=== PATIENT | female | born 1990 | race Caucasian/White ===

== ENCOUNTER 2019-03-28 16:36 | Emergency (ER) | payer MEDICAID ==
[~2019-03-28] VITALS: Ht 167.7 cm; Wt 124.5 kg
[~2019-03-28 16:36] MED LIST: AMOX250S5 PO; CARI3CAP PO; DEPO SHOT; HYDR473S16 PO; IBUP-1780 PO; LABE100T2 PO; METH4TAB PO; tetracaine suckers PO
--- NOTE | 2019-03-28 17:51 | Diagnostic Imaging Report ---
PROCEDURE: CT head and CT cervical spine without contrast. TECHNIQUE: Multiple contiguous axial images were obtained through the brain and cervical spine without the use of intravenous contrast. Sagittal and coronal reformations through the cervical spine were then performed. Auto Exposure Controls were utilized during the CT exam to meet ALARA standards for radiation dose reduction. INDICATION: Head and neck pain after fall on wet floor. COMPARISON: None available. FINDINGS: Head: No hyperdense hemorrhage or space-occupying mass. No hydrocephalus or midline shift. No evidence of territorial infarct. Basilar cisterns are patent. No focal scalp swelling. No skull fracture. Paranasal sinuses are clear. Mastoid air cells are hypoplastic. Cervical spine: No acute fracture or traumatic malalignment. Intervertebral disc spaces are normal. Airway is patent. No cervical lymphadenopathy. Visualized thyroid is normal. IMPRESSION: 1. No acute intracranial process. 2. No acute fracture or traumatic malalignment of the cervical spine. Dictated by: Dictated on workstation # [id number]
[2019-03-28 17:52] LABS: WHITE BLOOD COUNT 6.6 10^3/uL (4.3-11.0)
[2019-03-28 17:53] LABS: BASOPHILS # (AUTO) 0.1 10^3/uL (0.0-0.1); BASOPHILS % (AUTO) 1 % (0-10); EOSINOPHILS # (AUTO) 0.2 10^3/uL (0.0-0.3); EOSINOPHILS % (AUTO) 4 % (0-10); HEMATOCRIT 40 % (35-52); HEMOGLOBIN 13.1 G/DL (11.5-16.0); LYMPHOCYTES # (AUTO) 1.9 X 10^3 (1.0-4.0); LYMPHOCYTES % (AUTO) 28 % (12-44); MEAN CORPUSCULAR HEMOGLOBIN 29 PG (25-34); MEAN CORPUSCULAR HGB CONC 33 G/DL (32-36); MEAN CORPUSCULAR VOLUME 89 FL (80-99); MEAN PLATELET VOLUME 9.6 FL (7.4-10.4); MONOCYTES # (AUTO) 0.3 X 10^3 (0.0-1.0); MONOCYTES % (AUTO) 5 % (0-12); NEUTROPHILS # (AUTO) 4.1 X 10^3 (1.8-7.8); NEUTROPHILS % (AUTO) 62 % (42-75); PLATELET COUNT 358 10^3/uL (130-400); RED CELL DISTRIBUTION WIDTH 12.8 % (10.0-14.5)
--- NOTE | 2019-03-28 17:54 | ED Trauma-Multisystem ---
General Chief Complaint: Trauma-Non Activation Stated Complaint: HEAD INJ Nursing Triage Note: Headache, blurred vision, nausea, and vomiting (SIERRA TARIQ MD) History of Present Illness Date Seen by Provider: Mar 28, 2019 Time Seen by Provider: 16:25 Initial Comments The patient is a 29-year-old female with a history of hypertension and who is not on any blood thinners. She presents with concern for a mechanical slip and fall onto her occiput just prior to arrival, leading to an occipital head injury with loss of consciousness and vomiting. Patient states she slipped on the wet linoleum tile floor in her kitchen and fell backwards, striking her head on the ground. There was a loss of consciousness of unknown duration. When the patient returned to consciousness she vomited a total of 4 times, nonbloody, within the first few minutes after awakening. She feels "woozy" and reports mildly blurry vision and also notes some mild discomfort to the base of her neck at posterior midline but otherwise denies significant pain anywhere and is alert and oriented 4 and moves all extremities equally and no lateralizing deficits are grossly noted on initial evaluation in the emergency department. No therapy for discomfort prior to arrival although she did receive Zofran for nausea. Location Injury Occurred: Home (SIERRA TARIQ MD) Allergies and Home Medications Allergies Coded Allergies: No Known Drug Allergies (Unverified , 07/26/10) Home Medications Cariprazine Hydrochloride 3 Mg Capsule, 3 MG PO DAILY, (Reported) Ibuprofen 800 Mg Tablet, 800 MG PO Q8H PRN for PAIN, (Reported) Labetalol Hcl 100 Mg Tablet, 150 MG PO BID, (Reported) Methylprednisolone 4 Mg Tab.ds.pk, 4 MG PO UD Prescribed by: JACKSON ALBERTS on 01/28/16 1527 Ondansetron 4 Mg Tab.rapdis, 4 MG PO Q6H PRN for NAUSEA/VOMITING Prescribed by: FRANSISCA PALACIOS on 03/28/19 1906 [Depo Shot] , EVERY 3 MONTHS, (Reported) Patient Home Medication List Home Medication List Reviewed: Yes (SIERRA TARIQ MD) Review of Systems Review of Systems Constitutional: see HPI (SIERRA TARIQ MD) All Other Systems Reviewed Negative Unless Noted: Yes (Negative excepted noted.) (SIERRA TARQI MD) Past Yunizpm-Nfexlg-Jtzdym Hx Past Med/Social Hx: Reviewed Nursing Past Med/Soc Hx (SIERRA TARIQ MD) Patient Social History Alcohol Use: Occasionally Uses Recreational Drug Use: No Smoking Status: Never a Smoker 2nd Hand Smoke Exposure: No Recent Foreign Travel: No Contact w/Someone Who Travel: No Recent Infectious Disease Expo: No Recent Hopitalizations: No Physical Abuse: No Sexual Abuse: No Mistreated: No Fear: No (SIERRA TARIQ MD) Immunizations Up To Date Date of Pneumonia Vaccine: Jul 05, 2009 (SIERRA TARIQ MD) Seasonal Allergies Seasonal Allergies: No (SIERRA TARIQ MD) Past Medical History Surgeries: Yes (DENTAL, Lithotripsy) Section, Tonsillectomy Respiratory: No Cardiac: Yes Hypertension Neurological: No : No Reproductive Disorders: No Sexually Transmitted Disease: No Gastrointestinal: No Musculoskeletal: No Endocrine: No Cancer: No Psychosocial: No Anxiety, Depression Integumentary: No Blood Disorders: Yes (ANEMIA) (SIERRA TARIQ MD) Family Medical History Reviewed Nursing Family Hx (SIERRA TARIQ MD) Physical Exam Vital Signs Vital Signs - First Documented 03/28/19 16:36 Temp 37.8 Pulse 111 Resp 18 B/P (MAP) 154/106 (122) Pulse Ox 97 O2 Delivery Room Air (FRANSISCA PALACIOS MD) Height, Weight, BMI Height: 5'" Weight: 220lbs. oz. 99.670318nq; 44.00 BMI Method:Stated General Appearance: No Apparent Distress This is a younger female appearing nontoxic and in no acute distress. Head is normocephalic and with mild tenderness without obvious swelling or other acute abnormality noted to her occiput. No other signs of trauma and no signs basilar skull fracture. Neck is supple and with mild tenderness to the base posteriorly without erythema, warmth, swelling, step-offs or deformities. Oropharynx is moist. Lungs are clear to auscultation in all stations. There is a normal S1 and S2 without rubs or gallops and capillary refill is appropriate, less than 2 seconds globally. Abdomen is soft, nontender and nondistended. Skin is warm and dry without cyanosis, clubbing or edema. Psychiatrically, the patient him straight appropriate mood and affect and is alert. The neurologic standpoint, cranial nerves II through XII are intact and there are no lateralizing deficits noted. Speech is normal. Language is normal. Coordination is normal. There is no dysmetria with ytugmm-xq-nknk or ojha-wo-rusv bilaterally. Strength is 5 out of 5 at all joints of bilateral upper and lower extremities. Sensation is intact to light touch in bilateral upper and lower extremities. Ambulation testing is deferred. The patient is alert and oriented 4. Bilateral upper and lower extremities are able to range all joints without discomfort and all are neurovascularly intact. Examination the back reveals no erythema, warmth, swelling, stepoffs or deformities. (SIERRA TARIQ MD) Progress/Results/Core Measures Results/Orders Lab Results Laboratory Tests Test 03/28/19 17:30 Range/Units White Blood Count 6.6 4.3-11.0 10^3/uL Red Blood Count 4.49 4.35-5.85 10^6/uL Hemoglobin 13.1 11.5-16.0 G/DL Hematocrit 40 35-52 % Mean Corpuscular Volume 89 80-99 FL Mean Corpuscular Hemoglobin 29 25-34 PG Mean Corpuscular Hemoglobin Concent 33 32-36 G/DL Red Cell Distribution Width 12.8 10.0-14.5 % Platelet Count 358 130-400 10^3/uL Mean Platelet Volume 9.6 7.4-10.4 FL Neutrophils (%) (Auto) 62 42-75 % Lymphocytes (%) (Auto) 28 12-44 % Monocytes (%) (Auto) 5 0-12 % Eosinophils (%) (Auto) 4 0-10 % Basophils (%) (Auto) 1 0-10 % Neutrophils # (Auto) 4.1 1.8-7.8 X 10^3 Lymphocytes # (Auto) 1.9 1.0-4.0 X 10^3 Monocytes # (Auto) 0.3 0.0-1.0 X 10^3 Eosinophils # (Auto) 0.2 0.0-0.3 10^3/uL Basophils # (Auto) 0.1 0.0-0.1 10^3/uL Neutrophils % (Manual) 62 % Lymphocytes % (Manual) 28 % Monocytes % (Manual) 4 % Eosinophils % (Manual) 3 % Band Neutrophils 3 % Blood Morphology Comment NORMAL Prothrombin Time 12.7 12.2-14.7 SEC INR Comment 0.9 0.8-1.4 Activated Partial Thromboplast Time 29 24-35 SEC Sodium Level 139 135-145 MMOL/L Potassium Level 4.0 3.6-5.0 MMOL/L Chloride Level 106 98-107 MMOL/L Carbon Dioxide Level 24 21-32 MMOL/L Anion Gap 9 5-14 MMOL/L Blood Urea Nitrogen 10 7-18 MG/DL Creatinine 0.89 0.60-1.30 MG/DL Estimat Glomerular Filtration Rate > 60 BUN/Creatinine Ratio 11 Glucose Level 106 H 70-105 MG/DL Calcium Level 9.0 8.5-10.1 MG/DL Corrected Calcium 9.1 8.5-10.1 MG/DL Total Bilirubin 0.4 0.1-1.0 MG/DL Aspartate Amino Transf (AST/SGOT) 18 5-34 U/L Alanine Aminotransferase (ALT/SGPT) 27 0-55 U/L Alkaline Phosphatase 76 40-136 U/L Total Protein 6.9 6.4-8.2 GM/DL Albumin 3.9 3.2-4.5 GM/DL Serum Test, Qualitative NEGATIVE NEGATIVE (FRANSISCA PALACIOS MD) Vital Signs/I&O 03/28/19 03/28/19 16:36 19:13 Temp 37.8 37.8 Pulse 111 95 Resp 18 18 B/P (MAP) 154/106 (122) 152/95 (122) Pulse Ox 97 97 O2 Delivery Room Air (FRANSISCA PALACIOS MD) Blood Pressure Mean: 122 Progress Progress Note : Time: 17:54 Progress Note Patient rules in for head CT by [place] rules and for cervical spinal CT by [facility] criteria. C-collar applied prehospital. Will give medication for discomfort and check head and cervical spinal CT scans and then reevaluate. GUILLERMINA to Dr. Palacios. (SIERRA TARIQ MD) Progress Note : Time: 19:[address] scans were negative for Dr. Tariq of the Head and cervical spine prior to my taking over care of the patient at 1800. Labs came back looking ok without acute significant abnormality on CBC, Chemistry or coags. She is tolerating PO and feels better. Will discharge to home with return precautions and some Zofran ODT if needed for nausea. (FRANSISCA PALACIOS MD) Diagnostic Imaging Diagonstic Imaging: CT Plain Films/CT/US/NM/MRI: c-spine, head Comments NAME: ANTONIO DEWITT [facility] REC#: [id number] PT STATUS: REG ER : 1990 PHYSICIAN: SIERRA TARIQ MD ADMIT DATE: 03/28/19/ER FS Signed Date of Exam:03/28/19 CT HEAD/CERVICAL SPINE WO PROCEDURE: CT head and CT cervical spine without contrast. TECHNIQUE: Multiple contiguous axial images were obtained through the brain and cervical spine without the use of intravenous contrast. Sagittal and coronal reformations through the cervical spine were then performed. Auto Exposure Controls were utilized during the CT exam to meet ALARA standards for radiation dose reduction. INDICATION: Head and neck pain after fall on wet floor. COMPARISON: None available. FINDINGS: Head: No hyperdense hemorrhage or space-occupying mass. No hydrocephalus or midline shift. No evidence of territorial infarct. Basilar cisterns are patent. No focal scalp swelling. No skull fracture. Paranasal sinuses are clear. Mastoid air cells are hypoplastic. Cervical spine: No acute fracture or traumatic malalignment. Intervertebral disc spaces are normal. Airway is patent. No cervical lymphadenopathy. Visualized thyroid is normal. IMPRESSION: 1. No acute intracranial process. 2. No acute fracture or traumatic malalignment of the cervical spine. Dictated by: Dictated on workstation # [id number] Dict: 03/28/191724 Trans: 03/28/191747 [facility] [id number] Interpreted by: MAGALYS CARREON MD Electronically signed by: MAGALYS CARREON MD 03/28/191747 (FRANSISCA PALACIOS MD) Departure Impression Primary Impression: Contusion of occipital region of scalp Qualified Codes: S00.03XA - Contusion of scalp, initial encounter Additional Impression: Concussion with brief loss of consciousness Disposition: 01 HOME, SELF-CARE Condition: Stable Departure-Patient Inst. Decision time for Depature: 19:04 (FRANSISCA PALACIOS MD) Referrals: NO,LOCAL PHYSICIAN (PCP) Primary Care Physician [facility] Patient Instructions: Concussion, Adult (DC), Minor Head Injury (DC) Add. Discharge Instructions: Stay well hydrated and get plenty of rest. Follow up with primary provider for continued concerns Use the dissolving nausea medicine up to every 6 hours as needed to help keep your stomach settled. All discharge instructions reviewed with patient and/or family. Voiced understanding. Scripts Ondansetron (Ondansetron Odt) 4 Mg Tab.rapdis 4 MG PO Q6H PRN for NAUSEA/VOMITING for 2 Days, #8 TAB 0 Refills Prov: FRANSISCA PALACIOS MD 03/28/19 SIERRA TARIQ MD Mar 28, 2019 17:54 FRANSISCA PALACIOS MD Mar 28, 2019 19:06
[2019-03-28 18:11] LABS: INR 0.9 (0.8-1.4); PROTHROMBIN TIME PATIENT 12.7 SEC (12.2-14.7)
[2019-03-28 18:13] LABS: ALKALINE PHOSPHATASE 76 U/L (40-136); BILIRUBIN,TOTAL 0.4 MG/DL (0.1-1.0); BUN/CREATININE RATIO 11; CARBON DIOXIDE 24 MMOL/L (21-32); CHLORIDE 106 MMOL/L (98-107); CREATININE SERUM 0.89 MG/DL (0.60-1.30); GFR ESTIMATED > 60; GLUCOSE 106 MG/DL (70-105); SODIUM 139 MMOL/L (135-145)
[2019-03-28 18:14] LABS: ALBUMIN 3.9 GM/DL (3.2-4.5); TOTAL PROTEIN 6.9 GM/DL (6.4-8.2)
[2019-03-28 18:21] LABS: ALANINE AMINOTRANSFERASE 27 U/L (0-55)
[2019-03-28] MEDS ORDERED: ONDA4TAB11 PO (19:06)
[2019-03-28 19:13] VITALS: BP 152/95
[2019-03-28 19:30] LABS: BAND NEUTROPHILS 3 %; EOSINOPHILS % (MANUAL) 3 %; LYMPHOCYTES % (MANUAL) 28 %; MONOCYTES % (MANUAL) 4 %; NEUTROPHILS % (MANUAL) 62 %; RBC MORPH NORMAL
== END 2019-03-28 19:13 | disposition home or self-care (01) ==
LOC: EDUNIT# 16:36 → ER FS 16:37
DX: S06.0X9A Concussion with loss of consciousness of unspecified duration, initial encounter (principal); S00.03XA Contusion of scalp, initial encounter; I10 Essential (primary) hypertension; F41.9 Anxiety disorder, unspecified; F32.9 Major depressive disorder, single episode, unspecified; D64.9 Anemia, unspecified; Z79.52 Long term (current) use of systemic steroids; Z90.89 Acquired absence of other organs; W01.198A Fall on same level from slipping, tripping and stumbling with subsequent striking against other object, initial encounter
CPT/HCPCS: 36415; 70450; 72125; 80053; 84703; 85007; 85027; 85610; 85730

== ENCOUNTER → 2019-05-17 | Outpatient (CLI) | payer MEDICAID ==
[~2019-05-17] MED LIST changes: +ONDA4TAB11 PO
--- NOTE | 2019-05-17 10:37 | Diagnostic Imaging Report ---
INDICATION: Prior history of left-sided kidney stones. Patient is status post lithotripsy. TIME OF EXAM: 10:23 a.m. COMPARISON: No prior studies are available for comparison. FINDINGS: There is a 4 mm calcific density overlying the lower pole of the right kidney. No definite calculi are identified overlying the left renal shadow, although both renal shadows are somewhat obscured by overlying bowel. No definite calculi are seen within the expected distribution of the ureters. There is a tiny calcification in the right pelvis, likely representing a phlebolith. Bowel gas pattern is nonobstructed. IMPRESSION: Right lower pole renal calculus. No other significant abnormality is seen. Dictated by: Dictated on workstation # [id number]
== END ==
LOC: RAD FS 10:15
PROVIDERS: ATTEND Urology
DX: N20.0 Calculus of kidney (principal); Z98.890 Other specified postprocedural states
CPT/HCPCS: 74018

== ENCOUNTER 2019-11-24 19:56 | Emergency (ER) | payer MEDICAID ==
[~2019-11-24] VITALS: Ht 167.7 cm; Wt 113.6 kg
[2019-11-24 20:01] VITALS: BP 141/92
[2019-11-24] MEDS ORDERED: HYDROcodone/APAP 5 MG/325 MG (LORTAB) TAB PO ONE (20:15)
[2019-11-24] MEDS ORDERED: IBUPROFEN 600 MG (MOTRIN) TAB PO ONE (20:15)
--- NOTE | 2019-11-24 20:17 | ED Lower Extremity ---
General Chief Complaint: Trauma-Non Activation Stated Complaint: KNEE AND HIP PAIN/FALL Source: patient History of Present Illness Date Seen by Provider: November 24, 2019 Time Seen by Provider: 19:45 Initial Comments Patient is a 29-year-old female presents with right hip, thigh, knee and leg pain after falling from standing. Patient states she was walking knocked her over when it began to tao after a cat. Patient states her right knee twisted sideways and that she fell on her back in right side and slid down a hill. Injury occurred just prior to ED arrival. Patient denies hitting her head, loss of consciousness and neck pain. Denies upper extremity pain, chest pain, upper back and abdominal pain. Patient was able to ambulate with assistance prior to ED arrival and arrives by private vehicle. No other acute symptoms or complaints. Patient has control implant in place Onset: just prior to arrival Pain/Injury Location: left hip, left leg, left knee, left thigh Method of Injury: twisted Modifying Factors: Improves With Immobilization Allergies and Home Medications Allergies Coded Allergies: No Known Drug Allergies (Unverified , 07/26/10) Home Medications Cariprazine Hydrochloride 3 Mg Capsule, 3 MG PO DAILY, (Reported) Hydrocodone/Acetaminophen 1 Each Tablet, 1 EACH PO Q6H Prescribed by: CARTER HAAS on 11/24/192017 Ibuprofen 800 Mg Tablet, 800 MG PO Q8H PRN for PAIN, (Reported) Labetalol Hcl 100 Mg Tablet, 150 MG PO BID, (Reported) Methylprednisolone 4 Mg Tab.ds.pk, 4 MG PO UD Prescribed by: JACKSON ALBERTS on 01/28/16 1527 Ondansetron 4 Mg Tab.rapdis, 4 MG PO Q6H PRN for NAUSEA/VOMITING Prescribed by: FRANSISCA PALACIOS on 03/28/19 1906 [Depo Shot] , EVERY 3 MONTHS, (Reported) Patient Home Medication List Home Medication List Reviewed: Yes Review of Systems Constitutional: no symptoms reported EENTM: no symptoms reported Respiratory: no symptoms reported Gastrointestinal: no symptoms reported Genitourinary: no symptoms reported : No Musculoskeletal: see HPI Skin: no symptoms reported Psychiatric/Neurological: No Symptoms Reported Past Rfjgpnx-Hpnnxs-Njyiwb Hx Past Med/Social Hx: Reviewed Nursing Past Med/Soc Hx Patient Social History 2nd Hand Smoke Exposure: No Recent Foreign Travel: No Contact w/Someone Who Travel: No Recent Hopitalizations: No Immunizations Up To Date Date of Pneumonia Vaccine: Jul 05, 2009 Seasonal Allergies Seasonal Allergies: No Past Medical History Surgeries: Yes (DENTAL, Lithotripsy) Section, Tonsillectomy Respiratory: No Cardiac: Yes Hypertension Neurological: No Reproductive Disorders: No Sexually Transmitted Disease: No Gastrointestinal: No Musculoskeletal: No Endocrine: No Cancer: No Psychosocial: No Anxiety, Depression Integumentary: No Blood Disorders: Yes (ANEMIA) Physical Exam Vital Signs Capillary Refill : Height, Weight, BMI Height: 5'" Weight: 220lbs. oz. 99.204414nu; 44.00 BMI Method:Stated General Appearance: WD/WN, no apparent distress HEENT: PERRL/EOMI, TMs normal, pharynx normal Neck: full range of motion, supple, normal inspection Cardiovascular: normal peripheral pulses, regular rate, rhythm Respiratory: chest non-tender, lungs clear Gastrointestinal: non tender, soft Back: normal inspection Hips: right hip pain, right hip soft tissue tenderness, right hip swelling Legs: right leg limited range of motion, right leg pain, right leg soft tissue tenderness, right leg swelling Knees: right knee pain, right knee soft tissue tenderness, right knee swelling Ankles: bilateral ankle non-tender, bilateral ankle normal inspection, bilate ral ankle no evidence of injury Feet: bilateral foot non-tender, bilateral foot normal inspection, bilateral foot normal range of motion Neurologic/Tendon: normal sensation Neurologic/Psychiatric: oriented x 3; No motor weakness, No sensory deficit Skin: normal color Progress/Results/Core Measures Results/Orders My Orders Orders - CARTER HAAS DO Knee 3 View Right (11/24/19 20:08) Femur 2 View Right (11/24/19 20:08) Tibia Fibula 2 View Right (11/24/19 20:08) Hydrocodone/Apap 5/325 Tablet (Lortab 5 (11/24/19 20:15) Ibuprofen Tablet (Motrin Tablet) (11/24/19 20:15) Knee Immobilizer (11/24/19 20:21) Medications Given in ED Current Medications Medications Dose Ordered Sig/Gama Route Start Time Stop Time Status Last Admin Dose Admin Acetaminophen/ Hydrocodone Bitart 1 tab ONCE ONCE PO 11/24/19 20:15 11/24/19 20:16 DC 11/24/19 20:15 1 TAB Ibuprofen 600 mg ONCE ONCE PO 11/24/19 20:15 11/24/19 20:16 DC 11/24/19 20:15 600 MG Departure Communication (Admissions) R femur/knee/tib fib: No obvious displaced fractures Impression Primary Impression: Sprain of knee/leg Disposition: HOME, SELF-CARE Condition: Stable Departure-Patient Inst. Decision time for Depature: 20:15 Referrals: [facility] (PCP) Primary Care Physician PEGGY CHI APRN (Family) Primary Care Physician Patient Instructions: Knee Sprain (DC), Acute Pain, Adult Add. Discharge Instructions: Please take 600 mg of ibuprofen 3 times daily and apply ice to affected areas 20-30 minutes every 2-3 hours. Jonas Paul mobilizer and use crutches as needed for assistance. Take hydrocodone as needed for additional relief at bedtime. Follow- up with your PCP for reevaluation next week if symptoms persist. All discharge instructions reviewed with patient and/or family. Voiced understanding. Scripts Hydrocodone/Acetaminophen (Hydrocodone-Acetamin 5-325 mg) 1 Each Tablet 1 EACH PO Q6H, #12 TAB Prov: CARTER HAAS DO 11/24/19 CARTER HAAS DO November 24, 2019 20:17
[2019-11-24] MEDS ORDERED: HYDR-83 PO (20:18)
--- OUTSIDE RECORDS SUMMARY | 2019-11-24 20:34 | XMS REPORT | Clinical Summary ---
Author Author [facility] Organization [facility] Address Unknown Phone Unavailable Care Team Providers Care Marine Service Operator Name Role Phone Jeanie Phillip RN Unavailable Unavailable Clarence Valdivia RN Unavailable Unavailable Juan Carlos Mora MD PCP Source Comments Some departments are not documenting in the electronic medical record. If you d o not see the information that you expected, contact Release of Information in [facility] [employer] Information Management department at [phone] for further assistan ce in locating additional records.[facility] Allergies No Known Allergies Medications End Date Status Medication Sig Dispensed Refills Start Date Active NO HOME MEDICATIONS 0 Active nystatin (NYSTOP) 100,000 Apply to 30 g 0 unit/g topical powder affected area 8 Four Times Daily. Active labetalol (NORMODYNE) 100 Take 100 mg 0 mg tablet by mouth twice daily. Active leuprolide(+) 3 month Inject 22.5 0 (LUPRON DEPOT) 22.5 mg to area(s) mg/1.5 mL injection as directed once. 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 Garcia with concern for right renal a rtery aneurysm -CTA without evidence of renal artery a neurysm Kidney stone 09/22/2012 Social History Date Tobacco Use Types Packs/Day Years Used Current Some Day Smoker Cigarettes Smokeless Tobacco: Never Used Drinks/Week oz/Week Comments Alcohol Use No Sex Assigned at Date Recorded Not on file Industry Job Start Date Occupation Not on file Not on file Not on file Travel End Travel History Travel Start No recent travel history available. Last Filed Vital Signs Reading Time Taken Comments Vital Sign 136/90 09/22/2012 1:10 PM CDT Blood Pressure 76 09/22/2012 1:10 PM CDT Pulse 37.3 C (99.1 F) 05/27/2008 1:35 AM MANAGEMENT LEAD Temperature - - Respiratory Rate 100% 05/27/2008 1:35 AM MANAGEMENT LEAD Oxygen Saturation - - Inhaled Oxygen Concentration 97.7 kg (215 lb 6.4 oz) 09/22/2012 1:10 PM CDT Weight 167.6 cm (5' 6") 09/22/2012 1:10 PM CDT Height 34.77 09/22/2012 1:10 PM CDT Body Mass Index Plan of Treatment Health Maintenance Due Date Last Done Comments HIV SCREENING 02/05/2004 DTAP/TDAP VACCINES (1 - 2007 Tdap) HEPATITIS C SCREENING 2007 PHYSICAL (COMPREHENSIVE) 2007 EXAM CERVICAL CANCER SCREENING 2010 INFLUENZA VACCINE 04/04/2020 Results Not on filefrom Last 3 Months
--- OUTSIDE RECORDS SUMMARY | 2019-11-24 20:34 | XMS REPORT | Continuity of Care Document ---
Author Author [facility] Kw[facility] Address Unknown Phone Unavailable Care Team Providers Care Crop Research Scientist Name Role Phone Taylor Aguilar RP Unavailable Payers Payer name Insurance type Covered libertarian ID Authorization(s ) [facility] [id number] Problems Condition Effective Dates (start - stop) Clinical Status Abdominal wall mass - Family History Family Member Diagnosis Age At Onset Status Maternal grandfather (Unknown) CVA (Stroke) Y es Maternal grandfather (Unknown) Cancer - melanoma Yes Maternal grandfather (Unknown) Diabetes Y es Social History Social History Element Description Quantity Unknown Allergies, Adverse Reactions, Alerts Substance Reaction Severity Status HYDROCODONE itching Unknown Medications Medication Instructions Dosage Effective Dates (start - sto p) Status labetalol 100 mg tablet take 1 tablet (100MG) by or al route 2 times every day for HTN 100 MG - Active Depo-Provera 150 mg/mL IM Susp inject 1 milliliter (15 0MG) by intramuscular route every 3 months 150 MG - Active ciprofloxacin 500 mg tablet take 1 tablet (500MG) by oral route every 12 hours for UTI 500 MG - Active Immunizations Vaccine Date Status Comments Unknown Results Test Name Date and Time Measure Units Reference Range Abnormal F lag Comments Unknown Vital Signs Date / Time: Height Weight Pulse Rate Blood Pressure Temperat ure Unknown Procedures Procedure Date Unknown Encounters Encounter Location Date Patient Visit [facility] N Patient Visit [facility] N Advance Directives Directive Yes / No Effective Date Resuscitation Yes 05/15/2013 Life Support Yes 05/15/2013 Intubation Yes 05/15/2013 Antibiotics Yes 05/15/2013 IV Fluid Support Yes 05/15/2013 WARNING:The information contained in this section is historical and is provided for information only and does not constitute a legal document or any assurance t hat the information is still accurate. Please verify the information with the ho lder of the legal document before using it for clinical purposes.
--- OUTSIDE RECORDS SUMMARY | 2019-11-24 20:34 | XMS REPORT | Continuity of Care Document ---
Author Author Jackie Burnett [facility] Address Unknown Phone Unavailable Care Team Providers Care Business Excellence Manager Name Role Phone Taylor Aguilar RP Unavailable Payers Payer name Insurance type Covered constitution party ID Authorization(s ) [facility] [id number] Problems Condition Effective Dates (start - stop) Clinical Status Abdominal wall mass - Family History Family Member Diagnosis Age At Onset Status Maternal grandfather (Unknown) CVA (Stroke) Y es Maternal grandfather (Unknown) Cancer - melanoma Yes Maternal grandfather (Unknown) Diabetes Y es Social History Social History Element Description Quantity caffeine soda 3-4 tobacco cigarettes Allergies, Adverse Reactions, Alerts Substance Reaction Severity Status HYDROCODONE itching Unknown Medications Medication Instructions Dosage Effective Dates (start - sto p) Status Depo-Provera 150 mg/mL IM Susp inject 1 milliliter (15 0MG) by intramuscular route every 3 months 150 MG - Active tramadol 50 mg tablet take 1 tablet (50MG) by ora l route every 6 hours as needed 50 MG - No Longer Acti ve oxycodone-acetaminophen 5 mg-325 mg tablet take 1 - 2 tablet by ORAL route every 6 hours as needed 0 - No Longer Active labetalol 100 mg tablet take 1 tablet (100MG) by or al route 2 times every day for HTN 100 MG - Active ciprofloxacin 500 mg tablet take 1 tablet (500MG) by oral route every 12 hours for UTI 500 MG - Active Immunizations Vaccine Date Status Comments Unknown Results Test Name Date and Time Measure Units Reference Range Abnormal F lag Comments Unknown Vital Signs Date / Time: Height Weight Pulse Rate Blood Pressure Temperat ure /14:13:00 67.00 in 231.20 lbs 80 /min 130/88 mm[Hg] 9 9.1 F Procedures Procedure Date Office/outpatient visit, new Encounters Encounter Location Date Patient Visit [facility] Advance Directives Directive Yes / No Effective Date Resuscitation Yes 05/12/2013 Life Support Yes 05/12/2013 Intubation Yes 05/12/2013 Antibiotics Yes 05/12/2013 IV Fluid Support Yes 05/12/2013 WARNING:The information contained in this section is historical and is provided for information only and does not constitute a legal document or any assurance t hat the information is still accurate. Please verify the information with the ho lder of the legal document before using it for clinical purposes.
--- OUTSIDE RECORDS SUMMARY | 2019-11-24 20:34 | XMS REPORT | Continuity of Care Document ---
Author Author [facility] Address Unknown Phone Unavailable Allergies, Adverse Reactions, Alerts Substance Reaction Severity Status hydrocodone itching Unknown Active Medications Medication Instructions Dosage Effective Dates (start - stop) Sta tus Comments Diflucan 150 mg tablet take 1 tablet (150MG) by oral route once 150 MG - Active MS Contin 30 mg tablet,extended release take 1 tablet (30MG) by oral route every 12 hours 30 MG - Active Depo-Provera 150 mg/mL IM Susp inject 1 milliliter (15 0MG) by intramuscular route every 3 months 150 MG - Active labetalol 100 mg tablet take 1 tablet (100MG) by or al route 2 times every day for HTN 100 MG - Active ciprofloxacin 500 mg tablet take 1 tablet (500MG) by oral route every 12 hours for UTI 500 MG - Active tramadol 50 mg tablet take 1 tablet (50MG) by ora l route every 6 hours as needed 50 MG - No Longer Active oxycodone-acetaminophen 5 mg-325 mg tablet take 1 - 2 tablet by ORAL route every 6 hours as needed Not Available - No Longer Active Problems Condition Effective Dates (start - stop) Clinical Status Unknown Procedures Procedure Date Office/outpatient visit, new Results Test Name Date and Time Measure Units Reference Range Abnormal F lag Comments Unknown Advance Directives Directive Yes / No Effective Date File Name Resuscitation Not Answered N/A N/A Life Support Not Answered N/A N/A Intubation Not Answered N/A N/A Antibiotics Not Answered N/A N/A IV Fluid Support Not Answered N/A N/A Tube Feed Not Answered N/A N/A CPR Not Answered N/A N/A Other Directive No N/A N/A WARNING:The information contained in this section is historical and is provided for information only and does not constitute a legal document or any assurance t hat the information is still accurate. Please verify the information with the ho lder of the legal document before using it for clinical purposes. Encounters Encounter Description Practice Location Reason(s) For Visit Diagnose s Date Provider Care Team Members [facility], [address] [place] [address], [address] [place], [place] [address]nee [facility] De Lauren Godoy. [address], [address], [place], [place], [facility], [place]. tel:[phone] [facility] [place] [facility], [address] [place] [address], [facility], [facility] No Lauren Mcclendonyn. [address], [address], [place], [place], [facility], [place]. tel:[phone] [facility] [place] [facility], [address] [place] [address], [facility], [facility] No Foos Taylor HillJayne. [address], [address], [place], [place], [facility], [place]. tel:[phone] [facility] [place] [facility], [address] [place] [address], [facility], [facility] No Foos Taylor HillJayne. [address], [address], [place], [place], [facility], [place]. tel:[phone] [facility] [place] [facility], [address] [place] [address], [facility], [facility] No Foos Taylor Jayne. [address], [address], [place], [place], [facility], [place]. tel:[phone] [facility] [place] [facility], [address] [place] [address], [facility], [facility] No Lauren Godoy. [address] [place] [address], [address], [place], [address], [place]. tel:[phone] Office/outpatient visit, [facility], [address] [place], [address], [place] [facility] Follow Up of hosp (chief complaint) Abdominal wall mass Lauren Godoy. [address] [place] [address], [address], [place], [address], [place]. tel:[phone] Referring Provider: Taylor Aguilar, [address] [place] [address] [address], [place], [address]. tel:[phone] Family History Family Member Diagnosis Age At Onset Maternal grandfather Stroke Maternal grandfather Melanoma Maternal grandfather Diabetes mellitus Immunizations Vaccine Date Status Comments Unknown Payers Payer name Insurance type Covered libertarian ID Authorization(s ) [facility] [id number] Social History Type Description Quantity Date Captured Alcohol Use Details No Caffeine Use Details No Tobacco Use Status Smoking Status Unknown Smoking Tobacco Use Details Cigarette: Years Used 4 Cigarette: 0.5 per day, Pack Year: 2 Alcohol Use Details No Caffeine Use Details soda 3-4 per day Tobacco Use Status Smoking Status Current every day smoker 2012 Smoking Tobacco Use Details Cigarette: Years Used 4 Cigarette: 0.5 per day, Pack Year: 2 Vital Signs Date / Time: Height Weight BMI Pulse Rate Blood Pressure Temperatu re Respiratory Rate Body Surface Area Head Circumference BMI percentile /14:13:00 67.00 in 231.20 lbs 36.21 kg/meter(2) 80 /min 130/88 mm[Hg] 99.1 F 12 /min Chief Complaint And Reason For Visit Unknown Chief Complaint And Reason For Visit Reason For Referral Reason For Referral Unknown Plan Of Care Date Type Action Status Referral Ordered: WOMENS CARE (OBGYN) ordered Date Type Problem Goal Intervention Status Start D ate Unknown. History Of Present Illness Encounter Date Complaint History Of Present I danny Follow Up of hosp Wednesday went to ER for RLQ abd mass. CT shows a mass and they admitted her to bx the mass. The results are not in yet. She was sent home with Tramadol but it is niot working. Hydrocodone makes her itch. Functional Status Encounter Date Functional Assessment Cognitive Assessme nt Unknown Medications Administered Medication Instructions Dosage Effective Dates (start - stop) Sta tus Comments tramadol 50 mg tablet take 1 tablet (50MG) by ora l route every 6 hours as needed 50 MG - No Longer Active oxycodone-acetaminophen 5 mg-325 mg tablet take 1 - 2 tablet by ORAL route every 6 hours as needed Not Available - No Longer Active Instructions Date Instruction Additional Informati on Unknown
--- OUTSIDE RECORDS SUMMARY | 2019-11-24 20:35 | XMS REPORT | Summary of Care ---
Author Organization Unknown Address Unknown Phone Unavailable Care Team Providers Care Beater And Pulper Feeder Name Role Phone None MD, ED PCP Unavailable Encounter Dates Location Diagnoses Discharge Providers Disposition 05/09/2013 [facility] Discharge Home - 0 1 DARINEL RUEDA, ADELINE - [address] Diagnosis: ADELINE TENA MD 05/11/2013 [place], [place] Abdominal Self , [facility] [id number], hematoma Discharge Diagnosis: Abscess Reason for Visit ABDOMINAL WALL MASS, UTI Vital Signs Most recent to 1 oldest [Reference Range]: Temperature 98.6 DegF [96.8-99.7 DegF] (05/11/2013 07:19:18 [facility]) Temp Method Oral (05/11/2013 07:19:18 [facility]) Heart Rate 57 bpm (05/11/2013 07:21:18 [facility]) Pulse Rate [60-100 67 bpm bpm] (05/09/2013 22:00:00 [facility]) Heart Rate Location Auto BP (05/10/2013 07:00:00 [facility]) Pulse Equipment SPO2 (05/11/2013 07:21:18 [facility]) Respiratory Rate 16 br/min [14-20 br/min] (05/11/2013 07:00:00 [facility]) Inet NIBP Systolic 130 mmHg [70-180 mmHg] (05/11/2013 07:19:00 [facility]) Inet NIBP Diastolic 69 mmHg [50-90 mmHg] (05/11/2013 07:19:00 [facility]) NIBP MAP 81 mmHg (05/11/2013 07:19:00 [facility]) BP Location Arm, right (05/11/2013 07:21:18 [facility]) Problem List Condition Effective Dates Status Health Status Informan t Benign essential Active hypertension(Confirm ed) Obesity(Confirmed) Active Allergies, Adverse Reactions, Alerts Status Substance Reaction Severity Active HYDROcodone1 Unknown 1Pt states, "It makes me itch." Medications Medication Instructions Start Date Stop Date Status acetaminophen 325 mg 2 TAB, PO, Q4H (Every 4 hours), PRN 01/2013 Ordered oral tablet Pain, 0 Refill(s) ciprofloxacin 500 mg 1 TAB, PO, Q12H (Every 12 hours), X 01/201305/21/2013 Ordered oral tablet 10 day, # 20 TAB, 0 Refill( s) labetalol 100 mg 1 TAB, PO, BID (2 times a day), 0 05/09/2013 Ordered oral tablet Refill(s) Percocet 5/325 oral 1 TAB, PO, Q6H (Every 6 hours), PRN 05/1105/25/2013 Ordered tablet Pain, # 12 TAB, 0 Refill(s) traMADol 50 mg oral 1 TAB, PO, Q4H (Every 4 hours), PRN 05/1105/28/2013 Ordered tablet pain, # 20 TAB, 1 Refill(s) Zofran 4 mg oral 1 TAB, PO, Q8H (Every 8 hours), PRN 05/11/2013 05/25/2013 Ordered tablet Nausea/Vomiting, # 20 TAB, 1 Refill(s) Results HEMATOLOGY 1 2 3 Most recent to oldest [Reference Range]: 5.5 x10'3/microL (05/11/2013 06:35:43 [facility]) 7.2 x10'3/micro L (05/10/2013 11:00:00 [facility]) 7.6 x10'3/micro L (05/09/2013 16:33:00 [facility]) WBC [4.0-11.0 x10'3/microL] 4.00 x10'6/microL (05/11/2013 06:35:43 [facility]) 4.28 x10'6/micr oL (05/10/2013 11:00:00 [facility]) 4.52 x10'6/micr oL (05/09/2013 16:33:00 [facility]) RBC [3.90-5.60 x10'6/microL] 12.3 g/dL (05/11/2013 06:35:43 [facility]) 13.1 g/dL (05/10/2013 11:00:00 [facility]) 13.9 g/dL (05/09/2013 16:33:00 [facility]) Hgb [12.0-16.0 g/dL] 35 % (05/11/2013 06:35:43 [facility]) 38 % (05/10/2013 11:00:00 [facility]) 40 % (05/09/2013 [facility] Hct [35-47 %] 253 x10'3/microL (05/11/2013 06:35:43 [facility]) 276 x10'3/micro L (05/10/2013 11:00:00 [facility]) 301 x10'3/micro L (05/09/2013 16:33:00 [facility]) Platelet [140-400 x10'3/microL] 88 fL (05/11/2013 06:35:[facility] 88 fL (05/10/2013 11:00:[facility] 88 fL (05/09/2013 16:33:00 [facility]) MCV [81-99 fL] 31 pg (05/11/2013 06:35:43 [facility]) 31 pg (05/10/2013 11:00:00 [facility]) 31 pg (05/09/2013 16:33:00 [facility]) MCH [27-34 pg] 35 g/dL (05/11/2013 06:35:43 [facility]) 35 g/dL (05/10/2013 11:00:00 [facility]) 35 g/dL (05/09/2013 16:33:00 [facility]) MCHC [32-36 g/dL] 13.1 % (05/11/2013 06:35:43 [facility]) 13.1 % (05/10/2013 11:00:00 [facility]) 13.1 % (05/09/2013 16:33:00 [facility]) RDW [<=14.5 %] 8.6 fL (05/11/2013 06:35:43 [facility]) 8.0 fL (05/10/2013 11:00:00 [facility]) 8.6 fL (05/09/2013 16:33:00 [facility]) MPV [6.5-10.4 fL] 54 % (05/11/2013 06:35:43 [facility]) 66 % (05/10/2013 11:00:00 [facility]) 66 % (05/09/2013 16:33:00 [facility]) Neutrophils % [44-76 %] 34 % (05/11/2013 06:35:43 [facility]) 23 % (05/10/2013 11:00:00 [facility]) 24 % (05/09/2013 16:33:00 [facility]) Lymphocytes % [13-43 %] 9 % (05/11/2013 06:35:43 [facility]) 8 % (05/10/2013 11:00:00 [facility]) 7 % (05/09/2013 16:33:00 [facility]) Monocytes % [0-13 %] 4 % (05/11/2013 06:35:43 [facility]) 2 % (05/10/2013 11:00:00 [facility]) 2 % (05/09/2013 16:33:00 [facility]) Eosinophils % [0-7 %] 1 % (05/11/2013 06:35:43 [facility]) 1 % (05/10/2013 11:00:00 [facility]) 1 % (05/09/2013 16:33:00 [facility]) Basophils % [0-3 %] 2.9 x10'3/microL (05/11/2013 06:35:43 [facility]) 4.8 x10'3/micro L (05/10/2013 11:00:00 [facility]) 5.0 x10'3/micro L (05/09/2013 16:33:00 [facility]) Neutrophils Abs [1.4-7.2 x10'3/microL] 1.9 x10'3/microL (05/11/2013 06:35:43 [facility]) 1.6 x10'3/micro L (05/10/2013 11:00:00 [facility]) 1.9 x10'3/micro L (05/09/2013 16:33:00 [facility]) Lymphocytes Abs [1.2-3.4 x10'3/microL] 0.5 x10'3/microL (05/11/2013 06:35:43 [facility]) 0.6 x10'3/micro L (05/10/2013 11:00:00 [facility]) 0.5 x10'3/micro L (05/09/2013 16:33:00 [facility]) Monocytes Abs [0.1-0.6 x10'3/microL] 0.2 x10'3/microL (05/11/2013 06:35:43 [facility]) 0.2 x10'3/micro L (05/10/2013 11:00:00 [facility]) 0.2 x10'3/micro L (05/09/2013 16:33:00 [facility]) Eosinophils Abs [0.0-0.5 x10'3/microL] 0.0 x10'3/microL (05/11/2013 06:35:43 [facility]) 0.0 x10'3/micro L (05/10/2013 11:00:00 [facility]) 0.1 x10'3/micro L (05/09/2013 16:33:00 [facility]) Basophils Abs [0.0-0.2 x10'3/microL] 13.4 second (05/10/2013 11:00:00 [facility]) PT [11.5-15.0 second] 1.0 *NA* (05/10/2013 11:00:00 [facility]) INR CHEMISTRY 1 2 3 Most recent to oldest [Reference Range]: 141 mmol/L (05/11/2013 06:35:43 [facility]) 141 mmol/L (05/10/2013 11:00:00 [facility]) 139 mmol/L (05/09/2013 16:33:00 [facility]) Sodium [136-145 mmol/L] 3.7 mmol/L (05/11/2013 06:35:43 [facility]) 3.8 mmol/L (05/10/2013 11:00:00 [facility]) 4.1 mmol/L (05/09/2013 16:33:00 [facility]) Potassium [3.5-5.1 mmol/L] 108 mmol/L *HI* (05/11/2013 [facility] 108 mmol/L *HI* (05/10/2013 11:00:00 [facility]) 105 mmol/L (05/09/2013 16:33:00 [facility]) Chloride [98-107 mmol/L] 23 mmol/L (05/11/2013 06:35:43 [facility]) 22 mmol/L (05/10/2013 11:00:00 [facility]) 21 mmol/L *LOW* (05/09/2013 16:33:00 [facility]) CO2 [22-29 mmol/L] 11 mmol/L (05/11/2013 06:35:43 [facility]) 11 mmol/L (05/10/2013 11:00:00 [facility]) 13 mmol/L (05/09/2013 16:33:00 [facility]) AGAP [3-19 mmol/L] 98 mg/dL (05/11/2013 06:35:43 [facility]) 106 mg/dL *HI* (05/10/2013 11:00:00 [facility]) 89 mg/dL (05/09/2013 16:33:00 [facility]) Glucose [70-100 mg/dL] 6 mg/dL *LOW* (05/11/2013 06:35:43 [facility]) 7 mg/dL *LOW* (05/10/2013 11:00:00 [facility]) 19 mg/dL (05/09/2013 16:33:00 [facility]) BUN [8-20 mg/dL] 0.5 mg/dL 1 *LOW* (05/11/2013 06:35:43 [facility]) 0.5 mg/dL 2 *LOW* (05/10/2013 11:00:00 [facility]) 0.6 mg/dL 3 *LOW* (05/09/2013 16:33:00 [facility]) Creatinine [0.7-1.2 mg/dL] 8.4 mg/dL *LOW* (05/11/2013 06:35:43 [facility]) 8.7 mg/dL (05/10/2013 11:00:00 [facility]) 9.7 mg/dL (05/09/2013 16:33:00 [facility]) Calcium [8.6-10.2 mg/dL] >110.0 mL/min/1.73 m2 4 *NA* (05/11/2013 06:35:43 [facility]) >110.0 mL/min/1 .73 m2 5 *NA* (05/10/2013 11:00:00 [facility]) >110.0 mL/min/1 .73 m2 6 *NA* (05/09/2013 16:33:00 [facility]) GFR (MDRD) 160.8 mL/min 7 (05/11/2013 06:35:43 [facility]) 160.8 mL/min 8 (05/10/2013 11:00:00 [facility]) 134.0 mL/min 9 (05/09/2013 16:33:00 [facility]) Est CrCL (CG) 3.8 g/dL (05/10/2013 11:00:00 [facility]) 4.2 g/dL (05/09/2013 16:33:00 [facility]) Albumin Level [3.5-5.2 g/dL] 6.7 g/dL (05/10/2013 11:00:00 [facility]) 7.4 g/dL (05/09/2013 16:33:00 [facility]) Total Protein [6.6-8.7 g/dL] 2.0 mg/dL 10 (05/11/2013 06:35:43 [facility]) Magnesium [1.6-2.6 mg/dL] 58 Inter. Units/L (05/10/2013 11:00:00 [facility]) 73 Inter. Units /L (05/09/2013 16:33:00 [facility]) Alk Phos [40-130 Inter. Units/L] 22 Units/L (05/09/2013 16:33:00 [facility]) Lipase [13-60 Units/L] 12 Units/L (05/10/2013 11:00:00 [facility]) 13 Units/L (05/09/2013 16:33:00 [facility]) AST [0-40 Units/L] 13 Inter. Units/L (05/10/2013 11:00:00 [facility]) 15 Inter. Units /L (05/09/2013 16:33:00 [facility]) ALT [0-33 Inter. Units/L] 0.6 mg/dL (05/10/2013 11:00:00 [facility]) 0.3 mg/dL (05/09/2013 16:33:00 [facility] Bili Total [0.0-1.2 mg/dL] 1Interpretive Data: The presence of ketone bodies can cause artificially high results in serum, plasma and urine. 2Interpretive Data: The presence of ketone bodies can cause artificially high results in serum, plasma and urine. 3Interpretive Data: The presence of ketone bodies can cause artificially high results in serum, plasma and urine. 4Result Comment: GFR calculated based on MDRD abbreviated formula. Age(years) Average GFR 20-29 116 ml/min/1.73 m2 30-39 107 ml/min/1.73 m2 40-49 99 ml/min/1.73 m2 50-59 93 ml/min/1.73 m2 60-69 85 ml/min/1.73 m2 70+ 75 ml/min/1.73 m2 Acceptable GFR =>60 ml/min/1.73 m2 Chronic Kidney Disease <60 ml/min/1.73 m2 Kidney Failure <15 ml/min/1.73 m2 5Result Comment: GFR calculated based on MDRD abbreviated formula. Age(years) Average GFR 20-29 116 ml/min/1.73 m2 30-39 107 ml/min/1.73 m2 40-49 99 ml/min/1.73 m2 50-59 93 ml/min/1.73 m2 60-69 85 ml/min/1.73 m2 70+ 75 ml/min/1.73 m2 Acceptable GFR =>60 ml/min/1.73 m2 Chronic Kidney Disease <60 ml/min/1.73 m2 Kidney Failure <15 ml/min/1.73 m2 6Result Comment: GFR calculated based on MDRD abbreviated formula. Age(years) Average GFR 20-29 116 ml/min/1.73 m2 30-39 107 ml/min/1.73 m2 40-49 99 ml/min/1.73 m2 50-59 93 ml/min/1.73 m2 60-69 85 ml/min/1.73 m2 70+ 75 ml/min/1.73 m2 Acceptable GFR =>60 ml/min/1.73 m2 Chronic Kidney Disease <60 ml/min/1.73 m2 Kidney Failure <15 ml/min/1.73 m2 7Result Comment: Estimated Creatinine Clearance calculated based on the Cockcroft-Gault formula. 8Result Comment: Estimated Creatinine Clearance calculated based on the Cockcroft-Gault formula. 9Result Comment: Estimated Creatinine Clearance calculated based on the Cockcroft-Gault formula. 10Interpretive Data: Critical High for OB Patients >=7.0 mg/dl. IMMUNO/SEROLOGY 1 2 3 Most recent to oldest [Reference Range]: Negative 11 (05/09/2013 16:36:00 [facility]) UCG (POC) 11Result Comment: Meter: [id number]~Advertising Executive: [id number] PABLO ACKERMAN URINE 1 2 3 Most recent to oldest [Reference Range]: Yellow (05/09/2013 16:33:00 [facility]) UA Color 5.5 (05/09/2013 16:33:00 [facility]) UA pH [5.0-8.0] 1.015 (05/09/2013 16:33:00 [facility]) UA Spec Grav [1.001-1.030] Negative mg/dL (05/09/2013 16:33:00 [facility] UA Glucose [Negative mg/dL] Negative (05/09/2013 16:33:00 [facility] UA Bili [Negative] Negative mg/dL (05/09/2013 16:33:00 [facility] UA Ketones [Negative mg/dL] Negative (05/09/2013 16:33:00 [facility] UA Blood [Negative] Negative mg/dL (05/09/2013 16:33:00 [facility] UA Protein [Negative mg/dL] Negative (05/09/2013 16:33:00 [facility] UA Nitrite [Negative] Positive *ABN* (05/09/2013 16:33:00 [facility] UA Leuk Est [Negative] 0.2 EU per dL (05/09/2013 16:33:00 [facility]) UA Urobilinogen [0.2-1.0 EU per dL] Clean Catch (05/09/2013 16:33:00 [facility] UA Spec Type 0-5 /hpf (05/09/2013 16:33:00 [facility]) UA WBC [0-5 /hpf] Negative /hpf (05/09/2013 16:33:00 [facility] UA RBC [0-5 /hpf] Many /hpf *ABN* (05/09/2013 16:33:00 [facility] UA Bacteria [Negative /hpf] Few /hpf (05/09/2013 16:33:00 [facility] UA Epithelial [Negative to Few /hpf] Present *ABN* (05/09/2013 16:33:00 [facility] UA Mucous [None Seen] Yes 12 *ABN* (05/09/2013 16:33:00 [facility] Microscopic? Yes *ABN* (05/09/2013 16:33:00 [facility] Culture? 12Interpretive Data: When result = No, Microscopic is not indicated. Specimen is held for 3 days. Call [phone] if further testing is needed. OTHER FLUIDS 1 2 3 Most recent to oldest [Reference Range]: 919056 /mm3 13 *NA* (05/10/2013 15:00:00 [facility] WBC BF 97 % *NA* (05/10/2013 15:00:00 [facility] Neutro BF 3 % *NA* (05/10/2013 15:00:00 [facility]) Lymph BF [id number] /mm3 *NA* (05/10/2013 15:00:00 [facility] RBC BF 13Interpretive Data: WBC includes all nucleated cells, in addition to WBC may include mesothelial cells and macrophages. Medications Administered During Your Visit No data available for this section Immunizations Vaccine Date Refusal Reason influenza virus vaccine 05/09/2013 pneumococcal 23-valent vaccine 05/10/2013
--- OUTSIDE RECORDS SUMMARY | 2019-11-24 20:35 | XMS REPORT | Continuity of Care Document ---
Author Author Jackie Reeder [facility] Address Unknown Phone Unavailable Care Team Providers Care Drywall Contractor Name Role Phone Taylor Aguilar RP Unavailable Payers Payer name Insurance type Covered republican ID Authorization(s ) [facility] [id number] Problems Condition Effective Dates (start - stop) [...] Effective Dates (start - sto p) Status MS Contin 30 mg tablet,extended release take 1 tablet (30MG) by oral route every 12 hours 30 MG - Active labetalol 100 mg tablet [...] hours for UTI 500 MG - Active Diflucan 150 mg tablet take 1 tablet (150MG) by oral route once 150 MG - Active Immunizations Vaccine Date Status Comments Unknown Results Test Name Date and Time Measure Units Reference Range Abnormal F lag Comments Unknown Vital Signs Date / Time: Height Weight Pulse Rate Blood Pressure Temperat ure Unknown Procedures Procedure Date Unknown Encounters Encounter Location Date Patient Visit [facility] Patient Visit [facility] Patient Visit [facility] Advance Directives Directive Yes / No Effective Date Resuscitation Yes 05/23/2013 Life Support Yes 05/23/2013 Intubation Yes 05/23/2013 Antibiotics Yes 05/23/2013 IV Fluid Support Yes 05/23/2013 WARNING:The information contained in this section is historical and is provided for information only and does not constitute a legal document or any assurance t hat the information is still accurate. Please verify the information with the ho lder of the legal document before using it for clinical purposes.
--- OUTSIDE RECORDS SUMMARY | 2019-11-24 20:35 | XMS REPORT | Continuity of Care Document ---
Author Author Jackie Kwok [facility] [place] Address Unknown Phone Unavailable Care Team Providers Care Store Clerk Cashier Name Role Phone Taylor Aguilar RP Unavailable Payers Payer name Insurance type Covered constitution party ID Authorization(s ) [facility] [id number] Problems Condition Effective Dates (start - stop) Clinical Status Abdominal wall mass - Family History Family Member Diagnosis Age At Onset Status Maternal grandfather (Unknown) CVA (Stroke) Y es Maternal grandfather (Unknown) Cancer - melanoma Yes Maternal grandfather (Unknown) Diabetes Y es Social History Social History Element Description Quantity tobacco Allergies, Adverse Reactions, Alerts Substance Reaction Severity [...] hours for UTI 500 MG - Active MS Contin 30 mg tablet,extended release take 1 tablet (30MG) by oral route every 12 hours 30 MG - Active Diflucan 150 mg tablet [...] Unknown Encounters Encounter Location Date Patient Visit [facility] Patient Visit [facility] Patient Visit [facility] Patient Visit [facility] ov- Advance Directives Directive Yes / No Effective Date Resuscitation Yes 05/18/2013 Life Support Yes 05/18/2013 Intubation Yes 05/18/2013 Antibiotics Yes 05/18/2013 IV Fluid Support Yes 05/18/2013 WARNING:The information contained in this section is historical and is provided for information only and does not constitute a legal document or any assurance t hat the information is still accurate. Please verify the information with the ho lder of the legal document before using it for clinical purposes.
--- OUTSIDE RECORDS SUMMARY | 2019-11-24 20:35 | XMS REPORT | Continuity of Care Document ---
Author Author Jackie Reeder [facility] [place] Address Unknown Phone Unavailable Care Team Providers Care Enterprise Systems Architect Name Role Phone Taylor Aguilar RP Unavailable Payers Payer name Insurance type Covered republican ID Authorization(s ) [facility] [id number] Problems Condition Effective Dates (start - stop) [...] Unknown Encounters Encounter Location Date Patient Visit [facility] D Patient Visit [facility] N ov Patient Visit [facility] N Patient Visit [facility] N ov--2012 Advance Directives Directive Yes / No Effective Date Resuscitation Yes 06/20/2013 Life Support Yes 06/20/2013 Intubation Yes 06/20/2013 Antibiotics Yes 06/20/2013 IV Fluid Support Yes 06/20/2013 WARNING:The information contained in this section is historical and is provided for information only and does not constitute a legal document or any assurance t hat the information is still accurate. Please verify the information with the ho lder of the legal document before using it for clinical purposes.
--- OUTSIDE RECORDS SUMMARY | 2019-11-24 20:35 | XMS REPORT | Continuity of Care Document ---
Author Author Jackie Reeder [facility] [place] Address Unknown Phone Unavailable Care Team Providers Care Head Porter Name Role Phone Taylor Aguilar RP Unavailable Payers Payer name Insurance type Covered libertarian ID Authorization(s ) [facility] [id number] Problems Condition Effective Dates (start - stop) [...] Effective Dates (start - sto p) Status Diflucan 150 mg tablet take 1 tablet (150MG) by oral route once 150 MG - Active labetalol 100 mg [...] every 12 hours 30 MG - Active Immunizations Vaccine Date Status Comments Unknown Results Test Name Date and Time Measure Units Reference Range Abnormal F lag Comments Unknown Vital Signs Date / Time: Height Weight Pulse Rate Blood Pressure Temperat ure Unknown Procedures Procedure Date Unknown Encounters Encounter Location Date Patient Visit [facility] Patient Visit [facility] Patient Visit [facility] Advance Directives Directive Yes / No Effective Date Resuscitation Yes 05/24/2013 Life Support Yes 05/24/2013 Intubation Yes 05/24/2013 Antibiotics Yes 05/24/2013 IV Fluid Support Yes 05/24/2013 WARNING:The information contained in this section is historical and is provided for information only and does not constitute a legal document or any assurance t hat the information is still accurate. Please verify the information with the ho lder of the legal document before using it for clinical purposes.
--- OUTSIDE RECORDS SUMMARY | 2019-11-24 20:35 | XMS REPORT | Continuity of Care Document ---
Author Author Jackie Gloria Organization [facility] Address [address] [place] [address] Phone Care Team Providers Care Night Stocker Name Role Phone Taylor Aguilar RP Unavailable Payers Payer name Insurance type Covered green party ID Authorization(s ) [facility] [id number] Problems Condition Effective Dates (start - stop) [...] Unknown Encounters Encounter Location Date Patient Visit [facility] N Patient Visit [facility] N ov-08-2012 Patient Visit [facility] N ov--2012 Patient Visit [facility] N ov--2012 Advance Directives Directive Yes / No Effective Date Resuscitation Yes 05/17/2013 Life Support Yes 05/17/2013 Intubation Yes 05/17/2013 Antibiotics Yes 05/17/2013 IV Fluid Support Yes 05/17/2013 WARNING:The information contained in this section is historical and is provided for information only and does not constitute a legal document or any assurance t hat the information is still accurate. Please verify the information with the ho lder of the legal document before using it for clinical purposes.
--- OUTSIDE RECORDS SUMMARY | 2019-11-24 20:36 | XMS REPORT | Continuity of Care Document ---
Author Author [employer] [facility] Address Unknown Phone Unavailable Care Team Providers Care Talent Advisor Name Role Phone [facility] Unavailable Unavailable Problems Problem Status Onset Date Classification Date Reported Comments Source ABDOMINAL OR PELVIC SWELLING, MASS, OR L Active 05/11/2013 [facility] [place] OTHER ASCITES Active 05/11/2013 [facility] [place] UNSPECIFIED ESSENTIAL HYPERTENSION Active 05/11/2013 [facility] OBESITY, UNSPECIFIED Active 05/11/2013 [facility] ABDOMINAL PAIN, UNSPECIFIED SITE Active 05/11/2013 [facility] NAUSEA WITH VOMITING Active 05/11/2013 [facility] OTHER NONSPECIFIC FINDINGS ON EXAMINATIO Active 05/11/2013 [facility] Discharge Diagnosis: Abdominal hematoma 05/11/2013 Discharge Diagnosis 05/12/2013 [facility] Discharge Diagnosis: Abscess 05/11/2013 Discharge Diagnosis 05/12/2013 [facility] Problem 10/21/2015 [facility] Benign essential hypertension (disorder) Active Problem 05/12/2013 [facility] Obesity (disorder) Active Problem 05/12/2013 [facility] Abdominal wall mass Active [facility] Medications Medication Details Route Status Patient Instructions Ordering Provider Order Date Source Fluconazole 150 MG Oral Tablet take 1 tablet (150MG) by oral route once ORAL Active 05/24/2013 [facility] Morphine Sulfate 30 MG Extended Release Oral Tablet take 1 tablet (30MG) by oral route every 12 hours ORAL Active 05/24/2013 [facility] medroxyprogesterone acetate 150 MG/ML In jectable Suspension inject 1 milliliter (150MG) by intramus cular route every 3 months INTRAMUSCULAR Active 05/12/2013 [facility] labetalol 100 mg tablet take 1 tablet (100MG) by oral route 2 times every day for HTN ORAL Active 05/12/2013 [facility] ciprofloxacin 500 mg tablet ta ke 1 tablet (500MG) by oral route every 12 hours for UTI ORAL Active 05/12/2013 [facility] tramadol 50 mg tablet take 1 t ablet (50MG) by oral route every 6 hours as needed ORAL Active 05/12/2013 [facility] oxycodone-acetaminophen 5 mg-325 mg tablet take 1 - 2 tablet by ORAL route every 6 hours as needed ORAL Active 05/12/2013 [facility] ciprofloxacin 500 mg oral tablet 1 TAB, PO, Q12H (Every 12 hours), X 10 day, # 20 TAB, 0 Refill(s) Active 05/11/2013 [facility] Acetaminophen 325 MG / Oxycodone Hydroch loride 5 MG Oral Tablet [Percocet 5/325] 1 TAB, PO, Q6H (Every 6 hours), PRN Pain , # 12 TAB, 0 Refill(s) Active 05/11/2013 [facility] traMADol 50 mg oral tablet 1 T AB, PO, Q4H (Every 4 hours), PRN pain, # 20 TAB, 1 Refill(s) Active 05/11/2013 [facility] Ondansetron 4 MG Oral Tablet [Zofran] 1 TAB, PO, Q8H (Every 8 hours), PRN Nausea/Vomiting, # 20 TAB, 1 Refill(s) Active 05/11/2013 [facility] acetaminophen 325 mg oral tablet 2 TAB, PO, Q4H (Every 4 hours), PRN Pain, 0 Refill(s) Active 05/11/2013 [facility] labetalol 100 mg oral tablet 1 TAB, PO, BID (2 times a day), 0 Refill(s) Active 05/10/2013 [facility] Allergies, Adverse Reactions, Alerts Substance Category Reaction Severity Reaction type Status Date Reported Comments Source hydrocodone itching drug allergy Active 06/20/2013 [facility] HYDROcodone<sup>1</sup> Assert ion Unknown [place] allergy Active 1Pt states, "It makes me itch." [facility] Immunizations Immunization Date Given Site Status Last Updated Comments Source pneumococcal 23-valent vaccine 05/10/2013 Not [address] [facility] influenza virus vaccine 2012 [facility] Results Order Name Results Value Reference Range Date Interpretation Comments Source CHEMISTRY GFR (MDRD) >110.0 mL/min/1.73 m2 05/11/2013 <sup>4</sup>Result Comment: GFR calculat ed based on MDRD abbreviated formula.

Age(years) Average GFR
20-29 116 ml/min/1.73 m2
30-39 107 ml/min/1.73 m2
40-49 99 ml/min/1.73 m2
50-59 93 ml/min/1.73 m2
60-69 85 ml/min/1.73 m2
70+ 75 ml/min/1.73 m2

Acceptable GFR =>60 ml/min/1.73 m2
Chronic Kidney Disease <60 ml/min/1.73 m2
Kidney Failure <15 ml/min/1.[address] [facility] CHEMISTRY Magnesium 2.0 mg/dL 1.6 - 2.6 05/11/2013 <sup>10</sup>Interpretive Data: Critical High for OB Patients >=7.0 mg/dl. [facility] CHEMISTRY Sodium 141 mmol/L 136 - 145 05/11/2013 [facility] CHEMISTRY Potassium 3.7 mmol/L 3.5 - 5.1 05/11/2013 [facility] CHEMISTRY CO2 23 mmol/L 22 - 29 05/11/2013 [facility] CHEMISTRY Glucose 98 mg/dL 70 - 100 05/11/2013 [facility] CHEMISTRY AGAP 11 mmol/L 3 - 19 05/11/2013 [facility] CHEMISTRY Chloride 108 mmol/L 98 - 107 05/11/2013 [facility] CHEMISTRY BUN 6 mg/dL 8 - 20 05/11/2013 [facility] CHEMISTRY Calcium 8.4 mg/dL 8.6 - 10.2 05/11/2013 [facility] CHEMISTRY Creatinine 0.5 mg/dL 0.7 - 1.2 05/11/2013 <sup>1</sup>Interpretive Data: The prese nce of ketone bodies can cause artificially high results in serum, plasma and urine. [facility] CHEMISTRY Est CrCL (CG) 160.8 mL/min 05/11/2013 <sup>7</sup>Result Comment: Estimated Cr eatinine Clearance calculated based on the Cockcroft-Gault formula. [facility] HEMATOLOGY Eosinophils % 4 % 0 - 7 05/11/2013 [facility] HEMATOLOGY Monocytes % 9 % 0 - 13 05/11/2013 [facility] HEMATOLOGY Eosinophils Abs 0.2 x 10'3/microL 0.0 - 0.5103 05/11/2013 [facility] HEMATOLOGY Lymphocytes Abs 1.9 x 10'3/microL 1.2 - 3.4103 05/11/2013 [facility] HEMATOLOGY Monocytes Abs 0.5 x 10'3/microL 0.1 - 0.6103 05/11/2013 [facility] HEMATOLOGY Neutrophils Abs 2.9 x 10'3/microL 1.4 - 7.2103 05/11/2013 [facility] HEMATOLOGY Basophils Abs 0.0 x 10'3/microL 0.0 - 0.2103 05/11/2013 [facility] HEMATOLOGY Basophils % 1 % 0 - 3 05/11/2013 [facility] HEMATOLOGY Lymphocytes % 34 % 13 - 43 05/11/2013 [facility] HEMATOLOGY Neutrophils % 54 % 44 - 76 05/11/2013 [facility] HEMATOLOGY MCV 88 fL 81 - 99 05/11/2013 [facility] HEMATOLOGY Hct 35 % 35 - 47 05/11/2013 [facility] HEMATOLOGY MCH 31 pg 27 - 34 05/11/2013 [facility] HEMATOLOGY WBC 5.5 x 10'3/microL 4.0 - 11.0103 05/11/2013 [facility] HEMATOLOGY RBC 4.00 x10'6/microL 3.90 - 5.38966 05/11/2013 [facility] HEMATOLOGY MPV 8.6 fL 6.5 - 10.4 05/11/2013 [facility] HEMATOLOGY Platelet 253 x 10'3/microL 140 - [id number] 05/11/2013 [facility] HEMATOLOGY RDW 13.1 % <=14.5 % 05/11/2013 [facility] HEMATOLOGY Hgb 12.3 g/dL 12.0 - 16.0 05/11/2013 [facility] HEMATOLOGY MCHC 35 g/dL 32 - 36 05/11/2013 [facility] Renal Funct Index (GFR)Glomerular Fi ltration Rate >110.0 mL/min/1.73 m2 05/11/2013 NA GFR calculated based on MDR D abbreviated formula.

Age(years) Average GFR
20-29 116 ml/min/1.73 m2
30-39 107 ml/min/1.73 m2
40-49 99 ml/min/1.73 m2
50-59 93 ml/min/1.73 m2
60-69 85 ml/min/1.73 m2
70+ 75 ml/min/1.73 m2

Acceptable GFR =>60 ml/min/1.73 m2
Chronic Kidney Disease <60 ml/min/1.73 m2
Kidney Failure <15 ml/min/1.73 m2
[facility] BMP Sodium 141 mmol/L 136 - 145 05/11/2013 N [facility] BMP Potassium 3.7 mmol/L 3.5 - 5.1 05/11/2013 N [facility] BMP Chloride 108 mmol/L 98 - 107 05/11/2013 H [facility] BMP CO2 23 mmol/L 22 - 29 05/11/2013 N [facility] BMP AGAP 11 mmol/L 3 - 19 05/11/2013 N [facility] [place] BMP Glucose 98 mg/dL 70 - 100 05/11/2013 N [facility] [place] BMP BUN 6 mg/dL 8 - 20 05/11/2013 [facility] [place] BMP Creatinine 0.5 mg/dL 0.7 - 1.2 05/11/2013 L The presence of ketone bodies can cause artificially high results in serum, plasma and urine.
[facility] [place] BMP Calcium 8.4 mg/dL 8.6 - 10.2 05/11/2013 L [facility] [place] Magnesium Magnesium 2.0 mg/dL 1.6 - 2.6 05/11/2013 N Critical High for OB Patients >=7.0 mg/d l.
[facility] [place] Auto Diff Neutrophils 54 % 44 - 76 05/11/2013 [facility] [place] Auto Diff Lymphocytes % 34 % 13 - 43 05/11/2013 [facility] [place] Auto Diff Monocytes % 9 % 0 - 13 05/11/2013 [facility] [place] Auto Diff Eosinophils % 4 % 0 - 7 05/11/2013 [facility] [place] Auto Diff Basophils % 1 % 0 - 3 05/11/2013 [facility] [place] Auto Diff Neutro Absolute 2.9 x1 0'3/microL 1.4 - 7.2 05/11/2013 [facility] [place] Auto Diff Lymph Absolute 1.9 x1 0'3/microL 1.2 - 3.4 05/11/2013 N [facility] [place] Auto Diff [place] Absolute 0.5 x1 0'3/microL 0.1 - 0.6 05/11/2013 N [facility] [place] Auto Diff Eos Absolute 0.2 x1 0'3/microL 0.0 - 0.5 05/11/2013 N [facility] [place] Auto Diff Basophil Absolute 0.0 x1 0'3/microL 0.0 - 0.2 05/11/2013 N [facility] [place] CBC/Diff WBC 5.5 x10'3/micro L 4.0 - 11.0 05/11/2013 N [facility] CBC/Diff RBC 4.00 x10'6/micr oL 3.90 - 5.60 05/11/2013 N [facility] CBC/Diff Hgb 12.3 g/dL 12.0 - 16.0 05/11/2013 N [facility] CBC/Diff Hct 35 % 35 - 47 05/11/2013 N [facility] CBC/Diff MCV 88 fL 81 - 99 05/11/2013 N [facility] CBC/Diff MCH 31 pg 27 - 34 05/11/2013 N [facility] CBC/Diff MCHC 35 g/dL 32 - 36 05/11/2013 N [facility] CBC/Diff RDW 13.1 % - <=14.5 05/11/2013 N [facility] CBC/Diff Platelet 253 x10 '3/microL 140 - 400 05/11/2013 N [facility] CBC/Diff MPV 8.6 fL 6.5 - 10.4 05/11/2013 N [facility] OTHER FLUIDS Lymph BF 3 % 05/10/2013 [facility] OTHER FLUIDS Neutro BF 97 % 05/10/2013 [facility] OTHER FLUIDS WBC BF 230 285 /mm3 05/10/2013 <sup>13</sup>Interpretive Data: WBC incl udes all nucleated cells, in addition to WBC may include mesothelial cells and macrophages. [facility] OTHER FLUIDS RBC BF 199 5996 /mm3 05/10/2013 [facility] CHEMISTRY AST 12 Units/L 0 - 40 05/10/2013 [facility] CHEMISTRY Bili Total 0.6 mg/dL 0.0 - 1.2 05/10/2013 [facility] CHEMISTRY ALT 13 [iU]/d 0 - 33. 05/10/2013 [facility] CHEMISTRY Alk Phos 58 [iU]/d 40 - 130. 05/10/2013 [facility] CHEMISTRY Creatinine 0.5 mg/dL 0.7 - 1.2 05/10/2013 <sup>2</sup>Interpretive Data: The prese nce of ketone bodies can cause artificially high results in serum, plasma and urine. [facility] CHEMISTRY BUN 7 mg/dL 8 - 20 05/10/2013 [facility] CHEMISTRY Albumin Level 3.8 g/ dL 3.5 - 5.2 05/10/2013 [facility] CHEMISTRY Total Protein 6.7 g/ dL 6.6 - 8.7 05/10/2013 [facility] CHEMISTRY Calcium 8.7 mg/dL 8.6 - 10.2 05/10/2013 [facility] CHEMISTRY Glucose 106 mg/dL 70 - 100 05/10/2013 [facility] CHEMISTRY CO2 22 mmol/L 22 - 29 05/10/2013 [facility] CHEMISTRY AGAP 11 mmol/L 3 - 19 05/10/2013 [facility] CHEMISTRY Sodium 141 mmol/L 136 - 145 05/10/2013 [facility] CHEMISTRY Potassium 3.8 mmol/L 3.5 - 5.1 05/10/2013 [facility] CHEMISTRY Chloride 108 mmol/L 98 - 107 05/10/2013 [facility] CHEMISTRY GFR (MDRD) >110.0 mL/min/1.73 m2 05/10/2013 <sup>5</sup>Result Comment: GFR calculat ed based on MDRD abbreviated formula.

Age(years) Average GFR
20-29 116 ml/min/1.73 m2
30-39 107 ml/min/1.73 m2
40-49 99 ml/min/1.73 m2
50-59 93 ml/min/1.73 m2
60-69 85 ml/min/1.73 m2
70+ 75 ml/min/1.73 m2

Acceptable GFR =>60 ml/min/1.73 m2
Chronic Kidney Disease <60 ml/min/1.73 m2
Kidney Failure <15 ml/min/1.[address] [facility] CHEMISTRY Est CrCL (CG) 160.8 mL/min 05/10/2013 <sup>8</sup>Result Comment: Estimated Cr eatinine Clearance calculated based on the Cockcroft-Gault formula. [facility] HEMATOLOGY RDW 13.1 % <=14.5 % 05/10/2013 [facility] HEMATOLOGY MCHC 35 g/dL 32 - 36 05/10/2013 [facility] HEMATOLOGY MCH 31 pg 27 - 34 05/10/2013 [facility] HEMATOLOGY MCV 88 fL 81 - 99 05/10/2013 [facility] HEMATOLOGY WBC 7.2 x 10'3/microL 4.0 - 11.0103 05/10/2013 [facility] HEMATOLOGY Platelet 276 x 10'3/microL 140 - [id number] 05/10/2013 [facility] HEMATOLOGY RBC 4.28 x10'6/microL 3.90 - 5.07977 05/10/2013 [facility] HEMATOLOGY MPV 8.0 fL 6.5 - 10.4 05/10/2013 [facility] HEMATOLOGY Hgb 13.1 g/dL 12.0 - 16.0 05/10/2013 [facility] HEMATOLOGY Hct 38 % 35 - 47 05/10/2013 [facility] HEMATOLOGY Eosinophils % 2 % 0 - 7 05/10/2013 [facility] HEMATOLOGY Monocytes % 8 % 0 - 13 05/10/2013 [facility] HEMATOLOGY Neutrophils % 66 % 44 - 76 05/10/2013 [facility] HEMATOLOGY Lymphocytes % 23 % 13 - 43 05/10/2013 [facility] HEMATOLOGY Basophils Abs 0.0 x 10'3/microL 0.0 - 0.2103 05/10/2013 [facility] HEMATOLOGY Monocytes Abs 0.6 x 10'3/microL 0.1 - 0.6103 05/10/2013 [facility] HEMATOLOGY Eosinophils Abs 0.2 x 10'3/microL 0.0 - 0.5103 05/10/2013 [facility] HEMATOLOGY Neutrophils Abs 4.8 x 10'3/microL 1.4 - 7.2103 05/10/2013 [facility] HEMATOLOGY Basophils % 1 % 0 - 3 05/10/2013 [facility] HEMATOLOGY Lymphocytes Abs 1.6 x 10'3/microL 1.2 - 3.4103 05/10/2013 [facility] HEMATOLOGY PT 13.4 s 11.5 - 15.0 05/10/2013 [facility] HEMATOLOGY INR 1.0 05/10/2013 [facility] Diff BF Neutro BF 97 % 05/10/2013 NA [facility] Diff BF Lymph BF 3 % 05/10/2013 NA [facility] Cell Ct BF BF Type abdom inal wall aspirate 05/10/2013 NA [facility] Cell Ct BF RBC BF [id number] /mm3 05/10/2013 NA [facility] Cell Ct BF WBC BF 451501 /mm3 05/10/2013 NA WBC includes all nucleated cells, in add ition to WBC may include mesothelial cells and macrophages.
[facility] Cell Ct BF Differential? Fluid Yes 05/10/2013 N [facility] Culture Anaerobic Culture Anaerobic

<b>Final:</b>
No anaerobic organisms isolated.
05/10/2013 [facility] Culture Body Fluid Culture Body Flui d

<b>Final:</b>
No growth at 3 days.
05/10/2013 [facility] C YULISSA C YULISSA
[facility] [address]
[place] [address]

M i c r o b i o l o g y

PROCEDURE: Culture Body Fluid
SOURCE: Abdominal Fl COLLECTED: 05/10/2013 15:00
BODY SITE: Abdominal Wall RECEIVED: 05/10/2013 15:43
FREE TEXT SOURCE: STARTED: 05/10/2013 15:43

FINAL REPORT

Final Report
Verified:05/13/2013 10:27
No growth at 3 days.&lt ;br/>

<b r/>
PROCEDURE: Culture Anaerobic
SOURCE: Abdominal Fl COLLECTED: 05/10/2013 15:00
BODY SITE: Abdominal Wall RECEIVED: 05/10/2013 15:43
FREE TEXT SOURCE: STARTED: 05/10/2013 15:43

FINAL REPORT

Final Report
Verified:05/13/2013 10:52
No anaerobic organisms isolated.
<br/&a mp;gt;

< br/> PROCEDURE: Gram Stain
SOURCE: Abdominal Fl COLLECTED: 05/10/2013 15:00
BODY SITE: Abdominal Wall RECEIVED: 05/10/2013 15:43
FREE TEXT SOURCE: STARTED: 05/10/2013 15:43

STAINS / PREPARATIONS *

Gram Stain Report
Verified:05/11/2013 08:11
No organisms seen.
Many White blood Cells
&amp ;lt;br/>

<br/ > 05/10/2013 [facility] C Body Fld C Body Fld
[facility] [address]
[place] [address]

M i c r o b i o l o g y

PROCEDURE: Culture Body Fluid
SOURCE: Abdominal Fl COLLECTED: 05/10/2013 15:00
BODY SITE: Abdominal Wall RECEIVED: 05/10/2013 15:43
FREE TEXT SOURCE: STARTED: 05/10/2013 15:43

FINAL REPORT

Final Report
Verified:05/13/2013 10:27
No growth at 3 days.&lt ;br/>

<b r/>
PROCEDURE: Culture Anaerobic
SOURCE: Abdominal Fl COLLECTED: 05/10/2013 15:00
BODY SITE: Abdominal Wall RECEIVED: 05/10/2013 15:43
FREE TEXT SOURCE: STARTED: 05/10/2013 15:43

PRELIMINARY REPORT

Preliminary Report
Verified:05/12/2013 09:23
No anaerobic organisms isolated at 48 hours.< br/>

PROCEDURE: Gram Stain
SOURCE: Abdominal Fl COLLECTED: 05/10/2013 15:00
BODY SITE: Abdominal Wall RECEIVED: 05/10/2013 15:43
FREE TEXT SOURCE: STARTED: 05/10/2013 15:43

STAINS / PREPARATIONS

Gram Stain Report
Verified:05/11/2013 08:11
No organisms seen.
Many White blood Cell s

< br/> 05/10/2013 [facility] Gram Stain Gram Stain

<b>GS:</b>
No organisms seen.
Many White blood Cells
05/10/2013 [facility] Gram Stain Gram Stain
[facility] [address]
[place] [address]

M i c r o b i o l o g y

PROCEDURE: Culture Body Fluid
SOURCE: Abdominal Fl COLLECTED: 05/10/2013 15:00
BODY SITE: Abdominal Wall RECEIVED: 05/10/2013 15:43
FREE TEXT SOURCE: STARTED: 05/10/2013 15:43

PRELIMINARY REPORT

Preliminary Report
Verified:05/11/2013 07:09
No growth&l t;br/>

< br/>
PROCEDURE: Culture Anaerobic
SOURCE: Abdominal Fl COLLECTED: 05/10/2013 15:00
BODY SITE: Abdominal Wall RECEIVED: 05/10/2013 15:43
FREE TEXT SOURCE: STARTED: 05/10/2013 15:43

PRELIMINARY REPORT

Preliminary Report
Verified:05/10/2013 16:01
Culture in progress
<br/&a mp;gt;

< br/> PROCEDURE: Gram Stain
SOURCE: Abdominal Fl COLLECTED: 05/10/2013 15:00
BODY SITE: Abdominal Wall RECEIVED: 05/10/2013 15:43
FREE TEXT SOURCE: STARTED: 05/10/2013 15:43

STAINS / PREPARATIONS *

Gram Stain Report
Verified:05/11/2013 08:11
No organisms seen.
Many White blood Cells
&amp ;lt;br/>

<br/ > 05/10/2013 [facility] Renal Funct Index (GFR)Glomerular Fi ltration Rate >110.0 mL/min/1.73 m2 05/10/2013 NA GFR calculated based on MDR D abbreviated formula.

Age(years) Average GFR
20-29 116 ml/min/1.73 m2
30-39 107 ml/min/1.73 m2
40-49 99 ml/min/1.73 m2
50-59 93 ml/min/1.73 m2
60-69 85 ml/min/1.73 m2
70+ 75 ml/min/1.73 m2

Acceptable GFR =>60 ml/min/1.73 m2
Chronic Kidney Disease <60 ml/min/1.73 m2
Kidney Failure <15 ml/min/1.73 m2
[facility] CMP Sodium 141 mmol/L 136 - 145 05/10/2013 N [facility] CMP Potassium 3.8 mmol/L 3.5 - 5.1 05/10/2013 N [facility] CMP Chloride 108 mmol/L 98 - 107 05/10/2013 H [facility] CMP CO2 22 mmol/L 22 - 29 05/10/2013 N [facility] CMP AGAP 11 mmol/L 3 - 19 05/10/2013 N [facility] CMP Glucose 106 mg/dL 70 - 100 05/10/2013 H [facility] CMP BUN 7 mg/dL 8 - 20 05/10/2013 L [facility] CMP Creatinine 0.5 mg/dL 0.7 - 1.2 05/10/2013 L The presence of ketone bodies can cause artificially high results in serum, plasma and urine.
[facility] CMP Calcium 8.7 mg/dL 8.6 - 10.2 05/10/2013 N [facility] CMP Total Protein 6.7 g/dL 6.6 - 8.7 05/10/2013 N [facility] CMP Albumin Level 3.8 g/dL 3.5 - 5.2 05/10/2013 N [facility] CMP Bili Total 0.6 mg/dL 0.0 - 1.2 05/10/2013 N [facility] CMP Alk Phos 58 Inter. Units/L 40 - 130 05/10/2013 N [facility] CMP AST 12 Units/L 0 - 40 05/10/2013 N [facility] CMP ALT 13 Inter. Units/L 0 - 33 05/10/2013 N [facility] Protime PT 13.4 second 11.5 - 15.0 05/10/2013 N [facility] Protime INR 1.0 05/10/2013 NA [facility] Culture Blood Culture Blood

<b>Final:</b>
No growth at 5 days.
05/10/2013 [facility] C Blood C Blood
[facility] [address]
[place] [address]

M i c r o b i o l o g y

PROCEDURE: Culture Blood
SOURCE: Blood COLLECTED: 05/10/2013 11:20
BODY SITE: Forearm Left Draw RECEIVED: 05/10/2013 11:36
FREE TEXT SOURCE: STARTED: 05/10/2013 11:36

FINAL REPORT

Final Report
Verified:05/15/2013 19:00
No growth at 5 days.

___
05/10/2013 [facility] [place] Auto Diff Neutrophils 66 % 44 - 76 05/10/2013 N [facility] [place] Auto Diff Lymphocytes % 23 % 13 - 43 05/10/2013 N [facility] [place] Auto Diff Monocytes % 8 % 0 - 13 05/10/2013 N [facility] [place] Auto Diff Eosinophils % 2 % 0 - 7 05/10/2013 N [facility] [place] Auto Diff Basophils % 1 % 0 - 3 05/10/2013 N [facility] [place] Auto Diff Neutro Absolute 4.8 x1 0'3/microL 1.4 - 7.2 05/10/2013 N [facility] [place] Auto Diff Lymph Absolute 1.6 x1 0'3/microL 1.2 - 3.4 05/10/2013 N [facility] [place] Auto Diff [place] Absolute 0.6 x1 0'3/microL 0.1 - 0.6 05/10/2013 N [facility] [place] Auto Diff Eos Absolute 0.2 x1 0'3/microL 0.0 - 0.5 05/10/2013 N [facility] [place] Auto Diff Basophil Absolute 0.0 x1 0'3/microL 0.0 - 0.2 05/10/2013 N [facility] [place] CBC/Diff WBC 7.2 x10'3/micro L 4.0 - 11.0 05/10/2013 N [facility] [place] CBC/Diff RBC 4.28 x10'6/micr oL 3.90 - 5.60 05/10/2013 N [facility] [place] CBC/Diff Hgb 13.1 g/dL 12.0 - 16.0 05/10/2013 N [facility] [place] CBC/Diff Hct 38 % 35 - 47 05/10/2013 N [facility] CBC/Diff MCV 88 fL 81 - 99 05/10/2013 N [facility] CBC/Diff MCH 31 pg 27 - 34 05/10/2013 N [facility] CBC/Diff MCHC 35 g/dL 32 - 36 05/10/2013 N [facility] CBC/Diff RDW 13.1 % - <=14.5 05/10/2013 N [facility] CBC/Diff Platelet 276 x10 '3/microL 140 - 400 05/10/2013 N [facility] CBC/Diff MPV 8.0 fL 6.5 - 10.4 05/10/2013 N [facility] Culture Blood Culture Blood

<b>Final:</b>
No growth at 5 days.
05/10/2013 [facility] C Blood C Blood
[facility] [address]
[place] [address]

M i c r o b i o l o g y

PROCEDURE: Culture Blood
SOURCE: Blood COLLECTED: 05/10/2013 11:00
BODY SITE: Wrist Left Draw RECEIVED: 05/10/2013 11:36
FREE TEXT SOURCE: STARTED: 05/10/2013 11:36

FINAL REPORT

Final Report
Verified:05/15/2013 19:00
No growth at 5 days.<br/& amp;gt;

05/10/2013 [facility] [facility] IMMUNO/SEROLOGY UCG (POC) Negative <sup>11</sup>
(05/09/2013 16:36:00 Nelda/[place]) 05/09/2013 <sup>11</sup>Result Comment: Meter: [id number]~Battery Mechanic: [id number] PABLO ACKERMAN [facility] CHEMISTRY Est CrCL (CG) 134.0 mL/min 05/09/2013 <sup>9</sup>Result Comment: Estimated Cr eatinine Clearance calculated based on the Cockcroft-Gault formula. [facility] CHEMISTRY Lipase 22 Units/L 13 - 60 05/09/2013 [facility] er CHEMISTRY Total Protein 7.4 g/ dL 6.6 - 8.7 05/09/2013 [facility] er CHEMISTRY Calcium 9.7 mg/dL 8.6 - 10.2 05/09/2013 [facility] er CHEMISTRY BUN 19 mg/dL 8 - 20 05/09/2013 [facility] er CHEMISTRY Creatinine 0.6 mg/dL 0.7 - 1.2 05/09/2013 <sup>3</sup>Interpretive Data: The prese nce of ketone bodies can cause artificially high results in serum, plasma and urine. [facility] CHEMISTRY Glucose 89 mg/dL 70 - 100 05/09/2013 [facility] er CHEMISTRY Albumin Level 4.2 g/ dL 3.5 - 5.2 05/09/2013 [facility] er CHEMISTRY AGAP 13 mmol/L 3 - 19 05/09/2013 [facility] er CHEMISTRY CO2 21 mmol/L 22 - 29 05/09/2013 [facility] er CHEMISTRY Chloride 105 mmol/L 98 - 107 05/09/2013 [facility] er CHEMISTRY ALT 15 [iU]/d 0 - 33. 05/09/2013 [facility] er CHEMISTRY AST 13 Units/L 0 - 40 05/09/2013 [facility] er CHEMISTRY Alk Phos 73 [iU]/d 40 - 130. 05/09/2013 [facility] er CHEMISTRY Bili Total 0.3 mg/dL 0.0 - 1.2 05/09/2013 [facility] er CHEMISTRY Potassium 4.1 mmol/L 3.5 - 5.1 05/09/2013 [facility] er CHEMISTRY Sodium 139 mmol/L 136 - 145 05/09/2013 [facility] er CHEMISTRY GFR (MDRD) >110.0 mL/min/1.73 m2 05/09/2013 <sup>6</sup>Result Comment: GFR calculat ed based on MDRD abbreviated formula.

Age(years) Average GFR
20-29 116 ml/min/1.73 m2
30-39 107 ml/min/1.73 m2
40-49 99 ml/min/1.73 m2
50-59 93 ml/min/1.73 m2
60-69 85 ml/min/1.73 m2
70+ 75 ml/min/1.73 m2

Acceptable GFR =>60 ml/min/1.73 m2
Chronic Kidney Disease <60 ml/min/1.73 m2
Kidney Failure <15 ml/min/1.[address] [facility] HEMATOLOGY MPV 8.6 fL 6.5 - 10.4 05/09/2013 [facility] er HEMATOLOGY Platelet 301 x 10'3/microL 140 - [id number] 05/09/2013 [facility] er HEMATOLOGY RBC 4.52 x10'6/microL 3.90 - 5.56182 05/09/2013 [facility] HEMATOLOGY Hgb 13.9 g/dL 12.0 - 16.0 05/09/2013 [facility] HEMATOLOGY Hct 40 % 35 - 47 05/09/2013 [facility] HEMATOLOGY WBC 7.6 x 10'3/microL 4.0 - 11.0103 05/09/2013 [facility] HEMATOLOGY MCH 31 pg 27 - 34 05/09/2013 [facility] HEMATOLOGY MCV 88 fL 81 - 99 05/09/2013 [facility] HEMATOLOGY RDW 13.1 % <=14.5 % 05/09/2013 [facility] HEMATOLOGY MCHC 35 g/dL 32 - 36 05/09/2013 [facility] HEMATOLOGY Monocytes Abs 0.5 x 10'3/microL 0.1 - 0.6103 05/09/2013 [facility] HEMATOLOGY Monocytes % 7 % 0 - 13 05/09/2013 [facility] HEMATOLOGY Neutrophils Abs 5.0 x 10'3/microL 1.4 - 7.2103 05/09/2013 [facility] HEMATOLOGY Basophils % 1 % 0 - 3 05/09/2013 [facility] HEMATOLOGY Eosinophils % 2 % 0 - 7 05/09/2013 [facility] HEMATOLOGY Lymphocytes % 24 % 13 - 43 05/09/2013 [facility] HEMATOLOGY Basophils Abs 0.1 x 10'3/microL 0.0 - 0.2103 05/09/2013 [facility] HEMATOLOGY Lymphocytes Abs 1.9 x 10'3/microL 1.2 - 3.4103 05/09/2013 [facility] HEMATOLOGY Eosinophils Abs 0.2 x 10'3/microL 0.0 - 0.5103 05/09/2013 [facility] HEMATOLOGY Neutrophils % 66 % 44 - 76 05/09/2013 [facility] er URINE UA Mucous Present <b r/>*ABN*
(05/09/2013 16:33:00 N[place]da/[place]) None Seen 05/09/2013 [facility] URINE UA Bacteria Many /hpf Negative /hpf 05/09/2013 [facility] URINE UA Epithelial Few /hpf Negative to Few /hpf 05/09/2013 [facility] URINE UA RBC Negative /hpf 0 - 5 05/09/2013 [facility] URINE UA WBC 0-5 /hpf 0 - 5 05/09/2013 [facility] URINE UA Color Yellow
(05/09/2013 16:33:00 N[place]) 05/09/2013 [facility] URINE UA Spec Type Clean Catc h
(05/09/2013 16:33:00 N[place]) 05/09/2013 [facility] URINE UA Ketones Negative m g/dL Negative mg/dL 05/09/2013 [facility] URINE UA Bili Negative < br/>(05/09/2013 16:33:00 N[place]) Negative 05/09/2013 [facility] URINE UA Glucose Negative m g/dL Negative mg/dL 05/09/2013 [facility] URINE UA pH 5.5 5.0 - 8.0 05/09/2013 [facility] URINE UA Spec Grav 1.015 <br/ >(05/09/2013 16:33:00 N[place]) 1.001 - 1.030 05/09/2013 [facility] URINE UA Blood Negative < br/>(05/09/2013 16:33:00 [facility]) Negative 05/09/2013 [facility] URINE UA Urobilinogen 0.2 EU per dL 0.2 - 1.0 05/09/2013 [facility] URINE UA Protein Negative m g/dL Negative mg/dL 05/09/2013 [facility] URINE UA Nitrite Negative < br/>(05/09/2013 16:33:00 N[place]) Negative 05/09/2013 [facility] URINE UA Leuk Est Positive < br/>*ABN*
(05/09/2013 16:33:00 N[place]) Negative 05/09/2013 [facility] URINE Microscopic? Yes <sup>12</sup>
*ABN*
(05/09/2013 16:33:00 N[place]da/[place]) 05/09/2013 <sup>12</sup>Interpretive Data: When res ult = No, Microscopic is not indicated. Specimen is held for 3 days. Call [phone] if further testing is needed. [facility] URINE Culture? Yes
* ABN*
(05/09/2013 16:33:00 N[place]da/[place]) 05/09/2013 [facility] Renal Funct Index (GFR)Glomerular Fi ltration Rate >110.0 mL/min/1.73 m2 05/09/2013 NA GFR calculated based on MDR D abbreviated formula.

Age(years) Average GFR
20-29 116 ml/min/1.73 m2
30-39 107 ml/min/1.73 m2
40-49 99 ml/min/1.73 m2
50-59 93 ml/min/1.73 m2
60-69 85 ml/min/1.73 m2
70+ 75 ml/min/1.73 m2

Acceptable GFR =>60 ml/min/1.73 m2
Chronic Kidney Disease <60 ml/min/1.73 m2
Kidney Failure <15 ml/min/1.73 m2
[facility] CMP Sodium 139 mmol/L 136 - 145 05/09/2013 N [facility] CMP Potassium 4.1 mmol/L 3.5 - 5.1 05/09/2013 N [facility] CMP Chloride 105 mmol/L 98 - 107 05/09/2013 N [facility] CMP CO2 21 mmol/L 22 - 29 05/09/2013 L [facility] CMP AGAP 13 mmol/L 3 - 19 05/09/2013 N [facility] CMP Glucose 89 mg/dL 70 - 100 05/09/2013 N [facility] CMP BUN 19 mg/dL 8 - 20 05/09/2013 N [facility] CMP Creatinine 0.6 mg/dL 0.7 - 1.2 05/09/2013 L The presence of ketone bodies can cause artificially high results in serum, plasma and urine.
[facility] CMP Calcium 9.7 mg/dL 8.6 - 10.2 05/09/2013 N [facility] CMP Total Protein 7.4 g/dL 6.6 - 8.7 05/09/2013 N [facility] CMP Albumin Level 4.2 g/dL 3.5 - 5.2 05/09/2013 N [facility] CMP Bili Total 0.3 mg/dL 0.0 - 1.2 05/09/2013 N [facility] CMP Alk Phos 73 Inter. Units/L 40 - 130 05/09/2013 N [facility] CMP AST 13 Units/L 0 - 40 05/09/2013 N [facility] CMP ALT 15 Inter. Units/L 0 - 33 05/09/2013 N [facility] Lipase Lipase 22 Units/L 13 - 60 05/09/2013 N [facility] Ur Micro - NC UA RBC Ne gative /hpf 0-5 05/09/2013 N [facility] Ur Micro - [place] UA WBC 0-5 /hpf 0-5 05/09/2013 N [facility] Ur Micro - [place] UA Epithelial Fe w /hpf Negative to Few 05/09/2013 N [facility] Ur Micro - [place] UA Bacteria Ma ny /hpf Negative 05/09/2013 @ [facility] Ur Micro - [place] UA Mucous Pr esent None Seen 05/09/2013 @ [facility] UA CI UA Spec Type Clean Catc h 05/09/2013 N [facility] UA CI UA Color YELLOW 05/09/2013 N [facility] UA CI UA Glucose NEGATIVE m g/dL Negative 05/09/2013 N [facility] UA CI UA Bili NEGATIVE Negative 05/09/2013 N [facility] UA CI UA Ketones NEGATIVE m g/dL Negative 05/09/2013 N [facility] UA CI UA Spec Grav 1.015 1.001 - 1.030 05/09/2013 N [facility] UA CI UA pH 5.5 5.0 - 8.0 05/09/2013 N [facility] UA CI UA Protein NEGATIVE m g/dL Negative 05/09/2013 N [facility] UA CI UA Urobilinogen 0.2 EU per dL 0.2 - 1.0 05/09/2013 N [facility] UA CI UA Nitrite NEGATIVE Negative 05/09/2013 N [facility] UA CI UA Blood NEGATIVE Negative 05/09/2013 N [facility] UA CI UA Leuk Est MODERATE Negative 05/09/2013 @ [facility] UA CI Culture? Yes 05/09/2013 @ [facility] UA CI Microscopic? Yes 05/09/2013 @ When result = No, Microscopic is not indicated. Specimen is held for 3 days. Call [phone] if further testing is needed.
[facility] Auto Diff Neutrophils 66 % 44 - 76 05/09/2013 N [facility] Auto Diff Lymphocytes % 24 % 13 - 43 05/09/2013 N [facility] Auto Diff Monocytes % 7 % 0 - 13 05/09/2013 N [facility] Auto Diff Eosinophils % 2 % 0 - 7 05/09/2013 N [facility] Auto Diff Basophils % 1 % 0 - 3 05/09/2013 N [facility] Auto Diff Neutro Absolute 5.0 x1 0'3/microL 1.4 - 7.2 05/09/2013 N [facility] Auto Diff Lymph Absolute 1.9 x1 0'3/microL 1.2 - 3.4 05/09/2013 N [facility] Auto Diff [place] Absolute 0.5 x1 0'3/microL 0.1 - 0.6 05/09/2013 N [facility] Auto Diff Eos Absolute 0.2 x1 0'3/microL 0.0 - 0.5 05/09/2013 N [facility] Auto Diff Basophil Absolute 0.1 x1 0'3/microL 0.0 - 0.2 05/09/2013 N [facility] CBC/Diff WBC 7.6 x10'3/micro L 4.0 - 11.0 05/09/2013 N [facility] CBC/Diff RBC 4.52 x10'6/micr oL 3.90 - 5.60 05/09/2013 N [facility] CBC/Diff Hgb 13.9 g/dL 12.0 - 16.0 05/09/2013 N [facility] CBC/Diff Hct 40 % 35 - 47 05/09/2013 N [facility] CBC/Diff MCV 88 fL 81 - 99 05/09/2013 N [facility] CBC/Diff MCH 31 pg 27 - 34 05/09/2013 N [facility] CBC/Diff MCHC 35 g/dL 32 - 36 05/09/2013 N [facility] CBC/Diff RDW 13.1 % - <=14.5 05/09/2013 N [facility] CBC/Diff Platelet 301 x10 '3/microL 140 - 400 05/09/2013 N [facility] CBC/Diff MPV 8.6 fL 6.5 - 10.4 05/09/2013 N [facility] UCG POC SMM UCG (POC) Nega tive 05/09/2013 N Meter: [id number]~Battery Mechanic: [id number] PABLO ACKERMAN
[facility] Culture Urine Culture Urine

<b>Final:</b>
>100,000 cfu/ml Enterobacter cloacae ssp cloacae
>100,000 cfu/ml Escherichia coli
>100,000 cfu/ml Mixed Gram Positive alvarez
No group B Streptococcus isolated.
No further testing planned on this specimen.
<table><tr><td>
</br></td></tr><tr><td><content styleCode="Bold">Escherichia coli</content></td></tr><tr><td></td><td></td><td> </td><td></td></tr><tr><td>Cefazolin</td><td></td><td>I</td><td></td></tr></tabl e> 05/09/2013 UA Spec Type: Clean Catch [facility] C Urine C Urine
[facility] [address]
[place] [address]

M i c r o b i o l o g y

PROCEDURE: Culture Urine
SOURCE: Urine COLLECTED: 05/09/2013 16:33
BODY SITE: RECEIVED: 05/09/2013 16:49
FREE TEXT SOURCE: STARTED: 05/09/2013 16:58

FINAL REPORT

Final Report
Verified:05/12/2013 08:04
>100,000 cfu/ml Enterobacter cloacae ssp cloacae
>100,000 cfu/ml Escherichia coli
>100,000 cfu/ml Mixed Gram Positive alvarez
No group B Streptococcus isolated.
No further testing planned on this specimen.

SUSCEPTIBILITY RESULTS
Enterobacter
cloacae
ssp
cloacae

MDIL MINT
Cefepime <=1 S
Ceftazidime <=1 S
Ceftriaxone <=1 S
Ciprofloxacin <=0.25 S
Gentamicin <=1 S
Levofloxacin <=0.12 S
Meropenem <=0.25 S
Nitrofurantoin 64 I
Piperacillin/Tazo <=4 S
Trimethoprim/Sulfa <=20 S

M i c r o b i o l o g y

PROCEDURE: Culture Urine
SOURCE: Urine COLLECTED: 05/09/2013 16:33
BODY SITE: RECEIVED: 05/09/2013 16:49
FREE TEXT SOURCE: STARTED: 05/09/2013 16:58

Escherichia
coli

KINT MDIL MINT
Cefepime <=1 S
Ceftazidime <=1 S
Ceftriaxone <=1 S
Ciprofloxacin <=0.25 S
Gentamicin <=1 S
Levofloxacin <=0.12 S
Meropenem <=0.25 S
Nitrofurantoin 32 S
Piperacillin/Tazo <=4 S
Trimethoprim/Sulfa >=320 R
Ampicillin >=32 R
Ampicillin/Sulbactam 16 I
Cefazolin I
Cefoxitin 8 S
ESBL NEG -
< br/>

S=Susceptible, I=Intermediate, R=Resistant, N/A=Not Applicable

ORDER COMMENTS
UA Spec Type: Clean Catch

05/09/2013 [facility] Unknown UNK [facility] Pathology Reports Report Value Date Source Surgical Pathology Final Report [employer] Treating Unit Operator [employer] Treating Unit Operator: UMBERTO Pathologist groupCASPER SURGICAL PATHOLOGY REPORT [facility] [address] [place] [address] Surgical Pathology Report [id number] FINAL DIAGNOSIS: Fibrovascular soft tissue, radiologist directed right rectus abdominus muscle core needle biopsy: - Inflammatory changes and epithelial lined spaces suggesting involvement by endometriosis. PAB Comment: Selected slides are shared with Dr Zach Martinez who concurs with the above diagnosis. Specimen(s) Received: Two 18-gauge core biopsies from abdominal wall Clinical Information: Acute onset of right lower quadrant pain with 2.5 cm cystic appearing mass superficial to right rectus abdominus muscle; prior c/section x 2; aspirated 3 ml of dark red blood from lesion and performed two 18-gauge core biopsies; evaluate for malignancy; ? possible endometrioma; ? abscess/hematoma Gross Description: The specimen is identified by the patient's name and is labeled "abdominal wall". Received in formalin are two, pink-shukla, cylindrical fragments of soft tissue which measure 0.9 cm and 1.1 cm in length, each with a 0.1 cm diameter. The specimen is entirely submitted in one cassette. PAB/05/11/13 ANTONIO POLANCO [id number] 05/10/2013 [facility] Diagnostic Reports Report Value Date Source SP US Guided Needle Placement [address] [address] Radiology Reports CPT Codes; 57385, 64440, 19185 CDM Codes: 7388792 (SP US Guided Needle Placement), 5868454 (Ndl Centesis), 1922274 (SP BX Abdomen/Retroper Core Needle), 0081328 (Instr Biopsy Full Core), 1664810 (TRY CUST BPSY), 9706831 (SP ASP Cyst/Abscess/Kiet Punc) Reason for exam: fluid abdomen wall Report ULTRASOUND-GUIDED ASPIRATION AND 18-GAUGE CORE BIOPSIES OF RIGHT LOWER QUADRANT ANTERIOR ABDOMINAL WALL MASS 05/10/2013: MEDICATIONS: None CONTRAST: None COMPLICATIONS: None INDICATION: 23 year with severe right lower quadrant abdominal wall pain. CT demonstrates an approximately 2.5 cm peripherally enhancing cystic appearing mass along the superficial aspect of the right rectus abdominis muscle. Two prior sections. Evaluate for abscess, hematoma or malignancy. COMPARISON STUDIES: CT abdomen and pelvis with contrast dated 05/09/2013. TECHNIQUE/FINDINGS: The procedure was discussed extensively with the patient including potential risks, complications, expected outcomes and potential alternatives. Written, witnessed informed consent was obtained. Pre-procedure timeout was performed according to protocol Preliminary ultrasound performed of the area of interest. There and is an irregular margined hypoechoic septated appearing cystic mass immediately superficial to the right rectus abdominis muscle. This measures approximately 2.5 cm in diameter. No flow is seen within the lesion on color Doppler imaging. The skin was prepped and draped in the usual sterile fashion. 1% lidocaine was used for local anesthesia at the skin puncture site. Using direct ANTONIO DEWITT [id number] [place] [address] Radiology Reports ultrasound visualization, the mass was punctured using an 18-gauge Merit One-Step sheath needle with spontaneous aspiration of approximately 3 cc of dark red blood. Specimen was sent for cell count and cultures as requested. The lesion did not completely resolve and appeared to have significant solid component and thus it was elected to proceed with percutaneous biopsy. Two 18 -gauge Biopince core biopsies were obtained of the mass and submitted to pathology in formalin for analysis. Hemostasis was attained without difficulty following manual compression. The site was appropriately dressed. The patient tolerated the procedure showing well. IMPRESSION: Successful ultrasound-guided aspiration and 18-gauge core biopsies of 2.5 cm septated hypoechoic partially solid partially cystic mass right lower quadrant along the anterior right abdominis rectus muscle. The patient is to follow up with the ordering physician regarding culture results and biopsy results. Dictating Yenifer Dacosta Dictated 05/10/2013 16:12 Signing Yenifer Dacosta [facility] [id number] Final Dictated by: YENIFER ZAPIEN MD Signed by: YENIFER ZAPIEN MD 05/10/13 16:21 Folder Seamer: WILLOW 05/10/13 16:21 ANTONIO DEWITT [id number] 05/10/2013 [facility] CT Abdomen W Pelvis [place] [address] Radiology Reports CPT Codes; 63408, Q9967 CDM Codes: 0659947 (CT Abdomen W and Pelvis W Cont), 4233968 (Syr Injector Angio), 8696187 (C Contrast Optiray 300/ML) Reason for exam: abd pain Report CT ABDOMEN and PELVIS with CONTRAST CLINICAL DATA: Abdominal pain and anterior abdominal wall mass COMPARISON: 05/09/2013 TECHNIQUE: CT imaging was performed according to standard protocol after the intravenous administration of 100 mL Optiray-300 intravenous contrast. There were no adverse effects. ABDOMEN FINDINGS: The lung bases are clear. The heart size is normal. The liver is normal in size. No focal hepatic lesion is seen. The left and right portal vein are patent. Main portal, superior mesenteric, and splenic veins appear patent. The gallbladder and biliary system appear normal. The pancreas is unremarkable. The spleen appears normal. The adrenal glands appear normal. There is a right renal stone measuring up to 4 mm in length. No hydronephrosis. No renal mass. The aorta and IVC are normal caliber. There is a circumaortic left renal vein. No pathological abdominal or pelvic lymphadenopathy according to CT size criteria. The stomach and imaged portions of small bowel appear normal. The imaged portion of the colon maintains normal caliber and wall thickness. No pericolonic inflammation is detected. The appendix is seen and is normal. There is a 2.5 x 2 x 2.5 cm septated peripherally enhancing superficial right anterolateral abdominal wall mass immediately adjacent to the rectus abdominous muscle with adjacent stranding. PELVIS FINDINGS: The urinary bladder is unremarkable. No free fluid is identified ANTONIO DEWITT [id number] [address] [address] Radiology Reports IMPRESSION: 1. 2.5 x 2 x 2.5 cm septated peripherally enhancing right superficial anterolateral abdominal wall mass immediately adjacent to the rectus abdominis muscle. This mass may extend into the superficial aspect of the rectus abdominis musculature. There is adjacent soft tissue stranding. This mass is nonspecific. Differential diagnostic considerations including abscess, hematoma, or neoplasm. A seroma is also possible. Recommend with correlation with prior imaging if available as well as clinical correlation. In the absence of prior imaging or clinical suspicion of infection or a hematoma for which short-term followup would be recommended, ultrasound guided aspiration and/or biopsy should be considered. Dictating Carter Hilliard Dictated 05/09/2013 20:20 Signing Carter Hilliard Location [id number] Final Dictated by: CARTER BRIGGS MD Signed by: CARTER BRIGGS MD 05/09/13 20:32 Folder Seamer: ARACELI 05/09/13 20:32 ANTONIO DEWITT [id number] 05/09/2013 [facility] CT Abdomen Stone WO Pelvis Stone WO Cont [address] [address] Radiology Reports CPT Codes; 45077 CDM Codes: [id number] (CT Abdomen Stone WO Pelvis Stone WO Cont) Reason for exam: abd pain Report CT ABDOMEN and PELVIS RENAL STONE STUDY without CONTRAST CLINICAL DATA: Flank pain. COMPARISON: None TECHNIQUE: 3 mm transverse images without contrast using the renal stone protocol. ABDOMEN FINDINGS: Mild dependent atelectasis. The heart size is normal. Limited evaluation of solid organs without intravenous contrast. The liver is normal in size. No focal lesions are detected. The gallbladder and biliary system appear normal. The pancreas is unremarkable. Spleen is unremarkable. Adjacent small masses likely representing splenules are noted in the left upper quadrant. The adrenal glands appear normal. Right inferior pole renal calculus measures up to a maximum of 4 mm in length. No hydronephrosis. Prominent bilateral extrarenal pelvis. No left renal stone. No ureteral stone. No bladder stone is identified. The aorta and IVC are normal caliber.No pathologically enlarged lymph nodes according to CT size criteria. Limited evaluation of the GI tract due to lack of oral or intravenous contrast. The stomach and small bowel appear normal. There is no suggestion of mechanical obstruction. The colon maintains normal caliber and wall thickness. No pericolonic inflammation is seen. The appendix is visualized and is normal. There is a 2.1 x 2.3 x 2.3 cm low-density mass adjacent to the right anterior abdominal wall musculature with surrounding stranding. This is incompletely assessed. Considerations include an abscess, hematoma, mass, or possibly a seroma in the setting of prior surgery. PELVIS FINDINGS: ANTONIO DEWITT [id number] [address] [address] Radiology Reports The urinary bladder is unremarkable. No pelvic adenopathy is detected. No free fluid is present. Small fat-containing umbilical hernia. IMPRESSION: 1. 4 mm right inferior pole renal calculus. 2. No hydronephrosis. 3. 2.1 x 2.3 x 2.3 cm low-density mass adjacent to the right lateral abdominal wall musculature with surrounding stranding. Considerations include a hematoma, abscess, seroma, or possible mass. Recommend clinical correlation and postcontrast imaging as clinically indicated. Dictating Carter Hilliard Dictated 05/09/2013 17:12 Signing Carter Hilliard Location [id number] Final Dictated by: CARTER BRIGGS MD Signed by: CARTER BRIGGS MD 05/09/13 17:24 Folder Seamer: ARACELI 05/09/13 17:24 ANTONIO DEWITT [id number] 05/09/2013 [facility] Consultation Notes Results Value Date Source Progress Note Encounter DateCo mplaintHistory Of Present Illness Follow Up of hosp Wednesday went to ER for RLQ abd mass. CT shows a mass and they admitted her to bx the mass. The results are not in yet. She was sent home with Tramadol but it is niot working. Hydrocodone makes her itch. 06/20/2013 [facility] Procedure Report Procedure Report IR Procedure Note [facility] Patient: ANTONIO DEWITT Age: 23 years Sex: Female : 1990 Associated Diagnoses: None Author: YENIFRE ZAPIEN MD Operative Information Date of Procedure: 05/10/2013. Procedure: ULTRASOUND-GUIDED ASPIRATION AND 18-GAUGE CORE BIOPSIES OF RIGHT LOWER QUADRANT ANTERIOR ABDOMINAL WALL MASS 05/10/2013: MEDICATIONS: None CONTRAST: None COMPLICATIONS: None INDICATION: 23 year with severe right lower quadrant abdominal wall pain. CT demonstrates an approximately 2.5 cm peripherally enhancing cystic appearing mass along the superficial aspect of the right rectus abdominis muscle. Two prior sections. Evaluate for abscess, hematoma or malignancy. COMPARISON STUDIES: CT abdomen and pelvis with contrast dated 05/09/2013. TECHNIQUE/FINDINGS: The procedure was discussed extensively with the patient including potential risks, complications, expected outcomes and potential alternatives. Written, witnessed informed consent was obtained. Pre-procedure timeout was performed according to protocol Preliminary ultrasound performed of the area of interest. There and is an irregular margined hypoechoic septated appearing cystic mass immediately superficial to the right rectus abdominis muscle. This measures approximately 2.5 cm in diameter. No flow is seen within the lesion on color Doppler imaging. The skin was prepped and draped in the usual sterile fashion. 1% lidocaine was used for local anesthesia at the skin puncture site. Using direct ultrasound visualization, the mass was punctured using an 18-gauge Merit One-Step sheath needle with spontaneous aspiration of approximately 3 cc of dark red blood. Specimen was sent for cell count and cultures as requested. The lesion did not completely resolve and appeared to have significant solid component and thus it was elected to proceed with percutaneous biopsy. Two 18 -gauge Biopince core biopsies were obtained of the mass and submitted to pathology in formalin for analysis. Hemostasis was attained without difficulty following manual compression. The site was appropriately dressed. The patient tolerated the procedure showing well. IMPRESSION: Procedure Report Successful ultrasound-guided aspiration and 18-gauge core biopsies of 2.5 cm septated hypoechoic partially solid partially cystic mass right lower quadrant along the anterior right abdominis rectus muscle. The patient is to follow up with the ordering physician regarding culture results and biopsy results.. [Electronically Signed By:] RUPALI RUEDA, YENIFER Fuchs On, 05/10/2013 04:22 PM 05/10/2013 [facility] Emergency Room Record Emergenc y Room Report DATE OF [address] demonstrated a small mass in the right anterior abdominal wall. Otherwise, was unremarkable. Laboratory suggests the possibility of urinary tract infection. Culture of urine was sent. White count, hemoglobin, platelets are unremarkable and electrolytes were unremarkable. AST and ALT and lipase were normal. Radiology requested a CT of the abdomen. The patient then informed that she just had a CT done at 3 weeks ago. It took quite a while for that result to finally come to us. It turned out to be a CT angio which really did give us any help in the abdominal wall, nothing was commented on. Thus, at that point, a CT was ordered. CT with contrast demonstrates a 2.5 x 2 x 2.5 septated superficial anterior lateral abdominal wall mass extending in the superficial aspect of the rectus abdominis. There is some soft tissue stranding around it and they recommended a possible aspiration. The patient has no doctor at this point, I will admit her and interventional radiology may be consulted for aspiration if so desired DIAGNOSTIC IMPRESSION 1. Abdominal wall mass, etiology undete rmined. CONDITION ON DISCHARGE The patient remains stable in the emergency department. *END OF REPORT* Amos C.T. C.T. E: 05/09/2013 23:55 CAiden/ Maci# [id number] Doc#: [id number] cc: 05/09/2013 [facility] Emergency Room Record Emergenc y Room Report DATE OF 1990 CHIEF COMPLAINT Abdominal pain. HISTORY OF PRESENT ILLNESS For "a couple" of days, the patient has had discomfort of the right lower quadrant. It does not radiate to the flank. She has a sense of urgency, in the last 24 hours she has developed hematuria. She has not had fever. There has been nausea. She has vomited. She denies diarrhea. There has been no rash to skin. She has had kidney stones in the past but does not believe this is a kidney stone, although concedes that previous kidney stone did have similar pain. REVIEW OF SYSTEMS Other pertinent areas of review of systems are reviewed negative including 10 system review. PAST MEDICAL HISTORY There are no old charts to review. She indicates a history of hypertension for which she takes labetalol. She has had kidney stones in the past. She still has her appendix. She has never had colitis. She has never had bowel obstruction PAST SURGICAL HISTORY section. SOCIAL HISTORY No drugs, tobacco or alcohol. FAMILY HISTORY Negative coagulopathy. MEDICATIONS Labetalol, Depo-Provera injection. ALLERGIES NONE TO MEDICATIONS. PHYSICAL EXAMINATION GENERAL: She is an alert female, tends to walk around the room trying to find a comfortable position, in no acute hemodynamic distress. VITAL SIGNS: Noted. She is normotensive, nontachycardic. She is afebrile with a normal pulse oximeter. HEAD: Atraumatic, normocephalic. EYES: Pupils round, reactive to light. Extraocular muscles are intact. EAR, NOSE AND THROAT: Mucous membranes are moist. Pharynx nonerythematous. NECK: Fully supple, no adenopathy. LUNGS: Clear to auscultation. No rales, wheezes, rhonchi or stridor. HEART: Regular rhythm without murmur. ABDOMEN: Protuberant. She says she has a "knot" in the right lower quadrant. I palpated and found no mass. I asked her to point where this knot is. She localizes an area. I palpate precisely there, I still do not feel any mass. Bowel sounds are present and normal. I do not encounter any hernias. BACK: Midline alignment. No pain on palpation. SKIN: No rashes, petechiae, purpura, vesicles. She does have a tattoo on the neck and right arm, mentioned only for identification purpose. MUSCULOSKELETAL: Full range of motion. No edema or effusions. NEUROLOGIC: She is alert and oriented x3. Cranial nerves II through XII are intact. Motor 5/5. Sensory normal to light touch. She ambulates under her own power. PSYCHIATRIC: Fairly anxious female, cooperative with exam. MEDICAL DECISION MAKING The patient has abdominal pain, right lower quadrant, certainly could be ovarian, could be kidney stone, could be appendicitis. I will get a CT of her abdomen. We will check urine to make sure she does not have evidence of infection. Check blood counts, electrolytes. I have offered and the patient has accepted IV Dilaudid and IV Zofran. She will get IV fluids. I will itemize results of studies, response to therapy, medical decision making, diagnosis, disposition in subsequent dictation. *END OF REPORT* MARIA FERNANDA/maureen C.T. C.T. E: 05/09/2013 16:38 C.TAngel/ Maci# [id number] Doc#: [id number] cc: 05/09/2013 [facility] Discharge Summaries Results Value Date Source Discharge Summary Discharge [facility] DATE OF 1990 DATE OF ADMISSION 05/09/2013 DATE OF DISCHARGE 05/11/2013 FINAL DIAGNOSES 1. Abdominal wall fluid collection, hem atoma/abscess versus other. 2. History of hypertension. 3. Nausea, vomiting, diarrhea. 4. Obesity. DISCHARGE MEDICATIONS Please see medication reconciliation sheet. HOSPITAL COURSE For the patient's presentation, please refer to HPI dictated by myself on 05/10/2013. The patient continued to remain essentially afebrile and essentially nearly nonseptic. She came back and came in with a urinalysis that was essentially negative for pyuria, although her urine cultures grew Enterococcus. With the note of the fluid collection she was sent and referred to IR for a guided drainage which she tolerated well. Then 3 mL of dark red blood was successfully aspirated, although core biopsies were also done and obtained. Biopsies were sent to pathology and fluid cell count did show significant pyuria with significant WBCs of 238,000, although in the blood sample. Today aspirate cultures had remained negative. That being said, at this point in time, the patient is deemed stable to be discharged home. She is highly advised to establish with primary care physician to ensure recovery of the same. She will be discharged with antibiotics in the intent of covering both for asymptomatic bacteriuria, obviously in this situation with the abdominal wall lesion and also following up with her biopsy reports. She claims she would like to follow with her family care physician who sees her children; however, she is also given phone numbers to groups in the area. PHYSICAL EXAMINATION ON DISCHARGE VITAL SIGNS: Blood pressure 116/62, pulse rate 48, respiratory rate 16, saturation 100% on room air, temperature 98.7 degrees. GENERAL: Alert and oriented x3 female in no acute distress. HEENT: Normocephalic and atraumatic. NECK: Supple. LUNGS: Symmetric expansion, clear to auscultation bilaterally. HEART: Regular rate and rhythm, S1, S2. No murmurs, gallops or rubs. ABDOMEN: Soft, nontender. There is organomegaly. Bowel sounds are intact. There is just some minimal darkening ecchymoses over the biopsy area; however, there is no palpable fluctuance without any rigidity in this area. EXTREMITIES: No pitting edema, no erythema. Time spent for discharge including counseling done, questions answered for the patient, spent well more than 30 minutes. *END OF REPORT* DMT/as C.T. Jaquelin E: 05/11/2013 13:49 Jaquelin/ Maci# [id number] Doc#: [id number] cc: 05/11/2013 [facility] Sylvia brown [place] History and Physicals Results Value Date Source History and Physical History a nd Physical DATE OF ADMISSION 05/09/2013 DATE OF 1990 CHIEF COMPLAINT Abdominal pain. HISTORY OF PRESENT ILLNESS The patient is a 23-year-old female with history of and a distant history of opioid dependence when she was in high school as she admits. She presented to emergency room after note of abdominal pains in the right lower quadrant. Symptoms started over the weekend where she had started having nausea, vomiting and diarrhea during that time. She denies any hemetemesis, melena or hematochezia with that. She started having lower abdominal pains and she thought that these pains were originating from her incision site which intermittently can bother her, especially if her pants rub in these areas. She denies any vaginal bleeding. She denies any entire body fevers, but she felt that the abdominal wall in the lower parts had felt warm. The diarrhea had ceased and her last bowel movement was Wednesday. However, thereafter continued to have persistent right lower quadrant abdominal pains. Denies any other sick contacts. She denies any other nonhealing wounds. With persistence of these symptoms, she has presented to emergency room for further management and care. PAST MEDICAL HISTORY 1. Hypertension. 2. Nephrolithiasis. 3. Obesity. PAST SURGICAL HISTORY , quite distantly already. ALLERGIES HYDROCODONE. MEDICATIONS Labetalol. She also gets a Depo-Provera shot intermittently. SOCIAL HISTORY The patient smokes frequently and socially. She denies alcohol or illicit drug abuse currently. REVIEW OF SYSTEMS A 12 point review of systems is otherwise obtained and reviewed with the patient and came back negative. PHYSICAL EXAMINATION VITAL SIGNS: Blood pressure is 105/63, pulse rate 48, respirations 16, saturation 100% on room air, temperature 98.7. GENERAL: Alert and oriented x3 female in no acute distress. HEAD: Normocephalic and atraumatic. NECK: Supple. LUNGS: Symmetric chest expansion, clear to auscultation bilaterally. HEART: Regular rate and rhythm, S1, S2. No murmurs, gallops or rubs. ABDOMEN: Soft, nontender. No organomegaly. Bowel sounds are intact. However, in the right lower quadrant area to deep palpation, there is a palpable deep lesion or mass which is nonfluctuant. There is some slight tenderness to this deep palpation; however, there is no rebound tenderness or guarding. There is no bruising on the surface of this lesion. This area seems to be mobile. EXTREMITIES: No pitting edema, no erythema. NEUROLOGIC: Pulses are +2. LABORATORY DATA On admission, WBC count of 7.6, hemoglobin and hematocrit of 13.8 and 40 respectively, platelets 301. Chem-7 notable for sodium 139, potassium 4.1, chloride 105, bicarbonate 21, BUN 19, creatinine 0.6, glucose 89, calcium is 9.7. LFTs are all within normal limits. Urinalysis came back without any pyuria. wbc 0 to 5 only. However, interestingly, urine culture is growing gram-negative rods. She proceeded with a CT of the abdomen for stones which showed a 2.1 x 2.2 x 2.3 low density mass right lateral abdominal wall musculature with surrounding stranding, consideration includes hematoma, absces s, seroma, mass. A contrasted study was requested and showed nearly essentially the same finding. DIAGNOSTIC IMPRESSION 1. Abdominal mass, fluid collection, ab scess versus hematoma versus distant surgical seroma versus other. 2. History of hypertension. 3. Nausea, vomiting, diarrhea. 4. Very distant history of opioid use a nd abuse. PLAN The patient's symptoms over the weekend of nausea, vomiting, diarrhea could have been easily explained by intestinal colitis which may be of course viral or bacterial in nature, likely more of the former. However, there is note of the abdominal wall lesion and seemingly only contiguous to the abdominal wall and not adherent to bowel or involving bowel lumen is somewhat concerning. Oddly, however, she has not been seen to have systemic fevers or chills or significant pyuria or leukocytosis or left shift to say if this to be fully infectious etiology. IR consultation will be obtained to see if this lesion can be sent for guided diagnostic drain. Empiric antibiotics will be used for the meanwhile. Supportive pain medications, analgesics, antiemetics will be used for the meanwhile. Further investigation and intervention will stem from the cell counts on this lesion. Otherwise, the patient does have persistent diarrhea that would be sent for assays. Otherwise rest of her appropriate home medications will be reconciled and DVT prophylaxis will be provided for. *END OF REPORT* DMT/cm C.T. C.T. E: 05/10/2013 11:28 C.T./ Conf# [id number] Doc#: [id number] cc: 05/10/2013 [facility] Vital Signs Vital Sign Value Date Comments Source Body height 67.00 [in_us] 05/12/2013 [facility] Body Weight (Measured) 231.20 [lb_av] 05/12/2013 [facility] Intravascular Systolic 130 mm[ Hg] 05/12/2013 [facility] Intravascular Diastolic 88 mm[ Hg] 05/12/2013 [facility] Heart Beat 80 /min 05/12/2013 [facility]oup Body Temperature 99.1 [degF] 05/12/2013 [facility] Respiratory Rate 12 /min 05/12/2013 [facility] Body mass index 36.21 kg/meter (2) 05/12/2013 [facility] Pulse Equipment SPO2 (05/11/20 13 07:21:18 [place]) 05/11/2013 [facility] Heart Rate 57 bpm 05/11/2013 [facility] er BP Location Arm, right (2012 07:21:18 [facility]) 05/11/2013 [facility] Temp Method Oral (05/11/2013 0 7:19:18 [facility]) 05/11/2013 [facility] Temperature 98.6 [degF] 05/11/2013 [facility] NIBP MAP 81 mm[Hg] 05/11/2013 [facility] er Inet NIBP Systolic 130 mm[Hg] 05/11/2013 [facility] Inet NIBP Diastolic 69 mm[Hg] 05/11/2013 [facility] Respiratory Rate 16 br/min 05/11/2013 [facility] Heart Rate Location Auto BP (1 07/10/2012 07:00:00 Nel[facility]/[place]) 05/10/2013 [facility] Pulse Rate 67 bpm 05/10/2013 [facility] er Encounters Location Location Details Encounter Type Encounter Number Reason For Visit Attending Provider ADM Date DC Date Status Source [facility] [id number] M Jayne Foos 06/20/2013 06/20/2013 [facility] [id number] M Jayne Foos 05/24/2013 05/24/2013 [facility] [id number] M Jayne Foos 05/23/2013 05/23/2013 [facility] [id number] M Jayne Foos 05/18/2013 05/18/2013 [facility] [id number] M Jayne Foos 05/17/2013 05/17/2013 [facility] [id number] M Jayne Foos 05/15/2013 05/15/2013 [facility] [id number] _MAPID:[email or web address] M Jayne Perez omarcos 05/12/2013 05/12/2013 [facility] [place]one dye [facility] Observation [id number] _MAPID:[id number] Referral Self 05/09/2013 05/11/2013 [facility] [id number] JIMENA DORIS TENA MD 05/09/2013 05/11/2013 Active [facility] Procedures Procedure Code Date Perfomer Comments Source Office/outpatient visit, new [facility]/12/2013 [facility] Plan of Care Plan of Care Date Source DateTypeActionStatus Referral Ordered: WOMENS CARE (OBGYN) ordered DateTypeProblemGoalInterventionStatusStart Date Unknown. 06/20/2013 [facility] Social History Social History Date Source TypeDescriptionQuantityDate Captured Alcohol Use Details No Caffeine Use Details No Tobacco Use Status Smoking Status Unknown Smoking Tobacco Use Details Cigarette: Years Used 4 Cigarette: 0.5 per day, Pack Year: 2 Alcohol Use Details No Caffeine Use Details soda 3-4 per day Tobacco Use Status Smoking Status Current every day smoker Smoking Tobacco Use Details Cigarette: Years Used 4 Cigarette: 0.5 per day, Pack Year: 2 06/20/2013 [facility] Assessment and Plan No Data Provided for This Section Family History Value Date S ource Family MemberDiagnosisAge At Onset Maternal grandfather Stroke Maternal grandfather Melanoma Maternal grandfather Diabetes mellitus 06/20/2013 [facility] Advance Directives No Data Provided for This Section Functional Status No Data Provided for This Section
--- OUTSIDE RECORDS SUMMARY | 2019-11-24 20:36 | XMS REPORT | Clinical Summary ---
Author Author Admin, Jackie Kunz Organization [facility] Address Unknown Phone Unavailable Allergies, Adverse Reactions, Alerts Allergy Name Reaction Description Start Date Severity Status Pr ovider TRAMADOL HCL rash Moderate Active Kenzie Elder Conditions or Problems Problem Name Problem Code Onset Date Status Entry Date Provider Comment Standard Description Annotate Hx of calculus, kidney V13.01 Active Stiven Rogers MD Personal history of urinary calculi BMI 35-35.9 Active Stiven Rogers MD Body Mass Index 35.0-35.9, adult Renal calculus, right 592.0 Active Stiven augustine MD Calculus of kidney Medication List Medication Instructions Start Date Stop Date Generic Name NDC Status Provider Patient Instruction FLONASE 50 MCG/ACT NASAL SUSPENSION FLUTICASONE PROPIONATE 36524958209 Active Stiven Rogers MD Active CELEXA 40 MG ORAL TABLET CITALOPRAM HYD ROBROMIDE 05388850303 Active Stiven Rogers MD Active CLONAZEPAM 0.25 MG ORAL TABLET DISINTEGRATING CLONAZEPAM 79405500361 Active Stiven Rogers MD Active ATENOLOL 50 MG ORAL TABLET ATENOLOL 482960318 01 Active Stiven Rogers MD Active PHENAZOPYRIDINE HCL 100 MG ORAL TABLET 1 tab by mouth prn 2 PHENAZOPYRIDINE HCL 60056423956 No Longer Active Stiven Rogers MD Active LABETALOL HCL 100 MG ORAL TABLET 1 pill by mouth twice daily, for blood pressure LABETALOL HCL 64402852054 No Longer Active Stiven Rogers MD Active CITALOPRAM HYDROBROMIDE 20 MG ORAL TABLET 1 tablet by mouth rocky y CITALOPRAM HYDROBROMIDE 13291035494 No Longer Active Stiven Rogers MD Active ALPRAZOLAM 0.25 MG ORAL TABLET 1 tablet by mouth twice a day as needed for stress ALPRAZOLAM 28454010515 No Longer Active Stiven Rogers MD Active ONDANSETRON 4 MG ORAL TABLET DISINTEGRATING 1 q4h PRN nausea 201 01/07/12 ONDANSETRON 75180034254 No Longer Active Stiven Rogers MD Active ONDANSETRON 4 MG ORAL TABLET DISINTEGRATING 1 q4h PRN nausea 201 01/07/12 ONDANSETRON 4 MG ORAL TABLET DISINTEGRATING 154414 ONDA NSETRON Inactive ALPRAZOLAM 0.25 MG ORAL TABLET 1 tablet by mouth twice a day as needed for stress ALPRAZOLAM 0.25 MG ORAL TABLET 390400 ALPRA ZOLAM Inactive CITALOPRAM HYDROBROMIDE 20 MG ORAL TABLET 1 tablet by mouth rocky y CITALOPRAM HYDROBROMIDE 20 MG ORAL TABLET 306353 CITALOPRAM HYDROBROMIDE Inactive LABETALOL HCL 100 MG ORAL TABLET 1 pill by mouth twice daily, for blood pressure LABETALOL HCL 100 MG ORAL TABLET 132630 LAB ETALOL HCL Inactive PHENAZOPYRIDINE HCL 100 MG ORAL TABLET 1 tab by mouth prn 2 PHENAZOPYRIDINE HCL 100 MG ORAL TABLET 2811107 PHENAZOPYRIDINE HCL I nactive Vital Signs Date Name Value Unit Range Description blood pressure, diastolic, repeated by physician 78 BP powell blood pressure, diastolic 78 mm[Hg] BP powell blood pressure, systolic, repeated by physician 122 BP sys blood pressure, systolic 122 mm[Hg] BP sys height E&M 66 [in_us] Bdy height pulse rate E&M 80 /min Heart rate temperature E&M 98.3 [degF] Body temp erature weight E&M 220 [lb_av] Weight Measure d Diagnostic Results Date Name Value Unit Range Description Office Visit: Yearly followup kidney sto [facility] - Chemistry RBC, urine, dipstick trace non hemoglyzed protein, urine, by sulfasalicylic acid negative bilirubin, by Ictotest, urine negative Office Visit: Yearly followup kidney sto [facility] - Urinalysis nitrite, urine, semiquantitative negative urobilinogen, urine, semiquantitative (dipstick) 0.2 leukocyte esterase, urine, by dipstick negative appearance, urine clear urine color yellow specific gravity, urine 1.015 pH, urine, semiquantitative 5.0 protein, urine, semiquantitative (dipstick) negative glucose, urine, semiquantitative negative ketones, urine, by test strip negative bilirubin, urine negative Encounters Code Encounter Date Provider Facility CPT-62674 Level 3 Est. Patient 10:58:50 DICE MANAGER Stiven sweet MD [facility] CPT-02709 Level 2 Est. Patient 19:41:37 CDT Stiven sweet [address] [facility] CPT-48794 Level 4 New Patient 13:29:05 CDT Stiven gamez MD [facility] Procedures Code Procedure Name Date Entry Date Standard Desc ription CPT-55419 Cystoscopy W/rem FB 19:41:37 CDT CPT-28649 Postop F/U Visit 09:39:34 CDT CPT-23165 Abdomen, 1 view 13:52:54 CDT
--- OUTSIDE RECORDS SUMMARY | 2019-11-24 20:36 | XMS REPORT | Clinical Summary ---
Author Author Admin, Jackie Kunz Organization [facility] Address Unknown Phone Unavailable Allergies, Adverse Reactions, Alerts Allergy Name Reaction Description Start Date Severity Status Pr ovider TRAMADOL HCL rash Moderate Active Kenzie Elder Conditions or Problems Problem Name Problem Code Onset Date Status Entry Date Provider Comment Standard Description Annotate Hx of calculus, kidney V13.01 Active Stiven Rogers MD Personal history of urinary calculi Medication List Medication Instructions Start Date Stop Date Generic Name NDC Status Provider Patient Instruction FLONASE 50 MCG/ACT NASAL SUSPENSION FLUTICASONE PROPIONATE 87370171526 Active Stiven Rogers MD Active CELEXA 40 MG ORAL TABLET CITALOPRAM HYD ROBROMIDE 64044792788 Active Stiven Rogers MD Active CLONAZEPAM 0.25 MG ORAL TABLET DISINTEGRATING CLONAZEPAM 40811421394 Active Stiven Rogers MD Active ATENOLOL 50 MG ORAL TABLET ATENOLOL 081506027 01 Active Stiven Rogers MD Active PHENAZOPYRIDINE HCL 100 MG ORAL TABLET 1 tab by mouth prn 2 PHENAZOPYRIDINE HCL 20939991896 No Longer Active Stiven Rogers MD Active LABETALOL HCL 100 MG ORAL TABLET 1 pill by mouth twice daily, for blood pressure LABETALOL HCL 70604996172 No Longer Active Stiven Rogers MD Active CITALOPRAM HYDROBROMIDE 20 MG ORAL TABLET 1 tablet by mouth rocky y CITALOPRAM HYDROBROMIDE 67980667781 No Longer Active Stiven Rogers MD Active ALPRAZOLAM 0.25 MG ORAL TABLET 1 tablet by mouth twice a day as needed for stress ALPRAZOLAM 10481440577 No Longer Active Stiven Rogers MD Active ONDANSETRON 4 MG ORAL TABLET DISINTEGRATING 1 q4h PRN nausea 201 01/07/12 ONDANSETRON 37287739102 No Longer Active Stiven Rogers MD Active ONDANSETRON 4 MG ORAL TABLET DISINTEGRATING 1 q4h PRN nausea 201 01/07/12 ONDANSETRON 4 MG ORAL TABLET DISINTEGRATING 557878 ONDA NSETRON Inactive ALPRAZOLAM 0.25 MG ORAL TABLET 1 tablet by mouth twice a day as needed for stress ALPRAZOLAM 0.25 MG ORAL TABLET 028686 ALPRA ZOLAM Inactive CITALOPRAM HYDROBROMIDE 20 MG ORAL TABLET 1 tablet by mouth rocky y CITALOPRAM HYDROBROMIDE 20 MG ORAL TABLET 013248 CITALOPRAM HYDROBROMIDE Inactive LABETALOL HCL 100 MG ORAL TABLET 1 pill by mouth twice daily, for blood pressure LABETALOL HCL 100 MG ORAL TABLET 855765 LAB ETALOL HCL Inactive PHENAZOPYRIDINE HCL 100 MG ORAL TABLET 1 tab by mouth prn 2 PHENAZOPYRIDINE HCL 100 MG ORAL TABLET 7356276 PHENAZOPYRIDINE HCL I nactive Vital Signs Date Name Value Unit Range Description blood pressure, diastolic, repeated by physician 72 BP powell blood pressure, diastolic 72 mm[Hg] BP powell blood pressure, systolic, repeated by physician 110 BP sys blood pressure, systolic 110 mm[Hg] BP sys height E&M 66 [in_us] Bdy height pulse rate E&M 84 /min Heart rate temperature E&M 98.0 [degF] Body temp erature weight E&M 260 [lb_av] Weight Measure d blood pressure, diastolic 96 mm[Hg] BP powell blood pressure, systolic 152 mm[Hg] BP sys height E&M 66 [in_us] Bdy height pulse rate E&M 86 /min Heart rate temperature E&M 99.5 [degF] Body temp erature weight E&M 270 [lb_av] Weight Measure d blood pressure, diastolic 74 mm[Hg] BP powell blood pressure, systolic 124 mm[Hg] BP sys height E&M 66 [in_us] Bdy height pulse rate E&M 80 /min Heart rate temperature E&M 98.3 [degF] Body temp erature weight E&M 260 [lb_av] Weight Measure d Diagnostic Results Date Name Value Unit Range Description Office Visit: CN-frequent UTI's - Chemis try RBC, urine, dipstick negative protein, total urine random negative mg/dL Office Visit: CN-frequent UTI's - Urinal ysis urinalysis, routine Clean Catch ketones, urine, by test strip negative bilirubin, urine negative glucose, urine, semiquantitative negative specific gravity, urine 1.020 pH, urine, semiquantitative 6 urine color yellow appearance, urine cloudy leukocyte esterase, urine, by dipstick 2+ nitrite, urine, semiquantitative negative urobilinogen, urine, semiquantitative (dipstick) negative protein, urine, semiquantitative (dipstick) negative Office Visit: Post-op ESWL still having pain - Chemistry RBC, urine, dipstick 3+ Office Visit: Post-op ESWL still having pain - PMH sexually transmitted disease no risk noted Office Visit: Post-op ESWL still having pain - Urinalysis nitrite, urine, semiquantitative negative urobilinogen, urine, semiquantitative (dipstick) 0.2 leukocyte esterase, urine, by dipstick negative appearance, urine clear urine color yellow specific gravity, urine 1.015 pH, urine, semiquantitative 6.5 protein, urine, semiquantitative (dipstick) trace glucose, urine, semiquantitative negative ketones, urine, by test strip negative bilirubin, urine negative Encounters Code Encounter Date Provider Facility CPT-18526 Level 2 Est. Patient 19:41:37 CDT J Gilberto sweet MD [facility] CPT-08916 Level 4 New Patient 13:29:05 CDT Stiven gamez MD [facility] Procedures Code Procedure Name Date Entry Date Standard Desc ription CPT-71391 Cystoscopy W/rem FB 19:41:37 CDT CPT-54800 Postop F/U Visit 09:39:34 CDT CPT-61365 Abdomen, 1 view 13:52:54 CDT
--- OUTSIDE RECORDS SUMMARY | 2019-11-24 20:36 | XMS REPORT | Clinical Summary ---
Author Author Admin, Jackie Kunz Organization [facility] Address Unknown Phone Unavailable Allergies, Adverse Reactions, [...] FLONASE 50 MCG/ACT NASAL SUSPENSION FLUTICASONE PROPIONATE 54616279127 Active Stiven Rogers MD Active CELEXA 40 MG ORAL TABLET CITALOPRAM HYD ROBROMIDE 61473141766 Active Stiven Rogers MD Active CLONAZEPAM 0.25 MG ORAL TABLET DISINTEGRATING CLONAZEPAM 61244639347 Active Stiven Rogers MD Active ATENOLOL 50 MG ORAL TABLET ATENOLOL 636356471 01 Active Stiven Rogers MD Active PHENAZOPYRIDINE HCL 100 MG ORAL TABLET 1 tab by mouth prn 2 PHENAZOPYRIDINE HCL 04421917110 No Longer Active Stiven Rogers MD Active LABETALOL HCL 100 MG ORAL TABLET 1 pill by mouth twice daily, for blood pressure LABETALOL HCL 19587288319 No Longer Active Stiven Rogers MD Active CITALOPRAM HYDROBROMIDE 20 MG ORAL TABLET 1 tablet by mouth rocky y CITALOPRAM HYDROBROMIDE 65737973445 No Longer Active Stiven Rogers MD Active ALPRAZOLAM 0.25 MG ORAL TABLET 1 tablet by mouth twice a day as needed for stress ALPRAZOLAM 05834110518 No Longer Active Stiven Rogers MD Active ONDANSETRON 4 MG ORAL TABLET DISINTEGRATING 1 q4h PRN nausea 201 01/07/12 ONDANSETRON 13100063136 No Longer Active Stiven Rogers MD Active ONDANSETRON 4 MG ORAL TABLET DISINTEGRATING 1 q4h PRN nausea 201 01/07/12 ONDANSETRON 4 MG ORAL TABLET DISINTEGRATING 202307 ONDA NSETRON Inactive ALPRAZOLAM 0.25 MG ORAL TABLET 1 tablet by mouth twice a day as needed for stress ALPRAZOLAM 0.25 MG ORAL TABLET 563620 ALPRA ZOLAM Inactive CITALOPRAM HYDROBROMIDE 20 MG ORAL TABLET 1 tablet by mouth rocky y CITALOPRAM HYDROBROMIDE 20 MG ORAL TABLET 561304 CITALOPRAM HYDROBROMIDE Inactive LABETALOL HCL 100 MG ORAL TABLET 1 pill by mouth twice daily, for blood pressure LABETALOL HCL 100 MG ORAL TABLET 395695 LAB ETALOL HCL Inactive PHENAZOPYRIDINE HCL 100 MG ORAL TABLET 1 tab by mouth prn 2 PHENAZOPYRIDINE HCL 100 MG ORAL TABLET 9133261 PHENAZOPYRIDINE HCL I nactive Vital Signs Date [...] negative Encounters Code Encounter Date Provider Facility CPT-50980 Level 2 Est. Patient 19:41:37 CDT J Gilberto sweet MD [facility] CPT-21331 Level 4 New Patient 13:29:05 CDT Stiven gamez MD [facility] [place] Procedures Code Procedure Name Date Entry Date Standard Desc ription CPT-98288 Cystoscopy W/rem FB 19:41:37 CDT CPT-63318 Postop F/U Visit 09:39:34 CDT CPT-55953 Abdomen, 1 view 13:52:54 CDT
--- OUTSIDE RECORDS SUMMARY | 2019-11-24 20:36 | XMS REPORT | Clinical Summary ---
Author Author Admin, Jackie Kunz Organization [facility] Address Unknown Phone Unavailable Allergies, [...] FLONASE 50 MCG/ACT NASAL SUSPENSION FLUTICASONE PROPIONATE 09902579791 Active Stiven Rogers MD Active CELEXA 40 MG ORAL TABLET CITALOPRAM HYD ROBROMIDE 09593088550 Active Stiven Rogers MD Active CLONAZEPAM 0.25 MG ORAL TABLET DISINTEGRATING CLONAZEPAM 69011873109 Active Stiven Rogers MD Active ATENOLOL 50 MG ORAL TABLET ATENOLOL 494316149 01 Active Stiven Rogers MD Active PHENAZOPYRIDINE HCL 100 MG ORAL TABLET 1 tab by mouth prn 2 PHENAZOPYRIDINE HCL 80274634402 No Longer Active Stiven Rogers MD Active LABETALOL HCL 100 MG ORAL TABLET 1 pill by mouth twice daily, for blood pressure LABETALOL HCL 80147489918 No Longer Active Stiven Rogers MD Active CITALOPRAM HYDROBROMIDE 20 MG ORAL TABLET 1 tablet by mouth rocky y CITALOPRAM HYDROBROMIDE 63479432374 No Longer Active Stiven Rogers MD Active ALPRAZOLAM 0.25 MG ORAL TABLET 1 tablet by mouth twice a day as needed for stress ALPRAZOLAM 70788177531 No Longer Active Stiven Rogers MD Active ONDANSETRON 4 MG ORAL TABLET DISINTEGRATING 1 q4h PRN nausea 201 01/07/12 ONDANSETRON 15880399947 No Longer Active Stiven Rogers MD Active ONDANSETRON 4 MG ORAL TABLET DISINTEGRATING 1 q4h PRN nausea 201 01/07/12 ONDANSETRON 4 MG ORAL TABLET DISINTEGRATING 264085 ONDA NSETRON Inactive ALPRAZOLAM 0.25 MG ORAL TABLET 1 tablet by mouth twice a day as needed for stress ALPRAZOLAM 0.25 MG ORAL TABLET 971180 ALPRA ZOLAM Inactive CITALOPRAM HYDROBROMIDE 20 MG ORAL TABLET 1 tablet by mouth rocky y CITALOPRAM HYDROBROMIDE 20 MG ORAL TABLET 944518 CITALOPRAM HYDROBROMIDE Inactive LABETALOL HCL 100 MG ORAL TABLET 1 pill by mouth twice daily, for blood pressure LABETALOL HCL 100 MG ORAL TABLET 764836 LAB ETALOL HCL Inactive PHENAZOPYRIDINE HCL 100 MG ORAL TABLET 1 tab by mouth prn 2 PHENAZOPYRIDINE HCL 100 MG ORAL TABLET 6650030 PHENAZOPYRIDINE HCL I nactive Vital Signs Date [...] negative Encounters Code Encounter Date Provider Facility CPT-90675 Level 3 Est. Patient 10:58:50 GAME TESTER Stiven sweet MD [facility] CPT-38126 Level 2 Est. Patient 19:41:37 CDT Stiven sweet MD [facility] [place] CPT-86440 Level 4 New Patient 13:29:05 CDT Stiven gamez MD [facility] Procedures Code Procedure Name Date Entry Date Standard Desc ription CPT-21356 Cystoscopy W/rem FB 19:41:37 CDT CPT-51531 Postop F/U Visit 09:39:34 CDT CPT-41895 Abdomen, 1 view 13:52:54 CDT
--- OUTSIDE RECORDS SUMMARY | 2019-11-24 20:36 | XMS REPORT | Clinical Summary ---
Author Author Admin, Jackie uKnz Organization [facility] Address Unknown Phone Unavailable Allergies, Adverse [...] FLONASE 50 MCG/ACT NASAL SUSPENSION FLUTICASONE PROPIONATE 74897821604 Active Stiven Rogers MD Active CELEXA 40 MG ORAL TABLET CITALOPRAM HYD ROBROMIDE 91651916856 Active Stiven Rogers MD Active CLONAZEPAM 0.25 MG ORAL TABLET DISINTEGRATING CLONAZEPAM 85682336442 Active Stiven Rogers MD Active ATENOLOL 50 MG ORAL TABLET ATENOLOL 874562019 01 Active Stiven Rogers MD Active PHENAZOPYRIDINE HCL 100 MG ORAL TABLET 1 tab by mouth prn 2 PHENAZOPYRIDINE HCL 47174903950 No Longer Active Stiven Rogers MD Active LABETALOL HCL 100 MG ORAL TABLET 1 pill by mouth twice daily, for blood pressure LABETALOL HCL 03489261141 No Longer Active Stiven Rogers MD Active CITALOPRAM HYDROBROMIDE 20 MG ORAL TABLET 1 tablet by mouth rocky y CITALOPRAM HYDROBROMIDE 25225128028 No Longer Active Stiven Rogers MD Active ALPRAZOLAM 0.25 MG ORAL TABLET 1 tablet by mouth twice a day as needed for stress ALPRAZOLAM 54056055288 No Longer Active Stiven Rogers MD Active ONDANSETRON 4 MG ORAL TABLET DISINTEGRATING 1 q4h PRN nausea 201 01/07/12 ONDANSETRON 22337312126 No Longer Active Stiven Rogers MD Active ONDANSETRON 4 MG ORAL TABLET DISINTEGRATING 1 q4h PRN nausea 201 01/07/12 ONDANSETRON 4 MG ORAL TABLET DISINTEGRATING 587401 ONDA NSETRON Inactive ALPRAZOLAM 0.25 MG ORAL TABLET 1 tablet by mouth twice a day as needed for stress ALPRAZOLAM 0.25 MG ORAL TABLET 139758 ALPRA ZOLAM Inactive CITALOPRAM HYDROBROMIDE 20 MG ORAL TABLET 1 tablet by mouth rocky y CITALOPRAM HYDROBROMIDE 20 MG ORAL TABLET 342732 CITALOPRAM HYDROBROMIDE Inactive LABETALOL HCL 100 MG ORAL TABLET 1 pill by mouth twice daily, for blood pressure LABETALOL HCL 100 MG ORAL TABLET 904299 LAB ETALOL HCL Inactive PHENAZOPYRIDINE HCL 100 MG ORAL TABLET 1 tab by mouth prn 2 PHENAZOPYRIDINE HCL 100 MG ORAL TABLET 2311058 PHENAZOPYRIDINE HCL I nactive Vital Signs Date Name Value Unit Range Description blood pressure, diastolic 96 mm[Hg] BP powell [...] negative Encounters Code Encounter Date Provider Facility CPT-81962 Level 4 New Patient 13:29:05 TANNER gamez MD [facility] Procedures Code Procedure Name Date Entry Date Standard Desc ription CPT-08699 Postop F/U Visit 09:39:34 CDT CPT-46943 Abdomen, 1 view 13:52:54 CDT
--- OUTSIDE RECORDS SUMMARY | 2019-11-24 20:36 | XMS REPORT | Clinical Summary ---
Author Author Admin, Jackie Kunz Organization [facility] Address Unknown Phone Unavailable Allergies, Adverse [...] FLONASE 50 MCG/ACT NASAL SUSPENSION FLUTICASONE PROPIONATE 87684669436 Active Stiven Rogers MD Active CELEXA 40 MG ORAL TABLET CITALOPRAM HYD ROBROMIDE 48044520124 Active Stiven Rogers MD Active CLONAZEPAM 0.25 MG ORAL TABLET DISINTEGRATING CLONAZEPAM 13843957310 Active Stiven Rogers MD Active ATENOLOL 50 MG ORAL TABLET ATENOLOL 555339890 01 Active Stiven Rogers MD Active PHENAZOPYRIDINE HCL 100 MG ORAL TABLET 1 tab by mouth prn 2 PHENAZOPYRIDINE HCL 77776308543 No Longer Active Stiven Rogers MD Active LABETALOL HCL 100 MG ORAL TABLET 1 pill by mouth twice daily, for blood pressure LABETALOL HCL 62887830067 No Longer Active Stiven Rogers MD Active CITALOPRAM HYDROBROMIDE 20 MG ORAL TABLET 1 tablet by mouth rocky y CITALOPRAM HYDROBROMIDE 35360916234 No Longer Active Stiven Rogers MD Active ALPRAZOLAM 0.25 MG ORAL TABLET 1 tablet by mouth twice a day as needed for stress ALPRAZOLAM 63039646102 No Longer Active Stiven Rogers MD Active ONDANSETRON 4 MG ORAL TABLET DISINTEGRATING 1 q4h PRN nausea 201 01/07/12 ONDANSETRON 00819748492 No Longer Active Stiven Rogers MD Active ONDANSETRON 4 MG ORAL TABLET DISINTEGRATING 1 q4h PRN nausea 201 01/07/12 ONDANSETRON 4 MG ORAL TABLET DISINTEGRATING 610623 ONDA NSETRON Inactive ALPRAZOLAM 0.25 MG ORAL TABLET 1 tablet by mouth twice a day as needed for stress ALPRAZOLAM 0.25 MG ORAL TABLET 612184 ALPRA ZOLAM Inactive CITALOPRAM HYDROBROMIDE 20 MG ORAL TABLET 1 tablet by mouth rocky y CITALOPRAM HYDROBROMIDE 20 MG ORAL TABLET 948312 CITALOPRAM HYDROBROMIDE Inactive LABETALOL HCL 100 MG ORAL TABLET 1 pill by mouth twice daily, for blood pressure LABETALOL HCL 100 MG ORAL TABLET 647790 LAB ETALOL HCL Inactive PHENAZOPYRIDINE HCL 100 MG ORAL TABLET 1 tab by mouth prn 2 PHENAZOPYRIDINE HCL 100 MG ORAL TABLET 7928091 PHENAZOPYRIDINE HCL I nactive Vital Signs Date [...] negative Encounters Code Encounter Date Provider Facility CPT-77769 Level 4 New Patient 13:29:05 TANNER gamez MD [facility] Procedures Code Procedure Name Date Entry Date Standard Desc ription CPT-82751 Postop F/U Visit 09:39:34 CDT CPT-36264 Abdomen, 1 view 13:52:54 CDT
--- OUTSIDE RECORDS SUMMARY | 2019-11-24 20:36 | XMS REPORT | Clinical Summary ---
Author Author Admin, Jackie Kunz Organization [facility] Address Unknown Phone Unavailable Allergies, [...] FLONASE 50 MCG/ACT NASAL SUSPENSION FLUTICASONE PROPIONATE 41890983132 Active Stiven Rogers MD Active CELEXA 40 MG ORAL TABLET CITALOPRAM HYD ROBROMIDE 40215819686 Active Stiven Rogers MD Active CLONAZEPAM 0.25 MG ORAL TABLET DISINTEGRATING CLONAZEPAM 51966414248 Active Stiven Rogers MD Active ATENOLOL 50 MG ORAL TABLET ATENOLOL 556249797 01 Active Stiven Rogers MD Active PHENAZOPYRIDINE HCL 100 MG ORAL TABLET 1 tab by mouth prn 2 PHENAZOPYRIDINE HCL 55875144500 No Longer Active Stiven Rogers MD Active LABETALOL HCL 100 MG ORAL TABLET 1 pill by mouth twice daily, for blood pressure LABETALOL HCL 15288236093 No Longer Active Stiven Rogers MD Active CITALOPRAM HYDROBROMIDE 20 MG ORAL TABLET 1 tablet by mouth rocky y CITALOPRAM HYDROBROMIDE 44179741733 No Longer Active Stiven Rogers MD Active ALPRAZOLAM 0.25 MG ORAL TABLET 1 tablet by mouth twice a day as needed for stress ALPRAZOLAM 60237147909 No Longer Active Stiven Rogers MD Active ONDANSETRON 4 MG ORAL TABLET DISINTEGRATING 1 q4h PRN nausea 201 01/07/12 ONDANSETRON 64990662885 No Longer Active Stiven Rogers MD Active ONDANSETRON 4 MG ORAL TABLET DISINTEGRATING 1 q4h PRN nausea 201 01/07/12 ONDANSETRON 4 MG ORAL TABLET DISINTEGRATING 372979 ONDA NSETRON Inactive ALPRAZOLAM 0.25 MG ORAL TABLET 1 tablet by mouth twice a day as needed for stress ALPRAZOLAM 0.25 MG ORAL TABLET 432587 ALPRA ZOLAM Inactive CITALOPRAM HYDROBROMIDE 20 MG ORAL TABLET 1 tablet by mouth rocky y CITALOPRAM HYDROBROMIDE 20 MG ORAL TABLET 425093 CITALOPRAM HYDROBROMIDE Inactive LABETALOL HCL 100 MG ORAL TABLET 1 pill by mouth twice daily, for blood pressure LABETALOL HCL 100 MG ORAL TABLET 001969 LAB ETALOL HCL Inactive PHENAZOPYRIDINE HCL 100 MG ORAL TABLET 1 tab by mouth prn 2 PHENAZOPYRIDINE HCL 100 MG ORAL TABLET 6819265 PHENAZOPYRIDINE HCL I nactive Vital Signs Date [...] negative Encounters Code Encounter Date Provider Facility CPT-33518 Level 3 Est. Patient 10:58:50 RECREATIONAL PROGRAMS DIRECTOR Stiven sweet MD [facility] CPT-84517 Level 2 Est. Patient 19:41:37 CDT Stiven sweet MD [facility] [place] CPT-63001 Level 4 New Patient 13:29:05 CDT Stiven gamez MD [facility] Procedures Code Procedure Name Date Entry Date Standard Desc ription CPT-86845 Cystoscopy W/rem FB 19:41:37 CDT CPT-90099 Postop F/U Visit 09:39:34 CDT CPT-45221 Abdomen, 1 view 13:52:54 CDT
--- OUTSIDE RECORDS SUMMARY | 2019-11-24 20:36 | XMS REPORT | Clinical Summary ---
Author Author Admin, Jackie Kunz Organization [facility] Address Unknown Phone Unavailable Allergies, Adverse [...] FLONASE 50 MCG/ACT NASAL SUSPENSION FLUTICASONE PROPIONATE 35109291576 Active Stiven Rogers MD Active CELEXA 40 MG ORAL TABLET CITALOPRAM HYD ROBROMIDE 78704807134 Active Stiven Rogers MD Active CLONAZEPAM 0.25 MG ORAL TABLET DISINTEGRATING CLONAZEPAM 06548438104 Active Stiven Rogers MD Active ATENOLOL 50 MG ORAL TABLET ATENOLOL 275218813 01 Active Stiven Rogers MD Active PHENAZOPYRIDINE HCL 100 MG ORAL TABLET 1 tab by mouth prn 2 PHENAZOPYRIDINE HCL 45424432415 No Longer Active Stievn Rogers MD Active LABETALOL HCL 100 MG ORAL TABLET 1 pill by mouth twice daily, for blood pressure LABETALOL HCL 29072667406 No Longer Active Stiven Rogers MD Active CITALOPRAM HYDROBROMIDE 20 MG ORAL TABLET 1 tablet by mouth rocky y CITALOPRAM HYDROBROMIDE 83268434822 No Longer Active Stiven Rogers MD Active ALPRAZOLAM 0.25 MG ORAL TABLET 1 tablet by mouth twice a day as needed for stress ALPRAZOLAM 92263110952 No Longer Active Stiven Rogers MD Active ONDANSETRON 4 MG ORAL TABLET DISINTEGRATING 1 q4h PRN nausea 201 01/07/12 ONDANSETRON 66752979556 No Longer Active Stiven Rogers MD Active ONDANSETRON 4 MG ORAL TABLET DISINTEGRATING 1 q4h PRN nausea 201 01/07/12 ONDANSETRON 4 MG ORAL TABLET DISINTEGRATING 337251 ONDA NSETRON Inactive ALPRAZOLAM 0.25 MG ORAL TABLET 1 tablet by mouth twice a day as needed for stress ALPRAZOLAM 0.25 MG ORAL TABLET 664377 ALPRA ZOLAM Inactive CITALOPRAM HYDROBROMIDE 20 MG ORAL TABLET 1 tablet by mouth rocky y CITALOPRAM HYDROBROMIDE 20 MG ORAL TABLET 808833 CITALOPRAM HYDROBROMIDE Inactive LABETALOL HCL 100 MG ORAL TABLET 1 pill by mouth twice daily, for blood pressure LABETALOL HCL 100 MG ORAL TABLET 422125 LAB ETALOL HCL Inactive PHENAZOPYRIDINE HCL 100 MG ORAL TABLET 1 tab by mouth prn 2 PHENAZOPYRIDINE HCL 100 MG ORAL TABLET 0843984 PHENAZOPYRIDINE HCL I nactive Vital Signs Date [...] negative Encounters Code Encounter Date Provider Facility CPT-85267 Level 4 New Patient 13:29:05 TANNER gamez MD [facility] Procedures Code Procedure Name Date Entry Date Standard Desc ription CPT-98654 Postop F/U Visit 09:39:34 CDT CPT-02987 Abdomen, 1 view 13:52:54 CDT
--- OUTSIDE RECORDS SUMMARY | 2019-11-24 20:36 | XMS REPORT | Clinical Summary ---
Author Author Admin, Jackie Kunz Organization [facility] Address Unknown Phone Unavailable Allergies, [...] FLONASE 50 MCG/ACT NASAL SUSPENSION FLUTICASONE PROPIONATE 80543670569 Active Stiven Rogers MD Active CELEXA 40 MG ORAL TABLET CITALOPRAM HYD ROBROMIDE 07422902788 Active Stiven Rogers MD Active CLONAZEPAM 0.25 MG ORAL TABLET DISINTEGRATING CLONAZEPAM 10412788833 Active Stiven Rogers MD Active ATENOLOL 50 MG ORAL TABLET ATENOLOL 457984029 01 Active Stiven Rogers MD Active PHENAZOPYRIDINE HCL 100 MG ORAL TABLET 1 tab by mouth prn 2 PHENAZOPYRIDINE HCL 51865745318 No Longer Active Stiven Rogers MD Active LABETALOL HCL 100 MG ORAL TABLET 1 pill by mouth twice daily, for blood pressure LABETALOL HCL 60395005069 No Longer Active Stiven Rogers MD Active CITALOPRAM HYDROBROMIDE 20 MG ORAL TABLET 1 tablet by mouth rocky y CITALOPRAM HYDROBROMIDE 81572561387 No Longer Active Stiven Rogers MD Active ALPRAZOLAM 0.25 MG ORAL TABLET 1 tablet by mouth twice a day as needed for stress ALPRAZOLAM 49444273284 No Longer Active Stiven Rogers MD Active ONDANSETRON 4 MG ORAL TABLET DISINTEGRATING 1 q4h PRN nausea 201 01/07/12 ONDANSETRON 10106270195 No Longer Active Stiven Rogers MD Active ONDANSETRON 4 MG ORAL TABLET DISINTEGRATING 1 q4h PRN nausea 201 01/07/12 ONDANSETRON 4 MG ORAL TABLET DISINTEGRATING 210596 ONDA NSETRON Inactive ALPRAZOLAM 0.25 MG ORAL TABLET 1 tablet by mouth twice a day as needed for stress ALPRAZOLAM 0.25 MG ORAL TABLET 802861 ALPRA ZOLAM Inactive CITALOPRAM HYDROBROMIDE 20 MG ORAL TABLET 1 tablet by mouth rocky y CITALOPRAM HYDROBROMIDE 20 MG ORAL TABLET 238573 CITALOPRAM HYDROBROMIDE Inactive LABETALOL HCL 100 MG ORAL TABLET 1 pill by mouth twice daily, for blood pressure LABETALOL HCL 100 MG ORAL TABLET 645621 LAB ETALOL HCL Inactive PHENAZOPYRIDINE HCL 100 MG ORAL TABLET 1 tab by mouth prn 2 PHENAZOPYRIDINE HCL 100 MG ORAL TABLET 8835520 PHENAZOPYRIDINE HCL I nactive Vital Signs Date [...] negative Encounters Code Encounter Date Provider Facility CPT-58287 Level 2 Est. Patient 19:41:37 CDT J Gilberto sweet MD [facility] [place] CPT-23179 Level 4 New Patient 13:29:05 CDT Stiven gamez MD [facility] [place] Procedures Code Procedure Name Date Entry Date Standard Desc ription CPT-42758 Cystoscopy W/rem FB 19:41:37 CDT CPT-56047 Postop F/U Visit 09:39:34 CDT CPT-55487 Abdomen, 1 view 13:52:54 CDT
--- OUTSIDE RECORDS SUMMARY | 2019-11-24 20:36 | XMS REPORT ---
Author Author Jackie CHI Organization [facility] Address [address] [place] [address] Care Team Providers Care Inspector Dials Name Role Phone PEGGY CHI Unavailable PROBLEMS Type Condition ICD9-CM Code [id number] Code Onset Dates Condition S tatus SNOMED Code Problem Moderate episode of recurrent major depressive disorder F33.1 Active 812320465 Problem Insomnia, unspecified type G47.00 Act isabel 461484475 Problem Anxiety F41.9 Active [id number] ALLERGIES No Information ENCOUNTERS Encounter Location Date Diagnosis [address] [id number] [address] Sep, [address] [id number] [address] Sep, Anxiety F41.[address] [id number] [address] Sep, Moderate episode of recurren t major depressive disorder F33.[address] [id number] [address] Sep, Anxiety F41.[address] [id number] [address] Aug, Moderate episode of recurren t major depressive disorder F33.1 ; Anxiety F41.9 ; Insomnia, unspecified type G47.00 and Medication monitoring encounter Z51.[address] [id number] [address] Aug, Anxiety F41.[address] [id number] [address] Jul, Anxiety F41.9 [facility] [address] [id number] [place] [address] Jun, Anxiety F41.9 [facility] [address] [id number] [place] [address] May, [facility] [address] [id number] [place] [address] May, Moderate episode of recurren t major depressive disorder F33.1 [facility] [address] [id number] [place] [address] May, Moderate episode of recurren t major depressive disorder F33.1 and Anxiety F41.9 [facility] [address] [id number] [place] [address] Apr, Anxiety F41.9 [facility] [address] [id number] [place] [address] Mar, [facility] [address] [id number] [place] [address] Mar, Moderate episode of recurren t major depressive disorder F33.1 and Anxiety F41.9 [facility] [address] [id number] [place] [address] Mar, [facility] [address] [id number] [place] [address] Mar, [facility] [address] [id number] [place] [address] Feb, Anxiety F41.9 [facility] [address] [id number] [place] [address] Jan, [facility] [address] [id number] [place] [address] Jan, Anxiety F41.9 [facility] [address] [id number] [place] [address] Dec, Moderate episode of recurren t major depressive disorder F33.1 [facility] [address] [id number] [place] [address] Dec, Moderate episode of recurren t major depressive disorder F33.1 ; Anxiety F41.9 and Encounter for medication monitoring Z51.81 [facility] [address] [id number] [place] [address] Dec, [facility] [address] [id number] [place] [address] November, Pain of right thumb M79.[address] [id number] [place] [address] November, Anxiety F41.[address] [id number] [address] Oct, Morbid obesity E66.01 ; Pain with urination R30.9 and Acute cystitis without hematuria N30.00 [facility] [address] [id number] [address] Oct, Morbid obesity E66.01 ; Anxi ety F41.9 and Moderate episode of recurrent major depressive disorder F33.[address] [id number], [place] [address] Oct, [facility] [address] [id number], [place] [address] Sep, [address] [id number], [place] [address] Sep, [address] [id number] [address] Sep, [address] [id number], [place] [address] Aug, Encounter for Depo-Provera c ontraception Z30.42 [facility] [address] [id number], [place] [address] Aug, [facility] [address] [facility] [id number] [address] [place] [address] Feb, [facility] [address] [facility] [id number] [address] [place] [address] Jul, IMMUNIZATIONS No Known Immunizations SOCIAL HISTORY Never Assessed REASON FOR VISIT Controlled fill 09/30 PLAN OF CARE VITAL SIGNS MEDICATIONS Medication Instructions Dosage Frequency Start Date End Date Duration S tatus Klonopin 0.5 MG Orally 2 times a day 1 tablet as needed 12h 29 M ar, 2019 28 days Active RESULTS No Results PROCEDURES No Known procedures INSTRUCTIONS MEDICATIONS ADMINISTERED No Known Medications MEDICAL (GENERAL) HISTORY Type Description Date Medical History hypertension Medical History anxiety Medical History depression Surgical History Kidney stone Surgical History x2 Surgical History Stent in from Urethra to Kidney and Then Removal Hospitalization History surgical
--- OUTSIDE RECORDS SUMMARY | 2019-11-24 20:36 | XMS REPORT | Clinical Summary ---
Author Author Admin, Jackie Kunz Organization [facility] Address Unknown Phone Unavailable Allergies, Adverse Reactions, [...] FLONASE 50 MCG/ACT NASAL SUSPENSION FLUTICASONE PROPIONATE 99734616899 Active Stiven Rogers MD Active CELEXA 40 MG ORAL TABLET CITALOPRAM HYD ROBROMIDE 22754432672 Active Stiven Rogers MD Active CLONAZEPAM 0.25 MG ORAL TABLET DISINTEGRATING CLONAZEPAM 25457709555 Active Stiven Rogers MD Active ATENOLOL 50 MG ORAL TABLET ATENOLOL 148203610 01 Active Stiven Rogers MD Active PHENAZOPYRIDINE HCL 100 MG ORAL TABLET 1 tab by mouth prn 2 PHENAZOPYRIDINE HCL 38337932497 No Longer Active Stiven Rogers MD Active LABETALOL HCL 100 MG ORAL TABLET 1 pill by mouth twice daily, for blood pressure LABETALOL HCL 29458718266 No Longer Active Stiven Rogers MD Active CITALOPRAM HYDROBROMIDE 20 MG ORAL TABLET 1 tablet by mouth rocky y CITALOPRAM HYDROBROMIDE 75192711297 No Longer Active Stiven Rogers MD Active ALPRAZOLAM 0.25 MG ORAL TABLET 1 tablet by mouth twice a day as needed for stress ALPRAZOLAM 58501322947 No Longer Active Stiven Rogers MD Active ONDANSETRON 4 MG ORAL TABLET DISINTEGRATING 1 q4h PRN nausea 201 01/07/12 ONDANSETRON 11720827610 No Longer Active Stiven Rogers MD Active ONDANSETRON 4 MG ORAL TABLET DISINTEGRATING 1 q4h PRN nausea 201 01/07/12 ONDANSETRON 4 MG ORAL TABLET DISINTEGRATING 169965 ONDA NSETRON Inactive ALPRAZOLAM 0.25 MG ORAL TABLET 1 tablet by mouth twice a day as needed for stress ALPRAZOLAM 0.25 MG ORAL TABLET 746030 ALPRA ZOLAM Inactive CITALOPRAM HYDROBROMIDE 20 MG ORAL TABLET 1 tablet by mouth rocky y CITALOPRAM HYDROBROMIDE 20 MG ORAL TABLET 629160 CITALOPRAM HYDROBROMIDE Inactive LABETALOL HCL 100 MG ORAL TABLET 1 pill by mouth twice daily, for blood pressure LABETALOL HCL 100 MG ORAL TABLET 391935 LAB ETALOL HCL Inactive PHENAZOPYRIDINE HCL 100 MG ORAL TABLET 1 tab by mouth prn 2 PHENAZOPYRIDINE HCL 100 MG ORAL TABLET 4697669 PHENAZOPYRIDINE HCL I nactive Vital Signs Date [...] negative Encounters Code Encounter Date Provider Facility CPT-59721 Level 4 New Patient 13:29:05 TANNER gamez MD [facility] Procedures Code Procedure Name Date Entry Date Standard Desc ription CPT-95224 Postop F/U Visit 09:39:34 CDT CPT-33774 Abdomen, 1 view 13:52:54 CDT
--- OUTSIDE RECORDS SUMMARY | 2019-11-24 20:37 | XMS REPORT | Clinical Summary ---
Author Author Admin, Jackie Kunz Organization [facility] Address Unknown Phone Unavailable Allergies, [...] FLONASE 50 MCG/ACT NASAL SUSPENSION FLUTICASONE PROPIONATE 74634558461 Active Stiven Rogers MD Active CELEXA 40 MG ORAL TABLET CITALOPRAM HYD ROBROMIDE 61817333660 Active Stiven Rogers MD Active CLONAZEPAM 0.25 MG ORAL TABLET DISINTEGRATING CLONAZEPAM 82781421360 Active Stiven Rogers MD Active ATENOLOL 50 MG ORAL TABLET ATENOLOL 115766673 01 Active Stiven Rogers MD Active PHENAZOPYRIDINE HCL 100 MG ORAL TABLET 1 tab by mouth prn 2 PHENAZOPYRIDINE HCL 78696261458 No Longer Active Stiven Rogers MD Active LABETALOL HCL 100 MG ORAL TABLET 1 pill by mouth twice daily, for blood pressure LABETALOL HCL 92904734316 No Longer Active Stiven Rogers MD Active CITALOPRAM HYDROBROMIDE 20 MG ORAL TABLET 1 tablet by mouth rocky y CITALOPRAM HYDROBROMIDE 02324582741 No Longer Active Stiven Rogers MD Active ALPRAZOLAM 0.25 MG ORAL TABLET 1 tablet by mouth twice a day as needed for stress ALPRAZOLAM 24134902758 No Longer Active Stiven Rogers MD Active ONDANSETRON 4 MG ORAL TABLET DISINTEGRATING 1 q4h PRN nausea 201 01/07/12 ONDANSETRON 68606137983 No Longer Active Stiven Rogers MD Active ONDANSETRON 4 MG ORAL TABLET DISINTEGRATING 1 q4h PRN nausea 201 01/07/12 ONDANSETRON 4 MG ORAL TABLET DISINTEGRATING 865786 ONDA NSETRON Inactive ALPRAZOLAM 0.25 MG ORAL TABLET 1 tablet by mouth twice a day as needed for stress ALPRAZOLAM 0.25 MG ORAL TABLET 824773 ALPRA ZOLAM Inactive CITALOPRAM HYDROBROMIDE 20 MG ORAL TABLET 1 tablet by mouth rocky y CITALOPRAM HYDROBROMIDE 20 MG ORAL TABLET 630565 CITALOPRAM HYDROBROMIDE Inactive LABETALOL HCL 100 MG ORAL TABLET 1 pill by mouth twice daily, for blood pressure LABETALOL HCL 100 MG ORAL TABLET 931134 LAB ETALOL HCL Inactive PHENAZOPYRIDINE HCL 100 MG ORAL TABLET 1 tab by mouth prn 2 PHENAZOPYRIDINE HCL 100 MG ORAL TABLET 6411624 PHENAZOPYRIDINE HCL I nactive Vital Signs Date Name Value Unit Range Description blood pressure, diastolic 74 mm[Hg] BP powell [...] (dipstick) negative protein, urine, semiquantitative (dipstick) negative Encounters Code Encounter Date Provider Facility CPT-70976 Level 4 New Patient 13:29:05 CDT J Gilberto gamez MD [facility] Procedures Code Procedure Name Date Entry Date Standard Desc ription CPT-97415 Abdomen, 1 view 13:52:54 CDT
--- OUTSIDE RECORDS SUMMARY | 2019-11-24 20:37 | XMS REPORT | Clinical Summary ---
Author Author Admin, Jackie Kunz Organization [facility] Address Unknown Phone Unavailable Allergies, Adverse Reactions, [...] FLONASE 50 MCG/ACT NASAL SUSPENSION FLUTICASONE PROPIONATE 76406735449 Active Stiven Rogers MD Active CELEXA 40 MG ORAL TABLET CITALOPRAM HYD ROBROMIDE 81164211879 Active Stiven Rogers MD Active CLONAZEPAM 0.25 MG ORAL TABLET DISINTEGRATING CLONAZEPAM 12249191658 Active Stiven Rogers MD Active ATENOLOL 50 MG ORAL TABLET ATENOLOL 888391225 01 Active Stiven Rogers MD Active PHENAZOPYRIDINE HCL 100 MG ORAL TABLET 1 tab by mouth prn 2 PHENAZOPYRIDINE HCL 86214023509 No Longer Active Stiven Rogers MD Active LABETALOL HCL 100 MG ORAL TABLET 1 pill by mouth twice daily, for blood pressure LABETALOL HCL 89342360200 No Longer Active Stiven Rogers MD Active CITALOPRAM HYDROBROMIDE 20 MG ORAL TABLET 1 tablet by mouth rocky y CITALOPRAM HYDROBROMIDE 44817888214 No Longer Active Stiven Rogers MD Active ALPRAZOLAM 0.25 MG ORAL TABLET 1 tablet by mouth twice a day as needed for stress ALPRAZOLAM 19541520097 No Longer Active Stiven Rogers MD Active ONDANSETRON 4 MG ORAL TABLET DISINTEGRATING 1 q4h PRN nausea 201 01/07/12 ONDANSETRON 55537201465 No Longer Active Stiven Rogers MD Active ONDANSETRON 4 MG ORAL TABLET DISINTEGRATING 1 q4h PRN nausea 201 01/07/12 ONDANSETRON 4 MG ORAL TABLET DISINTEGRATING 398329 ONDA NSETRON Inactive ALPRAZOLAM 0.25 MG ORAL TABLET 1 tablet by mouth twice a day as needed for stress ALPRAZOLAM 0.25 MG ORAL TABLET 866463 ALPRA ZOLAM Inactive CITALOPRAM HYDROBROMIDE 20 MG ORAL TABLET 1 tablet by mouth rocky y CITALOPRAM HYDROBROMIDE 20 MG ORAL TABLET 581136 CITALOPRAM HYDROBROMIDE Inactive LABETALOL HCL 100 MG ORAL TABLET 1 pill by mouth twice daily, for blood pressure LABETALOL HCL 100 MG ORAL TABLET 266280 LAB ETALOL HCL Inactive PHENAZOPYRIDINE HCL 100 MG ORAL TABLET 1 tab by mouth prn 2 PHENAZOPYRIDINE HCL 100 MG ORAL TABLET 4208905 PHENAZOPYRIDINE HCL I nactive Vital Signs Date [...] negative Encounters Code Encounter Date Provider Facility CPT-38872 Level 4 New Patient 13:29:05 CDT J Gilberto gamez MD [facility] Procedures Code Procedure Name Date Entry Date Standard Desc ription CPT-83125 Abdomen, 1 view 13:52:54 CDT
--- OUTSIDE RECORDS SUMMARY | 2019-11-24 20:37 | XMS REPORT | Clinical Summary ---
Author Author Admin, Jackie Kunz Organization [facility] Address Unknown Phone Unavailable Allergies, Adverse Reactions, [...] FLONASE 50 MCG/ACT NASAL SUSPENSION FLUTICASONE PROPIONATE 42598928588 Active Stiven Rogers MD Active CELEXA 40 MG ORAL TABLET CITALOPRAM HYD ROBROMIDE 44691406024 Active Stiven Rogers MD Active CLONAZEPAM 0.25 MG ORAL TABLET DISINTEGRATING CLONAZEPAM 71807392773 Active Stiven Rogers MD Active ATENOLOL 50 MG ORAL TABLET ATENOLOL 842207748 01 Active Stiven Rogers MD Active PHENAZOPYRIDINE HCL 100 MG ORAL TABLET 1 tab by mouth prn 2 PHENAZOPYRIDINE HCL 72927570315 No Longer Active Stiven Rogers MD Active LABETALOL HCL 100 MG ORAL TABLET 1 pill by mouth twice daily, for blood pressure LABETALOL HCL 19541504074 No Longer Active Stiven Rogers MD Active CITALOPRAM HYDROBROMIDE 20 MG ORAL TABLET 1 tablet by mouth rocky y CITALOPRAM HYDROBROMIDE 46873320154 No Longer Active Stiven Rogers MD Active ALPRAZOLAM 0.25 MG ORAL TABLET 1 tablet by mouth twice a day as needed for stress ALPRAZOLAM 33946906712 No Longer Active Stiven Rogers MD Active ONDANSETRON 4 MG ORAL TABLET DISINTEGRATING 1 q4h PRN nausea 201 01/07/12 ONDANSETRON 93213179928 No Longer Active Stiven Rogers MD Active ONDANSETRON 4 MG ORAL TABLET DISINTEGRATING 1 q4h PRN nausea 201 01/07/12 ONDANSETRON 4 MG ORAL TABLET DISINTEGRATING 570060 ONDA NSETRON Inactive ALPRAZOLAM 0.25 MG ORAL TABLET 1 tablet by mouth twice a day as needed for stress ALPRAZOLAM 0.25 MG ORAL TABLET 771692 ALPRA ZOLAM Inactive CITALOPRAM HYDROBROMIDE 20 MG ORAL TABLET 1 tablet by mouth rocky y CITALOPRAM HYDROBROMIDE 20 MG ORAL TABLET 645539 CITALOPRAM HYDROBROMIDE Inactive LABETALOL HCL 100 MG ORAL TABLET 1 pill by mouth twice daily, for blood pressure LABETALOL HCL 100 MG ORAL TABLET 148912 LAB ETALOL HCL Inactive PHENAZOPYRIDINE HCL 100 MG ORAL TABLET 1 tab by mouth prn 2 PHENAZOPYRIDINE HCL 100 MG ORAL TABLET 5747377 PHENAZOPYRIDINE HCL I nactive Vital Signs Date [...] negative Encounters Code Encounter Date Provider Facility CPT-52170 Level 4 New Patient 13:29:05 CDT Stiven gamez MD [facility]
--- OUTSIDE RECORDS SUMMARY | 2019-11-24 20:37 | XMS REPORT | Continuity of Care Document ---
Author Author [facility] Organization [facility] Address Unknown Phone Unavailable Care Team Providers Care Glove Parts Inspector Name Role Phone NO, LOCAL PHYSICIAN PP Unavailable Insurance Providers Payer Name Policy Number Subscriber Name Relationship [facility] [id number] Jackie Barnett 01 Self / Same As Patient Advance Directives Directive Response Recor ded Date Advance Directives N 6:56pm Health Care Power of Patent Counsel N 01/15/13 6:56pm Organ Donor N 01/15/13 6 :56pm Problems No Known Problems or Medical conditions. Social History History Response Recorde d Date/Time Alcohol Use Occasionally Uses 01/15/13 6:56pm Recreational Drug Use N 01/15/13 6:56pm Sexually Transmitted Disease N 01/15/13 6:56pm Allergies, Adverse Reactions, Alerts Allergen Type Severity Reaction Last Updated No Known Drug Allergies 07/26/10 Medications Medication Dose Units Route Sig Qty Days [Depo Shot] EVERY 3 MONTHS Labetalol HCl (Labetalol Hcl) 1 Each PO BID Acetaminophen/Hydrocodone Bitart (Lortab Elixir 7.5 Mg /15 Ml) 2 - 3 Tsp PO Q4HR PRN Amoxicillin 2 Tsp PO BID 7 [tetracaine suckers] PO PRN Response Recorded Date/Time Status not known Unknown Results No Known Relevant Diagnostic Tests, Laboratory Data and/or Discharge Summary. Procedures Procedure Code Date REMOVAL OF TONSILS 02316 10/15/11 Encounters Encounter Location Date/ Time Departed Emergency Room [facility] [place] [facility] 01/15/13 6:21pm
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
--- OUTSIDE RECORDS SUMMARY | 2019-11-24 20:37 | XMS REPORT | Clinical Summary ---
Author Author Admin, Jackie Kunz Organization [facility] Address Unknown Phone [...] FLONASE 50 MCG/ACT NASAL SUSPENSION FLUTICASONE PROPIONATE 82626555914 Active Stiven Rogers MD Active CELEXA 40 MG ORAL TABLET CITALOPRAM HYD ROBROMIDE 61289480161 Active Stiven Rogers MD Active CLONAZEPAM 0.25 MG ORAL TABLET DISINTEGRATING CLONAZEPAM 70817849681 Active Stiven Rogers MD Active ATENOLOL 50 MG ORAL TABLET ATENOLOL 526285829 01 Active Stiven Rogers MD Active PHENAZOPYRIDINE HCL 100 MG ORAL TABLET 1 tab by mouth prn 2 PHENAZOPYRIDINE HCL 31861202256 No Longer Active Stiven Rogers MD Active LABETALOL HCL 100 MG ORAL TABLET 1 pill by mouth twice daily, for blood pressure LABETALOL HCL 43131675386 No Longer Active Stiven Rogers MD Active CITALOPRAM HYDROBROMIDE 20 MG ORAL TABLET 1 tablet by mouth rokcy y CITALOPRAM HYDROBROMIDE 16396047551 No Longer Active Stiven Rogers MD Active ALPRAZOLAM 0.25 MG ORAL TABLET 1 tablet by mouth twice a day as needed for stress ALPRAZOLAM 70379233101 No Longer Active Stiven Rogers MD Active ONDANSETRON 4 MG ORAL TABLET DISINTEGRATING 1 q4h PRN nausea 201 01/07/12 ONDANSETRON 71769701417 No Longer Active Stiven Rogers MD Active ONDANSETRON 4 MG ORAL TABLET DISINTEGRATING 1 q4h PRN nausea 201 01/07/12 ONDANSETRON 4 MG ORAL TABLET DISINTEGRATING 819009 ONDA NSETRON Inactive ALPRAZOLAM 0.25 MG ORAL TABLET 1 tablet by mouth twice a day as needed for stress ALPRAZOLAM 0.25 MG ORAL TABLET 190896 ALPRA ZOLAM Inactive CITALOPRAM HYDROBROMIDE 20 MG ORAL TABLET 1 tablet by mouth rocky y CITALOPRAM HYDROBROMIDE 20 MG ORAL TABLET 900689 CITALOPRAM HYDROBROMIDE Inactive LABETALOL HCL 100 MG ORAL TABLET 1 pill by mouth twice daily, for blood pressure LABETALOL HCL 100 MG ORAL TABLET 071020 LAB ETALOL HCL Inactive PHENAZOPYRIDINE HCL 100 MG ORAL TABLET 1 tab by mouth prn 2 PHENAZOPYRIDINE HCL 100 MG ORAL TABLET 4498744 PHENAZOPYRIDINE HCL I nactive Vital Signs Date [...] negative Encounters Code Encounter Date Provider Facility CPT-84726 Level 4 New Patient 13:29:05 CDT J Gilberto gamez MD [facility] Procedures Code Procedure Name Date Entry Date Standard Desc ription CPT-06271 Postop F/U Visit 09:39:34 CDT CPT-81137 Abdomen, 1 view 13:52:54 CDT
--- OUTSIDE RECORDS SUMMARY | 2019-11-24 20:37 | XMS REPORT | Clinical Summary ---
Author Author Admin, Jackie Kunz Organization [facility] Address Unknown Phone Unavailable Allergies, Adverse Reactions, Alerts Allergy Name Reaction Description Start Date Severity Status Pr ovider TRAMADOL HCL rash Moderate Active Kenzie Elder Conditions or Problems Problem Name Problem Code Onset Date Status Entry Date Provider Comment Standard Description Annotate Problems Unknown Active Medication List Medication Instructions Start Date Stop Date Generic Name NDC Status Provider Patient Instruction ONDANSETRON 4 MG TBDP 1 q4h PRN nausea ONDANSETRO N [id number] Active Kenzie Elder Active ALPRAZOLAM 0.25 MG TAB 1 tablet by mouth twice a day as need ed for stress ALPRAZOLAM 53541857665 Active Kenzie Elder Acti ve CITALOPRAM HYDROBROMIDE 20 MG TABS 1 tablet by mouth daily CITALOPRAM HYDROBROMIDE 71331080454 Active Kenzie Elder Acti ve LABETALOL HCL 100 MG TABS 1 pill by mouth twice daily, for b lood pressure LABETALOL HCL 73502906140 Active Kenzie Elder A ctive PHENAZOPYRIDINE HCL 100 MG ORAL TABS 1 tab by mouth prn PHENAZOPYRIDINE HCL 90021343288 Active Kenzie Elder Active
--- OUTSIDE RECORDS SUMMARY | 2019-11-24 20:37 | XMS REPORT | Clinical Summary ---
Author Author Admin, Jackie Kunz Organization [facility] Address Unknown Phone Unavailable Allergies, Adverse [...] FLONASE 50 MCG/ACT NASAL SUSPENSION FLUTICASONE PROPIONATE 71567121791 Active Stiven Rogers MD Active CELEXA 40 MG ORAL TABLET CITALOPRAM HYD ROBROMIDE 45169204432 Active Stiven Rogers MD Active CLONAZEPAM 0.25 MG ORAL TABLET DISINTEGRATING CLONAZEPAM 98168453853 Active Stiven Rogers MD Active ATENOLOL 50 MG ORAL TABLET ATENOLOL 198947485 01 Active Stiven Rogers MD Active PHENAZOPYRIDINE HCL 100 MG ORAL TABLET 1 tab by mouth prn 2 PHENAZOPYRIDINE HCL 39108368515 No Longer Active Stiven Rogers MD Active LABETALOL HCL 100 MG ORAL TABLET 1 pill by mouth twice daily, for blood pressure LABETALOL HCL 65158006794 No Longer Active Stiven Rogers MD Active CITALOPRAM HYDROBROMIDE 20 MG ORAL TABLET 1 tablet by mouth rocky y CITALOPRAM HYDROBROMIDE 65164548107 No Longer Active Stiven Rogers MD Active ALPRAZOLAM 0.25 MG ORAL TABLET 1 tablet by mouth twice a day as needed for stress ALPRAZOLAM 30787030976 No Longer Active Stiven Rogers MD Active ONDANSETRON 4 MG ORAL TABLET DISINTEGRATING 1 q4h PRN nausea 201 01/07/12 ONDANSETRON 33431992779 No Longer Active Stiven Rogers MD Active ONDANSETRON 4 MG ORAL TABLET DISINTEGRATING 1 q4h PRN nausea 201 01/07/12 ONDANSETRON 4 MG ORAL TABLET DISINTEGRATING 675147 ONDA NSETRON Inactive ALPRAZOLAM 0.25 MG ORAL TABLET 1 tablet by mouth twice a day as needed for stress ALPRAZOLAM 0.25 MG ORAL TABLET 024861 ALPRA ZOLAM Inactive CITALOPRAM HYDROBROMIDE 20 MG ORAL TABLET 1 tablet by mouth rocky y CITALOPRAM HYDROBROMIDE 20 MG ORAL TABLET 786939 CITALOPRAM HYDROBROMIDE Inactive LABETALOL HCL 100 MG ORAL TABLET 1 pill by mouth twice daily, for blood pressure LABETALOL HCL 100 MG ORAL TABLET 870368 LAB ETALOL HCL Inactive PHENAZOPYRIDINE HCL 100 MG ORAL TABLET 1 tab by mouth prn 2 PHENAZOPYRIDINE HCL 100 MG ORAL TABLET 3132563 PHENAZOPYRIDINE HCL I nactive Vital Signs Date [...] negative Encounters Code Encounter Date Provider Facility CPT-73083 Level 4 New Patient 13:29:05 CDT Stiven gamez MD [facility]
--- OUTSIDE RECORDS SUMMARY | 2019-11-24 20:37 | XMS REPORT | Clinical Summary ---
Author Author Admin, Jackie Kunz Organization [facility] Address Unknown Phone Unavailable Allergies, Adverse [...] FLONASE 50 MCG/ACT NASAL SUSPENSION FLUTICASONE PROPIONATE 39750410012 Active Stiven Rogers MD Active CELEXA 40 MG ORAL TABLET CITALOPRAM HYD ROBROMIDE 31537674823 Active Stiven Rogers MD Active CLONAZEPAM 0.25 MG ORAL TABLET DISINTEGRATING CLONAZEPAM 79708402128 Active Stiven Rogers MD Active ATENOLOL 50 MG ORAL TABLET ATENOLOL 192881792 01 Active Stiven Rogers MD Active PHENAZOPYRIDINE HCL 100 MG ORAL TABLET 1 tab by mouth prn 2 PHENAZOPYRIDINE HCL 99656024860 No Longer Active Stiven Rogers MD Active LABETALOL HCL 100 MG ORAL TABLET 1 pill by mouth twice daily, for blood pressure LABETALOL HCL 58588123363 No Longer Active Stiven Rogers MD Active CITALOPRAM HYDROBROMIDE 20 MG ORAL TABLET 1 tablet by mouth rocky y CITALOPRAM HYDROBROMIDE 73783231780 No Longer Active Stiven Rogers MD Active ALPRAZOLAM 0.25 MG ORAL TABLET 1 tablet by mouth twice a day as needed for stress ALPRAZOLAM 55771003172 No Longer Active Stiven Rogers MD Active ONDANSETRON 4 MG ORAL TABLET DISINTEGRATING 1 q4h PRN nausea 201 01/07/12 ONDANSETRON 42357936360 No Longer Active Stiven Rogers MD Active ONDANSETRON 4 MG ORAL TABLET DISINTEGRATING 1 q4h PRN nausea 201 01/07/12 ONDANSETRON 4 MG ORAL TABLET DISINTEGRATING 003169 ONDA NSETRON Inactive ALPRAZOLAM 0.25 MG ORAL TABLET 1 tablet by mouth twice a day as needed for stress ALPRAZOLAM 0.25 MG ORAL TABLET 490892 ALPRA ZOLAM Inactive CITALOPRAM HYDROBROMIDE 20 MG ORAL TABLET 1 tablet by mouth rocky y CITALOPRAM HYDROBROMIDE 20 MG ORAL TABLET 395781 CITALOPRAM HYDROBROMIDE Inactive LABETALOL HCL 100 MG ORAL TABLET 1 pill by mouth twice daily, for blood pressure LABETALOL HCL 100 MG ORAL TABLET 861153 LAB ETALOL HCL Inactive PHENAZOPYRIDINE HCL 100 MG ORAL TABLET 1 tab by mouth prn 2 PHENAZOPYRIDINE HCL 100 MG ORAL TABLET 3190118 PHENAZOPYRIDINE HCL I nactive Vital Signs Date [...] negative Encounters Code Encounter Date Provider Facility CPT-09891 Level 4 New Patient 13:29:05 CDT Stiven gamez MD [facility]
--- OUTSIDE RECORDS SUMMARY | 2019-11-24 20:37 | XMS REPORT | Clinical Summary ---
Author Author Admin, Jackie Kunz Organization [facility] Address Unknown Phone Unavailable Allergies, Adverse [...] FLONASE 50 MCG/ACT NASAL SUSPENSION FLUTICASONE PROPIONATE 30719454082 Active Stiven Rogers MD Active CELEXA 40 MG ORAL TABLET CITALOPRAM HYD ROBROMIDE 02673964642 Active Stiven Rogers MD Active CLONAZEPAM 0.25 MG ORAL TABLET DISINTEGRATING CLONAZEPAM 77157165512 Active Stiven Rogers MD Active ATENOLOL 50 MG ORAL TABLET ATENOLOL 704727093 01 Active Stiven Rogers MD Active PHENAZOPYRIDINE HCL 100 MG ORAL TABLET 1 tab by mouth prn 2 PHENAZOPYRIDINE HCL 84001949722 No Longer Active Stiven Rogers MD Active LABETALOL HCL 100 MG ORAL TABLET 1 pill by mouth twice daily, for blood pressure LABETALOL HCL 39512939896 No Longer Active Stiven Rogers MD Active CITALOPRAM HYDROBROMIDE 20 MG ORAL TABLET 1 tablet by mouth rocky y CITALOPRAM HYDROBROMIDE 83444788846 No Longer Active Stiven Rogers MD Active ALPRAZOLAM 0.25 MG ORAL TABLET 1 tablet by mouth twice a day as needed for stress ALPRAZOLAM 25842871046 No Longer Active Stiven Rogers MD Active ONDANSETRON 4 MG ORAL TABLET DISINTEGRATING 1 q4h PRN nausea 201 01/07/12 ONDANSETRON 03816504628 No Longer Active Stiven Rogers MD Active ONDANSETRON 4 MG ORAL TABLET DISINTEGRATING 1 q4h PRN nausea 201 01/07/12 ONDANSETRON 4 MG ORAL TABLET DISINTEGRATING 134734 ONDA NSETRON Inactive ALPRAZOLAM 0.25 MG ORAL TABLET 1 tablet by mouth twice a day as needed for stress ALPRAZOLAM 0.25 MG ORAL TABLET 935183 ALPRA ZOLAM Inactive CITALOPRAM HYDROBROMIDE 20 MG ORAL TABLET 1 tablet by mouth rocky y CITALOPRAM HYDROBROMIDE 20 MG ORAL TABLET 149400 CITALOPRAM HYDROBROMIDE Inactive LABETALOL HCL 100 MG ORAL TABLET 1 pill by mouth twice daily, for blood pressure LABETALOL HCL 100 MG ORAL TABLET 089610 LAB ETALOL HCL Inactive PHENAZOPYRIDINE HCL 100 MG ORAL TABLET 1 tab by mouth prn 2 PHENAZOPYRIDINE HCL 100 MG ORAL TABLET 7476223 PHENAZOPYRIDINE HCL I nactive Vital Signs Date [...] negative Encounters Code Encounter Date Provider Facility CPT-49899 Level 4 New Patient 13:29:05 CDT Stiven gamez MD [facility]
--- NOTE | 2019-11-24 20:47 | Diagnostic Imaging Report ---
INDICATION: Fall, pain. EXAMINATION: Two-view right tibia and fibula. FINDINGS: No fracture, dislocation or acute appearing articular incongruity. No disruption. No dislocation of the knee or ankle. IMPRESSION: No acute appearing abnormality. Dictated by: Dictated on workstation # [id number]
--- NOTE | 2019-11-24 20:51 | Diagnostic Imaging Report ---
INDICATION: Fall with pain. EXAMINATION: Two-view right femur. FINDINGS: No fracture or dislocation. No cortical buckling. No suspicious finding. IMPRESSION: No acute appearing abnormality. Dictated by: Dictated on workstation # [id number]
== END 2019-11-24 20:50 | disposition home or self-care (01) ==
LOC: EDUNIT# 19:56 → ER FS 19:58
DX: S83.91XA Sprain of unspecified site of right knee, initial encounter (principal); I10 Essential (primary) hypertension; F41.9 Anxiety disorder, unspecified; F32.9 Major depressive disorder, single episode, unspecified; W01.0XXA Fall on same level from slipping, tripping and stumbling without subsequent striking against object, initial encounter; Y93.01 Activity, walking, marching and hiking
CPT/HCPCS: 73552; 73562; 73590

== ENCOUNTER → 2020-01-01 | Outpatient (CLI) | payer MEDICAID ==
[~2020-01-01] MED LIST changes: +HYDR-83 PO
--- NOTE | 2020-01-01 17:31 | Diagnostic Imaging Report ---
PROCEDURE: MRI right joint lower extremity without contrast. TECHNIQUE: Multiplanar, multisequence non contrast-enhanced MRI of the right lower extremity was accomplished. INDICATION: Right hip pain since November 2019 with possible injury at that time. FINDINGS: Hip joints appear normal in configuration. There is no evidence of joint effusion. There is no bone marrow signal abnormalities. No juxta-articular abnormality is detected. There is no evidence of free fluid or hematoma in the pelvis. Note is made of an approximately 3.6 x 3.1 cm right ovarian cyst. There is an approximately 0.8 cm in diameter focus of decreased signal within the fundal myometrium which may represent a fibroid. IMPRESSION: No evidence of right hip joint injury or juxta-articular pathology. Incidental note is made of right ovarian cyst and probable subcentimeter fundal uterine fibroid. Dictated by: Dictated on workstation # [id number]
== END ==
LOC: RAD 15:16
PROVIDERS: ATTEND Nurse Practitioner
DX: S70.01XA Contusion of right hip, initial encounter (principal)
CPT/HCPCS: 73721

== ENCOUNTER 2020-02-16 16:28 | Emergency (ER) | payer MEDICAID ==
[~2020-02-16] VITALS: Ht 167.7 cm; Wt 124.0 kg
[~2020-02-16 16:28] MED LIST changes: +HYDR-3812 PO; -HYDR-83 PO
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
--- OUTSIDE RECORDS SUMMARY | 2020-02-16 17:46 | XMS REPORT | Clinical Summary ---
Author Author [facility] Organization [facility] Address Unknown Phone Unavailable Care Team Providers Care Events Assistant Name Role Phone Jeanie Phillip RN Unavailable Unavailable Clarence Valdivia RN Unavailable Unavailable Juan Carlos Mora MD PCP Source Comments Some departments are not documenting in the electronic medical record. If you d o not see the information that you expected, contact Release of Information in [facility] [employer] Information Management department at [phone] for further assistan ce in locating additional records.[facility] Allergies No Known Allergies Medications End Date Status Medication Sig Dispensed Refills Start Date Active NO HOME MEDICATIONS 0 Active nystatin (NYSTOP) 100,000 Apply to 30 g 0 05/27/200 unit/g topical powder affected area 8 Four [...] Assigned at Date Recorded Not on file Last Filed Vital Signs Reading Time Taken Comments Vital Sign 136/90 09/22/2012 1:10 PM CDT Blood Pressure 76 09/22/2012 1:10 PM CDT Pulse 37.3 C (99.1 F) 05/27/2008 1:35 AM [employer] [employer] Temperature - - Respiratory Rate 100% 05/27/2008 1:35 AM [employer] Oxygen Saturation - - Inhaled Oxygen Concentration [...]
--- OUTSIDE RECORDS SUMMARY | 2020-02-16 17:46 | XMS REPORT | Clinical Summary ---
Author Author [facility] Organization [facility] Address Unknown Phone Unavailable Care Team Providers Care Manager Of [employer] Name Role Phone PCP Unavailable Allergies Not on File Medications Not on file Active Problems Not on file Social History Date Tobacco Use Types Packs/Day Years Used Never Assessed Sex Assigned at Date Recorded Not on file Last Filed Vital Signs Not on file Plan of Treatment Health Maintenance Due Date Last Done Comments Varicella Vaccines (1 of 1990 2 - 2-dose childhood series) Hepatitis C Screening 2007 DTaP,Tdap,and Td Vaccines 02/05/2008 (1 - Tdap) MMR Vaccines-Adult 02/05/2008 Cervical Cancer Screening 2010 Influenza Vaccine (#1) 2020 Pneumo-Vaccine: Peds (0-5 Aged Out No longer el igible based on patient's age to Yrs) & At-Risk Patients complete this topic (6-64 Yrs) Results Not on filefrom Last 3 Months
--- OUTSIDE RECORDS SUMMARY | 2020-02-16 17:47 | XMS REPORT | Continuity of Care Document ---
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 UNSPECIFIED ESSENTIAL HYPERTENSION Active 05/11/2013 [facility] OBESITY, UNSPECIFIED Active 05/11/2013 [facility] ABDOMINAL PAIN, UNSPECIFIED SITE Active 05/11/2013 [facility] NAUSEA WITH VOMITING Active 05/11/2013 [facility] OTHER NONSPECIFIC FINDINGS ON EXAMINATIO Active 05/11/2013 [facility] Discharge Diagnosis: Abdominal hematoma 05/11/2013 Discharge Diagnosis 05/12/2013 [facility] Discharge Diagnosis: Abscess 05/11/2013 Discharge Diagnosis 05/12/2013 [facility] Problem 10/21/2015 [facility] Benign essential hypertension (disorder) Active Problem 05/12/2013 [facility] Obesity (disorder) Active Problem 05/12/2013 [facility] Abdominal wall mass Active [facility] Medications Medication Details Route Status Patient Instructions Ordering Provider Order Date Source Fluconazole 150 MG Oral Tablet take 1 tablet (150MG) by oral route once ORAL Active 05/24/2013 [facility] Morphine Sulfate 30 MG Extended Release Oral Tablet take 1 tablet (30MG) by oral route every 12 hours ORAL Active 05/24/2013 [facility] medroxyprogesterone acetate 150 MG/ML In jectable Suspension inject 1 milliliter (150MG) by intramus cular route every 3 months INTRAMUSCULAR Active 05/12/2013 [facility] labetalol 100 mg tablet take 1 tablet (100MG) by oral route 2 times every day for HTN ORAL Active 05/12/2013 [facility] ciprofloxacin 500 mg tablet ta ke 1 tablet (500MG) by oral route every 12 hours for UTI ORAL Active 05/12/2013 [facility] tramadol 50 mg tablet take 1 t ablet (50MG) by oral route every 6 hours as needed ORAL Active 05/12/2013 [facility] oxycodone-acetaminophen 5 mg-325 mg tablet take 1 - 2 tablet by ORAL route every 6 hours as needed ORAL Active 05/12/2013 [facility] ciprofloxacin 500 mg oral tablet 1 TAB, PO, Q12H (Every 12 hours), X 10 day, # 20 TAB, 0 Refill(s) Active 05/11/2013 [facility] Acetaminophen 325 MG / Oxycodone Hydroch loride 5 MG Oral Tablet [Percocet 5/325] 1 TAB, PO, Q6H (Every 6 hours), PRN Pain , # 12 TAB, 0 Refill(s) Active 05/11/2013 [facility] traMADol 50 mg oral tablet 1 T AB, PO, Q4H (Every 4 hours), PRN pain, # 20 TAB, 1 Refill(s) Active 05/11/2013 [facility] Ondansetron 4 MG Oral Tablet [Zofran] 1 TAB, PO, Q8H (Every 8 hours), PRN Nausea/Vomiting, # 20 TAB, 1 Refill(s) Active 05/11/2013 [facility] acetaminophen 325 mg oral tablet 2 TAB, PO, Q4H (Every 4 hours), PRN Pain, 0 Refill(s) Active 05/11/2013 [facility] labetalol 100 mg oral tablet 1 TAB, PO, BID (2 times a day), 0 Refill(s) Active 05/10/2013 [facility] Allergies, Adverse Reactions, Alerts Substance Category Reaction Severity Reaction type Status Date Reported Comments Source hydrocodone itching drug allergy Active 06/20/2013 [facility] HYDROcodone<sup>1</sup> Assert ion Unknown [place] woodruff allergy Active 1Pt states, "It makes me itch." [facility] Immunizations Immunization Date Given Site Status Last Updated Comments Source pneumococcal 23-valent vaccine 05/10/2013 Not Given E cecy [facility] influenza virus vaccine [address] [facility] Results Order Name Results Value Reference [...] ml/min/1.73 m2
Kidney Failure <15 ml/min/1.73 m2 [facility] CHEMISTRY Magnesium 2.0 mg/dL 1.6 - 2.6 05/11/2013 <sup>10</sup>Interpretive Data: Critical High for OB Patients >=7.0 mg/dl. [facility] CHEMISTRY Sodium 141 mmol/L 136 - 145 05/11/2013 [facility] CHEMISTRY Potassium 3.7 mmol/L 3.5 - 5.1 05/11/2013 [facility] CHEMISTRY CO2 23 mmol/L 22 - 29 05/11/2013 [facility] CHEMISTRY Glucose 98 mg/dL 70 - 100 05/11/2013 [facility] CHEMISTRY AGAP 11 mmol/L 3 - 19 05/11/2013 [facility] CHEMISTRY Chloride 108 mmol/L 98 - 107 05/11/2013 [facility] CHEMISTRY BUN 6 mg/dL 8 - 20 05/11/2013 [facility] CHEMISTRY Calcium 8.4 mg/dL 8.6 - 10.2 05/11/2013 [facility] CHEMISTRY Creatinine 0.5 mg/dL 0.7 - 1.2 05/11/2013 <sup>1</sup>Interpretive Data: The prese nce of ketone bodies can cause artificially high results in serum, plasma and urine. [facility] CHEMISTRY Est CrCL (CG) 160.8 mL/min 05/11/2013 <sup>7</sup>Result Comment: Estimated Cr eatinine Clearance calculated based on the Cockcroft-Gault formula. [facility] HEMATOLOGY Eosinophils % 4 % 0 - 7 05/11/2013 [facility] HEMATOLOGY Monocytes % 9 % 0 - 13 05/11/2013 [facility] HEMATOLOGY Eosinophils Abs 0.2 x 10'3/microL 0.0 - 0.5103 05/11/2013 [facility] HEMATOLOGY Lymphocytes Abs 1.9 x 10'3/microL 1.2 - 3.4103 05/11/2013 [facility] HEMATOLOGY Monocytes Abs 0.5 x 10'3/microL 0.1 - 0.6103 05/11/2013 [facility] HEMATOLOGY Neutrophils Abs 2.9 x 10'3/microL 1.4 - 7.2103 05/11/2013 [facility] HEMATOLOGY Basophils Abs 0.0 x 10'3/microL 0.0 - 0.2103 05/11/2013 [facility] HEMATOLOGY Basophils % 1 % 0 - 3 05/11/2013 [facility] HEMATOLOGY Lymphocytes % 34 % 13 - 43 05/11/2013 [facility] HEMATOLOGY Neutrophils % 54 % 44 - 76 05/11/2013 [facility] HEMATOLOGY MCV 88 fL 81 - 99 05/11/2013 [facility] HEMATOLOGY Hct 35 % 35 - 47 05/11/2013 [facility] HEMATOLOGY MCH 31 pg 27 - 34 05/11/2013 [facility] HEMATOLOGY WBC 5.5 x 10'3/microL 4.0 - 11.0103 05/11/2013 [facility] HEMATOLOGY RBC 4.00 x10'6/microL 3.90 - 5.16198 05/11/2013 [facility] HEMATOLOGY MPV 8.6 fL 6.5 - 10.4 05/11/2013 [facility] HEMATOLOGY Platelet 253 x 10'3/microL 140 - [id number] 05/11/2013 [facility] HEMATOLOGY RDW 13.1 % <=14.5 % 05/11/2013 [facility] HEMATOLOGY Hgb 12.3 g/dL 12.0 - 16.0 05/11/2013 [facility] HEMATOLOGY MCHC 35 g/dL 32 - 36 05/11/2013 [facility] Renal Funct Index (GFR)Glomerular Fi ltration [...] ml/min/1.73 m2
Kidney Failure <15 ml/min/1.73 m2
[facility] BMP Sodium 141 mmol/L 136 - 145 05/11/2013 N [facility] BMP Potassium 3.7 mmol/L 3.5 - 5.1 05/11/2013 N [facility] BMP Chloride 108 mmol/L 98 - 107 05/11/2013 H [facility] BMP CO2 23 mmol/L 22 - 29 05/11/2013 N [facility] BMP AGAP 11 mmol/L 3 - 19 05/11/2013 N [facility] BMP Glucose 98 mg/dL 70 - 100 05/11/2013 N [facility] BMP BUN 6 mg/dL 8 - 20 05/11/2013 [facility] BMP Creatinine 0.5 mg/dL 0.7 - 1.2 05/11/2013 L The presence of ketone bodies can cause artificially high results in serum, plasma and urine.
[facility] BMP Calcium 8.4 mg/dL 8.6 - 10.2 05/11/[address] [facility] Magnesium Magnesium 2.0 mg/dL 1.6 - 2.6 05/11/2013 N Critical High for OB Patients >=7.0 mg/d l.
[facility] Auto Diff Neutrophils 54 % 44 - 76 05/11/2013 [facility] Diff Lymphocytes % 34 % 13 - 43 05/11/2013 [facility] Auto Diff Monocytes % 9 % 0 - 13 05/11/2013 [facility] Auto Diff Eosinophils % 4 % 0 - 7 05/11/2013 [facility] Auto Diff Basophils % 1 % 0 - 3 05/11/2013 [facility] Auto Diff Neutro Absolute 2.9 x1 0'3/microL 1.4 - 7.2 05/11/2013 [facility] Auto Diff Lymph Absolute 1.9 x1 0'3/microL 1.2 - 3.4 05/11/2013 N [facility] Auto Diff [place] Absolute 0.5 x1 0'3/microL 0.1 - 0.6 05/11/2013 N [facility] Auto Diff Eos Absolute 0.2 x1 0'3/microL 0.0 - 0.5 05/11/2013 N [facility] Auto Diff Basophil Absolute 0.0 x1 0'3/microL 0.0 - 0.2 05/11/2013 N [facility] [facility] CBC/Diff WBC 5.5 x10'3/micro L 4.0 - 11.0 05/11/2013 [facility] CBC/Diff RBC 4.00 x10'6/micr oL 3.90 - 5.60 05/11/2013 N [facility] CBC/Diff Hgb 12.3 g/dL 12.0 - 16.0 05/11/2013 N [facility] CBC/Diff Hct 35 % 35 - 47 05/11/2013 N [facility] CBC/Diff MCV 88 fL 81 - 99 05/11/2013 N [facility] CBC/Diff MCH 31 pg 27 - 34 05/11/2013 N [facility] CBC/Diff MCHC 35 g/dL 32 - 36 05/11/2013 N [facility] CBC/Diff RDW 13.1 % - <=14.5 05/11/2013 N [facility] CBC/Diff Platelet 253 x10 '3/microL 140 - 400 05/11/2013 N [facility] CBC/Diff MPV 8.6 fL 6.5 - 10.4 05/11/2013 N [facility] OTHER FLUIDS Lymph BF 3 % 05/10/2013 [facility] OTHER FLUIDS Neutro BF 97 % 05/10/2013 [facility] OTHER FLUIDS WBC BF 230 285 /mm3 05/10/2013 <sup>13</sup>Interpretive Data: WBC incl udes all nucleated cells, in addition to WBC may include mesothelial cells and macrophages. [facility] OTHER FLUIDS RBC BF 199 5996 /mm3 05/10/2013 [facility] CHEMISTRY AST 12 Units/L 0 - 40 05/10/2013 [facility] CHEMISTRY Bili Total 0.6 mg/dL 0.0 - 1.2 05/10/2013 [facility] CHEMISTRY ALT 13 [iU]/d 0 - 33. 05/10/2013 [facility] CHEMISTRY Alk Phos 58 [iU]/d 40 - 130. 05/10/2013 [facility] CHEMISTRY Creatinine 0.5 mg/dL 0.7 - 1.2 05/10/2013 <sup>2</sup>Interpretive Data: The prese nce of ketone bodies can cause artificially high results in serum, plasma and urine. [facility] CHEMISTRY BUN 7 mg/dL 8 - 20 05/10/2013 [facility] CHEMISTRY Albumin Level 3.8 g/ dL 3.5 - 5.2 05/10/2013 [facility] CHEMISTRY Total Protein 6.7 g/ dL 6.6 - 8.7 05/10/2013 [facility] CHEMISTRY Calcium 8.7 mg/dL 8.6 - 10.2 05/10/2013 [facility] CHEMISTRY Glucose 106 mg/dL 70 - 100 05/10/2013 [facility] CHEMISTRY CO2 22 mmol/L 22 - 29 05/10/2013 [facility] CHEMISTRY AGAP 11 mmol/L 3 - 19 05/10/2013 [facility] CHEMISTRY Sodium 141 mmol/L 136 - 145 05/10/2013 [facility] CHEMISTRY Potassium 3.8 mmol/L 3.5 - 5.1 05/10/2013 [facility] CHEMISTRY Chloride 108 mmol/L 98 - 107 05/10/2013 [facility] CHEMISTRY GFR (MDRD) >110.0 mL/min/1.73 m2 05/10/2013 <sup>5</sup>Result Comment: GFR calculat ed based on MDRD abbreviated formula.

Age(years) Average GFR
20-29 116 ml/min/1.73 m2
30-39 107 ml/min/1.73 m2
40-49 99 ml/min/1.73 m2
50-59 93 ml/min/1.73 m2
60-69 85 ml/min/1.73 m2
70+ 75 ml/min/1.73 m2

Acceptable GFR =>60 ml/min/1.73 m2
Chronic Kidney Disease <60 ml/min/1.73 m2
Kidney Failure <15 ml/min/1.73 m2 [facility] CHEMISTRY Est CrCL (CG) 160.8 mL/min 05/10/2013 <sup>8</sup>Result Comment: Estimated Cr eatinine Clearance calculated based on the Cockcroft-Gault formula. [facility] HEMATOLOGY RDW 13.1 % <=14.5 % 05/10/2013 [facility] HEMATOLOGY MCHC 35 g/dL 32 - 36 05/10/2013 [facility] HEMATOLOGY MCH 31 pg 27 - 34 05/10/2013 [facility] HEMATOLOGY MCV 88 fL 81 - 99 05/10/2013 [facility] HEMATOLOGY WBC 7.2 x 10'3/microL 4.0 - 11.0103 05/10/2013 [facility] HEMATOLOGY Platelet 276 x 10'3/microL 140 - [id number] 05/10/2013 [facility] HEMATOLOGY RBC 4.28 x10'6/microL 3.90 - 5.19661 05/10/2013 [facility] HEMATOLOGY MPV 8.0 fL 6.5 - 10.4 05/10/2013 [facility] HEMATOLOGY Hgb 13.1 g/dL 12.0 - 16.0 05/10/2013 [facility] HEMATOLOGY Hct 38 % 35 - 47 05/10/2013 [facility] HEMATOLOGY Eosinophils % 2 % 0 - 7 05/10/2013 [facility] HEMATOLOGY Monocytes % 8 % 0 - 13 05/10/2013 [facility] HEMATOLOGY Neutrophils % 66 % 44 - 76 05/10/2013 [facility] HEMATOLOGY Lymphocytes % 23 % 13 - 43 05/10/2013 [facility] HEMATOLOGY Basophils Abs 0.0 x 10'3/microL 0.0 - 0.2103 05/10/2013 [facility] HEMATOLOGY Monocytes Abs 0.6 x 10'3/microL 0.1 - 0.6103 05/10/2013 [facility] HEMATOLOGY Eosinophils Abs 0.2 x 10'3/microL 0.0 - 0.5103 05/10/2013 [facility] HEMATOLOGY Neutrophils Abs 4.8 x 10'3/microL 1.4 - 7.2103 05/10/2013 [facility] HEMATOLOGY Basophils % 1 % 0 - 3 05/10/2013 [facility] HEMATOLOGY Lymphocytes Abs 1.6 x 10'3/microL 1.2 - 3.4103 05/10/2013 [facility] HEMATOLOGY PT 13.4 s 11.5 - 15.0 05/10/2013 [facility] HEMATOLOGY INR 1.0 05/10/2013 [facility] Diff BF Neutro BF 97 % 05/10/2013 NA [facility] Diff BF Lymph BF 3 % 05/10/2013 NA [facility] Cell Ct BF BF Type abdom inal wall aspirate 05/10/2013 NA [facility] Cell Ct BF RBC BF [id number] /mm3 05/10/2013 NA [facility] Cell Ct BF WBC BF 190930 /mm3 05/10/2013 NA WBC includes all nucleated cells, in add ition to WBC may include mesothelial cells and macrophages.
[facility] Cell Ct BF Differential? Fluid Yes 05/10/2013 N [facility] Culture Body Fluid Culture Body Flui d

<b>Final:</b>
No growth at 3 days.
05/10/2013 [facility] C YULISSA C YULISSA
[facility] [address]
[place] [address]

M i c r o b i [...] blood Cells
&amp ;lt;br/>

<br/ > 05/10/2013 [facility] Culture Anaerobic Culture Anaerobic

<b>Final:</b>
No anaerobic organisms isolated.
05/10/2013 [facility] Body Fld C Body Fld
[facility] [address]
[place] [address]

M i c r o b i [...] White blood Cell s

< br/> 05/10/2013 [facility] Gram Stain Gram Stain
[facility] [address]
[place] [address]

M i c r o b i [...] blood Cells
&amp ;lt;br/>

<br/ > 05/10/2013 [facility] Gram Stain Gram Stain

<b>GS:</b>
No organisms seen.
Many White blood Cells
05/10/2013 [facility] Renal Funct Index (GFR)Glomerular Fi ltration Rate >110.0 mL/min/1.73 m2 05/10/2013 NA GFR calculated based on MDR D abbreviated formula.

Age(years) Average GFR
20-29 116 ml/min/1.73 m2
30-39 107 ml/min/1.73 m2
40-49 99 ml/min/1.73 m2
50-59 93 ml/min/1.73 m2
60-69 85 ml/min/1.73 m2
70+ 75 ml/min/1.73 m2

Acceptable GFR =>60 ml/min/1.73 m2
Chronic Kidney Disease <60 ml/min/1.73 m2
Kidney Failure <15 ml/min/1.73 m2
[facility] CMP Sodium 141 mmol/L 136 - 145 05/10/2013 N [facility] CMP Potassium 3.8 mmol/L 3.5 - 5.1 05/10/2013 N [facility] CMP Chloride 108 mmol/L 98 - 107 05/10/2013 H [facility] CMP CO2 22 mmol/L 22 - 29 05/10/2013 N [facility] CMP AGAP 11 mmol/L 3 - 19 05/10/2013 N [facility] CMP Glucose 106 mg/dL 70 - 100 05/10/2013 H [facility] CMP BUN 7 mg/dL 8 - 20 05/10/2013 L [facility] CMP Creatinine 0.5 mg/dL 0.7 - 1.2 05/10/2013 L The presence of ketone bodies can cause artificially high results in serum, plasma and urine.
[facility] CMP Calcium 8.7 mg/dL 8.6 - 10.2 05/10/2013 N [facility] CMP Total Protein 6.7 g/dL 6.6 - 8.7 05/10/2013 N [facility] CMP Albumin Level 3.8 g/dL 3.5 - 5.2 05/10/2013 N [facility] CMP Bili Total 0.6 mg/dL 0.0 - 1.2 05/10/2013 N [facility] CMP Alk Phos 58 Inter. Units/L 40 - 130 05/10/2013 N [facility] CMP AST 12 Units/L 0 - 40 05/10/2013 N [facility] CMP ALT 13 Inter. Units/L 0 - 33 05/10/2013 N [facility] Protime PT 13.4 second 11.5 - 15.0 05/10/2013 N [facility] Protime INR 1.0 05/10/2013 NA [facility] Culture Blood Culture Blood

<b>Final:</b>
No growth at 5 days.
05/10/2013 [facility] C Blood C Blood
[facility] [address]
[place] [address]

M i c r o b i o l o g y

PROCEDURE: Culture Blood
SOURCE: Blood COLLECTED: 05/10/2013 11:20
BODY SITE: Forearm Left Draw RECEIVED: 05/10/2013 11:36
FREE TEXT SOURCE: STARTED: 05/10/2013 11:36

FINAL REPORT

Final Report
Verified:05/15/2013 19:00
No growth at 5 days.

___
05/10/2013 [facility] [place] Auto Diff Neutrophils 66 % 44 - 76 05/10/2013 N [facility] Auto Diff Lymphocytes % 23 % 13 - 43 05/10/2013 N [facility] Auto Diff Monocytes % 8 % 0 - 13 05/10/2013 N [facility] Auto Diff Eosinophils % 2 % 0 - 7 05/10/2013 N [facility] Auto Diff Basophils % 1 % 0 - 3 05/10/2013 N [facility] Auto Diff Neutro Absolute 4.8 x1 0'3/microL 1.4 - 7.2 05/10/2013 N [facility] [place] Auto Diff Lymph Absolute 1.6 x1 0'3/microL 1.2 - 3.4 05/10/2013 N [facility] Auto Diff [place] Absolute 0.6 x1 0'3/microL 0.1 - 0.6 05/10/2013 N [facility] Auto Diff Eos Absolute 0.2 x1 0'3/microL 0.0 - 0.5 05/10/2013 N [facility] Auto Diff Basophil Absolute 0.0 x1 0'3/microL 0.0 - 0.2 05/10/2013 N [facility] CBC/Diff WBC 7.2 x10'3/micro L 4.0 - 11.0 05/10/2013 N [facility] CBC/Diff RBC 4.28 x10'6/micr oL 3.90 - 5.60 05/10/2013 N [facility] CBC/Diff Hgb 13.1 g/dL 12.0 - 16.0 05/10/2013 N [facility] CBC/Diff Hct 38 % 35 - 47 05/10/2013 N [facility] CBC/Diff MCV 88 fL 81 - 99 05/10/2013 N [facility] CBC/Diff MCH 31 pg 27 - 34 05/10/2013 N [facility] CBC/Diff MCHC 35 g/dL 32 - 36 05/10/2013 N [facility] CBC/Diff RDW 13.1 % - <=14.5 05/10/2013 N [facility] CBC/Diff Platelet 276 x10 '3/microL 140 - 400 05/10/2013 N [facility] CBC/Diff MPV 8.0 fL 6.5 - 10.4 05/10/2013 N [facility] Culture Blood Culture Blood

<b>Final:</b>
No growth at 5 days.
05/10/2013 [facility] C Blood C Blood
[facility] [address]
[place] [address]

M i c r o b i o l o g y

PROCEDURE: Culture Blood
SOURCE: Blood COLLECTED: 05/10/2013 11:00
BODY SITE: Wrist Left Draw RECEIVED: 05/10/2013 11:36
FREE TEXT SOURCE: STARTED: 05/10/2013 11:36

FINAL REPORT

Final Report
Verified:05/15/2013 19:00
No growth at 5 days.<br/& amp;gt;

05/10/2013 [facility] IMMUNO/SEROLOGY UCG (POC) Negative <sup>11</sup>
(05/09/2013 16:36:00 Nel[place]) 05/09/2013 <sup>11</sup>Result Comment: Meter: [id number]~Copyright Manager: [id number] PABLO ACKERMAN [facility] CHEMISTRY Est CrCL (CG) 134.0 mL/min 05/09/2013 <sup>9</sup>Result Comment: Estimated Cr eatinine Clearance calculated based on the Cockcroft-Gault formula. [facility] CHEMISTRY Lipase 22 Units/L 13 - 60 05/09/2013 [facility] CHEMISTRY Total Protein 7.4 g/ dL 6.6 - 8.7 05/09/2013 [facility] CHEMISTRY Calcium 9.7 mg/dL 8.6 - 10.2 05/09/2013 [facility] CHEMISTRY BUN 19 mg/dL 8 - 20 05/09/2013 [facility] CHEMISTRY Creatinine 0.6 mg/dL 0.7 - 1.2 05/09/2013 <sup>3</sup>Interpretive Data: The prese nce of ketone bodies can cause artificially high results in serum, plasma and urine. [facility] CHEMISTRY Glucose 89 mg/dL 70 - 100 05/09/2013 [facility] CHEMISTRY Albumin Level 4.2 g/ dL 3.5 - 5.2 05/09/2013 [facility] CHEMISTRY AGAP 13 mmol/L 3 - 19 05/09/2013 [facility] CHEMISTRY CO2 21 mmol/L 22 - 29 05/09/2013 [facility] CHEMISTRY Chloride 105 mmol/L 98 - 107 05/09/2013 [facility] CHEMISTRY ALT 15 [iU]/d 0 - 33. 05/09/2013 [facility] CHEMISTRY AST 13 Units/L 0 - 40 05/09/2013 [facility] CHEMISTRY Alk Phos 73 [iU]/d 40 - 130. 05/09/2013 [facility] CHEMISTRY Bili Total 0.3 mg/dL 0.0 - 1.2 05/09/2013 [facility] CHEMISTRY Potassium 4.1 mmol/L 3.5 - 5.1 05/09/2013 [facility] CHEMISTRY Sodium 139 mmol/L 136 - 145 05/09/2013 [facility] CHEMISTRY GFR (MDRD) >110.0 mL/min/1.73 m2 05/09/2013 <sup>6</sup>Result Comment: GFR calculat ed based on MDRD abbreviated formula.

Age(years) Average GFR
20-29 116 ml/min/1.73 m2
30-39 107 ml/min/1.73 m2
40-49 99 ml/min/1.73 m2
50-59 93 ml/min/1.73 m2
60-69 85 ml/min/1.73 m2
70+ 75 ml/min/1.73 m2

Acceptable GFR =>60 ml/min/1.73 m2
Chronic Kidney Disease <60 ml/min/1.73 m2
Kidney Failure <15 ml/min/1.73 m2 [facility] HEMATOLOGY MPV 8.6 fL 6.5 - 10.4 05/09/2013 [facility] HEMATOLOGY Platelet 301 x 10'3/microL 140 - [id number] 05/09/2013 [facility] HEMATOLOGY RBC 4.52 x10'6/microL 3.90 - 5.55607 05/09/2013 [facility] HEMATOLOGY Hgb 13.9 g/dL 12.0 - 16.0 05/09/2013 [facility] HEMATOLOGY Hct 40 % 35 - 47 05/09/2013 [facility] HEMATOLOGY WBC 7.6 x 10'3/microL 4.0 - 11.0103 05/09/2013 [facility] HEMATOLOGY MCH 31 pg 27 - 34 05/09/2013 [facility] HEMATOLOGY MCV 88 fL 81 - 99 05/09/2013 [facility] HEMATOLOGY RDW 13.1 % <=14.5 % 05/09/2013 [facility] HEMATOLOGY MCHC 35 g/dL 32 - 36 05/09/2013 [facility] HEMATOLOGY Monocytes Abs 0.5 x 10'3/microL 0.1 - 0.6103 05/09/2013 [facility] HEMATOLOGY Monocytes % 7 % 0 - 13 05/09/2013 [facility] HEMATOLOGY Neutrophils Abs 5.0 x 10'3/microL 1.4 - 7.2103 05/09/2013 [facility] HEMATOLOGY Basophils % 1 % 0 - 3 05/09/2013 [facility] HEMATOLOGY Eosinophils % 2 % 0 - 7 05/09/2013 [facility] HEMATOLOGY Lymphocytes % 24 % 13 - 43 05/09/2013 [facility] HEMATOLOGY Basophils Abs 0.1 x 10'3/microL 0.0 - 0.2103 05/09/2013 [facility] HEMATOLOGY Lymphocytes Abs 1.9 x 10'3/microL 1.2 - 3.4103 05/09/2013 [facility] HEMATOLOGY Eosinophils Abs 0.2 x 10'3/microL 0.0 - 0.5103 05/09/2013 [facility] HEMATOLOGY Neutrophils % 66 % 44 - 76 05/09/2013 [facility] URINE UA Mucous Present <b r/>*ABN*
(05/09/2013 16:33:00 [place] None Seen 05/09/2013 [facility] URINE UA Bacteria Many /hpf Negative /hpf 05/09/2013 [facility] URINE UA Epithelial Few /hpf Negative to Few /hpf 05/09/2013 [facility] URINE UA RBC Negative /hpf 0 - 5 05/09/2013 [facility] URINE UA WBC 0-5 /hpf 0 - 5 05/09/2013 [facility] URINE UA Color Yellow
(05/09/2013 16:33:00 [place]) 05/09/2013 [facility] URINE UA Spec Type Clean Catc h
(05/09/2013 16:33:00 [place]) 05/09/2013 [facility] URINE UA Ketones Negative m g/dL Negative mg/dL 05/09/2013 [facility] URINE UA Bili Negative < br/>(05/09/2013 16:33:00 [place] Negative 05/09/2013 [facility] URINE UA Glucose Negative m g/dL Negative mg/dL 05/09/2013 [facility] URINE UA pH 5.5 5.0 - 8.0 05/09/2013 [facility] URINE UA Spec Grav 1.015 <br/ >(05/09/2013 16:33:00 [place]) 1.001 - 1.030 05/09/2013 [facility] URINE UA Blood Negative < br/>(05/09/2013 16:33:00 [facility]) Negative 05/09/2013 [facility] URINE UA Urobilinogen 0.2 EU per dL 0.2 - 1.0 05/09/2013 [facility] URINE UA Protein Negative m g/dL Negative mg/dL 05/09/2013 [facility] URINE UA Nitrite Negative < br/>(05/09/2013 16:33:00 [place] Negative 05/09/2013 [facility] URINE UA Leuk Est Positive < br/>*ABN*
(05/09/2013 16:33:00 [place] Negative 05/09/2013 [facility] URINE Microscopic? Yes <sup>12</sup>
*ABN*
(05/09/2013 16:33:00 [place]) 05/09/2013 <sup>12</sup>Interpretive Data: When res ult = No, Microscopic is not indicated. Specimen is held for 3 days. Call [phone] if further testing is needed. [facility] URINE Culture? Yes
* ABN*
(05/09/2013 16:33:00 [place]) 05/09/2013 [facility] Renal Funct Index (GFR)Glomerular Fi ltration Rate >110.0 mL/min/1.73 m2 05/09/2013 NA GFR calculated based on MDR D abbreviated formula.

Age(years) Average GFR
20-29 116 ml/min/1.73 m2
30-39 107 ml/min/1.73 m2
40-49 99 ml/min/1.73 m2
50-59 93 ml/min/1.73 m2
60-69 85 ml/min/1.73 m2
70+ 75 ml/min/1.73 m2

Acceptable GFR =>60 ml/min/1.73 m2
Chronic Kidney Disease <60 ml/min/1.73 m2
Kidney Failure <15 ml/min/1.73 m2
[facility] CMP Sodium 139 mmol/L 136 - 145 05/09/2013 N [facility] CMP Potassium 4.1 mmol/L 3.5 - 5.1 05/09/2013 N [facility] CMP Chloride 105 mmol/L 98 - 107 05/09/2013 N [facility] CMP CO2 21 mmol/L 22 - 29 05/09/2013 L [facility] CMP AGAP 13 mmol/L 3 - 19 05/09/2013 N [facility] CMP Glucose 89 mg/dL 70 - 100 05/09/2013 N [facility] CMP BUN 19 mg/dL 8 - 20 05/09/2013 N [facility] CMP Creatinine 0.6 mg/dL 0.7 - 1.2 05/09/2013 L The presence of ketone bodies can cause artificially high results in serum, plasma and urine.
[facility] CMP Calcium 9.7 mg/dL 8.6 - 10.2 05/09/2013 N [facility] CMP Total Protein 7.4 g/dL 6.6 - 8.7 05/09/2013 N [facility] CMP Albumin Level 4.2 g/dL 3.5 - 5.2 05/09/2013 N [facility] CMP Bili Total 0.3 mg/dL 0.0 - 1.2 05/09/2013 N [facility] CMP Alk Phos 73 Inter. Units/L 40 - 130 05/09/2013 N [facility] CMP AST 13 Units/L 0 - 40 05/09/2013 N [facility] CMP ALT 15 Inter. Units/L 0 - 33 05/09/2013 N [facility] Lipase Lipase 22 Units/L 13 - 60 05/09/2013 N [facility] Ur Micro - NC UA RBC Ne gative /hpf 0-5 05/09/2013 N [facility] Ur Micro - [place] UA WBC 0-5 /hpf 0-5 05/09/2013 N [facility] Ur Micro - [place] UA Epithelial Fe w /hpf Negative to Few 05/09/2013 N [facility] [place] [facility] Ur Micro - [place] UA Bacteria Ma ny /hpf Negative 05/09/2013 @ [facility] Ur Micro - [place] UA Mucous Pr esent None Seen 05/09/2013 @ [facility] UA CI UA Spec Type Clean Catc h 05/09/2013 N [facility] UA CI UA Color YELLOW 05/09/2013 N [facility] UA CI UA Glucose NEGATIVE m g/dL Negative 05/09/2013 N [facility] UA CI UA Bili NEGATIVE Negative 05/09/2013 N [facility] UA CI UA Ketones NEGATIVE m g/dL Negative 05/09/2013 N [facility] UA CI UA Spec Grav 1.015 1.001 - 1.030 05/09/2013 N [facility] UA CI UA pH 5.5 5.0 - 8.0 05/09/2013 N [facility] UA CI UA Protein NEGATIVE m g/dL Negative 05/09/2013 N [facility] UA CI UA Urobilinogen 0.2 EU per dL 0.2 - 1.0 05/09/2013 N [facility] UA CI UA Nitrite NEGATIVE Negative 05/09/2013 N [facility] [facility] UA CI UA Blood NEGATIVE Negative 05/09/2013 N [facility] UA CI UA Leuk Est MODERATE Negative 05/09/2013 @ [facility] UA CI Culture? Yes 05/09/2013 @ [facility] UA CI Microscopic? Yes 05/09/2013 @ When result = No, Microscopic is not indicated. Specimen is held for 3 days. Call [phone] if further testing is needed.
[facility] Auto Diff Neutrophils 66 % 44 - 76 05/09/2013 N [facility] Auto Diff Lymphocytes % 24 % 13 - 43 05/09/2013 N [facility] Auto Diff Monocytes % 7 % 0 - 13 05/09/2013 N [facility] Auto Diff Eosinophils % 2 % 0 - 7 05/09/2013 N [facility] Auto Diff Basophils % 1 % 0 - 3 05/09/2013 N [facility] Auto Diff Neutro Absolute 5.0 x1 0'3/microL 1.4 - 7.2 05/09/2013 N [facility] [place] [facility] Auto Diff Lymph Absolute 1.9 x1 0'3/microL 1.2 - 3.4 05/09/2013 N [facility] Auto Diff [place] Absolute 0.5 x1 0'3/microL 0.1 - 0.6 05/09/2013 N [facility] Auto Diff Eos Absolute 0.2 x1 0'3/microL 0.0 - 0.5 05/09/2013 N [facility] Auto Diff Basophil Absolute 0.1 x1 0'3/microL 0.0 - 0.2 05/09/2013 N [facility] [place] [facility] CBC/Diff WBC 7.6 x10'3/micro L 4.0 - 11.0 05/09/2013 N [facility] CBC/Diff RBC 4.52 x10'6/micr oL 3.90 - 5.60 05/09/2013 N [facility] CBC/Diff Hgb 13.9 g/dL 12.0 - 16.0 05/09/2013 N [facility] CBC/Diff Hct 40 % 35 - 47 05/09/2013 N [facility] CBC/Diff MCV 88 fL 81 - 99 05/09/2013 N [facility] CBC/Diff MCH 31 pg 27 - 34 05/09/2013 N [facility] CBC/Diff MCHC 35 g/dL 32 - 36 05/09/2013 N [facility] CBC/Diff RDW 13.1 % - <=14.5 05/09/2013 N [facility] CBC/Diff Platelet 301 x10 '3/microL 140 - 400 05/09/2013 N [facility] CBC/Diff MPV 8.6 fL 6.5 - 10.4 05/09/2013 N [facility] UCG POC SMM UCG (POC) Nega tive 05/09/2013 N Meter: [id number]~Copyright Manager: [id number] PABLO ACKERMAN
[facility] Culture Urine Culture Urine

<b>Final:</b>
>100,000 cfu/ml Enterobacter cloacae ssp cloacae
>100,000 cfu/ml Escherichia coli
>100,000 cfu/ml Mixed Gram Positive alvarez
No group B Streptococcus isolated.
No further testing planned on this specimen.
<table><tr><td>
</br></td></tr><tr><td><content styleCode="Bold">Escherichia coli</content></td></tr><tr><td></td><td></td><td> </td><td></td></tr><tr><td>Cefazolin</td><td></td><td>I</td><td></td></tr></tabl e> 05/09/2013 UA Spec Type: Clean Catch [facility] C Urine C Urine
[facility] [address]
[facility] [place] [address]

M i c r o b i [...]
UA Spec Type: Clean Catch

05/09/2013 [facility] Unknown UNK [facility] Pathology Reports Report Value Date Source Surgical Pathology Final Report [employer] Sales Representative [employer] Sales Representative: UMBERTO Pathologist groupCASPER SURGICAL PATHOLOGY REPORT [facility] [address] [place] [address] Surgical Pathology Report [id number] FINAL DIAGNOSIS: Fibrovascular soft tissue, radiologist directed [...] submitted in one cassette. PAB/05/11/13 ANTONIO POLANCO [id number] 05/10/2013 [facility] Diagnostic Reports Report Value Date Source SP US Guided Needle Placement [address] [address] Radiology Reports CPT Codes; 81612, 36800, 40952 CDM Codes: 9468247 (SP US Guided Needle Placement), 2937796 (Ndl Centesis), 4466713 (SP BX Abdomen/Retroper Core Needle), 4645202 (Instr Biopsy Full Core), 1992576 (TRY CUST BPSY), 5136357 (SP ASP Cyst/Abscess/Kiet Punc) Reason for exam: [...] skin puncture site. Using direct ANTONIO DEWITT [id number] [place] [address] Radiology Reports ultrasound visualization, the mass was [...] Dacosta Dictated 05/10/2013 16:12 Signing Yenifer Dacosta [facility] [id number] Final Dictated by: YENIFER ZAPIEN MD Signed by: YENIFER ZAPIEN MD 05/10/13 16:21 Interlocker Maintainer: WILLOW 05/10/13 16:21 ANTONIO DEWITT [id number] 05/10/2013 [facility] [place]dom[place] [address] Radiology Reports CPT Codes; 65086, Q9967 CDM Codes: 1774101 (CT Abdomen W and Pelvis W Cont), 7199246 (Syr Injector Angio), 3870849 (C Contrast Optiray 300/ML) Reason for exam: [...] No free fluid is identified ANTONIO DEWITT [id number] [address] [address] Radiology Reports IMPRESSION: 1. 2.5 x 2 [...] Signed by: CARTER BRIGGS MD 05/09/13 20:32 Interlocker Maintainer: ARACELI 05/09/13 20:32 ANTONIO DEWITT [id number] 05/09/[address] [facility] [address] Abdomen Stone WO Pelvis Stone WO Cont [address] [address] Radiology Reports CPT Codes; 05628 CDM Codes: 1795576 (CT Abdomen Stone WO Pelvis Stone WO [...] of prior surgery. PELVIS FINDINGS: ANTONIO DEWITT [id number] [address] [address] Radiology Reports The urinary bladder is unremarkable. [...] Signed by: CARTER BRIGGS MD 05/09/13 17:24 Interlocker Maintainer: ARACELI 05/09/13 17:24 ANTONIO DEWITT [id number] 05/09/2013 [facility] Consultation Notes Results Value Date Source Progress Note Encounter DateCo mplaintHistory Of Present Illness Follow Up of hosp Wednesday went to ER for RLQ abd mass. CT shows a mass and they admitted her to bx the mass. The results are not in yet. She was sent home with Tramadol but it is niot working. Hydrocodone makes her itch. 06/20/2013 [facility] Procedure Report Procedure Report IR Procedure Note [facility] Patient: ANTONIO DEWITT Age: 23 years Sex: Female : 1990 Associated Diagnoses: None Author: YENIFER ZAPIEN MD Operative Information Date of Procedure: [...] YENIFER Fuchs On, 05/10/2013 04:22 PM 05/10/2013 [facility] Emergency Room Record Emergenc y Room Report [...] C.T. C.T. E: 05/09/2013 23:55 CAiden/ Maci# [id number] Doc#: [id number] cc: 05/09/2013 [facility] Emergency Room Record Emergenc y Room Report [...] C.T. C.T. E: 05/09/2013 16:38 C.TAngel/ Maci# [id number] Doc#: [id number] cc: 05/09/2013 [facility] Discharge Summaries Results Value Date Source Discharge Summary Discharge [facility] DATE OF 1990 DATE OF ADMISSION 05/09/2013 [...] C.T. Jaquelin E: 05/11/2013 13:49 Jaquelin/ Maci# [id number] Doc#: [id number] cc: 05/11/2013 [facility] [place] History and Physicals Results Value Date Source [...] C.T. C.T. E: 05/10/2013 11:28 C.T./ Conf# [id number] Doc#: [id number] cc: 05/10/2013 [facility] Vital Signs Vital Sign Value Date Comments Source Body height 67.00 [in_us] 05/12/2013 [facility] Body Weight (Measured) 231.20 [lb_av] 05/12/2013 [facility] Intravascular Systolic 130 mm[ Hg] 05/12/2013 [facility] Intravascular Diastolic 88 mm[ Hg] 05/12/2013 [facility] Heart Beat 80 /min 05/12/2013 [facility] roup Body Temperature 99.1 [degF] 05/12/2013 [facility] Respiratory Rate 12 /min 05/12/2013 [facility] Body mass index 36.21 kg/meter (2) 05/12/2013 [facility] Pulse Equipment SPO2 (05/11/20 13 07:21:18 [place]) 05/11/2013 [facility] Heart Rate 57 bpm 05/11/2013 [facility] BP Location Arm, right (2012 07:21:18 [place]) 05/11/2013 [facility] Temp Method Oral (05/11/2013 0 7:19:18 [facility]) 05/11/2013 [facility] Temperature 98.6 [degF] 05/11/2013 [facility] NIBP MAP 81 mm[Hg] 05/11/2013 [facility] Inet NIBP Systolic 130 mm[Hg] 05/11/2013 [facility] Inet NIBP Diastolic 69 mm[Hg] 05/11/2013 [facility] Respiratory Rate 16 br/min 05/11/2013 [facility] Heart Rate Location Auto BP (1 07/10/2012 07:00:00 [place]) 05/10/2013 [facility] Pulse Rate 67 bpm 05/10/2013 [facility] Encounters Location Location Details Encounter Type Encounter Number Reason For Visit Attending Provider ADM Date DC Date Status Source [facility] [id number] M Jayne Foos 06/20/2013 06/20/2013 [facility] [id number] M Jayne Foos 05/24/2013 05/24/2013 [facility] [id number] M Jayne Foos 05/23/2013 05/23/2013 [facility] [id number] M Jayne Foos 05/18/2013 05/18/2013 [facility] [id number] M Jayne Foos 05/17/2013 05/17/2013 [facility] [id number] M Jayne Foos 05/15/2013 05/15/2013 [facility] [id number] _MAPID:[email or web address] M Jayne Perez omarcos 05/12/2013 05/12/2013 [facility] Mone dye [facility] Observation [id number] _[id number] Referral Self 05/09/2013 05/11/2013 [facility] [id number] JIMENA DORIS TENA MD 05/09/2013 05/11/2013 Active [facility]nam greene Procedures Procedure Code Date Perfomer Comments Source Office/outpatient visit, new 05/12/2013 [facility] Plan of Care Plan of Care Date Source DateTypeActionStatus Referral Ordered: WOMENS CARE (OBGYN) ordered DateTypeProblemGoalInterventionStatusStart Date Unknown. 06/20/2013 [facility] Social History Social History [...] 0.5 per day, Pack Year: 2 06/20/2013 [facility] Assessment and Plan No Data Provided for This Section Family History Value Date S ource Family MemberDiagnosisAge At Onset Maternal grandfather Stroke Maternal grandfather Melanoma Maternal grandfather Diabetes mellitus 06/20/2013 [facility] Advance Directives No Data Provided for This Section Functional Status No Data Provided for This Section
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
[2020-02-16 18:27] VITALS: BP 136/72
== END 2020-02-16 18:27 | disposition home or self-care (01) ==
LOC: EDUNIT# 16:28 → ER FS 16:30
DX: S09.90XA Unspecified injury of head, initial encounter (principal); S00.83XA Contusion of other part of head, initial encounter; I10 Essential (primary) hypertension; F41.9 Anxiety disorder, unspecified; F32.9 Major depressive disorder, single episode, unspecified; Y04.8XXA Assault by other bodily force, initial encounter
CPT/HCPCS: 70450; 70486

== ENCOUNTER 2020-02-18 12:08 | Emergency (ER) | payer MEDICAID ==
[~2020-02-18] VITALS: Ht 167.7 cm; Wt 124.0 kg
[2020-02-18] MEDS ORDERED: ONDANSETRON 4 MG (ZOFRAN) ORAL DISSOLVE TAB PO STA (12:54)
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
[2020-02-18] MEDS ORDERED: TRAM-42 PO (13:05)
[2020-02-18] MEDS ORDERED: ONDA4TAB11 PO (13:05)
[2020-02-18] MEDS ORDERED: TRM50T PO (13:22)
[2020-02-18 13:33] VITALS: BP 134/71
== END 2020-02-18 13:33 | disposition home or self-care (01) ==
LOC: EDUNIT# 12:08 → ER FS 12:10
DX: S00.83XA Contusion of other part of head, initial encounter (principal); G44.309 Post-traumatic headache, unspecified, not intractable; I10 Essential (primary) hypertension; F41.9 Anxiety disorder, unspecified; F32.9 Major depressive disorder, single episode, unspecified; Y04.2XXA Assault by strike against or bumped into by another person, initial encounter
CPT/HCPCS: 99283

== ENCOUNTER 2020-04-10 13:04 | Emergency (ER) | payer MEDICAID ==
[~2020-04-10] VITALS: Ht 167.7 cm; Wt 123.1 kg
[~2020-04-10 13:04] MED LIST changes: +ACHD5005 PO; -HYDR-3812 PO; +TRAM-42 PO; +TRM50T PO
--- NOTE | 2020-04-10 13:16 | ED Headache ---
General Chief Complaint: Head/Cervical Problems Stated Complaint: HEADACHE; LT FACIAL NUMBNESS; VOMITING History of Present Illness Date Seen by Provider: Apr 10, 2020 Time Seen by Provider: 13:11 Initial Comments 30-year-old female presents with a headache. She reports it started yesterday. She is photophobic, has some vomiting. Complains of some numbness to the left side of her face. She reports she's had headaches in the past but this is worse than normal. She is tried any ogca-ycl-nlywzcq nothing is helping. She denies any fevers or chills. Reports loud noises also make it worse. Shouldn't does not have any cough, fevers or other illness type symptoms. Allergies and Home Medications Allergies Coded Allergies: No Known Drug Allergies (Unverified , 07/26/10) Home Medications Cariprazine Hydrochloride 3 Mg Capsule, 3 MG PO DAILY, (Reported) Hydrocodone/Acetaminophen 1 Each Tablet, 1 EACH PO Q6H Prescribed by: CARTER HAAS on 11/24/192017 Ibuprofen 800 Mg Tablet, 800 MG PO Q8H PRN for PAIN, (Reported) Labetalol Hcl 100 Mg Tablet, 150 MG PO BID, (Reported) Methylprednisolone 4 Mg Tab.ds.pk, 4 MG PO UD Prescribed by: JACKSON ALBERTS on 01/28/16 1527 Ondansetron 4 Mg Tab.rapdis, 4 MG PO Q6H PRN for NAUSEA/VOMITING Prescribed by: FRANSISCA PALACIOS on 03/28/19 1906 Ondansetron 4 Mg Tab.rapdis, 4 MG PO Q6H PRN for NAUSEA/VOMITING Prescribed by: FREDERICK POLK on 02/18/20 1305 Tramadol HCl 50 Mg Tablet, 50 MG PO Q6H Prescribed by: FREDERICK POLK on 02/18/20 1305 Tramadol HCl 50 Mg Tablet, 50 MG PO Q6H PRN for PAIN Prescribed by: FREDERICK POLK on 02/18/20 1322 [Depo Shot] , EVERY 3 MONTHS, (Reported) Patient Home Medication List Home Medication List Reviewed: Yes Review of Systems Review of Systems Constitutional: No chills, No fever Eyes: See HPI Ears, Nose, Mouth, Throat: see HPI Respiratory: No cough, No short of breath Cardiovascular: No chest pain, No palpitations Gastrointestinal: No abdominal pain, No constipation, No nausea; vomiting Genitourinary: no symptoms reported Musculoskeletal: no symptoms reported Skin: no symptoms reported Psychiatric/Neurological: Headache, Numbness; Denies Weakness Past Sltkgnc-Ljgrsc-Myrwmg Hx Past Med/Social Hx: Reviewed Nursing Past Med/Soc Hx Patient Social History Alcohol Use: Denies Use Recreational Drug Use: No Smoking Status: Never a Smoker 2nd Hand Smoke Exposure: No Recent Foreign Travel: No Contact w/Someone Who Travel: No Recent Hopitalizations: No Immunizations Up To Date Date of Pneumonia Vaccine: Jul 05, 2009 Seasonal Allergies Seasonal Allergies: No Past Medical History Surgeries: Yes (DENTAL, Lithotripsy) Section, Tonsillectomy Respiratory: No Cardiac: Yes Hypertension Neurological: No Reproductive Disorders: No Sexually Transmitted Disease: No Genitourinary: No Gastrointestinal: No Musculoskeletal: No Endocrine: No HEENT: No Cancer: No Psychosocial: Yes Anxiety, Depression Integumentary: No Blood Disorders: Yes (ANEMIA) Physical Exam Vital Signs Vital Signs - First Documented 04/10/20 13:10 Temp 36.3 Pulse 52 Resp 16 B/P (MAP) 163/127 (139) Pulse Ox 98 O2 Delivery Room Air Capillary Refill : Height, Weight, BMI Height: 5'" Weight: 220lbs. oz. 99.601300ht; 44.00 BMI Method:Stated General Appearance: WD/WN, no apparent distress HEENT: PERRL/EOMI, normal ENT inspection Neck: full range of motion, supple, normal inspection Cardiovascular: normal peripheral pulses, regular rate, rhythm Respiratory: lungs clear, normal breath sounds, no respiratory distress Gastrointestinal: soft Back: no CVA tenderness, no vertebral tenderness Extremities: normal range of motion, no pedal edema Psychiatric: alert, oriented x 3 Crainal Nerves: normal hearing, normal speech Coordination/Gait: normal gait Motor/Sensory: no motor deficit, no sensory deficit Skin: normal color, warm/dry Progress/Results/Core Measures Results/Orders My Orders Orders - AURY KING DO Ct Head Wo-R/O Stroke (04/10/20 13:17) Metoclopramide Injection (Reglan Injecti (04/10/20 13:17) Lactated Ringers (Lr 1000 Ml Iv Solution (04/10/20 13:17) Ed Iv/Invasive Line Start (04/10/20 13:17) Diphenhydramine Injection (Benadryl Inje (04/10/20 13:17) Orphenadrine Inj (Ed Only) (Norflex Inje (04/10/20 13:17) Vital Signs/I&O 04/10/20 13:10 Temp 36.3 Pulse 52 Resp 16 B/P (MAP) 163/127 (139) Pulse Ox 98 O2 Delivery Room Air Progress Progress Note : Time: 14:21 Progress Note Patient with a negative head CT. Her symptoms are consistent with a migraine or tension type headache. Patient's symptoms significantly improved with treatment. Patient stable will be discharged home Diagnostic Imaging Diagonstic Imaging: Xray Plain Films/CT/US/NM/MRI: chest Comments [facility], [place] NAME: ANTON[facility] REC#: [id number] PT STATUS: REG ER : 1990 PHYSICIAN: AURY KING DO ADMIT DATE: 04/10/20/ER FS Signed Date of Exam:04/10/20 CT HEAD WO-R/O STROKE PROCEDURE: CT head wo r/o stroke. TECHNIQUE: Multiple contiguous axial images were obtained through the brain without the use of intravenous contrast. Auto Exposure Controls were utilized during the CT exam to meet ALARA standards for radiation dose reduction. INDICATION: Headache and numbness. COMPARISON: CT head from 03/28/2019 FINDINGS: No hyperdense hemorrhage or space-occupying mass. No hydrocephalus or midline shift. The basilar cisterns are normal. Mccormack-white matter differentiation is well preserved. The mastoid air cells are clear. Paranasal sinuses are normal. No focal osseous abnormality of the calvarium. IMPRESSION: 1. No acute intracranial process. Departure Impression Primary Impression: Migraine Qualified Codes: G43.909 - Migraine, unspecified, not intractable, without status migrainosus Additional Impression: Tension type headache Qualified Codes: G44.209 - Tension-type headache, unspecified, not intractable Disposition: 01 HOME, SELF-CARE Condition: Stable Departure-Patient Inst. Referrals: [facility] (PCP) Primary Care Physician PEGGY CHI APRN (Family) Primary Care Physician Patient Instructions: Migraine Headache (DC), Tension Headache (DC) Add. Discharge Instructions: Follow-up with your primary care provider for further treatment management and review of her hypertensive medications. All discharge instructions reviewed with patient and/or family. Voiced understanding. AURY KING DO Apr 10, 2020 13:16
[2020-04-10] MEDS ORDERED: METOCLOPRAMIDE INJ 10 MG/2 ML (REGLAN) IVP STA (13:17)
[2020-04-10] MEDS ORDERED: ORPHENADRINE 60 MG/2 ML (NORFLEX) AMP (ED ONLY) IV STA (13:17)
[2020-04-10] MEDS ORDERED: diphenhydrAMINE 50 MG/ML INJ (BENADRYL) IV STA (13:17)
[2020-04-10] MEDS ORDERED: LACTATED RINGERS 1,000 ML IV STA (13:17)
--- NOTE | 2020-04-10 13:43 | Diagnostic Imaging Report ---
PROCEDURE: CT head wo r/o stroke. TECHNIQUE: Multiple contiguous axial images were obtained through the brain without the use of intravenous contrast. Auto Exposure Controls were utilized during the CT exam to meet ALARA standards for radiation dose reduction. INDICATION: Headache and numbness. COMPARISON: CT head from 03/28/2019 FINDINGS: No hyperdense hemorrhage or space-occupying mass. No hydrocephalus or midline shift. The basilar cisterns are normal. Mccormack-white matter differentiation is well preserved. The mastoid air cells are clear. Paranasal sinuses are normal. No focal osseous abnormality of the calvarium. IMPRESSION: 1. No acute intracranial process. <> Dictated by: Dictated on workstation # [id number]
[2020-04-10 14:55] VITALS: BP 143/71
[2020-04-11] MEDS ORDERED: PRD50T PO (16:05)
== END 2020-04-10 14:55 | disposition home or self-care (01) ==
LOC: EDUNIT# 13:04 → ER FS 13:06
DX: G43.909 Migraine, unspecified, not intractable, without status migrainosus (principal); G44.209 Tension-type headache, unspecified, not intractable; I10 Essential (primary) hypertension; F32.9 Major depressive disorder, single episode, unspecified; Z79.52 Long term (current) use of systemic steroids
CPT/HCPCS: 70450; 84703

== ENCOUNTER 2020-04-11 15:25 | Emergency (ER) | payer MEDICAID ==
--- NOTE | 2020-04-11 15:59 | ED Headache ---
General Chief Complaint: Head/Cervical Problems Stated Complaint: NUMBNESS IN ARMS,FACE/HEADACHE Nursing Triage Note: Patient here complaining of headache, numbness and tingling in her face and left arm x 3 days. States she was here yesterday for the same symptoms. Called her doctor today and was going to go to the office for an injection but was instead told to come to ED. States her xanax was stopped 6 days ago that she has taken for 2 years and she was started on vraylar, topiramate, propanolol, and hydroxyzine. Nursing Sepsis Screen: No Definite Risk Source: patient Exam Limitations: no limitations History of Present Illness Date Seen by Provider: Apr 11, 2020 Time Seen by Provider: 15:50 Initial Comments 30-year-old female with history of chronic headaches and anxiety presents with c omplaint of a headache and bilateral facial numbness and tingling and bilateral upper extremity numbness and tingling. Denies any weakness, difficulty with speech or swallowing. See nurse's note above. Patient was abruptly stopped from continuing her Xanax, which she was taking daily for the past 2-3 years by a physician and she was started on several new medications instead. Restarted taking Topamax yesterday by her PCP. Seen in this ER yesterday for the same. Allergies and Home Medications Allergies Coded Allergies: No Known Drug Allergies (Unverified , 07/26/10) Home Medications Cariprazine Hydrochloride 3 Mg Capsule, 3 MG PO DAILY, (Reported) Hydrocodone/Acetaminophen 1 Each Tablet, 1 EACH PO Q6H Prescribed by: CARTER HAAS on 11/24/192017 Ibuprofen 800 Mg Tablet, 800 MG PO Q8H PRN for PAIN, (Reported) Labetalol Hcl 100 Mg Tablet, 150 MG PO BID, (Reported) Methylprednisolone 4 Mg Tab.ds.pk, 4 MG PO UD Prescribed by: JACKSON ALBERTS on 01/28/16 1527 Ondansetron 4 Mg Tab.rapdis, 4 MG PO Q6H PRN for NAUSEA/VOMITING Prescribed by: FRANSISCA PALACIOS on 03/28/19 1906 Ondansetron 4 Mg Tab.rapdis, 4 MG PO Q6H PRN for NAUSEA/VOMITING Prescribed by: FREDERICK POLK on 02/18/20 1305 Prednisone 50 Mg Tab, 50 MG PO DAILY Prescribed by: AUDIE MARINO on 04/11/20 1605 Tramadol HCl 50 Mg Tablet, 50 MG PO Q6H Prescribed by: FREDERICK POLK on 02/18/20 1305 Tramadol HCl 50 Mg Tablet, 50 MG PO Q6H PRN for PAIN Prescribed by: FREDERICK POLK on 02/18/20 1322 [Depo Shot] , EVERY 3 MONTHS, (Reported) Patient Home Medication List Home Medication List Reviewed: Yes Review of Systems Review of Systems Constitutional: No dizziness, No fever, No malaise, No weakness Eyes: Denies Blindness, Denies Blurred Vision, Denies Pain, Denies Photophobia, Denies Tunnel Vision, Denies Vision Changes Ears, Nose, Mouth, Throat: denies ear pain, denies nose pain, denies epistaxis, denies throat swelling Respiratory: No cough, No short of breath, No stridor, No wheezing Cardiovascular: No chest pain, No edema, No palpitations Gastrointestinal: No abdominal pain, No nausea, No vomiting Psychiatric/Neurological: See HPI, Anxiety, Headache, Numbness Past Cwwowaj-Gbxhgn-Gcfhup Hx Past Med/Social Hx: Reviewed Nursing Past Med/Soc Hx Patient Social History Alcohol Use: Denies Use Recreational Drug Use: No Smoking Status: Never a Smoker 2nd Hand Smoke Exposure: No Recent Foreign Travel: No Contact w/Someone Who Travel: No Recent Infectious Disease Expo: No Recent Hopitalizations: No Physical Abuse: No Sexual Abuse: No Mistreated: No Fear: No Immunizations Up To Date Date of Pneumonia Vaccine: Jul 05, 2009 Seasonal Allergies Seasonal Allergies: No Past Medical History Surgeries: Yes (DENTAL, Lithotripsy) Section, Tonsillectomy Respiratory: No Cardiac: Yes Hypertension Neurological: No Reproductive Disorders: No Sexually Transmitted Disease: No Genitourinary: No Gastrointestinal: No Musculoskeletal: No Endocrine: No HEENT: No Cancer: No Psychosocial: Yes Anxiety, Depression Integumentary: No Blood Disorders: Yes (ANEMIA) Physical Exam Vital Signs Vital Signs - First Documented 04/11/20 15:45 Temp 37.1 Pulse 62 Resp 16 B/P (MAP) 190/118 (142) Pulse Ox 97 Capillary Refill : Less Than 3 Seconds Height, Weight, BMI Height: 5'" Weight: 220lbs. oz. 99.865457we; 43.00 BMI Method:Stated General Appearance: WD/WN, no apparent distress HEENT: PERRL/EOMI, normal ENT inspection Neck: non-tender, full range of motion, supple, normal inspection Psychiatric: alert, oriented x 3 Crainal Nerves: normal hearing, normal speech, PERRL Coordination/Gait: normal finger to nose, normal gait Motor/Sensory: no motor deficit, no sensory deficit Skin: normal color, warm/dry Progress/Results/Core Measures Results/Orders My Orders Orders - ROAUDIE VAUGHAN DO Ketorolac Injection (Toradol Injection) (04/11/20 16:15) Promethazine Injection (Phenergan Injec (04/11/20 16:15) Medications Given in ED Current Medications Medications Dose Ordered Sig/Gama Route Start Time Stop Time Status Last Admin Dose Admin Ketorolac Tromethamine 60 mg ONCE ONCE IM 04/11/20 16:15 04/11/20 16:16 DC 04/11/20 16:17 60 MG Promethazine HCl 25 mg ONCE ONCE IM/IV 04/11/20 16:15 04/11/20 16:16 DC 04/11/20 16:17 25 MG Vital Signs/I&O 04/11/20 04/11/20 15:45 16:46 Temp 37.1 Pulse 62 61 Resp 16 16 B/P (MAP) 190/118 (142) 148/98 Pulse Ox 97 97 Blood Pressure Mean: 142 Progress Progress Note : Progress Note Called her PCPs office and discussed with the office nurse knew patient well and was able to give me confirming history about her presentation today. They advised her to come to the ER because of the paresthesias, however if they were going to see her in the clinic they would've given her a shot of Toradol. Discussed with patient treatment today and trial of prednisone for the next week to help with her symptoms. Likely related to benzodiazepine withdrawal. Advised to call her doctor with any further questions or concerns Departure Impression Primary Impression: Headache Qualified Codes: G44.209 - Tension-type headache, unspecified, not intractable Additional Impressions: Anxiety Paresthesia Disposition: 01 HOME, SELF-CARE Condition: Stable Departure-Patient Inst. Decision time for Depature: 16:04 Referrals: [facility]AN (PCP) Primary Care Physician PEGGY CHI APRN (Family) Primary Care Physician Patient Instructions: Headache, Adult (DC), Paresthesia (DC) Scripts Prednisone (Prednisone) 50 Mg Tab 50 MG PO DAILY, #7 TAB Prov: AUDIE MARINO DO 04/11/20 AUDIE MARINO DO Apr 11, 2020 15:59
[2020-04-11] MEDS ORDERED: PRD50T PO (16:05)
[2020-04-11] MEDS ORDERED: PROMETHAZINE INJ 25 MG/ML (PHENERGAN) AMP IM/IV ONE (16:15)
[2020-04-11] MEDS ORDERED: KETOROLAC 60 MG/2 ML VIAL IM ONE (16:15)
[2020-04-11 16:46] VITALS: BP 148/98
== END 2020-04-11 16:49 | disposition home or self-care (01) ==
LOC: EDUNIT# 15:25 → ER FS 15:26
DX: R51.9 Headache, unspecified (principal); F41.9 Anxiety disorder, unspecified; R20.2 Paresthesia of skin; I10 Essential (primary) hypertension; F32.9 Major depressive disorder, single episode, unspecified; Z79.52 Long term (current) use of systemic steroids
CPT/HCPCS: 99284

== ENCOUNTER 2021-03-16 16:40 | Emergency (ER) | payer MEDICAID ==
[~2021-03-16] VITALS: Ht 167.7 cm; Wt 122.0 kg
[~2021-03-16 16:40] MED LIST changes: +PRD50T PO
--- NOTE | 2021-03-16 16:43 | ED Chest Pain ---
General Stated Complaint: CHEST PAIN; LT ARM PAIN History of Present Illness Date Seen by Provider: Mar 16, 2021 Time Seen by Provider: 16:42 Initial Comments 31-year-old female presents with some sharp stabbing pain in her left chest just under her breast. She reports she had an episode around [birth year]06[birth year]1929 this morning when she woke up. She has had a couple episodes throughout the day that last real briefly. Gets worse if she presses on that area. At the pain can it goes and shoots up into her left shoulder and that she feels a little flushed when it happens. She is not having pain at this time. She denies any cough, fever, chills, nausea or vomiting. He does not complain of any shortness of breath. Allergies and Home Medications Allergies Coded Allergies: No Known Drug Allergies (Unverified , 07/26/10) Patient Home Medication List Home Medication List Reviewed: Yes Cariprazine Hydrochloride (Vraylar) 3 Mg Capsule, 3 MG PO DAILY, (Reported) Entered as Reported by: AARON ROSSI on 01/28/16 152 Hydrocodone/Acetaminophen (Hydrocodone-Acetamin 5-325 mg) 1 Each Tablet, 1 EACH PO Q6H Prescribed by: CARTER HAAS on 11/24/192017 Ibuprofen (Ibuprofen) 800 Mg Tablet, 800 MG PO Q8H PRN for PAIN, (Reported) Entered as Reported by: AARON ROSSI on 01/28/16 1523 Labetalol Hcl (Labetalol Hcl) 100 Mg Tablet, 150 MG PO BID, (Reported) Entered as Reported by: RADHA AGUILERA on 10/12/11 1400 Methylprednisolone (Medrol) 4 Mg Tab.ds.pk, 4 MG PO UD Prescribed by: JACKSON ALBERTS on 01/28/16 1527 Ondansetron (Ondansetron Odt) 4 Mg Tab.rapdis, 4 MG PO Q6H PRN for NAUSEA/VOMITING Prescribed by: FRANSISCA PALACIOS on 03/28/19 190 Ondansetron (Ondansetron Odt) 4 Mg Tab.rapdis, 4 MG PO Q6H PRN for NAUSEA/VOMITING Prescribed by: FREDERICK POLK on 02/18/20 1305 Prednisone (Prednisone) 50 Mg Tab, 50 MG PO DAILY Prescribed by: AUDIE MARINO on 04/11/20 1605 Sitagliptin Phos/Metformin HCl (Janumet 50-500 mg Tablet) 1 Tab Tablet, 1 TAB PO BID, (Reported) Entered as Reported by: DAVID ANN on 03/16/21 1736 Last Action: New Order Tramadol HCl (Ultram) 50 Mg Tablet, 50 MG PO Q6H Prescribed by: FREDERICK POLK on 02/18/20 1305 Tramadol HCl (Tramadol HCl) 50 Mg Tablet, 50 MG PO Q6H PRN for PAIN Prescribed by: FREDERICK POLK on 02/18/20 1322 [Depo Shot] , EVERY 3 MONTHS, (Reported) Entered as Reported by: RADHA AGUILERA on 10/12/11 1400 Review of Systems Review of Systems Constitutional: see HPI; No chills, No diaphoresis, No fever EENTM: No Symptoms Reported Respiratory: Denies Cough, Denies Shortness of Air Cardiovascular: Chest Pain; Denies Irregular Heart Rate, Denies Lightheadedness, Denies Syncope Gastrointestinal: Denies Abdominal Pain, Denies Diarrhea, Denies Nausea, Denies Vomiting Genitourinary: No Symptoms Reported Musculoskeletal: no symptoms reported Skin: no symptoms reported Psychiatric/Neurological: No Symptoms Reported Endocrine: Flushing Hematologic/Lymphatic: No Symptoms Reported Past Dfozoxk-Kkbbhl-Matpmz Hx Seasonal Allergies Seasonal Allergies: No Past Medical History Surgeries: Yes (DENTAL, Lithotripsy) Section, Tonsillectomy Respiratory: No Cardiac: Yes Hypertension Neurological: No Reproductive Disorders: No Sexually Transmitted Disease: No Genitourinary: No Gastrointestinal: No Musculoskeletal: No Endocrine: No HEENT: No Cancer: No Psychosocial: Yes Anxiety, Depression Integumentary: No Blood Disorders: Yes (ANEMIA) Physical Exam Vital Signs Vital Signs - First Documented 03/16/21 16:48 Temp 36.0 Pulse 110 Resp 18 B/P (MAP) 154/79 (104) Pulse Ox 94 O2 Delivery Room Air Capillary Refill : Height, Weight, BMI Height: 5'" Weight: 220lbs. oz. 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 Norm as Tested Skin: Normal Color, Warm/Dry, Tattoos/Piercings Progress/Results/Core Measures Results/Orders Lab Results Laboratory Tests Test 03/16/21 16:48 Range/Units White Blood Count 8.3 4.3-11.0 10^3/uL Red Blood Count 5.59 H 3.80-5.11 10^6/uL Hemoglobin 16.2 H 11.5-16.0 g/dL Hematocrit 48 35-52 % Mean Corpuscular Volume 86 80-99 fL Mean Corpuscular Hemoglobin 29 25-34 pg Mean Corpuscular Hemoglobin Concent 34 32-36 g/dL Red Cell Distribution Width 12.9 10.0-14.5 % Platelet Count 347 130-400 10^3/uL Mean Platelet Volume 10.9 9.0-12.2 fL Immature Granulocyte % (Auto) 1 % Neutrophils (%) (Auto) 53 42-75 % Lymphocytes (%) (Auto) 37 12-44 % Monocytes (%) (Auto) 7 0-12 % Eosinophils (%) (Auto) 2 0-10 % Basophils (%) (Auto) 1 0-10 % Neutrophils # (Auto) 4.4 1.8-7.8 X 10^3 Lymphocytes # (Auto) 3.1 1.0-4.0 X 10^3 Monocytes # (Auto) 0.5 0.0-1.0 X 10^3 Eosinophils # (Auto) 0.2 0.0-0.3 10^3/uL Basophils # (Auto) 0.1 0.0-0.1 10^3/uL Immature Granulocyte # (Auto) 0.1 0.0-0.1 10^3/uL Prothrombin Time 12.5 12.2-14.7 SEC INR Comment 0.9 0.8-1.4 Activated Partial Thromboplast Time 36 H 24-35 SEC Sodium Level 135 135-145 MMOL/L Potassium Level 5.1 H 3.6-5.0 MMOL/L Chloride Level 102 98-107 MMOL/L Carbon Dioxide Level 16 L 21-32 MMOL/L Anion Gap 17 H 5-14 MMOL/L Blood Urea Nitrogen 12 7-18 MG/DL Creatinine 0.67 0.60-1.30 MG/DL Estimat Glomerular Filtration Rate 102 BUN/Creatinine Ratio 18 Glucose Level 501 *H 70-105 MG/DL Calcium Level 9.6 8.5-10.1 MG/DL Corrected Calcium 9.2 8.5-10.1 MG/DL Magnesium Level 1.8 1.6-2.4 MG/DL Total Bilirubin 1.1 H 0.1-1.0 MG/DL Aspartate Amino Transf (AST/SGOT) 25 5-34 U/L Alanine Aminotransferase (ALT/SGPT) 33 0-55 U/L Alkaline Phosphatase 99 40-136 U/L Myoglobin < 21.0 10.0-92.0 NG/ML Troponin I < 0.30 <0.30 NG/ML Total Protein 8.3 H 6.4-8.2 GM/DL Albumin 4.5 3.2-4.5 GM/DL My Orders Orders - KING,AURY L DO Cbc With Automated Diff (03/16/21 16:48) Magnesium (03/16/21 16:48) Chest 1 View Ap/Pa Only (03/16/21 16:48) Ekg Tracing (03/16/21 16:48) Comprehensive Metabolic Panel (03/16/21 16:48) Myoglobin Serum (03/16/21 16:48) Protime With Inr (03/16/21 16:48) Partial Thromboplastin Time (03/16/21 16:48) Monitor-Rhythm Ecg Trace Only (03/16/21 16:48) Aspirin Chewable Tablet (Baby Aspirin Ch (03/16/21 17:00) Ed Iv/Invasive Line Start (03/16/21 16:48) Troponin I Fs (03/16/21 16:48) Ed Iv/Invasive Line Start (03/16/21 17:34) Ns Iv 1000 Ml (Sodium Chloride 0.9%) (03/16/21 17:45) Medications Given in ED Current Medications Medications Dose Ordered Sig/Gaam Route Start Time Stop Time Status Last Admin Dose Admin Aspirin 324 mg ONCE ONCE PO 03/16/21 17:00 03/16/21 17:01 DC 03/16/21 17:18 324 MG Vital Signs/I&O 03/16/21 03/16/21 16:48 19:03 Temp 36.0 Pulse 110 82 Resp 18 18 B/P (MAP) 154/79 (104) 112/73 Pulse Ox 94 96 O2 Delivery Room Air Progress Progress Note : Progress Note Patient with no acute findings on EKG, labs or chest x-ray. Patient does have high blood sugar, she reports that she was recently diagnosed and is on a oral medication. Recommended she follow-up with her primary care provider next week to have her hemoglobin A1c checked to see that her blood sugars been improving with her medication. Patient's chest pain is very pleuritic in nature and very consistent with a pleuritic chest pain. Discussed use of Tylenol ibuprofen as needed for pain Initial ECG Impression Date: Mar 16, 2021 Initial ECG Impression Time: 16:51 Initial ECG Rate: 94 Initial ECG Rhythm: Normal Sinus Initial ECG Impression: Normal Diagnostic Imaging Diagonstic Imaging: Xray Plain Films/CT/US/NM/MRI: chest Comments EXAM: CHEST 1 VIEW AP/PA ONLY INDICATION: Chest pain. COMPARISON: None. FINDINGS: Normal heart size and pulmonary vascularity. No dense consolidation, pleural effusion or pneumothorax. No acute osseous finding. IMPRESSION: No acute cardiopulmonary finding. Reviewed: Reviewed by Me, Reviewed/Discussed Departure Impression Primary Impression: Pleuritic chest pain Additional Impressions: High blood sugar Type 2 diabetes mellitus Qualified Codes: E11.9 - Type 2 diabetes mellitus without complications Disposition: 01 HOME, SELF-CARE Condition: Stable Departure-Patient Inst. Referrals: [facility] (PCP) Primary Care Physician PEGGY CHI APRN (Family) Primary Care Physician Patient Instructions: Pleuritic Chest Pain ED Add. Discharge Instructions: Follow-up with your primary care provider next week to recheck your diabetic and glucose goals to ensure that you do not need to have a medication adjustment AURY KING DO Mar 16, 2021 16:43
[2021-03-16 16:58] LABS: HEMATOCRIT 48 % (35-52); HEMOGLOBIN 16.2 g/dL (11.5-16.0); MEAN CORPUSCULAR HEMOGLOBIN 29 pg (25-34); WHITE BLOOD COUNT 8.3 10^3/uL (4.3-11.0)
[2021-03-16 16:59] LABS: BASOPHILS # (AUTO) 0.1 10^3/uL (0.0-0.1); BASOPHILS % (AUTO) 1 % (0-10); EOSINOPHILS # (AUTO) 0.2 10^3/uL (0.0-0.3); EOSINOPHILS % (AUTO) 2 % (0-10); LYMPHOCYTES # (AUTO) 3.1 X 10^3 (1.0-4.0); LYMPHOCYTES % (AUTO) 37 % (12-44); MEAN CORPUSCULAR HGB CONC 34 g/dL (32-36); MEAN CORPUSCULAR VOLUME 86 fL (80-99); MEAN PLATELET VOLUME 10.9 fL (9.0-12.2); MONOCYTES # (AUTO) 0.5 X 10^3 (0.0-1.0); MONOCYTES % (AUTO) 7 % (0-12); NEUTROPHILS # (AUTO) 4.4 X 10^3 (1.8-7.8); NEUTROPHILS % (AUTO) 53 % (42-75); PLATELET COUNT 347 10^3/uL (130-400)
[2021-03-16] MEDS ORDERED: ASPIRIN 81 MG CHEW (CHILDREN'S ASA) PO ONE (17:00)
[2021-03-16 17:21] LABS: INR 0.9 (0.8-1.4); PROTHROMBIN TIME PATIENT 12.5 SEC (12.2-14.7)
[2021-03-16 17:23] LABS: BUN/CREATININE RATIO 18; CARBON DIOXIDE 16 MMOL/L (21-32); CHLORIDE 102 MMOL/L (98-107); CREATININE SERUM 0.67 MG/DL (0.60-1.30); GFR ESTIMATED 102; POTASSIUM 5.1 MMOL/L (3.6-5.0); SODIUM 135 MMOL/L (135-145)
[2021-03-16 17:24] LABS: ALANINE AMINOTRANSFERASE 33 U/L (0-55); ALBUMIN 4.5 GM/DL (3.2-4.5); ALKALINE PHOSPHATASE 99 U/L (40-136); BILIRUBIN,TOTAL 1.1 MG/DL (0.1-1.0); CALCIUM 9.6 MG/DL (8.5-10.1); GLUCOSE 501 MG/DL (70-105); MAGNESIUM 1.8 MG/DL (1.6-2.4); TOTAL PROTEIN 8.3 GM/DL (6.4-8.2)
[2021-03-16] MEDS ORDERED: SITA1TAB2 PO (17:36)
[2021-03-16] MEDS ORDERED: NS IV 1000 ML 1,000 ML IV SCH (17:45)
--- NOTE | 2021-03-16 18:01 | Diagnostic Imaging Report ---
EXAM: CHEST 1 VIEW AP/PA ONLY INDICATION: Chest pain. COMPARISON: None. FINDINGS: Normal heart size and pulmonary vascularity. No dense consolidation, pleural effusion or pneumothorax. No acute osseous finding. IMPRESSION: No acute cardiopulmonary finding. Dictated by: Dictated on workstation # [id number]
[2021-03-16 19:03] VITALS: BP 112/73
== END 2021-03-16 19:05 | disposition home or self-care (01) ==
LOC: EDUNIT# 16:40 → ER FS 16:41
DX: R07.81 Pleurodynia (principal); E11.9 Type 2 diabetes mellitus without complications; I10 Essential (primary) hypertension; Z79.52 Long term (current) use of systemic steroids; Z79.899 Other long term (current) drug therapy
CPT/HCPCS: 36415; 71045; 80053; 83735; 83874; 84484; 85025; 85610; 85730; 93005; 93041

== ENCOUNTER 2021-05-14 17:07 | Emergency (ER) | payer MEDICAID ==
[~2021-05-14] VITALS: Ht 167 cm; Wt 115.0 kg
[~2021-05-14 17:07] MED LIST changes: +SITA1TAB2 PO
[2021-05-14] MEDS ORDERED: FAMOTIDINE 20 MG (PEPCID) TABLET PO STA (17:16)
--- NOTE | 2021-05-14 17:20 | ED GI ---
General Chief Complaint: Abdominal/GI Problems Stated Complaint: CHEST/ABD BURNING Source of Information: Patient History of Present Illness Date Seen by Provider: May 14, 2021 Time Seen by Provider: 17:11 Initial Comments 31-year-old female with past medical history of type 2 diabetes coming in due to epigastric burning that goes all the way up to her throat. Worse when she lays down. She has been taking Tums which takes the edge off. This began 3 days ago and has been pretty constant since then. Drinking milk helped it more than anything else she has tried so far. She also grabs some [id number] Prilosec which she is unsure has been helping or not. She denies any chest pain, shortness of breath, vomiting, diarrhea, dysuria, weakness, numbness, or any other concerns. She does not recall her LMP because she has the Nexplanon implanted. Allergies and Home Medications Allergies Coded Allergies: No Known Drug Allergies (Unverified , 07/26/10) Patient Home Medication List Home Medication List Reviewed: Yes Cariprazine Hydrochloride (Vraylar) 3 Mg Capsule, 3 MG PO DAILY, (Reported) Entered as Reported by: AARON ROSSI on 01/28/16 1523 Hydrocodone/Acetaminophen (Hydrocodone-Acetamin 5-325 mg) 1 Each Tablet, 1 EACH PO Q6H Prescribed by: CARTER HAAS on 11/24/192017 Ibuprofen (Ibuprofen) 800 Mg Tablet, 800 MG PO Q8H PRN for PAIN, (Reported) Entered as Reported by: AARON ROSSI on 01/28/16 1523 Labetalol Hcl (Labetalol Hcl) 100 Mg Tablet, 150 MG PO BID, (Reported) Entered as Reported by: RADHA AGUILERA on 10/12/11 1400 Methylprednisolone (Medrol) 4 Mg Tab.ds.pk, 4 MG PO UD Prescribed by: JACKSON ALBERTS on 01/28/16 1527 Ondansetron (Ondansetron Odt) 4 Mg Tab.rapdis, 4 MG PO Q6H PRN for NAUSEA/VOMITING Prescribed by: FRANSISCA PALACIOS on 03/28/19 1906 Ondansetron (Ondansetron Odt) 4 Mg Tab.rapdis, 4 MG PO Q6H PRN for NAUSEA/VOMITING Prescribed by: FREDERICK POLK on 02/18/20 1305 Prednisone (Prednisone) 50 Mg Tab, 50 MG PO DAILY Prescribed by: AUDIE MARINO on 04/11/20 1605 Sitagliptin Phos/Metformin HCl (Janumet 50-500 mg Tablet) 1 Tab Tablet, 1 TAB PO BID, (Reported) Entered as Reported by: DAVID ANN on 03/16/21 1736 Tramadol HCl (Ultram) 50 Mg Tablet, 50 MG PO Q6H Prescribed by: FREDERICK POLK on 02/18/20 1305 Tramadol HCl (Tramadol HCl) 50 Mg Tablet, 50 MG PO Q6H PRN for PAIN Prescribed by: FREDERICK POLK on 02/18/20 1322 [Depo Shot] , EVERY 3 MONTHS, (Reported) Entered as Reported by: RADHA AGUILERA on 10/12/11 1400 Review of Systems Review of Systems Constitutional: No chills, No fever EENTM: No Blurred Vision Respiratory: Denies Shortness of Air Cardiovascular: Denies Chest Pain Gastrointestinal: Abdominal Pain; Denies Diarrhea; Nausea; Denies Vomiting Genitourinary: Denies Burning Musculoskeletal: no symptoms reported Skin: no symptoms reported Psychiatric/Neurological: No Symptoms Reported Endocrine: No Symptoms Reported Hematologic/Lymphatic: No Symptoms Reported All Other Systems Reviewed Negative Unless Noted: Yes Past Qaejrvf-Satben-Tpijou Hx Patient Social History Tobacco Use?: No Use of E-Cig and/or Vaping dev: No Substance use?: No Alcohol Use?: Yes Alcohol type: Beer Alcohol Frequency: Once in a while Pt feels they are or have been: No Seasonal Allergies Seasonal Allergies: No Past Medical History Surgeries: Yes (DENTAL, Lithotripsy) Section, Tonsillectomy Respiratory: No Cardiac: Yes Hypertension Neurological: No Reproductive Disorders: No Sexually Transmitted Disease: No Genitourinary: No Gastrointestinal: No Musculoskeletal: No Endocrine: No HEENT: No Cancer: No Psychosocial: Yes Anxiety, Depression Integumentary: No Blood Disorders: Yes (ANEMIA) Physical Exam Vital Signs Vital Signs - First Documented 05/14/21 17:10 Temp 36.3 Pulse 113 Resp 18 B/P (MAP) 141/105 (117) Pulse Ox 98 O2 Delivery Room Air Capillary Refill : Height/Weight/BMI Height: 5'" Weight: 220lbs. oz. 99.321367jl; 43.00 BMI Method:Stated General Appearance: WD/WN, no apparent distress HEENT: PERRL/EOMI, normal ENT inspection, pharynx normal Neck: non-tender, full range of motion, supple, normal inspection Respiratory: chest non-tender, lungs clear, normal breath sounds, no respiratory distress, no accessory muscle use Cardiovascular: regular rate, rhythm, no edema, no murmur Gastrointestinal: normal bowel sounds, non tender, soft; No distended, No guarding, No rebound Extremities: normal range of motion, non-tender, normal inspection, no pedal edema, no calf tenderness, normal capillary refill Back: normal inspection, no CVA tenderness, no vertebral tenderness Neurologic/Psychiatric: no motor/sensory deficits, alert, normal mood/affect Skin: normal color, warm/dry Lymphatic: no adenopathy Progress/Results/Core Measures Results/Orders My Orders Orders - TYRESE COLBERT MD Lidocaine 2% Viscous 15 Ml (Xylocaine Vi (05/14/21 17:30) Famotidine Tablet (Pepcid Tablet) (05/14/21 17:16) Antacid Suspension (Mylanta Suspension (05/14/21 17:30) Medications Given in ED Current Medications Medications Dose Ordered Sig/Gama Route Start Time Stop Time Status Last Admin Dose Admin Al Hydrox/Mg Hydrox/Simethicone 30 ml ONCE ONCE PO 05/14/21 17:30 05/14/21 17:31 DC 05/14/21 17:21 30 ML Lidocaine HCl 15 ml ONCE ONCE PO 05/14/21 17:30 05/14/21 17:31 DC 05/14/21 17:21 15 ML Vital Signs/I&O 05/14/21 17:10 Temp 36.3 Pulse 113 Resp 18 B/P (MAP) 141/105 (117) Pulse Ox 98 O2 Delivery Room Air Progress Progress Note : Progress Note 31-year-old female with above history coming in due to epigastric burning going up to her throat worse with laying down. ABCs were intact and vitals were stable on presentation. Physical exam reassuring with a soft and nontender abdomen. I gave her a GI cocktail which included Pepcid, lidocaine, and Mylanta. Her symptoms were more than 90% resolved within 20 minutes. This could be related to some type of ulcer. I will prescribe her a PPI, Carafate, and recommend some Maalox as well. She says her PCP is referring her to a GI specialist for potential scope which I did recommend. I believe she is stable for discharge. She was sent home with strict return precautions Departure Impression Primary Impression: Epigastric burning sensation Disposition: HOME, SELF-CARE Condition: Improved Departure-Patient Inst. Decision time for Depature: 17:47 Referrals: [facility] (PCP) Primary Care Physician PEGGY CHI APRN (Family) Primary Care Physician Patient Instructions: Peptic Ulcers (DC) Add. Discharge Instructions: You were seen in the emergency department for burning abdominal pain that goes up to your throat. I think it is very likely you could have an ulcer in your stomach. 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 Avoid NSAIDs such as ibuprofen, aspirin, or naproxen unless you absolutely need to. Tylenol is safe for pain and does not hurt your stomach. Please call your primary care doctor and follow-up to see if they can speed up the process to get you into a GI doctor. If you have vomiting that will not stop, severe abdominal pain that is worsening that will not stop, fever, or any other concerns and please come back to the doctor Scripts Sucralfate (Carafate) 1 Gm Tablet 1 GM PO Q6H for 30 Days, #120 TAB Prov: TYRESE COLBERT MD 05/14/21 Pantoprazole Sodium (Protonix) 40 Mg Tablet.dr 40 MG PO DAILY for 30 Days, #30 TAB Prov: TYRESE COLBERT MD 05/14/21 TYRESE COLBERT MD May 14, 2021 17:20
[2021-05-14] MEDS ORDERED: LIDOCAINE 2% VISCOUS 15 ML UDC PO ONE (17:30)
[2021-05-14] MEDS ORDERED: ANTACID SUSP 30 ML UDC (MYLANTA) PO ONE (17:30)
[2021-05-14] MEDS ORDERED: PANT40TA2 PO (17:49)
[2021-05-14] MEDS ORDERED: SUCR1TAB36 PO (17:49)
[2021-05-14 17:56] VITALS: BP 141/105
== END 2021-05-14 17:57 | disposition home or self-care (01) ==
LOC: EDUNIT# 17:07 → ER FS 17:08
DX: R10.13 Epigastric pain (principal); I10 Essential (primary) hypertension; F32.9 Major depressive disorder, single episode, unspecified; E11.9 Type 2 diabetes mellitus without complications; Z79.899 Other long term (current) drug therapy
CPT/HCPCS: 99283

== ENCOUNTER 2021-07-21 09:43 | Inpatient (IN) | payer MEDICAID ==
[~2021-07-21] VITALS: Ht 165.1 cm; Wt 142.4 kg
[~2021-07-21 09:43] MED LIST changes: +PANT40TA2 PO; +SUCR1TAB36 PO
[2021-07-21] MEDS ORDERED: LACTATED RINGERS 1,000 ML IV ONE (10:00)
[2021-07-21 10:03] LABS: HEMATOCRIT 50 % (35-52); HEMOGLOBIN 14.9 g/dL (11.5-16.0); MEAN CORPUSCULAR HEMOGLOBIN 30 pg (25-34); MEAN CORPUSCULAR HGB CONC 30 g/dL (32-36); MEAN CORPUSCULAR VOLUME 101 fL (80-99); PLATELET COUNT 375 10^3/uL (130-400); WHITE BLOOD COUNT 17.8 10^3/uL (4.3-11.0)
[2021-07-21 10:04] LABS: BASOPHILS # (AUTO) 0.1 10^3/uL (0.0-0.1); BASOPHILS % (AUTO) 1 % (0-10); EOSINOPHILS % (AUTO) 0 % (0-10); LYMPHOCYTES # (AUTO) 5.9 X 10^3 (1.0-4.0); LYMPHOCYTES % (AUTO) 33 % (12-44); MEAN PLATELET VOLUME 11.2 fL (9.0-12.2); MONOCYTES # (AUTO) 1.3 X 10^3 (0.0-1.0); MONOCYTES % (AUTO) 7 % (0-12); NEUTROPHILS # (AUTO) 9.9 X 10^3 (1.8-7.8); NEUTROPHILS % (AUTO) 56 % (42-75)
--- NOTE | 2021-07-21 10:07 | ED General ---
General Chief Complaint: Altered Mental Status Stated Complaint: AMS Source of Information: Patient, EMS Exam Limitations: Other (altered) History of Present Illness Date Seen by Provider: Jul 21, 2021 Time Seen by Provider: 09:43 Initial Comments 31-year-old female with past medical history of type 2 diabetes coming in via EMS from home due to altered mental status. Neighbors called EMS because the patient was barefoot wandering outside. On EMS arrival she is sitting upright in the living room on the floor. She was answering some questions but was confused. Glucose for them was 590 and she was tachycardic to around 120 with other vitals normal. EMS saw some blood on her teeth that was dry but no other outward signs of trauma. They said her temperature was normal. Patient is not forthcoming saying she took any illicit or illegal drugs at this time. She does have 2 young children at home. The patient is unwilling to answer any questions for me and is mostly grunting but every once while says yes or no. Further elements of the history and physical are unable to be obtained because of this. The children did tell EMS that she has been vomiting for the past couple days. EMS started an IV and started one liter of normal saline. Allergies and Home Medications Allergies Coded Allergies: No Known Drug Allergies (Unverified , 07/26/10) Patient Home Medication List Home Medication List Reviewed: Yes Cariprazine Hydrochloride (Vraylar) 3 Mg Capsule, 3 MG PO DAILY, (Reported) Entered as Reported by: AARON ROSSI on 01/28/16 1523 Hydrocodone/Acetaminophen (Hydrocodone-Acetamin 5-325 mg) 1 Each Tablet, 1 EACH PO Q6H Prescribed by: CARTER HAAS on 11/24/192017 Ibuprofen (Ibuprofen) 800 Mg Tablet, 800 MG PO Q8H PRN for PAIN, (Reported) Entered as Reported by: AARON ROSSI on 01/28/16 1523 Labetalol Hcl (Labetalol Hcl) 100 Mg Tablet, 150 MG PO BID, (Reported) Entered as Reported by: RADHA AGUILERA on 10/12/11 1400 Methylprednisolone (Medrol) 4 Mg Tab.ds.pk, 4 MG PO UD Prescribed by: JACKSON ALBERTS on 01/28/16 1527 Ondansetron (Ondansetron Odt) 4 Mg Tab.rapdis, 4 MG PO Q6H PRN for NAUSEA/VOMITING Prescribed by: FRANSISCA PALACIOS on 03/28/19 1906 Ondansetron (Ondansetron Odt) 4 Mg Tab.rapdis, 4 MG PO Q6H PRN for NAUSEA/VOMITING Prescribed by: FREDERICK POLK on 02/18/20 1305 Pantoprazole Sodium (Protonix) 40 Mg Tablet.dr, 40 MG PO DAILY Prescribed by: TYRESE COLBERT on 05/14/21 1749 Prednisone (Prednisone) 50 Mg Tab, 50 MG PO DAILY Prescribed by: AUDIE MARINO on 04/11/20 1605 Sitagliptin Phos/Metformin HCl (Janumet 50-500 mg Tablet) 1 Tab Tablet, 1 TAB PO BID, (Reported) Entered as Reported by: DAVID ANN on 03/16/21 1736 Sucralfate (Carafate) 1 Gm Tablet, 1 GM PO Q6H Prescribed by: TYRESE COLBERT on 05/14/21 1749 Tramadol HCl (Ultram) 50 Mg Tablet, 50 MG PO Q6H Prescribed by: FREDERICK POLK on 02/18/20 1305 Tramadol HCl (Tramadol HCl) 50 Mg Tablet, 50 MG PO Q6H PRN for PAIN Prescribed by: FREDERICK POLK on 02/18/20 1322 [Depo Shot] , EVERY 3 MONTHS, (Reported) Entered as Reported by: RADHA AGUILERA on 10/12/11 1400 Review of Systems Review of Systems Constitutional: No chills, No fever All Other Systems Reviewed Negative Unless Noted: Yes Past Sstroob-Zjnvfs-Ebrvyv Hx Seasonal Allergies Seasonal Allergies: No Past Medical History Surgeries: Yes (DENTAL, Lithotripsy) Section, Tonsillectomy Respiratory: No Cardiac: Yes Hypertension Neurological: No Reproductive Disorders: No Sexually Transmitted Disease: No Genitourinary: No Gastrointestinal: No Musculoskeletal: No Endocrine: No HEENT: No Cancer: No Psychosocial: Yes Anxiety, Depression Integumentary: No Blood Disorders: Yes (ANEMIA) Physical Exam Vital Signs Vital Signs - First Documented 07/21/21 09:43 Temp 35.3 Pulse 111 Resp 39 B/P (MAP) 121/98 (106) Pulse Ox 94 O2 Delivery Nasal Cannula O2 Flow Rate 2.00 Capillary Refill : Height, Weight, BMI Height: 5'" Weight: 220lbs. oz. 99.303394pi; 41.00 BMI Method:Stated General Appearance: Other (confused, eyes open spontaneously, not following commands but answering questions intermittently confused) Eyes: Bilateral Eye Other (Pupils 6 mm bilaterally and reactive) HEENT: PERRL/EOMI, TMs Normal, Pharynx Normal, Other (dry blood on top teeth with no visible trauma seen) Neck: Full Range of Motion, Normal Inspection, Non Tender, Supple, Other (no meningismus) Respiratory: Chest Non Tender, Lungs Clear, Normal Breath Sounds, No Accessory Muscle Use, No Respiratory Distress Cardiovascular: No Edema, Normal Peripheral Pulses, Tachycardia Gastrointestinal: Normal Bowel Sounds, Non Tender, Soft; No Distended, No Guarding Back: Normal Inspection, No Vertebral Tenderness Extremity: Normal Capillary Refill, Normal Inspection, Normal Range of Motion, Non Tender, No Calf Tenderness, No Pedal Edema Neurologic/Psychiatric: Alert, Other (moving all 4 extremities, is very strong, not following commands but having purposeful movement and intermittently answering yes/no questions) Skin: Normal Color, Warm/Dry Lymphatic: No Adenopathy Focused Exam Lactate Level 07/21/21 09:50: Lactic Acid Level 4.67*H 07/21/21 11:53: Lactic Acid Level 5.03*H Lactic Acid Level Laboratory Tests Test 07/21/21 09:50 07/21/21 11:53 Lactic Acid Level 4.67 MMOL/L (0.50-2.00) *H 5.03 MMOL/L (0.50-2.00) *H Procedures/Interventions IV : Location: Left Site: Antecubital IV Catheter Type: Peripheral IV IV Catheter Gauge: 18 Progress Ultrasound guidance was used to place a left 18-gauge angiocatheter which was successful with 1 attempt Progress/Results/Core Measures Suspected Sepsis SIRS Temperature: Pulse: Respiratory Rate: Laboratory Tests 07/21/21 09:50: White Blood Count 17.8H Blood Pressure / Mean: 07/21/21 09:50: Lactic Acid Level 4.67*H 07/21/21 11:53: Lactic Acid Level 5.03*H Laboratory Tests 07/21/21 09:50: Platelet Count 375 07/21/21 10:20: Creatinine 0.90, INR Comment 1.3, Total Bilirubin 0.2 Results/Orders Lab Results Laboratory Tests Test 07/21/21 09:50 07/21/21 10:05 07/21/21 10:20 07/21/21 11:29 Range/Units White Blood Count 17.8 H 4.3-11.0 10^3/uL Red Blood Count 4.92 3.80-5.11 10^6/uL Hemoglobin 14.9 11.5-16.0 g/dL Hematocrit 50 35-52 % Mean Corpuscular Volume 101 H 80-99 fL Mean Corpuscular Hemoglobin 30 25-34 pg Mean Corpuscular Hemoglobin Concent 30 L 32-36 g/dL Red Cell Distribution Width 13.1 10.0-14.5 % Platelet Count 375 130-400 10^3/uL Mean Platelet Volume 11.2 9.0-12.2 fL Immature Granulocyte % (Auto) 4 % Neutrophils (%) (Auto) 56 42-75 % Lymphocytes (%) (Auto) 33 12-44 % Monocytes (%) (Auto) 7 0-12 % Eosinophils (%) (Auto) 0 0-10 % Basophils (%) (Auto) 1 0-10 % Neutrophils # (Auto) 9.9 H 1.8-7.8 X 10^3 Lymphocytes # (Auto) 5.9 H 1.0-4.0 X 10^3 Monocytes # (Auto) 1.3 H 0.0-1.0 X 10^3 Eosinophils # (Auto) 0.0 0.0-0.3 10^3/uL Basophils # (Auto) 0.1 0.0-0.1 10^3/uL Immature Granulocyte # (Auto) 0.6 H 0.0-0.1 10^3/uL Neutrophils % (Manual) 40 % Lymphocytes % (Manual) 35 % Monocytes % (Manual) 3 % Eosinophils % (Manual) 0 % Basophils % (Manual) 0 % Metamyelocytes % 2 % Myelocytes % 2 % Band Neutrophils 18 % Platelet Estimate NORMAL Macrocytosis 1+ Lactic Acid Level 4.67 *H 0.50-2.00 MMOL/L Serum Test, Qualitative NEGATIVE NEGATIVE Urine Color YELLOW Urine Clarity CLOUDY Urine pH 5.5 5-9 Urine Specific [place] >=1.030 1.016-1.022 Urine Protein 2+ H NEGATIVE Urine Glucose (UA) 3+ H NEGATIVE Urine Ketones 2+ H NEGATIVE Urine Nitrite NEGATIVE NEGATIVE Urine Bilirubin NEGATIVE NEGATIVE Urine Urobilinogen 0.2 < = 1.0 MG/DL Urine Leukocyte Esterase NEGATIVE NEGATIVE Urine RBC (Auto) 2+ H NEGATIVE Urine RBC 5-10 H /HPF Urine WBC 0-2 /HPF Urine Squamous Epithelial Cells 10-25 H /HPF Urine Crystals PRESENT H /LPF Urine Amorphous Sediment MOD AI URATES H /LPF Urine Bacteria FEW H /HPF Urine Casts PRESENT /LPF Urine Granular Casts 10-25 H /LPF Urine Mucus NEGATIVE /LPF Urine Culture Indicated CULTURE PENDING Urine Opiates Screen NEGATIVE NEGATIVE Urine Oxycodone Screen NEGATIVE NEGATIVE Urine Methadone Screen NEGATIVE NEGATIVE Urine Propoxyphene Screen NEGATIVE NEGATIVE Urine Barbiturates Screen NEGATIVE NEGATIVE Ur Tricyclic Antidepressants Screen NEGATIVE NEGATIVE Urine Phencyclidine Screen NEGATIVE NEGATIVE Urine Amphetamines Screen NEGATIVE NEGATIVE Urine Methamphetamines Screen NEGATIVE NEGATIVE Urine Benzodiazepines Screen NEGATIVE NEGATIVE Urine Cocaine Screen NEGATIVE NEGATIVE Urine Cannabinoids Screen NEGATIVE NEGATIVE Prothrombin Time 16.4 H 12.2-14.7 SEC INR Comment 1.3 0.8-1.4 Activated Partial Thromboplast Time 43 H 24-35 SEC Sodium Level 124 *L 135-145 MMOL/L Potassium Level 5.7 H 3.6-5.0 MMOL/L Chloride Level 89 L 98-107 MMOL/L Carbon Dioxide Level 4 *L 21-32 MMOL/L Anion Gap 31 H 5-14 MMOL/L Blood Urea Nitrogen 26 H 7-18 MG/DL Creatinine 0.90 0.60-1.30 MG/DL Estimat Glomerular Filtration Rate 87 BUN/Creatinine Ratio 29 Glucose Level 697 *H 70-105 MG/DL Calcium Level 8.4 L 8.5-10.1 MG/DL Corrected Calcium 8.3 L 8.5-10.1 MG/DL Total Bilirubin 0.2 0.1-1.0 MG/DL Aspartate Amino Transf (AST/SGOT) 288 H 5-34 U/L Alanine Aminotransferase (ALT/SGPT) 169 H 0-55 U/L Alkaline Phosphatase 175 H 40-136 U/L Troponin I < 0.30 <0.30 NG/ML Total Protein 7.6 6.4-8.2 GM/DL Albumin 4.1 3.2-4.5 GM/DL Salicylates Level < 0.3 L 5.0-20.0 MG/DL Acetaminophen Level < 10 L 10-30 UG/ML Serum Alcohol < 10 <10 MG/DL Influenza Type A Antigen NEGATIVE NEGATIVE Influenza Type B Antigen NEGATIVE NEGATIVE Test 07/21/21 11:53 07/21/21 11:55 Range/Units Lactic Acid Level 5.03 *H 0.50-2.00 MMOL/L Glucometer 562 *H 70-110 MG/DL My Orders Orders - TYRESE COLBERT MD Cbc With Automated Diff (07/21/21 09:48) Comprehensive Metabolic Panel (07/21/21 09:48) Blood Culture (07/21/21 09:48) Urinalysis (07/21/21 09:48) Urine Culture (07/21/21 09:48) Protime With Inr (07/21/21 09:48) Partial Thromboplastin Time (07/21/21 09:48) Ed Iv/Invasive Line Start (07/21/21 09:48) Ed Iv/Invasive Line Start (07/21/21 09:48) Ekg Tracing (07/21/21 09:48) Vital Signs Adult Sepsis Patie Q15M (07/21/21 09:48) O2 (07/21/21 09:48) Lactic Acid Analyzer (07/21/21 09:48) Influenza A & B Antigens (07/21/21 09:48) Lactated Ringers (Lr 1000 Ml Iv Solution (07/21/21 10:00) Acetaminophen (07/21/21 09:48) Alcohol (07/21/21 09:48) Drug Screen Stat (Urine) (07/21/21 09:48) Salicylate (07/21/21 09:48) Thyroid Stimulating Hormone (07/21/21 09:48) Troponin I Fs (07/21/21 09:48) Ct Head/Face/Cervical Wo (07/21/21 09:48) Covid 19 Inhouse Test (07/21/21 09:48) Hcg,Qualitative Serum (07/21/21 09:52) Arterial Blood Gas (07/21/21 09:52) Manual Differential (07/21/21 09:50) Lorazepam Injection (Ativan Injection) (07/21/21 10:15) Lorazepam Injection (Ativan Injection) (07/21/21 10:09) Cefepime Injection (Maxipime Injection) (07/21/21 10:30) Ct Chest/Abdomen/Pelvis W (07/21/21 10:34) Lactated Ringers (Lr 1000 Ml Iv Solution (07/21/21 10:45) Lorazepam Injection (Ativan Injection) (07/21/21 10:40) Lorazepam Injection (Ativan Injection) (07/21/21 11:00) Restraints: Medically Indicate Q2H (07/21/21 11:03) Iohexol Injection (Omnipaque 350 Mg/Ml 1 (07/21/21 11:15) Received Contrast (Hold Metformin- Contr (07/21/21 11:15) Sodium Chloride Flush (Catheter Flush Sy (07/21/21 11:15) Ns (Ivpb) (Sodium Chloride 0.9% Ivpb Bag (07/21/21 11:15) Lactated Ringers (Lr 1000 Ml Iv Solution (07/21/21 11:15) Insulin (Regular) Human (Novolin R (Per (07/21/21 11:15) Vancomycin Injection (Vancomycin Injecti (07/21/21 13:00) Insulin (Regular) Human (Novolin R (Per (07/21/21 13:15) Medications Given in ED Current Medications Medications Dose Ordered Sig/Gama Route Start Time Stop Time Status Last Admin Dose Admin Cefepime HCl 2000 mg/Sodium Chloride 50 ml @ 100 mls/hr ONCE ONCE IV 07/21/21 10:30 07/21/21 10:59 DC 07/21/21 10:10 100 MLS/HR Insulin Human Regular 10 unit ONCE ONCE IV 07/21/21 11:15 07/21/21 11:16 DC 07/21/21 11:37 10 UNIT Iohexol 100 ml ONCE ONCE IV 07/21/21 11:15 07/21/21 11:16 DC 07/21/21 11:06 100 ML Lactated Ringer's 1,000 ml @ 0 mls/hr Q0M ONCE IV 07/21/21 10:00 07/21/21 10:01 DC 07/21/21 10:10 1,000 MLS/HR Lorazepam 1 mg Q15M PRN IVP 07/21/21 11:00 07/21/21 12:31 1 MG Lorazepam 2 mg ONCE ONCE IVP 07/21/21 10:15 07/21/21 10:16 DC 07/21/21 10:19 2 MG Sodium Chloride 10 ml NEEDED PRN IV 07/21/21 11:15 07/21/21 11:06 10 ML Sodium Chloride 100 ml ONCE ONCE IV 07/21/21 11:15 07/21/21 11:16 DC 07/21/21 11:06 100 ML Vancomycin HCl 2000 mg/Sodium Chloride 250 ml @ 250 mls/hr ONCE ONCE IV 07/21/21 13:00 07/21/21 13:59 07/21/21 13:12 250 MLS/HR Vital Signs/I&O 07/21/21 07/21/21 09:43 10:15 Temp 35.3 Pulse 111 Resp 39 B/P (MAP) 121/98 (106) Pulse Ox 94 O2 Delivery Nasal Cannula Nasal Cannula O2 Flow Rate 2.00 2.00 Capillary Refill : Progress Note : Progress Note 31-year-old female with above history coming in altered. The patient's GCS was 13 on arrival (4 for eyes, 4 for voice with confusion, 5 for motor localizing to pain). Her heart rate was around 120, blood pressure with systolic of 120. O2 sat not picking up well but she is pink and breathing rapidly. Glucose was around 500. A second IV was place by me under ultrasound guidance and 2 L of IVF ordered. She received 500cc from EMS already. Pupils dilated, equal, and reactive. Initial thought was she took some type of stimulant as she was very agitated and difficult to keep safe. Initially had to restrain her while getting labs and workup, and had to give her ativan 2mg followed by 1mg. Labs concerning for leukocytosis and lactic acidosis. She was given Cefepime 2g IV empirically after cultures were obtained. She is afebrile with no meningismus so meningitis is less likely but still possible. She is too combative to safely do a lumbar puncture. The cefepime should technically cover for this as well. Added vanc later when lactic acid continued to trend upwards.. No concern for tick born illness in the winter so will hold off on doxycycline. UDS negative (still presenting like a sympathomimetic toxidrome so could have t aken bath salts, K2, etc and be negative on UDS), UA with ketones and glucose most notably. White blood cell count around 18, creatinine normal, bicarb less than 5 on the CMP, potassium around 5.9, glucose around 700 on the serum chemistry, lactate just under 5. CT head/c spine/face/chest/abd/pelv negative for obvious acute findings that would account for her clinical picture. I called and discussed the case with the eICU team physician and she definitely has a mixed picture but most favorably resembles DKA. On top of fluids we will give her a bolus of insulin [address] Kwon and the patient will be admitted as an inpatient to the intensive care unit under the DKA protocol for now. I frequently reassessed the patient and she continues to maintain her airway. Although she is altered, I am very concerned if I would intubate her she would probably code due to her severe acidemia. Oxygen saturation later came back around 94% on 2 L. We did a rectal temperature and it was around 96.5. Briefly placed her on a Elmo hugger. We will maintain her on nasal cannula and continue to monitor her closely. Update at 13:15. Repeat lactate around 5 again. She has received almost 4 L IVF not including the cefepime and vanc. Repeat glucose was 590 then another later was >600 so gave another bolus of IV insulin and started a drip. Called the ICU since we are still awaiting approval to send the patient. She has had a bed for over an hour but unfortunately it is not cleaned yet so we don't have approval to send her. ECG Initial ECG Impression Date: Jul 21, 2021 Initial ECG Impression Time: 10:13 Initial ECG Rate: 114 Initial ECG Rhythm: S.Tach Comment Significant motion artifact due to the patient's breathing but accounting for that no significant ST changes, QTC 489 Diagnostic Imaging Diagonstic Imaging: CT (head,c spine/max face, chest/abd/pelv) Comments [facility]. [place], [place] NAME: [facility] REC#: [id number] PT STATUS: REG ER : 1990 PHYSICIAN: TYRESE COLBERT MD ADMIT DATE: 07/21/21/ER FS Draft Date of Exam:07/21/21 CT CHEST/ABDOMEN/PELVIS W PROCEDURE: CT chest, abdomen, and pelvis with contrast. TECHNIQUE: Multiple contiguous axial images were obtained through the chest, abdomen, and pelvis after the administration of intravenous contrast. Auto Exposure Controls were utilized during the CT exam to meet ALARA standards for radiation dose reduction. INDICATION: Blood on teeth indicating oral trauma and altered mental status. FINDINGS: CT CHEST: Study is limited due to respiratory motion artifact. Mildly prominent interstitial markings are seen in the central aspect of the lungs. There is no focal consolidation. There is no significant pleural or pericardial fluid. No pathologically enlarged adenopathy is identified. There is fluid distention of the esophagus. Evaluation of the osseous structures is also limited due to motion, however no definite displaced fracture is appreciated. IMPRESSION: 1. Prominent interstitial markings in the lungs may represent edema or pneumonitis. Otherwise, study is limited without definite acute abnormality appreciated. 2. Note is made of fluid distention of the esophagus. CT ABDOMEN AND PELVIS: There is extensive low density throughout the liver indicating steatosis. No focal hepatic, gallbladder, pancreatic, adrenal gland or splenic abnormality is appreciated. Nonobstructing stones are seen in the lower pole of the right kidney measuring up to 0.5 cm in size. There is no evidence of hydronephrosis or hydroureter. Urinary bladder contains a Tucker catheter and a small amount of gas. There is no evidence of focal inflammation within the abdomen or pelvis and no free fluid is seen in the peritoneum. There is no evidence of acute osseous abnormality. IMPRESSION: Hepatic steatosis and right nephrolithiasis. No obstructive uropathy or other acute abnormality is identified. Dictated on workstation # [id number] Dict: 07/21/21 1119 Trans: 07/21/21 1135 [id number] Interpreted by: MYLES GOMEZ MD Electronically signed by: [facility] [place], [place] NAME: [facility] REC#: [id number] PT STATUS: REG ER : 1990 PHYSICIAN: TYRESE COLBERT MD ADMIT DATE: 07/21/21/ER FS Draft Date of Exam:07/21/21 CT HEAD/FACE/CERVICAL WO Clinical Indication: Suspected fall. Patient has blood on teeth. Altered mental status. Patient on blood thinners. Exam: Axial Head CT without IV contrast with sagittal and coronal reformations. Axial Maxillofacial CT scan without IV contrast with sagittal and coronal reformations. Axial CT scan of the cervical spine with sagittal and coronal reformations. Auto Exposure Controls were utilized during the CT exam to meet ALARA standards for radiation dose reduction. Comparison: Head CT without contrast dated 04/10/2020. CT scan of the head and maxillofacial structures dated 12/17/2019. CT scan of the head and cervical spine without contrast dated 03/28/2019. Findings: There is significant motion artifact limiting evaluation of anatomical detail of the brain, skull, maxillofacial structures and cervical spine. Head and maxillofacial CT: There is motion and skull streak artifact which obscures portions of the brainstem, posterior fossa, and portions of the brain near the skull. There is no evidence of acute cerebral infarct, intracranial hemorrhage, or gross mass effect. The brain parenchymal volume appears appropriate for patient's age. There is normal garcia-white matter distinction. There is no significant midline shift or herniation. There is no evidence of hydrocephalus. The basal cisterns are unremarkable. There is no gross skull or maxillofacial fracture, as visualized. The skull, extracranial soft tissue, and orbits are unremarkable. There is consolidation involving the right mastoid air cells and minimal amount involving left mastoid air cells. There is hypo-pneumatization of the bilateral mastoid air cells with sclerosis likely related to sequelae of chronic mastoiditis. Cervical spine: Limited visualization of the cervical spine due to motion artifact and patient body habitus. There is no gross acute cervical spine fracture or dislocation. There is no significant neck soft tissue abnormality. Visualized upper lung bautista are clear. Impression: 1: Limited exam due to patient body habitus, motion artifact, and streak artifact. This limits evaluation of the skull, maxillofacial structures, brain, cervical spine. 2: There is no evidence of acute intracranial process or intracranial hemorrhage. 2: There is no gross evidence of skull or maxillofacial fracture. 3: There is no cervical spine fracture or dislocation, as visualized. If there is continued concern for cervical spine fracture, then repeat imaging may be helpful. Dictated on workstation # [id number] Dict: 07/21/21 1109 Trans: 07/21/21 1125 [facility] [id number] Interpreted by: RAHEEM KOHLI MD Electronically signed by: Critical Care Note Critical Care Start Time: 09:43 Stop Time: 11:15 Total Time (minutes) 92 Progress The patient was at significant risk for hemodynamic instability with multiple vital sign abnormalities and metabolic derangements on her serum chemistry. She is severely acidemic and at severe risk for dying. All time billed for critical care was spent at the patient's bedside separate from procedures, as well as multiple conversations with multiple physicians about her care. Departure Impression Primary Impression: Altered mental status Qualified Codes: R41.82 - Altered mental status, unspecified Additional Impressions: Lactic acidosis DKA (diabetic ketoacidosis) Qualified Codes: E11.10 - Type 2 diabetes mellitus with ketoacidosis without coma Person under investigation for COVID-19 Disposition: 30 STILL A PATIENT Condition: Critical Admissions Decision to Admit Reason: Admit from ER (General) Decision to Admit/Date: Jul 21, 2021 Time/Decision to Admit Time: 11:15 Transfer Method of Transfer: EMS Departure-Patient Inst. Referrals: [facility] (PCP) Primary Care Physician PEGGY CHI APRN (Family) Primary Care Physician TYRESE COLBERT MD Jul 21, 2021 10:07
[2021-07-21] MEDS ORDERED: LORazepam INJ 2 MG/ML (ATIVAN) VIAL ONE ×2 (10:09→10:40)
[2021-07-21 10:14] LABS: BILIRUBIN,URINE NEGATIVE (NEGATIVE); CLARITY,URINE CLOUDY; COLOR,URINE YELLOW; GLUCOSE, URINE (UA) 3+ (NEGATIVE); KETONES,URINE 2+ (NEGATIVE); LEUKOCYTE ESTERASE ,URINE NEGATIVE (NEGATIVE); NITRITE,URINE NEGATIVE (NEGATIVE); PH,URINE 5.5 (5-9); PROTEIN,URINE 2+ (NEGATIVE)
[2021-07-21] MEDS ORDERED: LORazepam INJ 2 MG/ML (ATIVAN) VIAL IVP ONE (10:15)
[2021-07-21 10:23] LABS: AMPHETAMINE SCREEN, URINE NEGATIVE (NEGATIVE); BARBITURATE SCREEN URINE NEGATIVE (NEGATIVE); BENZODIAZEPINES SCREEN URINE NEGATIVE (NEGATIVE); CANNABINOID SCREEN, URINE NEGATIVE (NEGATIVE); COCAINE SCREEN URINE NEGATIVE (NEGATIVE); METHADONE STAT NEGATIVE (NEGATIVE); METHAMPHETAMINE SCREEN URINE S NEGATIVE (NEGATIVE); OPIATE SCREEN URINE NEGATIVE (NEGATIVE); OXYCODONE STAT NEGATIVE (NEGATIVE); PROPOXYPHENE STAT NEGATIVE (NEGATIVE); TRICYCLIC ANTIDEPRESSANTS SCRE NEGATIVE (NEGATIVE)
[2021-07-21] MEDS ORDERED: LORazepam INJ 2 MG/ML (ATIVAN) VIAL IVP PRN (10:30)
[2021-07-21] MEDS ORDERED: CEFEPIME INJECTION 2,000 MG in NS (IVPB) 50 ML IV ONE (10:30)
[2021-07-21 10:36] LABS: AMORPHOUS SEDIMENT,UR MOD AMOR URATES /LPF; BACTERIA,URINE FEW /HPF; WBC,URINE 0-2 /HPF
[2021-07-21] MEDS: LORazepam INJ 2 MG/ML (ATIVAN) VIAL IVP PRN ×4 (10:40→13:23)
[2021-07-21] MEDS ORDERED: LACTATED RINGERS 1,000 ML IV SCH ×2 (10:45→11:15)
[2021-07-21 10:47] LABS: INR 1.3 (0.8-1.4); PROTHROMBIN TIME PATIENT 16.4 SEC (12.2-14.7)
[2021-07-21 11:05] LABS: POTASSIUM 5.7 MMOL/L (3.6-5.0)
[2021-07-21 11:06] LABS: ALANINE AMINOTRANSFERASE 169 U/L (0-55); ALBUMIN 4.1 GM/DL (3.2-4.5); ALKALINE PHOSPHATASE 175 U/L (40-136); BILIRUBIN,TOTAL 0.2 MG/DL (0.1-1.0); BUN/CREATININE RATIO 29; CALCIUM 8.4 MG/DL (8.5-10.1); CHLORIDE 89 MMOL/L (98-107); GFR ESTIMATED 87; TOTAL PROTEIN 7.6 GM/DL (6.4-8.2)
[2021-07-21 11:07] LABS: ACETAMINOPHEN < 10 UG/ML (10-30); SALICYLATE < 0.3 MG/DL (5.0-20.0)
[2021-07-21 11:09] LABS: SODIUM 124 MMOL/L (135-145)
[2021-07-21 11:10] LABS: GLUCOSE 697 MG/DL (70-105)
[2021-07-21 11:12] LABS: BAND NEUTROPHILS 18 %; BASOPHILS % (MANUAL) 0 %; EOSINOPHILS % (MANUAL) 0 %; LYMPHOCYTES % (MANUAL) 35 %; METAMYELOCYTES % 2 %; MONOCYTES % (MANUAL) 3 %; MYELOCYTES % 2 %; NEUTROPHILS % (MANUAL) 40 %; PLATELET ESTIMATE NORMAL
[2021-07-21] MEDS ORDERED: NS 100 ML (IVPB) BAG IV ONE (11:15)
[2021-07-21] MEDS ORDERED: IOHEXOL 350 MG/ML 100 ML (OMNIPAQUE 350) VIAL IV ONE (11:15)
[2021-07-21] MEDS ORDERED: HOLD METFORMIN - RECEIVED CONTRAST 20 ML VIAL IV SCH (11:15)
[2021-07-21] MEDS ORDERED: inSUlin (REGULAR) HUMAN 1 UNIT/0.01 ML (CHARGE PER UNIT) IV ONE ×2 (11:15→13:15)
[2021-07-21] MEDS ORDERED: CATHETER FLUSH 10 ML SYR IV PRN (11:15)
--- NOTE | 2021-07-21 11:25 | Diagnostic Imaging Report ---
Clinical Indication: Suspected fall. Patient has blood on teeth. Altered mental status. Patient on blood thinners. Exam: Axial Head CT without IV contrast with sagittal and coronal reformations. Axial Maxillofacial CT scan without IV contrast with sagittal and coronal reformations. Axial CT scan of the cervical spine with sagittal and coronal reformations. Auto Exposure Controls were utilized during the CT exam to meet ALARA standards for radiation dose reduction. Comparison: Head CT without contrast dated 04/10/2020. CT scan of the head and maxillofacial structures dated 12/17/2019. CT scan of the head and cervical spine without contrast dated 03/28/2019. Findings: There is significant motion artifact limiting evaluation of anatomical detail of the brain, skull, maxillofacial structures and cervical spine. Head and maxillofacial CT: There is motion and skull streak artifact which obscures portions of the brainstem, posterior fossa, and portions of the brain near the skull. There is no evidence of acute cerebral infarct, intracranial hemorrhage, or gross mass effect. The brain parenchymal volume appears appropriate for patient's age. There is normal garcia-white matter distinction. There is no significant midline shift or herniation. There is no evidence of hydrocephalus. The basal cisterns are unremarkable. There is no gross skull or maxillofacial fracture, as visualized. The skull, extracranial soft tissue, and orbits are unremarkable. There is consolidation involving the right mastoid air cells and minimal amount involving left mastoid air cells. There is hypo-pneumatization of the bilateral mastoid air cells with sclerosis likely related to sequelae of chronic mastoiditis. Cervical spine: Limited visualization of the cervical spine due to motion artifact and patient body habitus. There is no gross acute cervical spine fracture or dislocation. There is no significant neck soft tissue abnormality. Visualized upper lung bautista are clear. Impression: 1: Limited exam due to patient body habitus, motion artifact, and streak artifact. This limits evaluation of the skull, maxillofacial structures, brain, cervical spine. 2: There is no evidence of acute intracranial process or intracranial hemorrhage. 2: There is no gross evidence of skull or maxillofacial fracture. 3: There is no cervical spine fracture or dislocation, as visualized. If there is continued concern for cervical spine fracture, then repeat imaging may be helpful. Dictated by: Dictated on workstation # [id number]
[2021-07-21 11:34] LABS: CARBON DIOXIDE 4 MMOL/L (21-32)
--- NOTE | 2021-07-21 11:35 | Diagnostic Imaging Report ---
PROCEDURE: CT chest, abdomen, and pelvis with contrast. TECHNIQUE: Multiple contiguous axial images were obtained through the chest, abdomen, and pelvis after the administration of intravenous contrast. Auto Exposure Controls were utilized during the CT exam to meet ALARA standards for radiation dose reduction. INDICATION: Blood on teeth indicating oral trauma and altered mental status. FINDINGS: CT CHEST: Study is limited due to respiratory motion artifact. Mildly prominent interstitial markings are seen in the central aspect of the lungs. There is no focal consolidation. There is no significant pleural or pericardial fluid. No pathologically enlarged adenopathy is identified. There is fluid distention of the esophagus. Evaluation of the osseous structures is also limited due to motion, however no definite displaced fracture is appreciated. IMPRESSION: 1. Prominent interstitial markings in the lungs may represent edema or pneumonitis. Otherwise, study is limited without definite acute abnormality appreciated. 2. Note is made of fluid distention of the esophagus. CT ABDOMEN AND PELVIS: There is extensive low density throughout the liver indicating steatosis. No focal hepatic, gallbladder, pancreatic, adrenal gland or splenic abnormality is appreciated. Nonobstructing stones are seen in the lower pole of the right kidney measuring up to 0.5 cm in size. There is no evidence of hydronephrosis or hydroureter. Urinary bladder contains a Tucker catheter and a small amount of gas. There is no evidence of focal inflammation within the abdomen or pelvis and no free fluid is seen in the peritoneum. There is no evidence of acute osseous abnormality. IMPRESSION: Hepatic steatosis and right nephrolithiasis. No obstructive uropathy or other acute abnormality is identified. Dictated by: Dictated on workstation # [id number]
[2021-07-21] MEDS ORDERED: VANCOMYCIN INJECTION 2,000 MG in NS (IVPB) 250 ML IV ONE (13:00)
[2021-07-21 14:03] LABS: CALCIUM 8.4 MG/DL (8.5-10.1); CREATININE SERUM 0.86 MG/DL (0.60-1.30)
[2021-07-21 14:05] LABS: POTASSIUM 7.6 MMOL/L (3.6-5.0)
--- NOTE | 2021-07-21 15:27 | Tele-ICU Consult ---
History of Present Illness History of Present Illness Date Seen by Provider: Jul 21, 2021 Time Seen by Provider: 14:30 Date of Admission This virtual visit was conducted using real time audio/video. Thank you for asking us to see this patient for DKA/AMS. Spoke bela DIAZ MD at [facility]. CTH, chest, abd, pelvis unremarkable. Recd. 1 dose Cefipime. PMH: DM2 SH: smoking history not avail FH: not avail ROS: limited by patient's clinical conditio. PE: Pale, currently calm. VSS. O2 sat on HEENT: No obvious masses, adenopathy or JVD. Chest: clear to auscultation. CV: RRR S1 S2 No murmur or added sounds. Abd: Non-tender. Bowel sounds Y. : Unremarkable. Tucker Y. 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 No obvious focal findings. Extremities: No edema. Capillary refill < 3 seconds. Skin: unremarkable. Results: Elevated BG 605, BUN 28, WCC 17.8, K 7.4 but 1 + hemolyis.. Decreased . CXR: none. Available chart/ vitals / labs / images reviewed. Video assessment done using teleICU camera, rest of exam as per RN. A/P: Monitor for increasing oxygenation needs and/or need for intubation. Critical Care: critically ill patient. Cont. IV insulin infusion, LR. Consider CVC, continuing Cefepime. Check BMP, ABG. Discussed with HOLDEN Carbajal. Asked RN to reach out to eICU if any questions or concerns later. Time spent with patient/coordination of care with other health professionals (mins): Allergies and Home Medications Allergies Coded Allergies: No Known Drug Allergies (Unverified , 07/26/10) Home Medications Cariprazine Hydrochloride 3 Mg Capsule, 3 MG PO DAILY, (Reported) Hydrocodone/Acetaminophen 1 Each Tablet, 1 EACH PO Q6H Prescribed by: CARTER HAAS on 11/24/192017 Ibuprofen 800 Mg Tablet, 800 MG PO Q8H PRN for PAIN, (Reported) Labetalol Hcl 100 Mg Tablet, 150 MG PO BID, (Reported) Methylprednisolone 4 Mg Tab.ds.pk, 4 MG PO UD Prescribed by: JACKSON ALBERTS on 01/28/16 1527 Ondansetron 4 Mg Tab.rapdis, 4 MG PO Q6H PRN for NAUSEA/VOMITING Prescribed by: FRANSISCA PALACIOS on 03/28/19 190 Ondansetron 4 Mg Tab.rapdis, 4 MG PO Q6H PRN for NAUSEA/VOMITING Prescribed by: FREDERICK POLK on 02/18/20 1305 Pantoprazole Sodium 40 Mg Tablet.dr, 40 MG PO DAILY Prescribed by: TYRESE COLBERT on 05/14/21 174 Prednisone 50 Mg Tab, 50 MG PO DAILY Prescribed by: AUDIE MARINO on 04/11/20 1605 Sitagliptin Phos/Metformin HCl 1 Tab Tablet, 1 TAB PO BID, (Reported) Sucralfate 1 Gm Tablet, 1 GM PO Q6H Prescribed by: TYRESE COLBERT on 05/14/21 174 Tramadol HCl 50 Mg Tablet, 50 MG PO Q6H Prescribed by: FREDERICK POLK on 02/18/20 1305 Tramadol HCl 50 Mg Tablet, 50 MG PO Q6H PRN for PAIN Prescribed by: FREDERICK POLK on 02/18/20 1322 [Depo Shot] , EVERY 3 MONTHS, (Reported) Past Medical/Social/Family Hx Patient Social History Smoking Status: Unknown if Ever Smoked Substance use?: Unable to obtain Alcohol Use?: Unable to obtain Pt stated abuse/neglect: Unable to obtain Immunizations Up To Date Influenza Vaccine Up-to-Date: No; Not Current First/Initial COVID19 Vaccinat: n/a Second COVID19 Vaccination Willy: n/a Date of Pneumonia Vaccine: Jul 05, 2009 Current Status Advance Directives: Unable to obtain Communicates: Unable To Communicate, Verbally Primary Language: Bolivian Preferred Spoken Language: Bolivian Is interpretation needed?: No Implanted or Applied Medical D: None Review of Systems Constitutional: no symptoms reported, see HPI EENTM: see HPI Respiratory: see HPI Cardiovascular: see HPI Genitourinary: see HPI Musculoskeletal: see HPI Skin: see HPI Psychiatric/Neurological: See HPI (See free text) Focused Exam Lactate Level 07/21/21 09:50: Lactic Acid Level 4.67*H 07/21/21 11:53: Lactic Acid Level 5.03*H Height, Weight, BMI Height: 5'" Weight: 220lbs. oz. 99.366707gd; 37.60 BMI Method:Stated Lactic Acid Level Laboratory Tests Test 07/21/21 11:53 Lactic Acid Level 5.03 MMOL/L (0.50-2.00) *H Exam Exam Patient acknowledged, consented, and participated in this virtual visit which was conducted using real time audio/video Vital Signs Date Time Temp Pulse Resp B/P (MAP) Pulse Ox O2 Delivery O2 Flow Rate FiO2 07/21/21 15:15 35.8 123 24 110/75 94 Nasal Cannula 2.00 07/21/21 15:04 123 07/21/21 14:06 35.7 121 29 107/74 100 Nasal Cannula 5.00 07/21/21 10:15 Nasal Cannula 2.00 07/21/21 09:43 35.3 111 39 121/98 (106) 94 Nasal Cannula 2.00 Height & Weight Height: 5'" Weight: 220lbs. oz. 99.328518ai; 37.60 BMI Method:Stated General Appearance: Other (confused, eyes open spontaneously, not following commands but answering questions intermittently confused) HEENT: PERRL/EOMI, TMs Normal, Pharynx Normal, Other (dry blood on top teeth with no visible trauma seen) Neck: Full Range of Motion, Normal Inspection, Non Tender, Supple, Other (no meningismus) Respiratory: Chest Non Tender, Lungs Clear, Normal Breath Sounds, No Accessory Muscle Use, No Respiratory Distress Cardiovascular: No Edema, Normal Peripheral Pulses, Tachycardia Capillary Refill: Less Than 3 Seconds Extremity: Normal Capillary Refill, Normal Inspection, Normal Range of Motion, Non Tender, No Calf Tenderness, No Pedal Edema Neurologic/Psychiatric: Alert, Other (moving all 4 extremities, is very strong, not following commands but having purposeful movement and intermittently answering yes/no questions) Skin: Normal Color, Warm/Dry Lymphatic: No Adenopathy Results Lab Laboratory Tests 07/21/21 09:50 07/21/21 10:20 07/21/21 13:26 Assessment/Plan Assessment/Plan See free text. Critical Care: Critically Ill Patient ANU DUNCAN MD Jul 21, 2021 15:27
[2021-07-21 15:30] LABS: ABG BASE EXCESS -28.8 MMOL/L (-2.5-2.5); ABG OXYGEN SATURATION 98 % (94-100); ABG PO2 113 MMHG (79-93)
--- NOTE | 2021-07-21 15:35 | Tele-ICU Progress Note ---
Subjective Date Seen by a Provider: Jul 21, 2021 Time Seen by a Provider: 14:30 Sepsis Event Evaluation Height, Weight, BMI Height: 5'" Weight: 220lbs. oz. 99.140074hp; 37.60 BMI Method:Stated Focused Exam Lactate Level 07/21/21 09:50: Lactic Acid Level 4.67*H 07/21/21 11:53: Lactic Acid Level 5.03*H Lactic Acid Level Laboratory Tests Test 07/21/21 11:53 Lactic Acid Level 5.03 MMOL/L (0.50-2.00) *H Exam Exam Patient acknowledged, consented, and participated in this virtual visit which was conducted using real time audio/video Vital Signs Date Time Temp Pulse Resp B/P (MAP) Pulse Ox O2 Delivery O2 Flow Rate FiO2 07/21/21 15:15 35.8 123 24 110/75 94 Nasal Cannula 2.00 07/21/21 15:04 123 07/21/21 14:06 35.7 121 29 107/74 100 Nasal Cannula 5.00 07/21/21 10:15 Nasal Cannula 2.00 07/21/21 09:43 35.3 111 39 121/98 (106) 94 Nasal Cannula 2.00 Height & Weight Height: 5'" Weight: 220lbs. oz. 99.281014ex; 37.60 BMI Method:Stated General Appearance: Other (confused, eyes open spontaneously, not following commands but answering questions intermittently confused) HEENT: PERRL/EOMI, TMs Normal, Pharynx Normal, Other (dry blood on top teeth with no visible trauma seen) Neck: Full Range of Motion, Normal Inspection, Non Tender, Supple, Other (no meningismus) Respiratory: Chest Non Tender, Lungs Clear, Normal Breath Sounds, No Accessory Muscle Use, No Respiratory Distress Cardiovascular: No Edema, Normal Peripheral Pulses, Tachycardia Capillary Refill: Less Than 3 Seconds Extremity: Normal Capillary Refill, Normal Inspection, Normal Range of Motion, Non Tender, No Calf Tenderness, No Pedal Edema Neurologic/Psychiatric: Alert, Other (moving all 4 extremities, is very strong, not following commands but having purposeful movement and intermittently answering yes/no questions) Skin: Normal Color, Warm/Dry Lymphatic: No Adenopathy Results Lab Laboratory Tests 07/21/21 09:50 07/21/21 10:20 07/21/21 13:26 Assessment/Plan Assessment/Plan See free text Critical Care: Critically Ill Patient ANU DUNCAN MD Jul 21, 2021 15:34
[2021-07-21 15:48] LABS: ABG PCO2 12 MMHG (35-45); ABG PH 6.85 (7.37-7.43)
[2021-07-21 15:49] LABS: ABG TCO2 2.4 MMOL/L (21.0-31.0)
[2021-07-21 15:50] LABS: ALLENS TEST POS; INSPIRED O2 2L; PATIENT TEMP 35.8; VENTILATOR NO
[2021-07-21] MEDS ORDERED: FLU QUADRIvalent (3YOA+) 60 mcg/0.5 ml 2021-22(AFLURIA) IM ONE (16:00)
[2021-07-21 16:16] LABS: ABG PCO2 33 MMHG (35-45); ABG PH < 6.80 (7.37-7.43); ABG PO2 70 MMHG (79-93)
[2021-07-21 16:17] LABS: INSPIRED O2 2 L; VENTILATOR NO
[2021-07-21 16:33] LABS: CHLORIDE 108 MMOL/L (98-107); POTASSIUM 6.3 MMOL/L (3.6-5.0); SODIUM 129 MMOL/L (135-145)
[2021-07-21 16:34] LABS: CALCIUM 8.1 MG/DL (8.5-10.1)
[2021-07-21 16:37] LABS: GLUCOSE 509 MG/DL (70-105)
[2021-07-21 16:38] LABS: CARBON DIOXIDE < 5 MMOL/L (21-32)
[2021-07-21 16:39] LABS: CREATININE SERUM 1.68 MG/DL (0.60-1.30); GFR ESTIMATED 41
[2021-07-21 16:40] LABS: BUN/CREATININE RATIO 17
[2021-07-21 16:53] VITALS: BP 172/122
[2021-07-21] MEDS ORDERED: RT-ALBUTEROL HFA 8.5 GM INHALER IH PRN (17:00)
[2021-07-21] MEDS ORDERED: 1/2 NS IV SOLUTION 1,000 ML IV ONE (17:09)
[2021-07-21] MEDS ORDERED: NS IV 1000 ML 1,000 ML IV SCH (17:15)
[2021-07-21] MEDS ORDERED: POTASSIUM CL 10MEQ/50ML IVPB 50 ML IV SCH (17:15)
[2021-07-21] MEDS ORDERED: SODIUM BICARB 8.4% 50 MEQ/50 ML (ABBOTT) SYR ONE (17:20)
[2021-07-21] MEDS: 1/2 NS IV SOLUTION 1,000 ML IV SCH ×3 (17:23→21:49)
[2021-07-21] MEDS ORDERED: SODIUM BICARB 8.4% 50 MEQ/50 ML (ABBOTT) SYR IV ONE (17:30)
[2021-07-21] MEDS: CEFEPIME INJECTION 1,000 MG in NS (IVPB) 50 ML IV SCH ×2 (17:32→22:40)
[2021-07-21 17:35] LABS: ABG BASE EXCESS -28.9 MMOL/L (-2.5-2.5); ABG OXYGEN SATURATION 97 % (94-100); ABG PO2 105 MMHG (79-93)
[2021-07-21 17:56] LABS: CHLORIDE 108 MMOL/L (98-107); POTASSIUM 5.7 MMOL/L (3.6-5.0); SODIUM 135 MMOL/L (135-145)
[2021-07-21 17:56] LABS: ABG PCO2 11 MMHG (35-45); ABG PH 6.86 (7.37-7.43)
[2021-07-21 17:57] LABS: ABG TCO2 2.2 MMOL/L (21.0-31.0); ALLENS TEST POS; INSPIRED O2 2L; PATIENT TEMP 36.5; VENTILATOR NO
[2021-07-21 17:57] LABS: CALCIUM 7.7 MG/DL (8.5-10.1)
[2021-07-21 18:01] LABS: CREATININE SERUM 1.64 MG/DL (0.60-1.30); GFR ESTIMATED 42
[2021-07-21 18:02] LABS: BUN/CREATININE RATIO 18
--- NOTE | 2021-07-21 18:05 | History & Physical-Hospitalist ---
History of Present Illness HPI/Chief Complaint 31-year-old female with past medical history of type 2 diabetes coming in via EMS from home due to altered mental status. Neighbors called EMS because the patient was barefoot wandering outside. On EMS arrival she is sitting upright in the living room on the floor. She was answering some questions but was confused. Glucose for them was 590 and she was tachycardic to around 120 with other vitals normal. EMS saw some blood on her teeth that was dry but no other outward signs of trauma. They said her temperature was normal. Patient is not forthcoming saying she took any illicit or illegal drugs at this time. She does have 2 young children at home. The patient is unwilling to answer any questions for me and is mostly grunting but every once while says yes or no. Further elements of the history and physical are unable to be obtained because of this. The children did tell EMS that she has been vomiting for the past couple days. EMS started an IV and started one liter of normal saline. Upon my arrival patient was obtunded unable to give history with tachypneic/Kusmal respiration. She had had an elevated blood pressure of 170/110 recorded but the cuff was replaced and the remainder of her blood p ressures have been in the low 100s over 60s with sinus tachycardia heart rate in the 120s predominantly. She has received at least 3 L of IV fluid and her last blood gas indicates that she is still significantly acidotic only slightly improved from 6.8-6.85 she has significant lactate elevation as well. She is COVID-positive review of her previous electronic medical record reveals findings compatible with uncontrolled likely past type 2 diabetes that is now morphed into type I. She had a blood sugar of 500 when she presented to the emergency room in the fall for pleuritic chest pain. I strongly suspect poor medication compliance and uncontrolled diabetes for some time.Patient was given an insulin bolus has received at least 3 L of IV fluids and is on an insulin drip currently as I recall around 11 units/h. Date Seen 07/21/21 Time Seen by a Provider: 16:15 Attending Physician William Ramirez MD [facility] Referring Physician Date of Admission Jul 21, 2021 at 11:31 Home Medications & Allergies Home Medications Reviewed patient Home Medication Reconciliation performed by pharmacy medication reconciliations coroner transport technician and/or nursing. Patients Allergies have been reviewed. Allergies Allergies Coded Allergies No Known Drug Allergies (Unverified07/26/10) Past Hfllmdw-Vnupjj-Zhbviq Hx Patient Social History Smoking Status: Unknown if Ever Smoked Substance use?: Unable to obtain Alcohol Use?: Unable to obtain Pt feels they are or have been: Unable to obtain Immunizations Up To Date First/Initial COVID19 Vaccinat: n/a Second COVID19 Vaccination Willy: n/a Date of Pneumonia Vaccine: Jul 05, 2009 Seasonal Allergies Seasonal Allergies: No Current Status Advance Directives: Unable to obtain Communicates: Unable To Communicate, Verbally Primary Language: Syrian Preferred Spoken Language: Syrian Is interpretation needed?: No Implanted or Applied Medical D: None Past Medical History Surgeries: Section, Tonsillectomy Hypertension Sexually Transmitted Disease: No Anxiety, Depression Blood Disorders: Yes (ANEMIA) Review of Systems Constitutional: see HPI Physical Exam Physical Exam Vital Signs Vital Signs - First Documented 07/21/21 07/21/21 09:43 16:53 Temp 35.3 Pulse 111 Resp 39 B/P (MAP) 121/98 (106) Pulse Ox 94 O2 Delivery Nasal Cannula O2 Flow Rate 2.00 FiO2 28 Capillary Refill : Less Than 3 Seconds Height, Weight, BMI Height: 5'" Weight: 220lbs. oz. 99.800671bp; 37.60 BMI Method:Stated General Appearance: Other (patient obtunded) Eyes: Bilateral Eye PERRL HEENT: Other (Dried blood on teeth no obvious evidence for tongue trauma) Neck: Full Range of Motion, Supple Respiratory: Chest Non Tender, Lungs Clear, Normal Breath Sounds, No Accessory Muscle Use, Other (Kausmal respirations clear to auscultation) Cardiovascular: No Edema, No Murmur, Tachycardia Gastrointestinal: No Organomegaly, No Pulsatile Mass, Soft, Other (Sinus on monitor transfer text bowel sounds present but hypoactive) Extremity: Other (Lower extremity mottling but lower extremities are warm no upper extremity mottling face is flushed and nondiaphoretic) Results Results/Procedures Labs Laboratory Tests 07/21/21 09:50 07/21/21 10:20 07/21/21 13:26 07/21/21 16:00 07/21/21 17:35 Patient resulted labs reviewed. Assessment/Plan Admission Diagnosis 1. Presumed DKA in an individual with initial type 2 diabetes that is now morphed into type I possibly aggravated by COVID infection in addition to longstanding likely poor diabetic control. We will add beta hydroxybutyrate as patient does have significant lactic acidosis but at this time there is no obvious evidence for sepsis. We will continue cefepime. Anesthesia has been consulted to obtain an art line as staff had difficulty with obtaining ABGs. Her condition is critical and her survival is doubtful considering the degree of her acidosis in addition to underlying COVID infection. eICU is involved in care management as well. 2. Presumed bipolar disorder as the patient has a history of being prescribed Vraylar. Bipolar disorder may be significantly contributing to poor diabetic control and just poor overall health status. Toxicology screen negative. Admission Status: Inpatient Order (span 2 midnights) Reason for Inpatient Admission: See admission diagnosis Critical Care Critically Ill Patient WILLIAM RAMIREZ MD Jul 21, 2021 18:05
--- NOTE | 2021-07-21 18:32 | Anesthesia-Procedure Note ---
Procedures/Interventions Procedure Start/Stop/Diagnosis Date of Procedure: Jul 21, 2021 Start Time: 18:00 Stop Time: 18:25 Arterial Line Arterial Line Catheter: 20G Type: Radial Location: Left Procedure: prepped, draped in sterile fashion, good wave-form was obtained, patient tolerated procedure well, no immediate complications, post procedure area cleaned, post procedure dressing applied MICHAEL MAR CRNA Jul 21, 2021 18:32
[2021-07-21 19:18] LABS: CARBON DIOXIDE < 5 MMOL/L (21-32); GLUCOSE 465 MG/DL (70-105)
[2021-07-21 20:13] LABS: ABG BASE EXCESS -27.7 MMOL/L (-2.5-2.5); ABG OXYGEN SATURATION 99 % (94-100); ABG PO2 148 MMHG (79-93)
[2021-07-21 20:21] LABS: ABG PCO2 11 MMHG (35-45); ABG PH 6.96 (7.37-7.43)
[2021-07-21 20:22] LABS: ABG TCO2 2.6 MMOL/L (21.0-31.0)
[2021-07-21 20:24] LABS: ALLENS TEST POS; INSPIRED O2 ROOM AIR; PATIENT TEMP 36.2; VENTILATOR NO
[2021-07-21 20:25] LABS: BUN/CREATININE RATIO 17; CALCIUM 7.7 MG/DL (8.5-10.1); CHLORIDE 110 MMOL/L (98-107); CREATININE SERUM 1.83 MG/DL (0.60-1.30); GFR ESTIMATED 37; GLUCOSE 391 MG/DL (70-105); POTASSIUM 5.2 MMOL/L (3.6-5.0); SODIUM 133 MMOL/L (135-145)
[2021-07-21 20:35] LABS: CARBON DIOXIDE < 5 MMOL/L (21-32)
[2021-07-21 22:54] LABS: ABG BASE EXCESS -27.5 MMOL/L (-2.5-2.5); ABG OXYGEN SATURATION 99 % (94-100); ABG PO2 110 MMHG (79-93)
[2021-07-21 22:55] LABS: ALLENS TEST YES-POS
[2021-07-21 22:56] LABS: INSPIRED O2 ROOM
[2021-07-21 22:57] LABS: ABG PH 6.98 (7.37-7.43); PATIENT TEMP 36.6; VENTILATOR NO
[2021-07-21 22:58] LABS: ABG PCO2 10 MMHG (35-45); ABG TCO2 2.6 MMOL/L (21.0-31.0)
[2021-07-22] MEDS: POTASSIUM CL 10MEQ/50ML IVPB 50 ML IV SCH ×8 (02:56→15:45)
[2021-07-22] MEDS: D5 1/2 NS 1000 ML IV SOLUTION 1,000 ML IV SCH ×4 (02:57→23:51)
[2021-07-22] MEDS: 1/2 NS IV SOLUTION 1,000 ML IV SCH ×5 (03:03→21:12)
[2021-07-22 04:02] LABS: ABG BASE EXCESS -24.9 MMOL/L (-2.5-2.5); ABG OXYGEN SATURATION 98 % (94-100); ABG PO2 95 MMHG (79-93)
[2021-07-22 04:04] LABS: ALLENS TEST YES-POS; BASOPHILS % (AUTO) 0 % (0-10); EOSINOPHILS % (AUTO) 0 % (0-10); HEMATOCRIT 41 % (35-52); HEMOGLOBIN 13.3 g/dL (11.5-16.0); INSPIRED O2 ROOM AIR; LYMPHOCYTES # (AUTO) 2.4 10^3/uL (1.0-4.0); LYMPHOCYTES % (AUTO) 17 % (12-44); MEAN CORPUSCULAR HEMOGLOBIN 30 pg (25-34); MEAN CORPUSCULAR HGB CONC 33 g/dL (32-36); MEAN CORPUSCULAR VOLUME 92 fL (80-99); MEAN PLATELET VOLUME 10.3 fL (9.0-12.2); MONOCYTES # (AUTO) 1.1 10^3/uL (0.0-1.0); MONOCYTES % (AUTO) 8 % (0-12); NEUTROPHILS # (AUTO) 10.5 10^3/uL (1.8-7.8); NEUTROPHILS % (AUTO) 73 % (42-75); PATIENT TEMP 36.7; PLATELET COUNT 260 10^3/uL (130-400); VENTILATOR NO; WHITE BLOOD COUNT 14.4 10^3/uL (4.3-11.0)
[2021-07-22 04:05] LABS: ABG PCO2 13 MMHG (35-45); ABG PH 7.07 (7.37-7.43)
[2021-07-22 04:06] LABS: ABG TCO2 4.1 MMOL/L (21.0-31.0)
[2021-07-22 04:50] LABS: ALBUMIN 3.3 GM/DL (3.2-4.5); CHLORIDE 111 MMOL/L (98-107); POTASSIUM 4.7 MMOL/L (3.6-5.0); SODIUM 135 MMOL/L (135-145)
[2021-07-22 04:52] LABS: CALCIUM 7.5 MG/DL (8.5-10.1)
[2021-07-22 04:53] LABS: GLUCOSE 153 MG/DL (70-105); TOTAL PROTEIN 6.3 GM/DL (6.4-8.2)
[2021-07-22 04:55] LABS: BILIRUBIN,TOTAL 0.3 MG/DL (0.1-1.0); CARBON DIOXIDE < 5 MMOL/L (21-32)
[2021-07-22 04:56] LABS: ALKALINE PHOSPHATASE 108 U/L (40-136); CREATININE SERUM 2.34 MG/DL (0.60-1.30); GFR ESTIMATED 28
[2021-07-22 04:57] LABS: BUN/CREATININE RATIO 15
[2021-07-22 04:59] LABS: ALANINE AMINOTRANSFERASE 151 U/L (0-55)
[2021-07-22] MEDS: CEFEPIME INJECTION 1,000 MG in NS (IVPB) 50 ML IV SCH ×4 (05:08→23:51)
[2021-07-22] MEDS: KCL 20 MEQ TAB (K-DUR) PO SCH (05:08)
[2021-07-22 05:42] LABS: BAND NEUTROPHILS 5 %; LYMPHOCYTES % (MANUAL) 18 %; MONOCYTES % (MANUAL) 5 %; NEUTROPHILS % (MANUAL) 72 %
[2021-07-22 05:43] LABS: RBC MORPH NORMAL
[2021-07-22] MEDS: MAGNESIUM 1 GM/100 ML IVPB 100 ML IV SCH (07:57)
[2021-07-22] MEDS: DexMEDEtomidine 250 ML DRIP 250 ML IV SCH ×3 (09:34→21:56)
[2021-07-22 10:03] LABS: CHLORIDE 111 MMOL/L (98-107); POTASSIUM 5.5 MMOL/L (3.6-5.0); SODIUM 132 MMOL/L (135-145)
[2021-07-22 10:05] LABS: GLUCOSE 290 MG/DL (70-105)
[2021-07-22 10:09] LABS: BUN/CREATININE RATIO 15; CREATININE SERUM 2.53 MG/DL (0.60-1.30); GFR ESTIMATED 25
[2021-07-22 10:13] LABS: CARBON DIOXIDE < 5 MMOL/L (21-32)
[2021-07-22] MEDS ORDERED: NS IV 1000 ML 1,000 ML ONE (10:18)
[2021-07-22] MEDS: NS IV 1000 ML 1,000 ML IV SCH ×5 (10:42→15:14)
--- NOTE | 2021-07-22 10:46 | Tele-ICU Progress Note ---
Subjective Date Seen by a Provider: Jul 22, 2021 Time Seen by a Provider: 10:03 Sepsis Event Evaluation Height, Weight, BMI Height: 5'" Weight: 220lbs. oz. 99.982337hz; 37.60 BMI Method:Stated Focused Exam Lactate Level 07/21/21 09:50: Lactic Acid Level 4.67*H 07/21/21 11:53: Lactic Acid Level 5.03*H 07/21/21 16:00: Lactic Acid Level 1.26 Exam Exam Patient acknowledged, consented, and participated in this virtual visit which w as conducted using real time audio/video Vital Signs Date Time Temp Pulse Resp B/P (MAP) Pulse Ox O2 Delivery O2 Flow Rate FiO2 07/22/21 09:34 128 172/122 07/22/21 08:23 99 Room Air 07/22/21 08:00 37.4 128 46 98 Room Air 07/22/21 07:23 98 Room Air 07/22/21 07:00 37.6 124 22 93 Room Air 07/22/21 06:57 131 07/22/21 06:00 36.6 122 27 96 Room Air 07/22/21 05:00 36.4 122 22 96 Room Air 07/22/21 04:00 36.7 128 23 Room Air 07/22/21 04:00 36.7 Room Air 07/22/21 03:58 100 Room Air 07/22/21 03:00 36.7 128 32 95 Room Air 07/22/21 02:00 36.6 126 31 99 Room Air 07/22/21 01:30 98 Room Air 07/22/21 01:00 129 07/22/21 01:00 35.9 129 31 99 Room Air 07/22/21 00:00 36.4 Room Air 07/22/21 00:00 36.4 124 28 96 Room Air 07/21/21 23:43 98 Room Air 07/21/21 23:00 36.5 124 29 95 Nasal Cannula 2.00 07/21/21 22:00 36.6 124 28 96 Nasal Cannula 2.00 07/21/21 21:00 36.7 130 32 99 Nasal Cannula 2.00 07/21/21 20:13 36.8 07/21/21 20:00 98 Room Air 07/21/21 20:00 36.9 129 31 97 Nasal Cannula 2.00 07/21/21 19:40 100 Nasal Cannula 2.00 07/21/21 19:00 36.7 128 30 96 Nasal Cannula 2.00 Automatic Cuff 07/21/21 19:00 128 07/21/21 18:00 36.4 128 29 104/53 100 Nasal Cannula 2.00 07/21/21 17:54 Room Air 07/21/21 17:00 100 Nasal Cannula 2.00 07/21/21 17:00 36.0 126 32 72/42 100 Nasal Cannula 2.00 07/21/21 16:53 36.3 122 100 28 07/21/21 16:00 36.3 122 31 172/122 100 Nasal Cannula 2.00 07/21/21 15:30 94 Nasal Cannula 2.00 07/21/21 15:15 35.8 123 24 110/75 94 Nasal Cannula 2.00 07/21/21 15:04 123 07/21/21 14:06 35.7 121 29 107/74 100 Nasal Cannula 5.00 I & O 07/22/21 06:59 Intake Total 7505 ml Output Total 2725 ml Balance 4780 ml Height & Weight Height: 5'" Weight: 220lbs. oz. 99.627732ui; 37.60 BMI Method:Stated General Appearance: Other (patient obtunded) HEENT: Other (Dried blood on teeth no obvious evidence for tongue trauma) Neck: Full Range of Motion, Supple Respiratory: Chest Non Tender, Lungs Clear, Normal Breath Sounds, No Accessory Muscle Use, Other (Kausmal respirations clear to auscultation) Cardiovascular: No Edema, No Murmur, Tachycardia Capillary Refill: Less Than 3 Seconds Extremity: Other (Lower extremity mottling but lower extremities are warm no upper extremity mottling face is flushed and nondiaphoretic) Neurologic/Psychiatric: Alert, Other (moving all 4 extremities, is very strong, not following commands but having purposeful movement and intermittently answering yes/no questions) Skin: Normal Color, Warm/Dry Lymphatic: No Adenopathy Results Lab Laboratory Tests 07/21/21 09:50 07/21/21 10:20 07/21/21 13:26 07/21/21 16:00 07/21/21 17:35 07/21/21 19:51 07/22/21 03:45 07/22/21 09:00 Assessment/Plan Assessment/Plan (Tele-ICU Physician , Progress Note ) Available chart/ vitals / labs / Images reviewed Video assessment done using teleICU camera, rest of exam as per RN Discussed with RN , EXAM PER RN Events overnight : Afebrile FiO2 -ra I/O = Drips: insulin , precedex Pressors: , hemodynamically stable A/P DKA *Insulin drip continue to monitor for resolution of acidosis, AG and electrolytes. Continue hydration. *Tx Gastroparesis MARY - dehydration -CT - No obstructive uropathy - cont IVF - follow closely Leukocytosis - empiric ABX given , follow COVID + - on RA - follow , ? need RDSV - need duration of symmptoms Lines : (Central Line Necessity Reviewed) Tucker: OG: Nutrition: Analgesia: Anxiety/ delirium VTE Prophylaxis: hep Stress Ulcer Prophylaxis: ppi Plans in collaboration with bedside consultants and IM MDs. Discussed with RN to reach out if any questions or concerns A total of 31minutes of critical care time was devoted to this patient today, required to treat and/or prevent further deterioration of critical care condition ( as above) MEL HENRIQUEZ MD Jul 22, 2021 10:46
[2021-07-22 13:03] LABS: CHLORIDE 115 MMOL/L (98-107); SODIUM 134 MMOL/L (135-145)
[2021-07-22 13:05] LABS: CALCIUM 6.7 MG/DL (8.5-10.1); GLUCOSE 185 MG/DL (70-105)
[2021-07-22 13:09] LABS: GFR ESTIMATED 23
[2021-07-22 13:10] LABS: BUN/CREATININE RATIO 14
[2021-07-22 13:15] LABS: CARBON DIOXIDE < 5 MMOL/L (21-32)
--- NOTE | 2021-07-22 13:55 | History & Physical-Hospitalist ---
DIANNE HARTLEY 07/22/21 9685: History of Present Illness HPI/Chief Complaint 31-year-old female with past medical history of type 2 diabetes coming in via EMS from home due to altered mental status. Neighbors called EMS because the patient was barefoot wandering outside. On EMS arrival she is sitting upright in the living room on the floor. She was answering some questions but was confused. Glucose for them was 590 and she was tachycardic to around 120 with other vitals normal. EMS saw some blood on her teeth that was dry but no other outward signs of trauma. They said her temperature was normal. Patient is not forthcoming saying she took any illicit or illegal drugs at this time. She does have 2 young children at home. The patient is unwilling to answer any questions for me and is mostly grunting but every once while says yes or no. Further elements of the history and physical are unable to be obtained because of this. The children did tell EMS that she has been vomiting for the past couple days. EMS started an IV and started one liter of normal saline. Upon my arrival patient was obtunded unable to give history with tachypn eic/Kusmal respiration. She had had an elevated blood pressure of 170/110 recorded but the cuff was replaced and the remainder of her blood pressures have been in the low 100s over 60s with sinus tachycardia heart rate in the 120s predominantly. She has received at least 3 L of IV fluid and her last blood gas indicates that she is still significantly acidotic only slightly improved from 6.8-6.85 she has significant lactate elevation as well. She is COVID-positive review of her previous electronic medical record reveals findings compatible with uncontrolled likely past type 2 diabetes that is now morphed into type I. She had a blood sugar of 500 when she presented to the emergency room in the fall for pleuritic chest pain. I strongly suspect poor medication compliance and uncontrolled diabetes for some time.Patient was given an insulin bolus has received at least 3 L of IV fluids and is on an insulin drip currently as I recall around 11 units/h. Per nursing report this morning and viewing the patient through the glass doors, patient has been non-compliant with nursing requests to stay in bed. RN was preparing to administer Precedex. Vitals appear to be stable. Glucose 141 CO2 <5 BUN 36, Cr 2.34 Ca 6.7 Lactic acid: 1.26 Beta-hydroxybutyrate: 9.52 Anion gap 19 AB.07/13/95 AST 207, ALT 151 UA: 3+ glucose, 2+ ketones, 2+ proteins, 2+ RBC Toxicology report negative EKG: LBBB, sinus rhythm CT chest, abdomen, pelvis: prominent interstitial lung markings, fluid distention in esophagus, hepatic steatosis, right nephrolithiasis with no obstructive uropathy CT head, c-spine, facial bones: unremarkable. Significant motion artifact noted. Sars-Cov-2: Positive Source: RN/MD, EMS notes reviewed Exam Limitations: other (COVID+, non-compliant with nursing instruction) Date Seen 07/22/21 Time Seen by a Provider: 11:00 Attending Physician Radha Orr DO [facility]/Replaced By [facility] Referring Physician Date of Admission Jul 21, 2021 at 11:31 Home Medications & Allergies Home Medications Reviewed patient Home Medication Reconciliation performed by pharmacy medication reconciliations database software technician and/or nursing. Patients Allergies have been reviewed. Allergies Allergies Coded Allergies No Known Drug Allergies (Unverified07/26/10) Past Rxsucfp-Cwuniz-Ubsfwe Hx Patient Social History Smoking Status: Unknown if Ever Smoked Substance use?: Unable to obtain Alcohol Use?: Unable to obtain Pt feels they are or have been: Unable to obtain Immunizations Up To Date First/Initial COVID19 Vaccinat: n/a Second COVID19 Vaccination Willy: n/a Date of Pneumonia Vaccine: Jul 05, 2009 Seasonal Allergies Seasonal Allergies: No Current Status Advance Directives: Unable to obtain Communicates: Unable To Communicate, Verbally Primary Language: Romanian Preferred Spoken Language: Romanian Is interpretation needed?: No Implanted or Applied Medical D: None Past Medical History Surgeries: Section, Tonsillectomy Hypertension Sexually Transmitted Disease: No Anxiety, Depression Blood Disorders: Yes (ANEMIA) Review of Systems ROS-Unable to Obtain: unable to obtain Physical Exam Physical Exam Vital Signs Vital Signs - First Documented 07/21/21 07/21/21 09:43 16:53 Temp 35.3 Pulse 111 Resp 39 B/P (MAP) 121/98 (106) Pulse Ox 94 O2 Delivery Nasal Cannula O2 Flow Rate 2.00 FiO2 28 Capillary Refill : Less Than 3 Seconds Height, Weight, BMI Height: 5'" Weight: 220lbs. oz. 99.552928ra; 37.60 BMI Method:Stated General Appearance: Other (patient is laying in bed with periodic movement. Per nursing report, she has moved frequently and there is safety concern with her activity) Results Results/Procedures Labs Laboratory Tests 07/21/21 09:50 07/21/21 10:20 07/21/21 13:26 07/21/21 16:00 07/21/21 17:35 07/21/21 19:51 07/22/21 03:45 07/22/21 09:00 07/22/21 12:40 Patient resulted labs reviewed. Assessment/Plan Admission Diagnosis 1. Presumed DKA in an individual with initial type 2 diabetes that is now morphed into type I possibly aggravated by COVID infection in addition to longstanding likely poor diabetic control. We will add beta hydroxybutyrate as patient does have significant lactic acidosis but at this time there is no obvious evidence for sepsis. We will continue cefepime. Anesthesia has been consulted to obtain an art line as staff had difficulty with obtaining ABGs. Her condition is critical and her survival is doubtful considering the degree of her acidosis in addition to underlying COVID infection. eICU is involved in care management as well. 2. Presumed bipolar disorder as the patient has a history of being prescribed Vraylar. Bipolar disorder may be significantly contributing to poor diabetic control and just poor overall health status. Toxicology screen negative. Admission Status: Inpatient Order (span 2 midnights) Reason for Inpatient Admission: DKA Assessment and Plan Assessment: DKA Insulin-dependent diabetes mellitus, suspicion for poor glycemic control COVID infection Presumed bipolar disorder with history of Vraylar prescription Elevated AST/ALT, likely due to steatotic liver disease LBBB BMI 38.4 Hypocalcemia, possibly secondary to Kussmaul respirations/hyperventilation Possible diabetic nephropathy Right nephrolithiasis VTE/DVT prophylaxis Plan: Cefepime IV fluids: Dextrose NaCl and NaCl KCl replacement Regular insulin drip Precedex for sedation Heparin injection Monitor labs: CBC, CMP, ABG Blood glucose accu-chek monitoring Monitor vitals Critical Care Critically Ill Patient RADHA ORR DO 07/23/21 0616: History of Present Illness HPI/Chief Complaint CC: DKA HPI: 31 yr old WF who presented to the ER with altered mental status found to have DKA and profound metabolic acidosis. She was also found to be Covid positive. She remains on room air. Her creatinine was 2.34. She has received aggressive IV fluid and insulin drip but she appears to be very pale and garcia and hypotensive at this current time receiving more IV fluids but likely will require pressotherapy and probably intubation. Prognosis guarded. Past Aedrkdy-Ulksiu-Easfeg Hx Patient Social History Marrital Status: single Smoking Status: Unknown if Ever Smoked Review of Systems Constitutional: see HPI Physical Exam Physical Exam General Appearance: Chronically ill, Moderate Distress, Other (patient is laying in bed with periodic movement. Per nursing report, she has moved freq uently and there is safety concern with her activity) Respiratory: Lungs Clear, Accessory Muscle Use, Decreased Breath Sounds Cardiovascular: Tachycardia Neurologic/Psychiatric: Disoriented, Other (lethargic) Assessment/Plan Admission Diagnosis Assessment: COVID 19 infection Severe DKA Metabolic acidosis AMS MARY Obese BMI 32 Plan: Insulin drip O2 Likely will require intubation Admission Status: Inpatient Order (span 2 midnights) Reason for Inpatient Admission: dka Supervisory-Addendum Brief Verification & Attestation Participated in pt care: history, MDM, physical Personally performed: exam, history, MDM, supervision of care Care discussed with: Medical Student Procedures: n/a Results interpretation: Verified all documentation Verification and Attestation of Medical Student E/M Service A medical student performed and documented this service in my presence. I reviewed and verified all information documented by the medical student and made modifications to such information, when appropriate. I personally performed the physical exam and medical decision making. Radha Orr, Jul 23, 2021,06:16 DIANNE HARTLEY Jul 22, 2021 13:55 RADHA ORR DO Jul 23, 2021 06:16
[2021-07-22] MEDS ORDERED: SUCR1TAB PO (14:36)
[2021-07-22] MEDS ORDERED: OMEP40CA6 PO (14:36)
[2021-07-22] MEDS ORDERED: HYDR50CA3 PO (14:36)
[2021-07-22] MEDS ORDERED: DOXE25CA46 PO (14:36)
--- NOTE | 2021-07-22 14:56 | Tele-ICU Progress Note ---
Progress Note worsening renal function cont aggressive hydration ( 3 L today by boluses add bicarb gtt Focused Exam Lactate Level 07/21/21 09:50: Lactic Acid Level 4.67*H 07/21/21 11:53: Lactic Acid Level 5.03*H 07/21/21 16:00: Lactic Acid Level 1.26 Height, Weight, BMI Height: 5'" Weight: 220lbs. oz. 99.827373ne; 37.60 BMI Method:Stated MEL HENRIQUEZ MD Jul 22, 2021 14:56
[2021-07-22] MEDS: SODIUM BICARBONATE 8.4% VIAL 100 MEQ in 1/2 NS IV SOLUTION 1,000 ML IV SCH (16:57)
[2021-07-22] MEDS ORDERED: NS IV 1000 ML 500 ML IV ONE (17:15)
[2021-07-22] MEDS ORDERED: NOREPINEPHRINE 8 MG/250 ML 250 ML IV ONE (17:16)
[2021-07-22] MEDS ORDERED: NS IV 500 ML 500 ML ONE (17:16)
[2021-07-22] MEDS: NOREPINEPHRINE 8 MG/250 ML 250 ML IV SCH (17:38)
[2021-07-22 17:39] LABS: CHLORIDE 119 MMOL/L (98-107); POTASSIUM 6.4 MMOL/L (3.6-5.0); SODIUM 133 MMOL/L (135-145)
[2021-07-22 17:40] LABS: CALCIUM 6.3 MG/DL (8.5-10.1); GLUCOSE 144 MG/DL (70-105)
[2021-07-22 17:44] LABS: CREATININE SERUM 2.83 MG/DL (0.60-1.30); GFR ESTIMATED 22
[2021-07-22 17:45] LABS: BUN/CREATININE RATIO 13
[2021-07-22 17:48] LABS: CARBON DIOXIDE < 5 MMOL/L (21-32)
[2021-07-22] MEDS: LINEZOLID IVPB 300 ML IV SCH (18:10)
[2021-07-22 20:16] LABS: ABG OXYGEN SATURATION 94 % (94-100); ABG PO2 64 MMHG (79-93)
[2021-07-22 20:18] LABS: ALLENS TEST ARTLINE; INSPIRED O2 ROOM AIR; VENTILATOR NO
[2021-07-22 20:19] LABS: PATIENT TEMP 35.4
[2021-07-22 20:21] LABS: ABG PCO2 16 MMHG (35-45); ABG PH 7.07 (7.37-7.43); ABG TCO2 5.1 MMOL/L (21.0-31.0)
[2021-07-22 20:35] LABS: BUN/CREATININE RATIO 12; CALCIUM 6.4 MG/DL (8.5-10.1); CHLORIDE 118 MMOL/L (98-107); CREATININE SERUM 3.02 MG/DL (0.60-1.30); GFR ESTIMATED 20; GLUCOSE 189 MG/DL (70-105); MAGNESIUM 1.3 MG/DL (1.6-2.4); PHOSPHORUS 2.1 MG/DL (2.3-4.7); POTASSIUM 5.8 MMOL/L (3.6-5.0); SODIUM 131 MMOL/L (135-145)
[2021-07-22 20:56] LABS: CARBON DIOXIDE < 5 MMOL/L (21-32)
[2021-07-22] MEDS ORDERED: MAGNESIUM 2 GM/50 ML IVPB 50 ML IV ONE (21:15)
[2021-07-22 21:44] VITALS: BP 120/95
[2021-07-23 01:17] LABS: CHLORIDE 116 MMOL/L (98-107); POTASSIUM 4.8 MMOL/L (3.6-5.0); SODIUM 128 MMOL/L (135-145)
[2021-07-23 01:18] LABS: CALCIUM 6.3 MG/DL (8.5-10.1); GLUCOSE 179 MG/DL (70-105)
[2021-07-23] MEDS: 1/2 NS IV SOLUTION 1,000 ML IV SCH ×4 (01:19→13:15)
[2021-07-23 01:22] LABS: CARBON DIOXIDE < 5 MMOL/L (21-32); CREATININE SERUM 3.03 MG/DL (0.60-1.30); GFR ESTIMATED 20
[2021-07-23 01:23] LABS: BUN/CREATININE RATIO 12
[2021-07-23] MEDS ORDERED: proPOfol 500 MG/50 ML (DIPRIVAN) VIAL IV ONE (01:45)
[2021-07-23] MEDS ORDERED: PROPOFOL DRIP (ICU) 100 ML IV ONE (01:47)
[2021-07-23 02:05] VITALS: BP 100/75
--- NOTE | 2021-07-23 02:22 | Anesthesia-Procedure Note ---
Procedures/Interventions Procedure Start/Stop/Diagnosis Date of Procedure: Jul 23, 2021 Start Time: 01:55 Stop Time: 02:10 Intubation RSI: No 100% pre-Ox, [id number]: Yes Intubation Method: orotracheal Videoscope used: Yes (Glidescope) Grade View: 1 Medications: Propofol (200), Rocuronium (50) Mask Ventilation: positive Positive End Tide CO2: Yes Breath Sounds after Intubation: bilateral-equal ETT Securred @ (cm): 22 Intubated with ease: Yes Intubation Complications: no complications, oral-unsuccessful attempt (1) Post Intubation Xray-done: Yes (in progress) Post Procedure Medications given, unable to RSI with succinylcholine due to kidney function. Easily mask ventilated. 1st attempt no pass of OETT. Large amount of blackish sticky substance speckled throughout oral airway. Suction attempted with no change in results. 2nd attempt pass successful without difficulty. +BBS. Care to TALENT SOLUTIONS MANAGER and RT staff. OSCAR LUCIANO CRNA Jul 23, 2021 02:22
[2021-07-23] MEDS: PROPOFOL DRIP (ICU) 100 ML IV SCH ×7 (02:25→23:14)
[2021-07-23] MEDS: DexMEDEtomidine 250 ML DRIP 250 ML IV SCH ×4 (04:03→21:12)
[2021-07-23] MEDS: D5 1/2 NS 1000 ML IV SOLUTION 1,000 ML IV SCH ×3 (04:03→16:47)
[2021-07-23 04:09] LABS: ABG BASE EXCESS -22.3 MMOL/L (-2.5-2.5); ABG OXYGEN SATURATION 96 % (94-100); ABG PO2 79 MMHG (79-93)
[2021-07-23 04:12] LABS: ALLENS TEST YES-POS; INSPIRED O2 30%; PATIENT TEMP 36.3; VENTILATOR YES
[2021-07-23 04:13] LABS: BASOPHILS % (AUTO) 0 % (0-10); EOSINOPHILS % (AUTO) 0 % (0-10); HEMATOCRIT 37 % (35-52); HEMOGLOBIN 12.4 g/dL (11.5-16.0); LYMPHOCYTES # (AUTO) 1.6 10^3/uL (1.0-4.0); LYMPHOCYTES % (AUTO) 13 % (12-44); MEAN CORPUSCULAR HEMOGLOBIN 30 pg (25-34); MEAN CORPUSCULAR HGB CONC 34 g/dL (32-36); MEAN CORPUSCULAR VOLUME 90 fL (80-99); MEAN PLATELET VOLUME 10.3 fL (9.0-12.2); MONOCYTES # (AUTO) 1.3 10^3/uL (0.0-1.0); MONOCYTES % (AUTO) 11 % (0-12); NEUTROPHILS # (AUTO) 9.3 10^3/uL (1.8-7.8); NEUTROPHILS % (AUTO) 75 % (42-75); PLATELET COUNT 233 10^3/uL (130-400); WHITE BLOOD COUNT 12.3 10^3/uL (4.3-11.0)
[2021-07-23 04:17] LABS: ALBUMIN 2.6 GM/DL (3.2-4.5); CHLORIDE 115 MMOL/L (98-107); POTASSIUM 4.5 MMOL/L (3.6-5.0); SODIUM 128 MMOL/L (135-145)
[2021-07-23 04:18] LABS: CALCIUM 6.4 MG/DL (8.5-10.1)
[2021-07-23 04:19] LABS: GLUCOSE 122 MG/DL (70-105); TRIGLYCERIDES 845 MG/DL (<150)
[2021-07-23 04:20] LABS: TOTAL PROTEIN 5.1 GM/DL (6.4-8.2)
[2021-07-23 04:21] LABS: BILIRUBIN,TOTAL 0.4 MG/DL (0.1-1.0)
[2021-07-23 04:23] LABS: ALKALINE PHOSPHATASE 89 U/L (40-136); CREATININE SERUM 3.14 MG/DL (0.60-1.30); GFR ESTIMATED 19; PHOSPHORUS 1.7 MG/DL (2.3-4.7)
[2021-07-23 04:24] LABS: BUN/CREATININE RATIO 11
[2021-07-23 04:26] LABS: ALANINE AMINOTRANSFERASE 114 U/L (0-55); MAGNESIUM 1.7 MG/DL (1.6-2.4)
[2021-07-23 04:32] LABS: CARBON DIOXIDE < 5 MMOL/L (21-32)
[2021-07-23 04:33] LABS: ABG PCO2 15 MMHG (35-45); ABG PH 7.16 (7.37-7.43); ABG TCO2 5.7 MMOL/L (21.0-31.0)
[2021-07-23] MEDS ORDERED: SODIUM BICARB 8.4% 50 MEQ/50 ML (ABBOTT) SYR ONE (04:56)
[2021-07-23] MEDS: LINEZOLID IVPB 300 ML IV SCH ×2 (05:06→17:57)
[2021-07-23] MEDS: SODIUM BICARB 8.4% 50 MEQ/50 ML (ABBOTT) SYR IV SCH ×2 (05:06→22:59)
[2021-07-23] MEDS: CEFEPIME INJECTION 1,000 MG in NS (IVPB) 50 ML IV SCH ×2 (05:06→17:57)
[2021-07-23 05:08] LABS: BAND NEUTROPHILS 3 %; LYMPHOCYTES % (MANUAL) 11 %; MONOCYTES % (MANUAL) 7 %; MYELOCYTES % 1 %; NEUTROPHILS % (MANUAL) 78 %
[2021-07-23 05:09] LABS: RBC MORPH NORMAL
[2021-07-23] MEDS: KCL 20 MEQ TAB (K-DUR) PO SCH (05:18)
[2021-07-23] MEDS: MAGNESIUM 1 GM/100 ML IVPB 100 ML IV SCH ×2 (05:18→10:05)
[2021-07-23] MEDS: NOREPINEPHRINE 8 MG/250 ML 250 ML IV SCH ×2 (05:39→18:04)
[2021-07-23] MEDS: SODIUM BICARBONATE 8.4% VIAL 100 MEQ in 1/2 NS IV SOLUTION 1,000 ML IV SCH ×2 (06:03→19:55)
--- NOTE | 2021-07-23 07:08 | Diagnostic Imaging Report ---
INDICATION: Respiratory distress. Comparison with 03/16/2021. FINDINGS: ET tube and NG tube have been placed since previous exam. Tubes appear in good position. There are bilateral alveolar infiltrates rather diffuse in nature. The heart is nonenlarged. No pneumothorax. Could not exclude small pleural effusion. IMPRESSION: Satisfactory tube and line placement. Bilateral pneumonia. Dictated by: Dictated on workstation # [id number]
[2021-07-23 07:10] VITALS: BP 112/79
[2021-07-23] MEDS ORDERED: SUCCINYLCHOLINE INJ 100 MG/5 ML SYR/VIAL INJ ONE (07:42)
--- NOTE | 2021-07-23 08:21 | Tele-ICU Progress Note ---
Subjective Date Seen by a Provider: Jul 23, 2021 Time Seen by a Provider: 08:20 Subjective/Events-last exam This patient admitted with diabetic ketoacidosis and possibly septic shock however source of sepsis is not clear. She is severely acidotic but anion gap normalized. She is intubated due to respiratory distress. She is on a bicarb drip. I have ordered a additional sodium bicarbonate infusion. Repeat blood gas and BMP ordered. Based on the results of these test further recommendations will be given. Video visit made and discussed with the SOFTWARE ENGINEER MOBILE. Review of Systems ROS PER RN Sepsis Event Evaluation Height, Weight, BMI Height: 5'" Weight: 220lbs. oz. 99.976921ht; 37.60 BMI Method:Stated Focused Exam Lactate Level 07/21/21 09:50: Lactic Acid Level 4.67*H 07/21/21 11:53: Lactic Acid Level 5.03*H 07/21/21 16:00: Lactic Acid Level 1.26 Exam Exam Patient acknowledged, consented, and participated in this virtual visit which was conducted using real time audio/video Vital Signs Date Time Temp Pulse Resp B/P (MAP) Pulse Ox O2 Delivery O2 Flow Rate FiO2 07/23/21 07:10 80 33 97 30 07/23/21 06:00 37.8 85 28 96 Mechanical Ventilator 30.00 07/23/21 05:39 86 96/54 07/23/21 05:00 37.3 86 28 97 Mechanical Ventilator 30.00 07/23/21 04:32 98 Mechanical Ventilator 30 07/23/21 04:30 37.0 07/23/21 04:03 81 96/54 07/23/21 04:03 81 96/54 07/23/21 04:00 86 28 96 Mechanical Ventilator 30.00 07/23/21 03:33 36.1 Mechanical Ventilator 30.00 07/23/21 03:00 83 28 95 Room Air 07/23/21 02:25 81 96/54 07/23/21 02:05 85 28 94 30 07/23/21 02:00 87 28 96 Room Air 07/23/21 01:19 Room Air 07/23/21 01:03 35.6 07/23/21 01:00 81 07/23/21 01:00 81 30 98 NIV Bilevel 30.00 07/23/21 00:09 99 NIV Bilevel 30 07/23/21 00:01 33.1 07/23/21 00:00 80 26 99 NIV Bilevel 30.00 07/22/21 23:21 32.4 NIV Bilevel 30.00 07/22/21 23:00 81 27 99 NIV Bilevel 40.00 07/22/21 22:12 36.0 NIV Bilevel 40.00 07/22/21 22:00 89 30 99 Room Air 07/22/21 21:56 88 96/54 07/22/21 21:44 92 30 99 30.00 07/22/21 21:00 87 89 96 Room Air 07/22/21 20:18 96 Room Air 07/22/21 20:00 87 27 95 Room Air 07/22/21 19:00 35.4 Room Air 07/22/21 19:00 90 28 93 Room Air 07/22/21 19:00 90 07/22/21 18:00 88 27 90 Room Air 07/22/21 17:38 94 96/54 07/22/21 17:00 89 34 95 Room Air 07/22/21 16:00 96 34 95 Room Air 07/22/21 16:00 94 Room Air 07/22/21 15:47 94 96/54 07/22/21 15:26 36.6 07/22/21 15:00 101 35 93 Room Air 07/22/21 14:00 94 26 94 Room Air 07/22/21 13:00 109 34 97 Room Air 07/22/21 12:57 103 07/22/21 12:00 97 Room Air 07/22/21 12:00 106 30 97 Room Air 07/22/21 11:45 36.7 07/22/21 11:00 110 6 97 Room Air 07/22/21 10:00 36.6 114 27 95 Room Air 07/22/21 09:34 128 172/122 07/22/21 09:00 36.9 125 33 99 Room Air 07/22/21 08:23 99 Room Air I & O 07/23/21 07:00 Intake Total 3850 ml Output Total 1050 ml Balance 2800 ml Height & Weight Height: 5'" Weight: 220lbs. oz. 99.038044hv; 37.60 BMI Method:Stated General Appearance: Chronically ill, Moderate Distress, Other (patient is laying in bed with periodic movement. Per nursing report, she has moved frequently and there is safety concern with her activity) HEENT: PERRL/EOMI, TMs Normal, Pharynx Normal, Other (dry blood on top teeth with no visible trauma seen) Neck: Full Range of Motion, Normal Inspection, Non Tender, Supple, Other (no meningismus) Respiratory: Lungs Clear, Accessory Muscle Use, Decreased Breath Sounds Cardiovascular: Tachycardia Capillary Refill: Greater Than 3 Seconds Extremity: Normal Capillary Refill, Normal Inspection, Normal Range of Motion, Non Tender, No Calf Tenderness, No Pedal Edema Neurologic/Psychiatric: Disoriented, Other (lethargic) Skin: Normal Color, Warm/Dry Lymphatic: No Adenopathy Other comments PE PER RN Results Lab Laboratory Tests 07/21/21 09:50 07/21/21 10:20 07/21/21 13:26 07/21/21 16:00 07/21/21 17:35 07/21/21 19:51 07/22/21 03:45 07/22/21 09:00 07/22/21 12:40 07/22/21 16:50 07/22/21 20:00 07/23/21 00:00 07/23/21 04:00 Assessment/Plan Assessment/Plan 1. Diabetic ketoacidosis 2. Acute respiratory failure secondary to metabolic abnormalities 3. Possible septic shock as well. 4. Lactic acidosis improving. 5. Severe metabolic acidosis. 6. bhvana Recommendations 1. We will give additional dose of sodium bicarbonate IV push now 2. Continue IV antibiotics. 3. We will decrease IV fluids 225 cc with a D5 half-normal saline 4. We will give normal saline bolus 5. We will repeat a blood gas and BMP at 10 AM and further recommendations will be made at that time. 6. We will give ulcer prophylaxis and DVT prophylaxis. 7. Continue monitor BUN/ Cr Critical Care: Ventilator Management Time spent with patient (mins): 35 AIMEE BE MD Jul 23, 2021 08:21
[2021-07-23] MEDS: PANTOPRAZOLE 40 MG (PROTONIX) VIAL IV SCH (08:30)
[2021-07-23 08:48] LABS: POTASSIUM 4.5 MMOL/L (3.6-5.0)
[2021-07-23 08:49] LABS: CALCIUM 6.2 MG/DL (8.5-10.1)
[2021-07-23 08:54] LABS: CREATININE SERUM 3.2 MG/DL (0.60-1.30)
[2021-07-23] MEDS ORDERED: SODIUM PHOSPHATE INJ 30 MM in NS (IVPB) 250 ML INJ ONE (09:00)
[2021-07-23] MEDS ORDERED: SODIUM BICARB 8.4% 50 MEQ/50 ML (ABBOTT) SYR IV ONE (09:00)
[2021-07-23 09:17] LABS: ABG BASE EXCESS -19.9 MMOL/L (-2.5-2.5); ABG OXYGEN SATURATION 95 % (94-100); ABG PO2 81 MMHG (79-93)
[2021-07-23 09:21] LABS: ABG PH 7.24 (7.37-7.43)
[2021-07-23 09:22] LABS: ABG PCO2 16 MMHG (35-45); ABG TCO2 6.8 MMOL/L (21.0-31.0); ALLENS TEST ART LINE; INSPIRED O2 30%; PATIENT TEMP 38.1; VENTILATOR YES
--- NOTE | 2021-07-23 10:04 | Progress Note - Hospitalist ---
Subjective HPI/CC On Admission Date Seen by Provider: Jul 23, 2021 Time Seen by Provider: 11:00 CC: DKA HPI: 31 yr old WF who presented to the ER with altered mental status found to have DKA and profound metabolic acidosis. She was also found to be Covid positive. She remains on room air. Her creatinine was 2.34. She has received aggressive IV fluid and insulin drip but she appears to be very pale and garcia and hypotensive at this current time receiving more IV fluids but likely will require pressotherapy and probably intubation. Prognosis guarded. Subjective/Events-last exam Pt intubated this morning at 0145 Overall poor prognosis Remains very guarded Remains on insulin drip [place] control trying find a bed for nephrology in a Covid pt that is intubated Focused Exam Lactate Level 07/21/21 09:50: Lactic Acid Level 4.67*H 07/21/21 11:53: Lactic Acid Level 5.03*H 07/21/21 16:00: Lactic Acid Level 1.26 Objective Exam Vital Signs Vital Signs Date Time Temp Pulse Resp B/P (MAP) Pulse Ox O2 Delivery O2 Flow Rate FiO2 07/24/21 04:36 96 Mechanical Ventilator 30 07/24/21 03:34 30.00 07/24/21 03:10 68 07/24/21 02:54 28 07/24/21 00:00 37.4 Capillary Refill : Greater Than 3 Seconds General Appearance: Chronically ill, Obese, Other (Sedated and intubated) Respiratory: Accessory Muscle Use, Crackles, Decreased Breath Sounds Cardiovascular: Regular Rate, Rhythm Results/Procedures Lab Laboratory Tests 07/23/21 08:25 07/23/21 10:07 07/23/21 15:57 07/23/21 22:10 07/24/21 04:00 Patient resulted labs reviewed. Assessment/Plan Assessment and Plan Assess & Plan/Chief Complaint Assessment: Acute hypoxic respiratory failure requiring intubation on 07/23/2021 0145 DKA Insulin-dependent diabetes mellitus, suspicion for poor glycemic control COVID infection Presumed bipolar disorder with history of Vraylar prescription Elevated AST/ALT, likely due to steatotic liver disease LBBB BMI 38.4 Hypocalcemia, possibly secondary to Kussmaul respirations/hyperventilation Possible diabetic nephropathy Right nephrolithiasis VTE/DVT prophylaxis Plan: Intubation Nephrology requested with [place] control Insulin drip [place]ve prognosis Critical Care Critically Ill Patient JUSTINO ALDANA DO Jul 23, 2021 10:04
[2021-07-23 10:20] LABS: ABG BASE EXCESS -19.5 MMOL/L (-2.5-2.5); ABG OXYGEN SATURATION 96 % (94-100); ABG PO2 85 MMHG (79-93)
[2021-07-23 10:27] LABS: ABG PCO2 17 MMHG (35-45); ABG PH 7.23 (7.37-7.43); ABG TCO2 7.2 MMOL/L (21.0-31.0); POTASSIUM 4.5 MMOL/L (3.6-5.0)
[2021-07-23 10:28] LABS: ALLENS TEST ARTLINE; CALCIUM 6.1 MG/DL (8.5-10.1); INSPIRED O2 30%; PATIENT TEMP 38.3; VENTILATOR YES
[2021-07-23 10:33] LABS: CREATININE SERUM 3.27 MG/DL (0.60-1.30)
[2021-07-23 11:05] VITALS: BP 110/75
[2021-07-23] MEDS ORDERED: SODIUM BICARB 8.4% 50 MEQ/50 ML (ABBOTT) SYR IV NR ×2 (12:15→18:15)
[2021-07-23 14:45] VITALS: BP 114/74
[2021-07-23 16:16] LABS: CALCIUM 6.2 MG/DL (8.5-10.1)
[2021-07-23 16:20] LABS: CREATININE SERUM 3.55 MG/DL (0.60-1.30)
[2021-07-23 18:45] VITALS: BP 107/76
[2021-07-23] MEDS: POTASSIUM CL 10MEQ/50ML IVPB 50 ML IV SCH ×4 (18:54→23:14)
[2021-07-23 21:52] VITALS: BP 11/80
[2021-07-23 22:39] LABS: POTASSIUM 3.2 MMOL/L (3.6-5.0)
[2021-07-23 22:40] LABS: CALCIUM 6.2 MG/DL (8.5-10.1)
[2021-07-23 22:45] LABS: CREATININE SERUM 3.67 MG/DL (0.60-1.30)
[2021-07-24] MEDS: D5 1/2 NS 1000 ML IV SOLUTION 1,000 ML IV SCH ×4 (00:58→22:20)
[2021-07-24] MEDS: POTASSIUM CL 10MEQ/50ML IVPB 50 ML IV SCH ×7 (01:00→15:18)
[2021-07-24 02:54] VITALS: BP 116/86
[2021-07-24] MEDS: DexMEDEtomidine 250 ML DRIP 250 ML IV SCH ×4 (03:10→22:35)
[2021-07-24 04:33] LABS: ABG BASE EXCESS -12.3 MMOL/L (-2.5-2.5); ABG OXYGEN SATURATION 98 % (94-100); ABG PCO2 20 MMHG (35-45); ABG PH 7.39 (7.37-7.43); ABG PO2 110 MMHG (79-93); ABG TCO2 12.5 MMOL/L (21.0-31.0)
[2021-07-24 04:36] LABS: ALLENS TEST ART LINE; INSPIRED O2 30%; PATIENT TEMP 37.1; VENTILATOR YES
[2021-07-24 04:43] LABS: BASOPHILS % (AUTO) 0 % (0-10); EOSINOPHILS % (AUTO) 0 % (0-10); HEMATOCRIT 33 % (35-52); LYMPHOCYTES # (AUTO) 1.4 10^3/uL (1.0-4.0); LYMPHOCYTES % (AUTO) 20 % (12-44); MEAN CORPUSCULAR HEMOGLOBIN 31 pg (25-34); MEAN CORPUSCULAR HGB CONC 36 g/dL (32-36); MEAN CORPUSCULAR VOLUME 86 fL (80-99); MEAN PLATELET VOLUME 10.5 fL (9.0-12.2); MONOCYTES # (AUTO) 0.6 10^3/uL (0.0-1.0); MONOCYTES % (AUTO) 8 % (0-12); NEUTROPHILS # (AUTO) 4.7 10^3/uL (1.8-7.8); NEUTROPHILS % (AUTO) 70 % (42-75); PLATELET COUNT 175 10^3/uL (130-400); WHITE BLOOD COUNT 6.7 10^3/uL (4.3-11.0)
[2021-07-24 05:04] LABS: ALBUMIN 2.3 GM/DL (3.2-4.5)
[2021-07-24 05:05] LABS: POTASSIUM 3.1 MMOL/L (3.6-5.0)
[2021-07-24 05:06] LABS: CALCIUM 6.2 MG/DL (8.5-10.1)
[2021-07-24 05:07] LABS: TOTAL PROTEIN 5.4 GM/DL (6.4-8.2)
[2021-07-24 05:09] LABS: BILIRUBIN,TOTAL 0.4 MG/DL (0.1-1.0)
[2021-07-24 05:10] LABS: PHOSPHORUS 2.6 MG/DL (2.3-4.7)
[2021-07-24 05:11] LABS: CREATININE SERUM 3.8 MG/DL (0.60-1.30)
[2021-07-24 05:14] LABS: BAND NEUTROPHILS 3 %; BASOPHILS % (MANUAL) 0 %; EOSINOPHILS % (MANUAL) 0 %; LYMPHOCYTES % (MANUAL) 19 %; MAGNESIUM 1.8 MG/DL (1.6-2.4); MONOCYTES % (MANUAL) 2 %; NEUTROPHILS % (MANUAL) 76 %
[2021-07-24 05:15] LABS: RBC MORPH NORMAL
[2021-07-24] MEDS: PROPOFOL DRIP (ICU) 100 ML IV SCH ×5 (05:53→18:59)
[2021-07-24] MEDS: LINEZOLID IVPB 300 ML IV SCH ×2 (05:53→18:14)
[2021-07-24] MEDS: CEFEPIME INJECTION 1,000 MG in NS (IVPB) 50 ML IV SCH ×2 (05:53→18:13)
[2021-07-24] MEDS: MAGNESIUM 1 GM/100 ML IVPB 100 ML IV SCH (05:54)
[2021-07-24] MEDS: KCL 20 MEQ TAB (K-DUR) PO SCH (05:54)
--- NOTE | 2021-07-24 06:00 | Progress Note - Hospitalist ---
Subjective HPI/CC On Admission Date Seen by Provider: Jul 24, 2021 Time Seen by Provider: 11:00 CC: DKA HPI: 31 yr old WF who presented to the ER with altered mental status found to have DKA and profound metabolic acidosis. She was also found to be Covid positive. She remains on room air. Her creatinine was 2.34. She has received aggressive IV fluid and insulin drip but she appears to be very pale and garcia and hypotensive at this current time receiving more IV fluids but likely will require pressotherapy and probably intubation. Prognosis guarded. Subjective/Events-last exam Patient remains intubated and extremely critically ill Multisystem organ failure continues to worsen Bicarb drip Insulin drip [place] control cannot find a bed and has been trying to find one for 3 days Creatinine continues to rise Checked meds and labs Focused Exam Lactate Level Objective Exam Vital Signs Vital Signs Date Time Temp Pulse Resp B/P (MAP) Pulse Ox O2 Delivery O2 Flow Rate FiO2 07/25/21 04:55 63 07/25/21 04:20 Mechanical Ventilator 21 07/25/21 04:07 103/72 07/25/21 02:17 28 95 07/25/21 00:00 36.9 21.00 Capillary Refill : Greater Than 3 Seconds General Appearance: Chronically ill, Obese, Other (Sedated and intubated) Respiratory: Decreased Breath Sounds Cardiovascular: Regular Rate, Rhythm Results/Procedures Lab Laboratory Tests 07/24/21 10:30 07/24/21 17:10 07/24/21 23:20 Patient resulted labs reviewed. Assessment/Plan Assessment and Plan Assess & Plan/Chief Complaint Assessment: Acute hypoxic respiratory failure requiring intubation on 07/23/2021 0145 DKA Insulin-dependent diabetes mellitus, suspicion for poor glycemic control Acute kidney failure needs nephrology and possible dialysis-[place] control and trying to find bed COVID infection Presumed bipolar disorder with history of Vraylar prescription Elevated AST/ALT, likely due to steatotic liver disease LBBB BMI 38.4 Hypocalcemia, possibly secondary to Kussmaul respirations/hyperventilation Possible diabetic nephropathy Right nephrolithiasis VTE/DVT prophylaxis Plan: Intubation Nephrology requested with [place] control Insulin drip Grave prognosis 07/24/2021: [place] control Supportive care Insulin drip Bicarb drip Critical Care Ventilator Management JUSTINO ALDANA DO Jul 24, 2021 05:59
[2021-07-24 07:07] VITALS: BP 116/85
--- NOTE | 2021-07-24 07:49 | Tele-ICU Progress Note ---
Subjective Date Seen by a Provider: Jul 24, 2021 Time Seen by a Provider: 07:48 Subjective/Events-last exam continue to have low hco3. ordered nahco3 100meq today. also concerned about ethelen glycol poisoning. oedered serum measured osmolality, ethlene glycol level, methyl alcohol level. kcl rider ordered. on vent. bicrb drip going on. bhavna did not improve. Review of Systems ROS PER RN Sepsis Event Evaluation Height, Weight, BMI Height: 5'" Weight: 220lbs. oz. 99.395995sm; 37.60 BMI Method:Stated Focused Exam Lactate Level 07/21/21 09:50: Lactic Acid Level 4.67*H 07/21/21 11:53: Lactic Acid Level 5.03*H 07/21/21 16:00: Lactic Acid Level 1.26 Exam Exam Patient acknowledged, consented, and participated in this virtual visit which was conducted using real time audio/video Vital Signs Date Time Temp Pulse Resp B/P (MAP) Pulse Ox O2 Delivery O2 Flow Rate FiO2 07/24/21 07:07 65 29 98 30 07/24/21 06:00 36.9 67 28 99 Mechanical Ventilator 30.00 07/24/21 05:54 68 116/86 07/24/21 05:53 68 116/86 07/24/21 05:00 37.0 65 27 98 Mechanical Ventilator 30.00 07/24/21 04:36 96 Mechanical Ventilator 30 07/24/21 04:00 37.2 67 27 98 Mechanical Ventilator 30.00 07/24/21 03:34 Mechanical Ventilator 30.00 07/24/21 03:10 68 116/86 07/24/21 03:00 37.4 68 28 99 Mechanical Ventilator 30.00 07/24/21 02:54 68 28 98 30 07/24/21 02:00 37.5 70 26 98 Mechanical Ventilator 30.00 07/24/21 01:00 37.4 69 28 98 Mechanical Ventilator 30.00 07/24/21 01:00 69 07/24/21 00:11 95 Mechanical Ventilator 30 07/24/21 00:00 37.4 69 27 98 Mechanical Ventilator 30.00 07/23/21 23:14 70 07/23/21 23:13 70 07/23/21 23:00 37.5 70 29 99 Mechanical Ventilator 30.00 07/23/21 22:00 37.6 70 29 98 Mechanical Ventilator 30.00 07/23/21 21:52 70 29 98 30 07/23/21 21:12 73 107/76 07/23/21 21:00 37.6 71 28 98 Mechanical Ventilator 30.00 07/23/21 20:00 37.7 72 27 98 Mechanical Ventilator 30.00 07/23/21 20:00 37.4 07/23/21 19:49 96 Mechanical Ventilator 30 07/23/21 19:48 37.8 Mechanical Ventilator 30.00 07/23/21 19:00 73 07/23/21 19:00 37.9 73 27 96 Mechanical Ventilator 30.00 07/23/21 18:45 72 28 98 30 07/23/21 18:04 77 114/74 07/23/21 18:00 37.9 28 98 Mechanical Ventilator 30.00 07/23/21 17:00 38.0 27 98 Mechanical Ventilator 30.00 07/23/21 16:02 77 114/74 07/23/21 16:02 77 114/74 07/23/21 16:02 77 114/74 07/23/21 16:00 38.2 07/23/21 16:00 38.2 26 98 Mechanical Ventilator 30.00 07/23/21 15:22 98 Mechanical Ventilator 30 07/23/21 15:00 38.2 26 98 Mechanical Ventilator 30.00 07/23/21 14:45 77 34 98 30 07/23/21 14:00 38.2 26 98 Mechanical Ventilator 30.00 07/23/21 13:00 38.2 28 97 Mechanical Ventilator 30.00 07/23/21 13:00 75 07/23/21 12:00 38.2 75 29 98 Mechanical Ventilator 30.00 07/23/21 12:00 97 Mechanical Ventilator 30 07/23/21 11:05 78 31 100 30 07/23/21 11:00 38.2 77 31 97 Mechanical Ventilator 30.00 07/23/21 10:27 81 112/79 07/23/21 10:00 38.2 80 31 98 Mechanical Ventilator 30.00 07/23/21 09:00 38.2 81 32 98 Mechanical Ventilator 30.00 07/23/21 08:36 80 112/79 07/23/21 08:35 80 112/79 07/23/21 08:00 38.1 81 33 97 Mechanical Ventilator 30.00 07/23/21 08:00 98 Mechanical Ventilator 30 I & O 07/24/21 07:00 Intake Total 4390 ml Output Total 895 ml Balance 3495 ml Height & Weight Height: 5'" Weight: 220lbs. oz. 99.312393zw; 37.60 BMI Method:Stated General Appearance: Chronically ill, Obese, Other (Sedated and intubated) HEENT: PERRL/EOMI, TMs Normal, Pharynx Normal, Other (dry blood on top teeth with no visible trauma seen) Neck: Full Range of Motion, Normal Inspection, Non Tender, Supple, Other (no meningismus) Respiratory: Accessory Muscle Use, Crackles, Decreased Breath Sounds Cardiovascular: Regular Rate, Rhythm Capillary Refill: Greater Than 3 Seconds Extremity: Normal Capillary Refill, Normal Inspection, Normal Range of Motion, Non Tender, No Calf Tenderness, No Pedal Edema Neurologic/Psychiatric: Disoriented, Other (lethargic) Skin: Normal Color, Warm/Dry Lymphatic: No Adenopathy Other comments PE PER RN Results Lab Laboratory Tests 07/22/21 09:00 07/22/21 12:40 07/22/21 16:50 07/22/21 20:00 07/23/21 00:00 07/23/21 04:00 07/23/21 08:25 07/23/21 10:07 07/23/21 15:57 07/23/21 22:10 07/24/21 04:00 Assessment/Plan Assessment/Plan 1. Diabetic ketoacidosis IMPROVING. 2. Acute respiratory failure secondary to metabolic abnormalities 3. Possible septic shock as well.but now looks less likely 4. Lactic acidosis improving. 5. Severe metabolic acidosis not significantly improved, concerning for any ethelen glycol ingestion. 6. bhavna un changed Recommendations 1. We will give additional dose of sodium bicarbonate IV push now 2. Continue IV antibiotics. 3. We will decrease IV fluids 125 cc with a D5 half-normal saline 4. will get serum osmolality, repeat UA, serum ethelene glycol,methyl alcohol level. once serum osmolality is available will consider giving fomepazole if necessary. 5. she is not ready for sbt today. will continue vent support 6. We will continue ulcer prophylaxis and DVT prophylaxis. 7. Continue monitor BUN/ Cr. Critical Care: Ventilator Management Time spent with patient (mins): 35 AIMEE BE MD Jul 24, 2021 07:49
[2021-07-24] MEDS: PANTOPRAZOLE 40 MG (PROTONIX) VIAL IV SCH (07:50)
[2021-07-24] MEDS: NOREPINEPHRINE 8 MG/250 ML 250 ML IV SCH ×2 (08:29→21:02)
[2021-07-24] MEDS: SODIUM BICARBONATE 8.4% VIAL 100 MEQ in 1/2 NS IV SOLUTION 1,000 ML IV SCH (09:21)
[2021-07-24 09:40] LABS: BILIRUBIN,URINE NEGATIVE (NEGATIVE); CLARITY,URINE CLEAR; COLOR,URINE YELLOW; GLUCOSE, URINE (UA) NEGATIVE (NEGATIVE); KETONES,URINE NEGATIVE (NEGATIVE); LEUKOCYTE ESTERASE ,URINE 2+ (NEGATIVE); NITRITE,URINE NEGATIVE (NEGATIVE); PROTEIN,URINE TRACE (NEGATIVE)
[2021-07-24] MEDS ORDERED: SODIUM BICARB 8.4% 50 MEQ/50 ML (ABBOTT) SYR ONE (09:49)
[2021-07-24 09:58] LABS: BACTERIA,URINE TRACE /HPF; RBC,URINE 0-2 /HPF
[2021-07-24 09:59] LABS: SQUAMOUS EPITHELIAL CELL,UR 0-2 /HPF; YEAST,URINE MODERATE /HPF
[2021-07-24 10:11] VITALS: BP 103/71
[2021-07-24 12:14] LABS: CREATININE SERUM 3.05 MG/DL (0.60-1.30)
[2021-07-24 13:44] VITALS: BP 122/88
[2021-07-24] MEDS: CALCIUM GLUCONATE 10% INJ 4.65 MEQ in NS (IVPB) 50 ML IV SCH ×3 (15:13→21:07)
[2021-07-24 17:26] LABS: POTASSIUM 3.8 MMOL/L (3.6-5.0)
[2021-07-24 17:32] LABS: CREATININE SERUM 3.6 MG/DL (0.60-1.30)
[2021-07-24 17:42] LABS: CALCIUM 5.9 MG/DL (8.5-10.1)
[2021-07-24 18:48] VITALS: BP 97/67
[2021-07-24 22:06] VITALS: BP 107/76
[2021-07-24 23:40] LABS: POTASSIUM 3.3 MMOL/L (3.6-5.0)
[2021-07-24 23:41] LABS: CALCIUM 6.7 MG/DL (8.5-10.1)
[2021-07-24 23:46] LABS: CREATININE SERUM 4.13 MG/DL (0.60-1.30)
[2021-07-25] MEDS: SODIUM BICARBONATE 8.4% VIAL 100 MEQ in 1/2 NS IV SOLUTION 1,000 ML IV SCH ×2 (00:13→14:29)
[2021-07-25] MEDS: PROPOFOL DRIP (ICU) 100 ML IV SCH ×6 (00:13→20:03)
[2021-07-25] MEDS: POTASSIUM CL 10MEQ/50ML IVPB 50 ML IV SCH ×6 (00:44→06:02)
[2021-07-25 02:17] VITALS: BP 104/74
[2021-07-25] MEDS: D5 1/2 NS 1000 ML IV SOLUTION 1,000 ML IV SCH ×3 (03:21→12:54)
[2021-07-25] MEDS: DexMEDEtomidine 250 ML DRIP 250 ML IV SCH ×4 (04:55→21:39)
[2021-07-25 05:10] LABS: ABG BASE EXCESS -15.1 MMOL/L (-2.5-2.5); ABG OXYGEN SATURATION 96 % (94-100); ABG PCO2 21 MMHG (35-45); ABG PO2 80 MMHG (79-93); ABG TCO2 10.8 MMOL/L (21.0-31.0)
[2021-07-25 05:23] LABS: EOSINOPHILS % (AUTO) 0 % (0-10); HEMATOCRIT 31 % (35-52); MEAN CORPUSCULAR VOLUME 88 fL (80-99)
[2021-07-25 05:25] LABS: BASOPHILS % (AUTO) 0 % (0-10); HEMOGLOBIN 10.8 g/dL (11.5-16.0); LYMPHOCYTES # (AUTO) 0.4 10^3/uL (1.0-4.0); LYMPHOCYTES % (AUTO) 8 % (12-44); MEAN CORPUSCULAR HEMOGLOBIN 31 pg (25-34); MEAN CORPUSCULAR HGB CONC 35 g/dL (32-36); MEAN PLATELET VOLUME 10.6 fL (9.0-12.2); MONOCYTES # (AUTO) 0.3 10^3/uL (0.0-1.0); MONOCYTES % (AUTO) 6 % (0-12); NEUTROPHILS # (AUTO) 4.1 10^3/uL (1.8-7.8); NEUTROPHILS % (AUTO) 85 % (42-75); PLATELET COUNT 109 10^3/uL (130-400); WHITE BLOOD COUNT 4.8 10^3/uL (4.3-11.0)
[2021-07-25 05:34] LABS: ALLENS TEST ART LINE
[2021-07-25 05:35] LABS: ABG PH 7.31 (7.37-7.43); INSPIRED O2 21%; PATIENT TEMP 36.5; VENTILATOR YES
[2021-07-25 05:44] LABS: ALBUMIN 2.2 GM/DL (3.2-4.5)
[2021-07-25 05:45] LABS: CALCIUM 6.5 MG/DL (8.5-10.1)
[2021-07-25 05:46] LABS: TOTAL PROTEIN 4.9 GM/DL (6.4-8.2)
[2021-07-25] MEDS: KCL 20 MEQ TAB (K-DUR) PO SCH (05:47)
[2021-07-25] MEDS: MAGNESIUM 1 GM/100 ML IVPB 100 ML IV SCH (05:47)
[2021-07-25 05:50] LABS: CREATININE SERUM 4.13 MG/DL (0.60-1.30); PHOSPHORUS 4.3 MG/DL (2.3-4.7)
[2021-07-25 05:53] LABS: MAGNESIUM 1.5 MG/DL (1.6-2.4)
[2021-07-25] MEDS: LINEZOLID IVPB 300 ML IV SCH (06:02)
[2021-07-25] MEDS: CEFEPIME INJECTION 1,000 MG in NS (IVPB) 50 ML IV SCH ×2 (06:02→17:29)
[2021-07-25 06:40] LABS: BAND NEUTROPHILS 5 %; EOSINOPHILS % (MANUAL) 1 %; LYMPHOCYTES % (MANUAL) 9 %; MONOCYTES % (MANUAL) 3 %; NEUTROPHILS % (MANUAL) 82 %
--- NOTE | 2021-07-25 06:49 | Progress Note - Hospitalist ---
Subjective HPI/CC On Admission Date Seen by Provider: Jul 25, 2021 CC: DKA HPI: 31 yr old WF who presented to the ER with altered mental status found to have DKA and profound metabolic acidosis. She was also found to be Covid positive. She remains on room air. Her creatinine was 2.34. She has received aggressive IV fluid and insulin drip but she appears to be very pale and garcia and hypotensive at this current time receiving more IV fluids but likely will require pressotherapy and probably intubation. Prognosis guarded. Objective Exam Vital Signs Vital Signs Date Time Temp Pulse Resp B/P (MAP) Pulse Ox O2 Delivery O2 Flow Rate FiO2 07/25/21 20:03 105/62 07/25/21 20:01 78 07/25/21 19:59 37.4 24 92 Mechanical Ventilator 35.00 07/25/21 18:58 35 Capillary Refill : Greater Than 3 Seconds Results/Procedures Lab Laboratory Tests 07/24/21 23:20 07/25/21 05:08 07/25/21 10:40 07/25/21 17:25 Patient resulted labs reviewed. Assessment/Plan Assessment and Plan Assess & Plan/Chief Complaint Assessment: Acute hypoxic respiratory failure requiring intubation on 07/23/2021 0145 DKA Insulin-dependent diabetes mellitus, suspicion for poor glycemic control Acute kidney failure needs nephrology and possible dialysis-[place] control and trying to find bed COVID infection Presumed bipolar disorder with history of Vraylar prescription Elevated AST/ALT, likely due to steatotic liver disease LBBB BMI 38.4 Hypocalcemia, possibly secondary to Kussmaul respirations/hyperventilation Possible diabetic nephropathy Right nephrolithiasis VTE/DVT prophylaxis Plan: Intubation Nephrology requested with [place] control Insulin drip [place] prognosis 07/24/2021: [place] control Supportive care Insulin drip Bicarb drip Critical Care Ventilator Management JUSTINO ALDANA DO Jul 25, 2021 06:49
[2021-07-25 06:55] LABS: BILIRUBIN,TOTAL 0.4 MG/DL (0.1-1.0)
[2021-07-25] MEDS ORDERED: SODIUM BICARB 8.4% 50 MEQ/50 ML (ABBOTT) SYR IV ONE (07:30)
[2021-07-25] MEDS: PANTOPRAZOLE 40 MG (PROTONIX) VIAL IV SCH (08:10)
[2021-07-25] MEDS: NOREPINEPHRINE 8 MG/250 ML 250 ML IV SCH ×2 (08:55→21:39)
[2021-07-25] MEDS ORDERED: MIDAZOLAM 5 MG/5 ML (VERSED) VIAL IVP PRN (10:15)
[2021-07-25] MEDS ORDERED: fentaNYL INJ 100 MCG/2 ML AMP IVP PRN (10:15)
[2021-07-25] MEDS ORDERED: LORazepam INJ 2 MG/ML (ATIVAN) VIAL IVP PRN (10:15)
[2021-07-25] MEDS ORDERED: MIDAZOLAM DRIP PRE-MIX 100 ML IV ONE (10:16)
[2021-07-25] MEDS: MIDAZOLAM DRIP PRE-MIX 100 ML IV SCH ×2 (10:29→20:01)
[2021-07-25 10:50] VITALS: BP 134/87
[2021-07-25 11:16] LABS: CALCIUM 6.4 MG/DL (8.5-10.1); CREATININE SERUM 4.27 MG/DL (0.60-1.30); POTASSIUM 3.6 MMOL/L (3.6-5.0)
--- NOTE | 2021-07-25 11:44 | Tele-ICU Progress Note ---
Subjective Date Seen by a Provider: Jul 25, 2021 Time Seen by a Provider: 09:56 Sepsis Event Evaluation Height, Weight, BMI Height: 5'" Weight: 220lbs. oz. 99.070055zo; 37.60 BMI Method:Stated Exam Exam Patient acknowledged, consented, and participated in this virtual visit which was conducted using real time audio/video Vital Signs Date Time Temp Pulse Resp B/P (MAP) Pulse Ox O2 Delivery O2 Flow Rate FiO2 07/25/21 11:00 36.9 64 11 94 Mechanical Ventilator 21.00 07/25/21 10:49 64 20 103/72 07/25/21 10:48 64 103/72 07/25/21 10:29 64 20 103/72 07/25/21 10:00 36.7 64 20 95 Mechanical Ventilator 21.00 07/25/21 09:00 36.5 64 19 95 Mechanical Ventilator 21.00 07/25/21 08:55 64 103/72 07/25/21 08:12 64 103/72 07/25/21 08:11 64 103/72 07/25/21 08:00 36.5 64 10 95 Mechanical Ventilator 21.00 07/25/21 07:00 36.4 64 17 96 Mechanical Ventilator 21.00 07/25/21 07:00 64 07/25/21 06:00 36.5 65 21 95 Mechanical Ventilator 21.00 07/25/21 05:00 36.5 63 17 97 Mechanical Ventilator 21.00 07/25/21 04:55 63 07/25/21 04:20 Mechanical Ventilator 21 07/25/21 04:07 64 07/25/21 04:07 103/72 07/25/21 04:00 36.5 64 21 96 Mechanical Ventilator 21.00 07/25/21 03:00 36.6 65 21 96 Mechanical Ventilator 21.00 07/25/21 02:17 65 28 95 21 07/25/21 02:00 36.7 64 19 94 Mechanical Ventilator 21.00 07/25/21 01:00 65 07/25/21 01:00 36.9 65 17 95 Mechanical Ventilator 21.00 07/25/21 00:13 65 07/25/21 00:13 109/73 07/25/21 00:00 36.9 65 16 94 Mechanical Ventilator 21.00 07/24/21 23:33 Mechanical Ventilator 21 07/24/21 23:00 36.9 66 16 94 Mechanical Ventilator 21.00 07/24/21 22:35 63 07/24/21 22:06 67 31 96 21 07/24/21 22:00 37.0 66 18 96 Mechanical Ventilator 21.00 07/24/21 21:02 108/74 07/24/21 21:00 37.1 67 19 96 Mechanical Ventilator 21.00 07/24/21 20:45 96 Mechanical Ventilator 21 07/24/21 20:00 37.2 66 20 95 Mechanical Ventilator 21.00 07/24/21 19:43 37.2 67 24 94 Mechanical Ventilator 21.00 07/24/21 19:00 65 07/24/21 19:00 37.2 65 21 96 Mechanical Ventilator 21.00 07/24/21 18:59 90/64 07/24/21 18:58 61/62 07/24/21 18:48 64 26 100 30 07/24/21 18:00 37.3 68 20 99 Mechanical Ventilator 30.00 07/24/21 17:00 37.4 68 24 98 Mechanical Ventilator 30.00 07/24/21 16:02 104/75 07/24/21 16:00 97 Mechanical Ventilator 30 07/24/21 16:00 37.4 68 97 Mechanical Ventilator 30.00 07/24/21 15:00 37.4 71 20 97 Mechanical Ventilator 30.00 07/24/21 14:00 37.2 70 23 94 Mechanical Ventilator 30.00 07/24/21 13:44 72 27 93 30 07/24/21 13:04 69 111/78 07/24/21 13:04 111/78 07/24/21 13:00 73 07/24/21 13:00 37.0 70 18 93 Mechanical Ventilator 30.00 07/24/21 12:00 37.1 07/24/21 12:00 96 Mechanical Ventilator 30 07/24/21 12:00 37.1 70 19 94 Mechanical Ventilator 30.00 I & O 07/25/21 07:00 Intake Total 3480 ml Output Total 625 ml Balance 2855 ml Height & Weight Height: 5'" Weight: 220lbs. oz. 99.302688mi; 37.60 BMI Method:Stated General Appearance: Chronically ill, Obese, Other (Sedated and intubated) HEENT: PERRL/EOMI, TMs Normal, Pharynx Normal, Other (dry blood on top teeth with no visible trauma seen) Neck: Full Range of Motion, Normal Inspection, Non Tender, Supple, Other (no meningismus) Respiratory: Decreased Breath Sounds Cardiovascular: Regular Rate, Rhythm Capillary Refill: Greater Than 3 Seconds Extremity: Normal Capillary Refill, Normal Inspection, Normal Range of Motion, Non Tender, No Calf Tenderness, No Pedal Edema Neurologic/Psychiatric: Disoriented, Other (lethargic) Skin: Normal Color, Warm/Dry Lymphatic: No Adenopathy Results Lab Laboratory Tests 07/23/21 15:57 07/23/21 22:10 07/24/21 04:00 07/24/21 10:30 07/24/21 17:10 07/24/21 23:20 07/25/21 05:08 07/25/21 10:40 Assessment/Plan Assessment/Plan (Tele-ICU Physician , Progress Note ) Available chart/ vitals / labs / Images reviewed Video assessment done using teleICU camera, rest of exam as per RN Discussed with RN , EXAM PER RN Events overnight : Afebrile FiO2 -ra I/O = 5 L positive Drips: insulin , precedex Pressors: LEVO 0.03 Sedation gtt: ( RASS -3 prorpofol 60 VENT SETTINGS and ABG reviewed Not candidate for SBT today REVIEWED Cardiovascular Stability / Sedation Score / FI02/PEEP / ABG / CXR A/P ARF - cont vent support , follow DKA *Insulin drip continue to monitor for resolution of acidosis, AG and electrolytes. Continue hydration. MARY - worse -CT - No obstructive uropathy - cont IVF - follow closely Acidosis , metabolic - MARY + DKA , etylenglycol pending - cont bicarn gtt Leukocytosis - empiric ABX given , follow - cx probably contaminant COVID + Thrombocutopenia - ? etiology , ? DIC - sent HIPA - sent Dddimer - if very high migh need agatroban and additional w/up Agitation , confusion on tresentation - CTH neg - follow off sedation Lines : (Central Line Necessity Reviewed) Tucker: + OG: + Nutrition: throphic Analgesia: Anxiety/ delirium VTE Prophylaxis:scd Stress Ulcer Prophylaxis: ppi Plans in collaboration with bedside consultants and IM MDs. Discussed with RN to reach out if any questions or concerns A total of 31minutes of critical care time was devoted to this patient today, required to treat and/or prevent further deterioration of critical care condition ( as above) MEL HENRIQUEZ MD Jul 25, 2021 11:44
[2021-07-25 15:05] VITALS: BP 104/68
[2021-07-25] MEDS ORDERED: NS IV 1000 ML 1,000 ML ONE (17:06)
[2021-07-25] MEDS: NS IV 1000 ML 1,000 ML IV SCH ×2 (17:29→21:40)
[2021-07-25 18:01] LABS: POTASSIUM 3.5 MMOL/L (3.6-5.0)
[2021-07-25 18:02] LABS: CALCIUM 6.3 MG/DL (8.5-10.1)
[2021-07-25 18:07] LABS: CREATININE SERUM 4.27 MG/DL (0.60-1.30)
[2021-07-25 18:58] VITALS: BP 100/62
--- NOTE | 2021-07-25 20:26 | Discharge Summary ---
Discharge Summary Hospital Course Was the Problem List Reviewed?: Yes Problems/Dx: (1) Acute kidney failure (2) Metabolic acidosis (3) COVID-19 (4) DKA (diabetic ketoacidosis) Status: Acute Qualifiers: Qualified Codes: E11.10 - Type 2 diabetes mellitus with ketoacidosis without coma (5) Altered mental status Status: Acute Qualifiers: Qualified Codes: R41.82 - Altered mental status, unspecified (6) Lactic acidosis Status: Acute Hospital Course Date of Admission: Jul 21, 2021 at 11:31 Admission Diagnosis : Family Physician/Provider: America Ho Aprn Date of Discharge: 07/25/21 Discharge Diagnosis: Acute hypoxic respiratory failure, COVID-19 pneumonia, DKA, profound acute kidney failure requiring nephrology referral Hospital Course: Patient had a lengthy hospital course after she was admitted for DKA with COVID- 19 pneumonia and ultimately worsened to the point of requiring intubation for clinical stability. Patient had a dramatic increase in creatinine which cont inued to worsen admission control was contacted doing more days to obtain a bed for higher level of care for nephrology due to high risk for dialysis requirement. Yudith her aunt was updated and agreed with the plan. Poor prognosis. Labs and Pending Lab Test: Laboratory Tests 07/24/21 21:01: Glucometer 246H 07/24/21 21:52: Glucometer 235H 07/24/21 22:53: Glucometer 236H 07/24/21 23:20: Sodium Level 127L, Potassium Level 3.3L, Chloride Level 103, Carbon Dioxide Level 12L, Anion Gap 12, Blood Urea Nitrogen 32H, Creatinine 4.13#H, Estimat Glomerular Filtration Rate 14, BUN/Creatinine Ratio 8, Glucose Level 240H, Calcium Level 6.7L 07/25/21 00:12: Glucometer 216H 07/25/21 00:49: Glucometer 220H 07/25/21 02:01: Glucometer 178H 07/25/21 03:04: Glucometer 197H 07/25/21 04:04: Glucometer 162H 07/25/21 04:59: Glucometer 188H 07/25/21 05:00: Blood Gas Puncture Site ARTLINE, Blood Gas Patient Temperature 36.5, Arterial Blood pH 7.31*L, Arterial Blood Partial Pressure CO2 21L, Arterial Blood Partial Pressure O2 80, Arterial Blood HCO3 10*L, Arterial Blood Total CO2 10.8L, Arterial Blood Oxygen Saturation 96, Arterial Blood Base Excess -15.1L, Robert Test ART LINE, Blood Gas Ventilator Setting YES, Blood Gas Inspired Oxygen 21% 07/25/21 05:08: White Blood Count 4.8, Red Blood Count 3.54L, Hemoglobin 10.8L, Hematocrit 31L, Mean Corpuscular Volume 88, Mean Corpuscular Hemoglobin 31, Mean Corpuscular Hemoglobin Concent 35, Red Cell Distribution Width 13.9, Platelet Count 109L, Mean Platelet Volume 10.6, Immature Granulocyte % (Auto) 1, Neutrophils (%) (Auto) 85H, Lymphocytes (%) (Auto) 8L, Monocytes (%) (Auto) 6, Eosinophils (%) (Auto) 0, Basophils (%) (Auto) 0, Neutrophils # (Auto) 4.1, Lymphocytes # (Auto) 0.4L, Monocytes # (Auto) 0.3, Eosinophils # (Auto) 0.0, Basophils # (Auto) 0.0, Immature Granulocyte # (Auto) 0.1, Neutrophils % (Manual) 82, Lymphocytes % (Manual) 9, Monocytes % (Manual) 3, Eosinophils % (Manual) 1, Band Neutrophils 5, Percent Immature Platelet Fraction 3.5, Sodium Level 128L, Potassium Level 4.0, Chloride Level 104, Carbon Dioxide Level 10L, Anion Gap 14, Blood Urea Nitrogen 32H, Creatinine 4.13H, Estimat Glomerular Filtration Rate 14, BUN/Creatinine Ratio 8, Glucose Level 191H, Calcium Level 6.5L, Corrected Calcium 7.9L, Phosphorus Level 4.3, Magnesium Level 1.5L, Total Bilirubin 0.4, A spartate Amino Transf (AST/SGOT) 163H, Alanine Aminotransferase (ALT/SGPT) 133H, Alkaline Phosphatase 117, Total Protein 4.9L, Albumin 2.2L, Triglycerides Level 685H, Beta-Hydroxybutyrate (Chem panel) 0.10 07/25/21 06:01: Glucometer 146H 07/25/21 06:56: Glucometer 193H 07/25/21 08:06: Glucometer 161H 07/25/21 09:09: Glucometer 159H 07/25/21 10:40: D-Dimer 1.82H, Sodium Level 127L, Potassium Level 3.6, Chloride Level 104, Carbon Dioxide Level 11L, Anion Gap 12, Blood Urea Nitrogen 33H, Creatinine 4.27H, Estimat Glomerular Filtration Rate 13, BUN/Creatinine Ratio 8, Glucose Level 186H, Calcium Level 6.4L, Heparin-Induced Platelet Ab (Lorin) [Pending] 07/25/21 10:41: Glucometer 178H 07/25/21 11:09: Glucometer 147H 07/25/21 12:37: Glucometer 151H 07/25/21 13:24: Glucometer 147H 07/25/21 14:26: Glucometer 118H 07/25/21 15:32: Glucometer 129H 07/25/21 16:31: Glucometer 120H 07/25/21 17:25: Sodium Level 128L, Potassium Level 3.5L, Chloride Level 103, Carbon Dioxide Level 12L, Anion Gap 13, Blood Urea Nitrogen 32H, Creatinine 4.27H, Estimat Glomerular Filtration Rate 13, BUN/Creatinine Ratio 7, Glucose Level 155H, Calcium Level 6.3L 07/25/21 17:26: Glucometer 114H 07/25/21 18:31: Glucometer 92 07/25/21 19:32: Glucometer 73 Microbiology 07/24/21 Urine Culture - Preliminary, Resulted YEAST 07/21/21 Blood Culture - Preliminary, Resulted No growth Home Meds Active Reported Omeprazole 40 Mg Capsule.dr 40 Mg PO DAILY Hydroxyzine Pamoate 50 Mg Capsule 50-100 Mg PO HS PRN Sucralfate 1 Gm Tablet 1 Gm PO ACHS Doxepin HCl 25 Mg Capsule 25 Mg PO HS Ibuprofen 800 Mg Tablet 800 Mg PO Q8H PRN Assessment/Pt Instructions Transfer to higher level care Discharge Planning: <30 minutes discharge planning Discharge Physical Examination Vital Signs Vital Signs Date Time Temp Pulse Resp B/P (MAP) Pulse Ox O2 Delivery O2 Flow Rate FiO2 07/25/21 20:03 105/62 07/25/21 20:01 78 07/25/21 19:59 37.4 24 92 Mechanical Ventilator 35.00 07/25/21 18:58 35 Allergies: Coded Allergies: No Known Drug Allergies (Unverified , 07/26/10) Discharge Summary Date of Admission Jul 21, 2021 at 11:31 Date of Discharge Admission Diagnosis Assessment: COVID 19 infection Severe DKA Metabolic acidosis AMS MARY Obese BMI 32 Plan: Insulin drip O2 Likely will require intubation Discharge Diagnosis Assessment: Acute hypoxic respiratory failure requiring intubation on 07/23/2021 0145 DKA Insulin-dependent diabetes mellitus, suspicion for poor glycemic control Acute kidney failure needs nephrology and possible dialysis-[place] control and trying to find bed COVID infection Presumed bipolar disorder with history of Vraylar prescription Elevated AST/ALT, likely due to steatotic liver disease LBBB BMI 38.4 Hypocalcemia, possibly secondary to Kussmaul respirations/hyperventilation Possible diabetic nephropathy Right nephrolithiasis VTE/DVT prophylaxis Plan: Intubation Nephrology requested with [place] control Insulin drip Grave prognosis 07/24/2021: [place] control Supportive care Insulin drip Bicarb drJUSTINO Adams DO Jul 25, 2021 20:26
[2021-07-25 21:39] VITALS: BP 93/70
== END 2021-07-25 22:00 | disposition short-term general hospital (02) | DRG 208 ==
LOC: EDUNIT# 09:43 → ER FS 09:44 → ICU 11:31
PROVIDERS: ADMIT Internal Medicine; ATTEND Internal Medicine
PROC: 03HY32Z Insertion of Monitoring Device into Upper Artery, Percutaneous Approach (ICD-10-PCS; 2021-07-21)
PROC: 5A09357 Assistance with Respiratory Ventilation, Less than 24 Consecutive Hours, Continuous Positive Airway Pressure (ICD-10-PCS; 2021-07-22)
PROC: 5A1935Z Respiratory Ventilation, Less than 24 Consecutive Hours (ICD-10-PCS; principal; 2021-07-23)
PROC: 0BH18EZ Insertion of Endotracheal Airway into Trachea, Via Natural or Artificial Opening Endoscopic (ICD-10-PCS; 2021-07-23)
DX: U07.1 COVID-19 (principal); E10.10 Type 1 diabetes mellitus with ketoacidosis without coma; J96.01 Acute respiratory failure with hypoxia; J12.82 Pneumonia due to coronavirus disease 2019; N17.9 Acute kidney failure, unspecified; Z79.84 Long term (current) use of oral hypoglycemic drugs; E10.43 Type 1 diabetes mellitus with diabetic autonomic (poly)neuropathy; K31.84 Gastroparesis; E86.0 Dehydration; I10 Essential (primary) hypertension; F41.9 Anxiety disorder, unspecified; F31.9 Bipolar disorder, unspecified; K76.0 Fatty (change of) liver, not elsewhere classified; I44.7 Left bundle-branch block, unspecified; E83.51 Hypocalcemia; N20.0 Calculus of kidney; E66.9 Obesity, unspecified; E10.21 Type 1 diabetes mellitus with diabetic nephropathy; Z68.38 Body mass index [BMI] 38.0-38.9, adult; D72.829 Elevated white blood cell count, unspecified; D69.6 Thrombocytopenia, unspecified; R45.1 Restlessness and agitation
CPT/HCPCS: 36415; 36569; 36600; 51702; 70450; 70486; 71045; 71260; 72125; 74177; 76937; 80048; 80053; 80306; 80320; 80329; 81000; 82010; 82533; 82693; 82805; 82947; 83036; 83605; 83735; 83930; 84100; 84443; 84478; 84484; 84600; 84703; 85007; 85027; 85379; 85610; 85730; 86022; 87040; 87077; 87088; 87636; 87804; 93005; 94002; 94003; 94660; 94799; 96361; 96374; 96375; 96376; 99291; 99292

== ENCOUNTER 2021-10-18 22:18 | Emergency (ER) | payer MEDICAID ==
[~2021-10-18] VITALS: Ht 167 cm; Wt 95.0 kg
[~2021-10-18 22:18] MED LIST changes: +DOXE25CA46 PO; +FURO-125 PO; +HYDR50CA3 PO; +OMEP40CA6 PO; +SUCR1TAB PO
[2021-10-18 22:22] VITALS: BP 146/108
[2021-10-18] MEDS ORDERED: SITA1TAB2 PO (22:44)
[2021-10-18] MEDS ORDERED: GABA-490 PO (22:44)
[2021-10-18] MEDS ORDERED: PANT40TA52 PO (22:44)
[2021-10-18] MEDS ORDERED: CARV12.53 PO (22:44)
[2021-10-18] MEDS ORDERED: QUET25TA35 PO (22:44)
[2021-10-18] MEDS ORDERED: TRAZ-227 PO (22:44)
--- NOTE | 2021-10-18 22:49 | ED Lower Extremity ---
General Chief Complaint: Lower Extremity Stated Complaint: R CALF PAIN Source: patient History of Present Illness Date Seen by Provider: Oct 18, 2021 Time Seen by Provider: 22:35 Initial Comments This non- 31 y/o female has non-traumatic pain and swelling of right calf x 3 days and getting worse. no injury or fever or systemic sx; however, she is recently recovered from extended hospitalization for COVID that included multi-system failure and prolonged ventilator care w/ tracheostomy and transient renal failure w/ hemodialysis. She is also on depo-provera for control and is NOT on current blood thinner. No current chest pain, cough, or SOA more than baseline for her post-COVID state. Pain/Injury Location: right leg Method of Injury: unknown Allergies and Home Medications Allergies Coded Allergies: No Known Drug Allergies (Unverified , 07/26/10) Patient Home Medication List Home Medication List Reviewed: Yes Doxepin HCl (Doxepin HCl) 25 Mg Capsule, 25 MG PO HS, (Reported) Entered as Reported by: RESHMA WELLS on 07/22/21 1436 Furosemide (Lasix) 20 Mg Tablet, 40 MG PO DAILY Prescribed by: AURY KING on 10/11/21 1716 Hydroxyzine Pamoate (Hydroxyzine Pamoate) 50 Mg Capsule, 50-100 MG PO HS PRN for SLEEP, (Reported) Entered as Reported by: RESHMA WELLS on 07/22/21 1436 Ibuprofen (Ibuprofen) 800 Mg Tablet, 800 MG PO Q8H PRN for PAIN-MILD (1-4), (Reported) Entered as Reported by: AARON ROSSI on 01/28/16 1523 Omeprazole (Omeprazole) 40 Mg Capsule.dr, 40 MG PO DAILY, (Reported) Entered as Reported by: RESHMA WELLS on 07/22/21 1436 Sucralfate (Sucralfate) 1 Gm Tablet, 1 GM PO ACHS, (Reported) Entered as Reported by: RESHMA WELLS on 07/22/21 1436 Review of Systems Constitutional: No chills, No diaphoresis, No fever EENTM: no symptoms reported Respiratory: No cough, No hemoptysis; short of breath (mild, chronic); No stridor, No wheezing Cardiovascular: No chest pain; edema (RLE) Gastrointestinal: no symptoms reported Genitourinary: no symptoms reported Musculoskeletal: No back pain; muscle pain; No neck pain Skin: no symptoms reported Past Ngguyjd-Dhipzp-Hvmbgi Hx Immunizations Up To Date First/Initial COVID19 Vaccinat: n/a Second COVID19 Vaccination Willy: n/a Third COVID19 Vaccination Date: n/a Seasonal Allergies Seasonal Allergies: No Past Medical History Surgeries: Yes (DENTAL, Lithotripsy) Section, Dialysis, Tonsillectomy, Tracheostomy Respiratory: Yes (rspiratory failure from COVID several months ago) Cardiac: Yes Heart Attack (some "heart damage" during COVID), Hypertension Neurological: No : No Reproductive Disorders: No Sexually Transmitted Disease: No Genitourinary: No Gastrointestinal: No Musculoskeletal: No Endocrine: No HEENT: No Cancer: No Psychosocial: Yes Anxiety, Depression Integumentary: No Blood Disorders: Yes (ANEMIA) Physical Exam Vital Signs Capillary Refill : Height, Weight, BMI Height: 5'" Weight: 220lbs. oz. 99.655235oa; 34.00 BMI Method:Stated General Appearance: no apparent distress Procedures/Interventions Date of ETT Placement: Jul 23, 2021 Time of ETT Placement: 204 Progress/Results/Core Measures Progress Progress Note : Progress Note Clinical signs suspicious for DVT, but medically complicated patient that has significant comorbidities that warrant accurate dx. We do not have US and neither does [facility]. Dr Osorio accepts for [place] as ER to ER transfer Departure Impression Primary Impression: Right calf pain Disposition: SHT-TRM HOSP Condition: Stable Transfer Transfer Reason: Exceeds level of care [facility] [place] [facility] Method of Transfer: EMS Departure-Patient Inst. Referrals: PEGGY CHI APRN (PCP) Primary Care Physician [facility] (Family) Primary Care Physician MAGDIEL FITZGERALD MD Oct 18, 2021 22:49
== END 2021-10-19 01:55 | disposition short-term general hospital (02) ==
LOC: EDUNIT# 22:18 → ER FS 22:18
DX: M79.661 Pain in right lower leg (principal)